=== PATIENT | male | born 1930 | race African-American/Black ===

== ENCOUNTER 2016-09-24 18:42 | Emergency (ER) | payer MEDICAID, MEDICARE ==
--- NOTE | 2016-09-24 18:49 | ER Document Report ---
ED Medical Screen (RME) - General Stated Complaint: EAR PAIN Notes: Left ear pain for 3 days. I greeted and performed a rapid initial assessment of this patient. Comprehensive ED assessment and evaluation of the patient, analysis of test results and completion of the medical decision making process will be conducted by additional ED providers. TRAVEL OUTSIDE OF THE [place] IN LAST 30 DAYS: No - Related Data Allergies/Adverse Reactions: lorazepam [From Ativan] Adverse Reaction (Severe, Verified 07/23/14 05:12) Abnormal behavior Past Medical History - Past Medical History Cardiac Medical History: Reports: Hx Hypercholesterolemia, Hx Hypertension, Hx Peripheral Vascular Disease Pulmonary Medical History: Reports: Hx Pneumonia Neurological Medical History: Reports: Hx Cerebrovascular Accident, Hx Seizures Malignancy Medical History: Reports Hx Prostate Cancer GI Medical History: Reports: Hx Gastroesophageal Reflux Disease Musculoskeltal Medical History: Reports Hx Arthritis Psychiatric Medical History: Denies: Hx Depression Past Surgical History: Reports: Hx Orthopedic Surgery - Right knee, Hx Vascular Surgery - Immunizations Immunizations up to date: No Hx Diphtheria, Pertussis, Tetanus Vaccination: Yes
[2016-09-24 18:50] VITALS: BP 142/61
[2016-09-24] MEDS ORDERED: ACETAMINOPHEN 325 MG TABLET PO ONE (19:11)
--- NOTE | 2016-09-24 19:11 | ER Document Report ---
[id number] Notes: The patient is an 86-year-old male, past medical history hypertension, presents with 3 days of left ear pain. He has not taken anything to help. Denies drainage, fevers, headache or increased difficulty hearing. TRAVEL OUTSIDE OF THE [place] IN LAST 30 DAYS: No - Related Data Allergies/Adverse Reactions: lorazepam [From Ativan] Adverse Reaction (Severe, Verified 09/24/16 18:50) Abnormal behavior Past Medical History - General Information source: Relative - Social History Smoking Status: Never Smoker Chew tobacco use (# tins/day): No Frequency of alcohol use: None Drug Abuse: None Family History: Reviewed & Not Pertinent Patient has suicidal ideation: No Patient has homicidal ideation: No - Past Medical History Cardiac Medical History: Reports: Hx Hypercholesterolemia, Hx Hypertension, Hx Peripheral Vascular Disease Pulmonary Medical History: Reports: Hx Pneumonia Neurological Medical History: Reports: Hx Cerebrovascular Accident, Hx Seizures Renal/ Medical History: Denies: Hx Peritoneal Dialysis Malignancy Medical History: Reports Hx Prostate Cancer GI Medical History: Reports: Hx Gastroesophageal Reflux Disease Musculoskeltal Medical History: Reports Hx Arthritis Psychiatric Medical History: Denies: Hx Depression Past Surgical History: Reports: Hx Orthopedic Surgery - Right knee, Hx Vascular Surgery - Immunizations Immunizations up to date: No Hx Diphtheria, Pertussis, Tetanus Vaccination: Yes Hx Pneumococcal Vaccination: 10/28/09 Review of Systems - Review of Systems Notes: REVIEW OF SYSTEMS: CONSTITUTIONAL: -fevers, -chills EENT: -eye pain, -difficulty swallowing, -nasal congestion, +left ear pain CARDIOVASCULAR:-chest pain, -syncope. RESPIRATORY: -cough, -SOB GASTROINTESTINAL: -abdominal pain, - nausea, -vomiting, -diarrhea GENITOURINARY: -dysuria, -hematuria MUSCULOSKELETAL: -back pain, -neck pain SKIN: -rash or skin lesions. HEMATOLOGIC: -easy bruising or bleeding. LYMPHATIC: -swollen, enlarged glands. NEUROLOGICAL: -altered mental status or loss of consciousness, -headache, - neurologic symptoms PSYCHIATRIC: -anxiety, -depression. ALL OTHER SYSTEMS REVIEWED AND NEGATIVE. Physical Exam - Vital signs Vitals: Temp Pulse BP Pulse Ox 97.9 F 56 L 142/61 H 98 09/24/16 18:49 09/24/16 18:49 09/24/16 18:49 09/24/16 18:49 - Notes Notes: PHYSICAL EXAMINATION: GENERAL: Well-appearing, well-nourished and in no acute distress. HEAD: Atraumatic, normocephalic. EYES: Pupils equal round and reactive to light, extraocular movements intact, sclera anicteric, conjunctiva are normal. ENT: Cerumen impaction in left ear. nares patent, oropharynx clear without exudates. Moist mucous membranes. NECK: Normal range of motion, supple without lymphadenopathy LUNGS: Breath sounds clear to auscultation bilaterally and equal. No wheezes rales or rhonchi. HEART: Regular rate and rhythm without murmurs ABDOMEN: Soft, nontender, normoactive bowel sounds. No guarding, no rebound. No masses appreciated. EXTREMITIES: Normal range of motion, no pitting or edema. No cyanosis. NEUROLOGICAL: Cranial nerves grossly intact. Normal speech, normal gait. Normal sensory, motor, and reflex exams. PSYCH: Normal mood, normal affect. SKIN: Warm, Dry, normal turgor, no rashes or lesions noted. Course - Re-evaluation Re-evalutation: Cerumen removed. TM appears clear. Will provide Debrox drops and follow-up with ENT. - Vital Signs Vital signs: Temp Pulse Resp BP Pulse Ox 97.9 F 56 L 16 142/61 H 98 09/24/16 18:49 09/24/16 18:49 09/24/16 18:50 09/24/16 18:49 09/24/16 18:49 Procedures - Additional Procedures Cerumen Removal Time performed: 19:23 Notes: Left ear cerumen removed with irrigation with saline. Patient tolerated procedure well. Discharge - Discharge Clinical Impression: Excessive cerumen in left ear canal Condition: Good Disposition: HOME, SELF-CARE Additional Instructions: Cerumen Impaction The physician found a severe buildup of earwax in your ear canal, called a cerumen impaction. A large plug of wax can cause earache, decreased hearing, or itching. It can even lead to infection of the outer ear. An impaction of earwax can be removed by the physician using special instruments, or can be irrigated out using a stream of water (often a little of both is required). Some less severe impactions are removed using ear drops that dissolve wax. In the future, don't get soap in your ear canal. Soap doesn't remove wax - - it simply hardens it in place. Don't use cotton swabs. These just push the wax into large clumps, where it doesn't flow out normally. Dust and smoke also contribute to wax buildup. Earwax softening drops are available without prescription, and can be used periodically. Contact the doctor if you develop decreased hearing, earache, drainage from the ear, or severe headache. Prescriptions: Carbamide Peroxide [Debrox 6.5 % Otic Drops 15 ml] 10 drop OT Q6H #1 bottle Referrals: ARYAN MONOTYA MD [[facility]] - Follow up as needed
== END 2016-09-24 19:20 | disposition home or self-care (01) ==
LOC: ER 18:42
DX: H61.22 Impacted cerumen, left ear (principal); H92.02 Otalgia, left ear; I10 Essential (primary) hypertension; E78.00 Pure hypercholesterolemia, unspecified; K21.9 Gastro-esophageal reflux disease without esophagitis; Z86.73 Personal history of transient ischemic attack (TIA), and cerebral infarction without residual deficits
CPT/HCPCS: 99282; A9270

== ENCOUNTER 2016-09-28 11:45 | Emergency (ER) | payer MEDICARE ==
[2016-09-28 11:57] VITALS: BP 123/56
--- NOTE | 2016-09-28 11:59 | ER Document Report ---
ED Medical Screen (RME) - General Stated Complaint: LEFT EAR PAIN Notes: 86 yo male c/o left ear pain x 3-4 days. pt was seen in ED Monday for same, Dx with cerumen impaction. Ear was irrigated, but says pain has continued. no bleeding or drainage. no fever. TRAVEL OUTSIDE OF THE [place] IN LAST 30 DAYS: No - Related Data Allergies/Adverse Reactions: lorazepam [From Ativan] Adverse Reaction (Severe, Verified 09/28/16 12:00) Abnormal behavior Past Medical History - Past Medical History Cardiac Medical History: Reports: Hx Hypercholesterolemia, Hx Hypertension, Hx Peripheral Vascular Disease Pulmonary Medical History: Reports: Hx Pneumonia Neurological Medical History: Reports: Hx Cerebrovascular Accident, Hx Seizures Renal/ Medical History: Denies: Hx Peritoneal Dialysis Malignancy Medical History: Reports Hx Prostate Cancer GI Medical History: Reports: Hx Gastroesophageal Reflux Disease Musculoskeltal Medical History: Reports Hx Arthritis Psychiatric Medical History: Denies: Hx Depression Past Surgical History: Reports: Hx Orthopedic Surgery - Right knee, Hx Vascular Surgery - Immunizations Immunizations up to date: No Hx Diphtheria, Pertussis, Tetanus Vaccination: Yes Physical Exam - Vital signs Vitals: Temp Pulse Resp BP Pulse Ox 97.9 F 52 L 20 123/56 L 100 09/28/16 11:56 09/28/16 11:56 09/28/16 11:56 09/28/16 11:56 09/28/16 11:56 Course - Vital Signs Vital signs: Temp Pulse Resp BP Pulse Ox 97.9 F 52 L 20 123/56 L 100 09/28/16 11:56 09/28/16 11:56 09/28/16 11:56 09/28/16 11:56 09/28/16 11:56
--- NOTE | 2016-09-28 13:24 | ER Document Report ---
ED ENT - General Chief Complaint: Ear Pain Stated Complaint: LEFT EAR PAIN Notes: Patient is complaining of persistent pain in his left ear which is been bothering him for about a week or so. He was seen here just 4 days ago and the chart reflects that he had cerumen impacted in the right canal and it was removed and they did not find anything else so put him on Debrox eardrops. Patient has been using them but with no relief. The pain is just in the left ear and it's painful to be touched or moved. It's "throbbing and beating". Has never had this in the past. Does not have headaches. Has not had any fever. No chest pain. No vomiting or diarrhea. No problems with vision. No rash present. TRAVEL OUTSIDE OF THE [place] IN LAST 30 DAYS: No - Related Data Allergies/Adverse Reactions: lorazepam [From Ativan] Adverse Reaction (Severe, Verified 09/28/16 12:00) Abnormal behavior Past Medical History - Social History Smoking Status: Never Smoker Cigarette use (# per day): No Chew tobacco use (# tins/day): No Frequency of alcohol use: None Drug Abuse: None Family History: Reviewed & Not Pertinent Patient has suicidal ideation: No Patient has homicidal ideation: No - Past Medical History Cardiac Medical History: Reports: Hx Hypercholesterolemia, Hx Hypertension, Hx Peripheral Vascular Disease Pulmonary Medical History: Reports: Hx Pneumonia Neurological Medical History: Reports: Hx Cerebrovascular Accident, Hx Seizures - No seizures for many years. Currently taking Keppra. Endocrine Medical History: Denies: Hx Diabetes Mellitus Type 1, Hx Diabetes Mellitus Type 2 Malignancy Medical History: Reports Hx Prostate Cancer GI Medical History: Reports: Hx Gastroesophageal Reflux Disease Musculoskeltal Medical History: Reports Hx Arthritis Past Surgical History: Reports: Hx Orthopedic Surgery - Right knee, Hx Vascular Surgery - Immunizations Immunizations up to date: No Hx Diphtheria, Pertussis, Tetanus Vaccination: Yes Hx Pneumococcal Vaccination: 10/28/09 Review of Systems - Review of Systems -: Yes ROS unobtainable due to patient's medical condition - Patient is very hard of hearing and doesn't answer questions put to him. Constitutional: denies: Fever Cardiovascular: denies: Chest pain Respiratory: denies: Cough, Short of breath, Wheezing Gastrointestinal: denies: Abdominal pain Neurological/Psychological: No symptoms reported - Hard of hearing Physical Exam - Vital signs Vitals: Temp Pulse Resp BP Pulse Ox 97.9 F 52 L 20 123/56 L 100 09/28/16 11:56 09/28/16 11:56 09/28/16 11:56 09/28/16 11:56 09/28/16 11:56 Interpretation: Normal - Notes Notes: PHYSICAL EXAMINATION: GENERAL: Well-appearing, in no acute distress. Neuro exam: Patient understands what's being said to him, but he is very hard of hearing and is difficult to get him to answer any questions. That makes a review of systems very limited. Patient uses a walker for routine ambulation. He does not have it with him. He can move all 4 extremities equally. HEAD: Atraumatic, normocephalic. ENT: oropharynx clear without exudates. Moist mucous membranes. Patient has tenderness to the touch around the left auditory meatus. The canal has apparent liquid drops in and making visualization of any the structures almost impossible. There is no significant soft tissue swelling visible nor palpable around the external ear. No erythema. Patient's very hard of hearing. NECK: Normal range of motion, supple. LUNGS: Breath sounds clear and equal bilaterally. HEART: Regular rate and rhythm without murmurs. ABDOMEN: Soft, nontender. No guarding or rebound. BACK: No tenderness throughout entire back. EXTREMITIES: Normal range of motion without pain. PSYCH: Normal mood, normal affect. SKIN: Warm, dry, no rashes. Course - Re-evaluation Re-evalutation: 09/28/16 14:24 I called the ENT office and found that this patient has an appointment on the of this month, a week from now. They were able to check their availability and move him forward and see him tomorrow at 1 PM area and I think that's a reasonable timeframe to have this rechecked given that the patient does not have a fever, does not have any swelling, erythema, rash, or any other findings that would indicate a more urgently needed appointment. Patient is being given a prescription for 6 Percocet 2.5 mg for pain. - Vital Signs Vital signs: Temp Pulse Resp BP Pulse Ox 97.9 F 52 L 20 123/56 L 100 09/28/16 11:56 09/28/16 11:56 09/28/16 11:56 09/28/16 11:56 09/28/16 11:56 Discharge - Discharge Clinical Impression: Left ear pain Condition: Stable Disposition: HOME, SELF-CARE Additional Instructions: OTITIS EXTERNA: You likely have otitis externa -- an infection of the outer ear canal. This can be very painful. It's sometimes called "swimmer's ear," because it often occurs after prolonged water exposure. Many things, such as earwax and dirt in the ear, can contribute to it. The usual treatment is antibiotic/antiinflammatory ear drops. Occasionally , a wick will be placed in the ear to draw in the medicine. If the infection is severe, an oral antibiotic may be prescribed. Pain medication is often needed. Avoid getting water in the ear. Outer ear infections often take longer to heal than you might expect. Some tenderness and ache in the ear may persist for about two weeks. See your physician if you fail to improve as expected. Call the doctor at once if you develop fever, increasing swelling (particularly if it makes your ear "poke out"), severe headache, stiff neck, or decreased hearing. Stop using the eardrops that you were previously prescribed. ORAL NARCOTIC MEDICATION: You have been given a prescription for pain control. This medication is a narcotic. It's best taken with food, as nausea can result if taken on an empty stomach. Don't operate machinery or drive within six hours of taking this medication. Do not combine this medicine with alcohol, or with any medication which can cause sedation (such as cold tablets or sleeping pills) unless you get permission from the physician. Narcotics tend to cause constipation. If possible, drink plenty of fluids and eat a diet high in fiber and fruits. FOLLOW-UP CARE: If you have been referred to a physician for follow-up care, call the physician s office for an appointment as you were instructed or within the next two days. If you experience worsening or a significant change in your symptoms, notify the physician immediately or return to the Emergency Department at any time for re-evaluation. It is essential that you make it to your rescheduled appointment to be seen by the ear nose and throat doctors at 1 PM tomorrow, , September 29. Prescriptions: Oxycodone HCl/Acetaminophen [Percocet 2.5-325 Mg Tablet] 1 each PO Q6HP PRN #6 tablet PRN Reason: Referrals: MEHDI LAWSON MD [Primary Care Provider] - Follow up as needed [facility] - 09/29/16 1:00 pm
== END 2016-09-28 13:30 | disposition home or self-care (01) ==
LOC: ER 11:45
DX: H92.02 Otalgia, left ear (principal); I10 Essential (primary) hypertension; H91.90 Unspecified hearing loss, unspecified ear; Z86.73 Personal history of transient ischemic attack (TIA), and cerebral infarction without residual deficits
CPT/HCPCS: 99282

== ENCOUNTER 2017-04-11 13:51 | Emergency (ER) | payer MEDICARE, MEDICAID ==
--- NOTE | 2017-04-11 14:51 | ER Document Report ---
ED Seizure - General Chief Complaint: Probable Seizure Stated Complaint: SEIZURE Time Seen by Provider: 04/11/17 14:48 Notes: Patient was brought by EMS for a seizure. Patient's son apparently called EMS to transport the patient. They were told that the patient has had a single seizure lasting several minutes, maybe 5 minutes. Patient has a history of seizure and is on Keppra. He did not appear to have any bowel or urinary incontinence. Does not have any evidence of any injuries or trauma. Patient has a history of dementia and is not a very helpful historian. No family members here with the patient and from what I am told, the patient's son is declining to come to the emergency department. Patient does not provide any other helpful information. - Related Data Allergies/Adverse Reactions: lorazepam [From Ativan] Adverse Reaction (Severe, Verified 09/28/16 12:00) Abnormal behavior Past Medical History - Social History Smoking Status: Unknown if Ever Smoked Family History: Reviewed & Not Pertinent - Past Medical History Cardiac Medical History: Reports: Hx Hypercholesterolemia, Hx Hypertension, Hx Peripheral Vascular Disease Pulmonary Medical History: Reports: Hx Pneumonia Neurological Medical History: Reports: Hx Cerebrovascular Accident, Hx Seizures - No seizures for many years. Currently taking Keppra. Endocrine Medical History: Denies: Hx Diabetes Mellitus Type 1, Hx Diabetes Mellitus Type 2 Renal/ Medical History: Denies: Hx Peritoneal Dialysis Malignancy Medical History: Reports Hx Prostate Cancer GI Medical History: Reports: Hx Gastroesophageal Reflux Disease Musculoskeltal Medical History: Reports Hx Arthritis Psychiatric Medical History: Denies: Hx Depression Past Surgical History: Reports: Hx Orthopedic Surgery - Right knee, Hx Vascular Surgery - Immunizations Immunizations up to date: No Hx Diphtheria, Pertussis, Tetanus Vaccination: Yes Hx Pneumococcal Vaccination: 10/28/09 Review of Systems - Review of Systems -: Yes ROS unobtainable due to patient's medical condition - Patient has dementia and does not answer questions appropriately. Physical Exam - Vital signs Vitals: Temp Pulse Resp BP Pulse Ox 98.4 F 54 L 18 150/60 H 97 04/11/17 14:05 04/11/17 14:05 04/11/17 14:05 04/11/17 14:05 04/11/17 14:05 Interpretation: Normal - Notes Notes: PHYSICAL EXAMINATION: GENERAL: Well-appearing, in no acute distress. Vital signs are all stable. HEAD: Atraumatic, normocephalic. NECK: Normal range of motion, supple. LUNGS: Breath sounds clear and equal bilaterally. HEART: Regular rate and rhythm without murmurs. ABDOMEN: Soft, nontender. No guarding or rebound. BACK: No tenderness throughout entire back. EXTREMITIES: Normal range of motion without pain. NEUROLOGICAL: Normal speech, but confused and does not answer questions or follow commands appropriately. Moves all 4 extremities equally. He is awake and alert, but not oriented. PSYCH: Normal mood, normal affect. SKIN: Warm, dry, no rashes. Course - Re-evaluation Re-evalutation: 04/11/17 17:46 All the patient's lab work has come back essentially normal. Nothing that suggest an infectious process or a new condition. Discussed the patient with Dr. Truong, patient's private doctor. And he feels patient can be discharged office. Says the patient is usually noncompliant on his antiseizure medicines. 04/11/17 20:41 Patient was evaluated with lab studies that were all essentially normal. He remained stable throughout his stay. His vital signs remained stable. He did not have any seizure activity. - Vital Signs Vital signs: Temp Pulse Resp BP Pulse Ox 98.2 F 58 L 16 142/65 H 98 04/11/17 18:28 04/11/17 18:28 04/11/17 18:28 04/11/17 18:28 04/11/17 18:28 - Laboratory Result Diagrams: 04/11/17 15:30 04/11/17 15:30 Laboratory results interpreted by me: 04/11/17 04/11/17 04/11/17 15:30 15:30 15:40 RBC 3.71 L Hgb 11.7 L Hct 34.7 L Plt Count 139 L Chloride 109 H BUN 21 H ALT 17 L Total Protein 8.5 H Urine Blood SMALL H Discharge - Discharge Clinical Impression: Seizure Condition: Stable Disposition: HOME, SELF-CARE Additional Instructions: Seizure, Known Epileptic You have had a seizure. Seizures may "break through" in an epileptic due to stress of infection or injury, a change in blood chemistry, or drug and alcohol use. Another common cause is failure to take medication as prescribed. Your doctor has evaluated your situation for the likely cause of this seizure. It is important that you follow his advice concerning any medication changes and follow-up care. Further testing of anti-seizure medication levels in your blood may be necessary. If you have a road oiling truck driver's license, it's important that you DO NOT DRIVE until given permission by your physician. This seizure must be reported to the road oiling truck driver 's license bureau. Call the doctor or return if seizures recur, or if new or unusual symptoms arise -- such as severe headache, confusion, excessive sleepiness, local weakness or numbness, neck stiffness, or fever. NORMAL EXAM AND WORKUP: At this time, your examination and workup show no significant abnormality. No significant abnormal physical findings were noted. All laboratory, EKG, and imaging (x-ray, CT scans, ultrasound) studies that were ordered show no significant abnormality. Although your examination and all studies that were ordered showed no significant abnormal finding, there are no examinations and no studies that are 100% accurate. There is always the possibility that some abnormality could exist and not be detected with physical examination or within the limits and capabilities of laboratory and other studies. You should return or follow up as you were instructed on your visit today for further evaluation if your symptoms do not resolve. FOLLOW-UP CARE: If you have been referred to a physician for follow-up care, call the physician s office for an appointment as you were instructed or within the next two days. If you experience worsening or a significant change in your symptoms, notify the physician immediately or return to the Emergency Department at any time for re-evaluation. Follow-up with Dr. Truong, as planned. Take your seizure medicines as prescribed. Return if you have new or worsening symptoms. Referrals: MEHDI LAWSON MD [Primary Care Provider] - Follow up as needed
[2017-04-11 15:46] LABS: ABSOLUTE BASOPHILS # (AUTO) 0.1 10^3/uL (0.0-0.2); ABSOLUTE EOSINOPHILS # (AUTO) 0.2 10^3/uL (0.0-0.6); ABSOLUTE LYMPHOCYTES (AUTO) 1.2 10^3/uL (0.5-4.7); ABSOLUTE MONOCYTES (AUTO) 0.6 10^3/uL (0.1-1.4); ABSOLUTE NEUT (AUTO) 2.6 10^3/uL (1.7-8.2); BASOPHILS % (AUTO) 1.5 % (0-2); EOSINOPHILS % (AUTO) 3.2 % (0-6); HEMATOCRIT 34.7 % (37.9-51.0); HEMOGLOBIN 11.7 g/dL (13.5-17.0); HGB HCT DIFFERENCE 0.4; LYMPHOCYTES % (AUTO) 26.1 % (13-45); MEAN CORPUSCULAR HEMOGLOBIN 31.5 pg (27.0-33.4); MEAN CORPUSCULAR HGB CONC 33.7 g/dL (32.0-36.0); MEAN CORPUSCULAR VOLUME 94 fl (80-97); RED BLOOD COUNT 3.71 10^6/uL (4.35-5.55); SEGMENTED NEUTROPHILS % (AUTO) 56.2 % (42-78); WHITE BLOOD COUNT 4.7 10^3/uL (4.0-10.5)
[2017-04-11 15:54] LABS: APPEARANCE,URINE CLEAR; BILIRUBIN,URINE NEGATIVE (NEGATIVE); GLUCOSE, URINE NEGATIVE (NEGATIVE); KETONES,URINE NEGATIVE (NEGATIVE); LEUKOCYTE ESTERASE,URINE NEGATIVE (NEGATIVE); NITRITE,URINE NEGATIVE (NEGATIVE); PROTEIN,URINE NEGATIVE (NEGATIVE); URINE SPECIFIC GRAVITY 1.009; UROBILINOGEN,URINE NEGATIVE mg/dL (<2.0)
[2017-04-11 15:57] LABS: ALANINE AMINOTRANSFERASE 17 U/L (21-72); ALBUMIN 4.3 g/dL (3.5-5.0); ALKALINE PHOSPHATASE 102 U/L (38-126); ANION GAP 12 (5-19); ASPARTATE AMINO TRANSFERASE 26 U/L (17-59); BILIRUBIN,DIRECT 0.4 mg/dL (0.0-0.4); BILIRUBIN,TOTAL 0.6 mg/dL (0.2-1.3); BLOOD UREA NITROGEN 21 mg/dL (7-20); CALCIUM 9.5 mg/dL (8.4-10.2); CARBON DIOXIDE 22 mmol/L (22-30); CHLORIDE 109 mmol/L (98-107); CREATININE RESULT 1.12 mg/dL (0.52-1.25); GLUCOSE 100 mg/dL (75-110); MAGNESIUM 1.7 mg/dL (1.6-2.3); POTASSIUM 3.9 mmol/L (3.6-5.0); TOTAL PROTEIN 8.5 g/dL (6.3-8.2)
[2017-04-11 15:59] LABS: ALCOHOL < 10 mg/dL (NONE DETECTED)
[2017-04-11 16:06] LABS: URINE BARBITURATES SCREEN NEGATIVE; URINE METHADONE SCREEN NEGATIVE; URINE OPIATES LOW NEGATIVE; URINE PHENCYCLIDINE SCREEN NEGATIVE
--- NOTE | 2017-04-11 16:45 | RADIOLOGY REPORT (SQ) ---
EXAM DESCRIPTION: CHEST PA/LAT COMPLETED DATE/TIME: 04/11/2017 4:38 pm REASON FOR STUDY: seizure COMPARISON: 11/08/2014. NUMBER OF VIEWS: Two view. TECHNIQUE: Frontal and lateral radiographic views of the chest acquired. LIMITATIONS: None. FINDINGS: LUNGS AND PLEURA: Chronic interstitial scarring. Calcified pleural plaques. No infiltrat es, masses or pneumothorax. No pleural effusion. Attenuated blood vessels and flattened rasheed-diaphrag ms. MEDIASTINUM AND HILAR STRUCTURES: No masses. No contour abnormalities. HEART AND VASCULAR STRUCTURES: Heart upper limits of normal in size. No evidence for failure. BONES: No acute findings. Degenerative changes in the spine. Old rib fractures. HARDWARE: None in the chest. OTHER: No other significant finding. IMPRESSION: COPD. STABLE CHRONIC CHANGES. NO ACUTE RADIOGRAPHIC FINDING IN THE CHEST. TECHNICAL DOCUMENTATION: JOB ID: [id number] [employer]- All Rights Reserved
[2017-04-11 18:29] VITALS: BP 142/65
== END 2017-04-11 18:29 | disposition home or self-care (01) ==
LOC: ER 13:51
DX: R56.9 Unspecified convulsions (principal); Z79.899 Other long term (current) drug therapy; F03.90 Unspecified dementia, unspecified severity, without behavioral disturbance, psychotic disturbance, mood disturbance, and anxiety; I10 Essential (primary) hypertension; Z86.73 Personal history of transient ischemic attack (TIA), and cerebral infarction without residual deficits; Z85.46 Personal history of malignant neoplasm of prostate
CPT/HCPCS: 36415; 71020; 80053; 80307; 81001; 83735; 85025; 99284

== ENCOUNTER 2017-09-08 16:28 | Emergency (ER) | payer MEDICARE, MEDICAID ==
[2017-09-08] MEDS ORDERED: NORMAL SALINE 1000 ML 1,000 ML IV PRN (16:38)
--- NOTE | 2017-09-08 16:41 | ER Document Report ---
ED General - General Stated Complaint: ALTERED MENTAL STATUS Time Seen by Provider: 09/08/17 16:37 Mode of Arrival: Stretcher Information source: Emergency Med Personnel Notes: 87 years old male was started on promethazine 100 mg by the primary care physician, he took the first dose this morning and since then being sleepy and difficult to arouse, therefore he was referred to the ED. No history could be obtained from him because he is very sleepy, respond to verbal stimuli by opening the eyes and looking at as but would not talk much. No further history is available TRAVEL OUTSIDE OF THE [place] IN LAST 30 DAYS: No - Related Data Allergies/Adverse Reactions: lorazepam [From Ativan] Adverse Reaction (Severe, Verified 09/28/16 12:00) Abnormal behavior Home Medications: Current Home Medications Chlorpromazine HCl [Chlorpromazine HCL 100 mg Tablet] 1 tab PO BID 09/08/17 [ History] Doxepin HCl [Silenor] 6 mg PO BID 09/08/17 [History] Valsartan/Hydrochlorothiazide [Valsartan-Hctz 160-25 mg Tab] 1 each PO DAILY [History] Past Medical History - General Cannot obtain history due to: Mentally challenged - Social History Smoking Status: Smoker,Current Status Unk Family History: Reviewed & Not Pertinent, CAD, Hyperlipidemia, Hypertension - Past Medical History Cardiac Medical History: Reports: Hx Hypercholesterolemia, Hx Hypertension, Hx Peripheral Vascular Disease Pulmonary Medical History: Reports: Hx Pneumonia Neurological Medical History: Reports: Hx Cerebrovascular Accident, Hx Seizures - No seizures for many years. Currently taking Keppra. Endocrine Medical History: Denies: Hx Diabetes Mellitus Type 1, Hx Diabetes Mellitus Type 2 Renal/ Medical History: Denies: Hx Peritoneal Dialysis Malignancy Medical History: Reports Hx Prostate Cancer GI Medical History: Reports: Hx Gastroesophageal Reflux Disease Musculoskeltal Medical History: Reports Hx Arthritis Psychiatric Medical History: Denies: Hx Depression Past Surgical History: Reports: Hx Orthopedic Surgery - Right knee, Hx Vascular Surgery - Immunizations Immunizations up to date: No Hx Diphtheria, Pertussis, Tetanus Vaccination: Yes Hx Pneumococcal Vaccination: 10/28/09 Review of Systems - Review of Systems -: Yes ROS unobtainable due to patient's medical condition Physical Exam - Vital signs Vitals: Resp 16 09/08/17 16:40 - Notes Notes: PHYSICAL EXAMINATION: GENERAL: Well-appearing, well-nourished and very sleepy HEAD: Atraumatic, normocephalic. EYES: Pupils equal round and reactive to light, extraocular movements intact, sclera anicteric, conjunctiva are normal. ENT: Nares patent, oropharynx clear without exudates. Moist mucous membranes. NECK: Normal range of motion, supple without lymphadenopathy LUNGS: Breath sounds clear to auscultation bilaterally and equal. No wheezes rales or rhonchi. HEART: Regular rate and rhythm without murmurs ABDOMEN: Soft, nontender, nondistended abdomen. No guarding, no rebound. No masses appreciated. Musculoskeletal: Normal range of motion, no pitting or edema. No cyanosis. NEUROLOGICAL: Cranial nerves grossly intact. Normal speech, normal gait. Normal sensory, motor exams PSYCH: Normal mood, normal affect. SKIN: Warm, Dry, normal turgor, no rashes or lesions noted. Course - Re-evaluation Re-evalutation: 09/08/17 20:22 After IV hydration he came around he was fully alert he did not realize that he was sleeping all this time. - Vital Signs Vital signs: Temp Pulse Resp BP Pulse Ox 15 126/75 H 100 09/08/17 18:07 09/08/17 18:40 09/08/17 18:07 - Laboratory Result Diagrams: 09/08/17 16:53 09/08/17 16:53 Laboratory results interpreted by me: 09/08/17 09/08/17 16:53 16:53 RBC 3.98 L Hgb 12.4 L Hct 37.3 L Chloride 108 H Carbon Dioxide 19 L BUN 23 H Est GFR (Non-Af Amer) 55 L Glucose 123 H ALT 19 L Discharge - Discharge Clinical Impression: Drowsiness Adverse effects of medication Qualifiers: Encounter type: initial encounter Qualified Code(s): T88.7XXA - Unspecified adverse effect of drug or medicament, initial encounter Condition: Fair Disposition: HOME, SELF-CARE Additional Instructions: Medication adverse effect-he has been asked to stop taking prochlorperazine
[2017-09-08 18:13] LABS: ABSOLUTE BASOPHILS # (AUTO) 0.1 10^3/uL (0.0-0.2); ABSOLUTE EOSINOPHILS # (AUTO) 0.1 10^3/uL (0.0-0.6); ABSOLUTE LYMPHOCYTES (AUTO) 0.9 10^3/uL (0.5-4.7); ABSOLUTE MONOCYTES (AUTO) 0.5 10^3/uL (0.1-1.4); ABSOLUTE NEUT (AUTO) 4.9 10^3/uL (1.7-8.2); EOSINOPHILS % (AUTO) 0.8 % (0-6); HEMATOCRIT 37.3 % (37.9-51.0); HEMOGLOBIN 12.4 g/dL (13.5-17.0); LYMPHOCYTES % (AUTO) 13.4 % (13-45); MEAN CORPUSCULAR HEMOGLOBIN 31.1 pg (27.0-33.4); MEAN CORPUSCULAR HGB CONC 33.2 g/dL (32.0-36.0); MEAN CORPUSCULAR VOLUME 94 fl (80-97); MONOCYTES % (AUTO) 8.3 % (3-13); PLATELET COUNT 165 10^3/uL (150-450); RED BLOOD COUNT 3.98 10^6/uL (4.35-5.55); RED CELL DISTRIBUTION WIDTH 13.5 % (11.5-14.0); SEGMENTED NEUTROPHILS % (AUTO) 76.5 % (42-78); TOTAL CELLS COUNTED % (AUTO) 100 %; WHITE BLOOD COUNT 6.4 10^3/uL (4.0-10.5)
[2017-09-08 18:27] LABS: ALANINE AMINOTRANSFERASE 19 U/L (21-72); ALBUMIN 4.3 g/dL (3.5-5.0); ALKALINE PHOSPHATASE 86 U/L (38-126); ANION GAP 16 (5-19); ASPARTATE AMINO TRANSFERASE 18 U/L (17-59); BILIRUBIN,DIRECT 0.2 mg/dL (0.0-0.4); BILIRUBIN,TOTAL 0.3 mg/dL (0.2-1.3); BLOOD UREA NITROGEN 23 mg/dL (7-20); CARBON DIOXIDE 19 mmol/L (22-30); CHLORIDE 108 mmol/L (98-107); GLUCOSE 123 mg/dL (75-110); POTASSIUM 4.5 mmol/L (3.6-5.0); SODIUM 142.6 mmol/L (137-145)
[2017-09-08 18:40] VITALS: BP 126/75
== END 2017-09-08 20:30 | disposition home or self-care (01) ==
LOC: ER 16:28
DX: R40.0 Somnolence (principal); T43.3X5A Adverse effect of phenothiazine antipsychotics and neuroleptics, initial encounter; I10 Essential (primary) hypertension; E11.9 Type 2 diabetes mellitus without complications; Z86.73 Personal history of transient ischemic attack (TIA), and cerebral infarction without residual deficits; Z85.46 Personal history of malignant neoplasm of prostate
CPT/HCPCS: 99285; 96360; 36415; 85025; 80053; J7030

== ENCOUNTER 2017-10-16 16:46 | Inpatient (IN) | payer MEDICARE, MEDICAID ==
[2017-10-16] MEDS ORDERED: INFLUENZA ADLT QUAD (36MOS+) 2017-18 VAC 0.5 ML SYR IM PRN (17:13)
[2017-10-16 19:41] LABS: HEMATOCRIT 38.3 % (37.9-51.0); HEMOGLOBIN 12.7 g/dL (13.5-17.0); MEAN CORPUSCULAR HEMOGLOBIN 30.7 pg (27.0-33.4); MEAN CORPUSCULAR HGB CONC 33.1 g/dL (32.0-36.0); MEAN CORPUSCULAR VOLUME 93 fl (80-97); PLATELET COUNT 186 10^3/uL (150-450); RED BLOOD COUNT 4.13 10^6/uL (4.35-5.55); RED CELL DISTRIBUTION WIDTH 13.5 % (11.5-14.0); WHITE BLOOD COUNT 5.8 10^3/uL (4.0-10.5)
[2017-10-16 20:01] LABS: ALANINE AMINOTRANSFERASE 10 U/L (21-72); ALBUMIN 4.6 g/dL (3.5-5.0); ALKALINE PHOSPHATASE 71 U/L (38-126); ANION GAP 18 (5-19); ASPARTATE AMINO TRANSFERASE 16 U/L (17-59); BILIRUBIN,DIRECT 0.1 mg/dL (0.0-0.4); BILIRUBIN,TOTAL 0.4 mg/dL (0.2-1.3); BLOOD UREA NITROGEN 28 mg/dL (7-20); CALCIUM 10.3 mg/dL (8.4-10.2); CARBON DIOXIDE 17 mmol/L (22-30); CHLORIDE 110 mmol/L (98-107); CREATINE KINASE 101 U/L (55-170); GLUCOSE 81 mg/dL (75-110); TOTAL PROTEIN 7.9 g/dL (6.3-8.2)
--- NOTE | 2017-10-16 20:02 | Operative Report ---
Operative Report DATE OF SURGERY: 10/16/17 PREOPERATIVE DIAGNOSIS: Acute neurologic deficit POSTOPERATIVE DIAGNOSIS: Same OPERATION: 1. Focused ultrasound right neck. 2. Ultrasound directed insertion of right internal jugular vein triple-lumen access catheter SURGEON: YOLI PAREDES ANESTHESIA: Local TISSUE REMOVED OR ALTERED: None COMPLICATIONS: None ESTIMATED BLOOD LOSS: None INTRAOPERATIVE FINDINGS: See below PROCEDURE: Informed consent was obtained. The patient was placed in Trendelenburg the right neck and chest wall were exposed, and prepped and draped in a sterile fashion. Surgical plan and surgical timeout discussed. The right neck was anesthetized with 1% lidocaine without epinephrine. Using the variable frequency linear transducer, real time, a 18-gauge needle and wire were threaded into the right internal jugular vein. The tract was dilated up, the dilator removed, and the triple-lumen central venous access catheter was threaded into the right internal jugular vein uneventfully to the hub. There was excellent aspiration and flush of saline through all 3 lumens. The catheter was affixed to the skin with a Biopatch and 2-0 silk suture; sterile dressing applied. The patient tolerated the procedure well. There were no complications. Portable upright chest x-ray pending at time of dictation.
[2017-10-16 20:12] LABS: CREATINE KINASE MB 1.16 ng/mL (<4.55)
[2017-10-16 20:13] LABS: TROPONIN I < 0.012 ng/mL
[2017-10-16] MEDS ORDERED: NORMAL SALINE 1000 ML 1,000 ML IV PRN (21:44)
--- NOTE | 2017-10-16 22:17 | RADIOLOGY REPORT (SQ) ---
EXAM DESCRIPTION: MRI HEAD WITHOUT COMPLETED DATE/TIME: 10/16/2017 9:54 pm REASON FOR STUDY: CVA COMPARISON: None. TECHNIQUE: Multiplanar imaging includes non-contrasted T1, T2, FLAIR, and diffusion with ADC map seq uences. Images stored on PACS. LIMITATIONS: None. FINDINGS: ANATOMY: No anomalies. Normal vascular flow voids. Pituitary fossa normal. CSF SPACES: Atrophy induced prominence of ventricles and CSF spaces. CEREBRUM: High signal intensity lesions scattered throughout the white matter on FLAIR imaging with d istribution suggesting micro-vascular ischemic changes. No evidence of hemorrhage, mass, or extraaxi al fluid collection. POSTERIOR FOSSA: No signal alteration. No hemorrhage. No edema, masses or mass effect. Internal shila tory canals, cerebello-pontine angles, mastoids normal. DIFFUSION IMAGING: Positive for acute or sub-acute infarction with a 1.6 cm ovoid area of restricted diffusion in the right cerebellar peduncle -pontine junction. ORBITS: No masses. Globes normal. PARANASAL SINUSES: No fluid levels. Mild mucosal thickening in the maxillary and ethmoid sinuses. OTHER: Small mastoid effusions. IMPRESSION: 1.6 cm ovoid acute -subacute infarct in the right cerebellar peduncle -pontine junction. No intracranial hemorrhage or mass effect. EVIDENCE OF ACUTE STROKE: Yes RIGHT VERTEBROBASILAR TECHNICAL DOCUMENTATION: JOB ID: [id number] [place]-72 2010 [employer]- All Rights Reserved
--- NOTE | 2017-10-16 22:28 | PDOC H&P ---
History of Present Illness Admission Date/PCP: 10/16/17 16:46 MEHDI LAWSON MD History of Present Illness: CAITLYN ROOT is a 87 year old male, He came to the office today for evaluation of ataxia, gait abnormality, loss of balance, his ambulation was supported with a wheelchair, cerebellar stroke was suspected, he was admitted directly into the hospital, MRI brain was done it confirm right cerebellar stroke Past Medical History Cardiac Medical History: Reports: Hyperlipidema, Hypertension, Peripheral Vascular Disease Pulmonary Medical History: Reports: Pneumonia Neurological Medical History: Reports: Seizures - No seizures for many years. Currently taking Keppra. GI Medical History: Reports: Gastroesophageal Reflux Disease Musculoskeltal Medical History: Reports: Arthritis Past Surgical History Past Surgical History: Reports: Orthopedic Surgery - Right knee, Vascular Surgery Social History Smoking Status: Former Smoker Last Time Smoked: 1959 Frequency of Alcohol Use: None Hx Recreational Drug Use: No Hx Prescription Drug Abuse: No Family History Family History: Reviewed & Not Pertinent, CAD, Hyperlipidemia, Hypertension Parental Family History Reviewed: Yes Children Family History Reviewed: Yes Sibling(s) Family History Reviewed.: Yes Medication/Allergy Home Medications: Acetaminophen [Tylenol Extra Strength] 500 mg PO TID 10/16/17 Atorvastatin Calcium [Lipitor 40 mg Tablet] 40 mg PO QHS 10/16/17 Chlorpheniramine Maleate [Chlor-Trimeton 4 Mg Tablet] 4 mg PO Q6HP PRN 10/16/17 Chlorpromazine HCl [Chlorpromazine HCL 100 mg Tablet] 100 mg PO BID 10/16/17 Clopidogrel Bisulfate [Plavix 75 mg Tablet] 75 mg PO DAILY 10/16/17 Diclofenac Sodium [Voltaren] 1 applic TP QID 10/16/17 Doxepin HCl [Silenor] 6 mg PO DAILY 10/16/17 Levetiracetam [Keppra 500 mg Tablet] 500 mg PO Q12 10/16/17 Meclizine HCl [Antivert 25 mg Tablet] 25 mg PO TID PRN 10/16/17 Meloxicam [Mobic] 15 mg PO DAILY 10/16/17 Montelukast Sodium [Singulair 10 mg Tablet] 10 mg PO QHS 10/16/17 Olopatadine HCl [Pataday] 2.5 ml OP ASDIR PRN 10/16/17 Olopatadine HCl [Patanol 0.1% Oph Soln 5 Ml Bottle] 1 drop OP BID 10/16/17 Omeprazole 40 mg PO DAILY 10/16/17 Tamsulosin HCl [Flomax 0.4 mg Cap.sr] 0.4 mg PO DAILY 10/16/17 Temazepam [Restoril] 30 mg PO HSP PRN 10/16/17 Valsartan/Hydrochlorothiazide [Diovan Hct 160-25 mg Tablet] 1 tab PO DAILY 10/16 Zolpidem Tartrate [Ambien] 10 mg PO QHS 10/16/17 Allergies/Adverse Reactions: lorazepam [From Ativan] Adverse Reaction (Severe, Verified 09/28/16 12:00) Abnormal behavior Review of Systems Constitutional: PRESENT: chills Cardiovascular: ABSENT: chest pain, dyspnea on exertion, edema, orthropnea, palpitations Respiratory: ABSENT: cough, hemoptysis Gastrointestinal: ABSENT: abdominal pain, constipation, diarrhea, hematemesis, hematochezia, nausea, vomiting Genitourinary: ABSENT: dysuria, hematuria Musculoskeletal: ABSENT: joint swelling Integumentary: ABSENT: rash, wounds Neurological: PRESENT: abnormal gait, paresthesias. ABSENT: abnormal speech, confusion, dizziness, focal weakness, syncope Psychiatric: ABSENT: anxiety, depression, homidical ideation, suicidal ideation Endocrine: ABSENT: cold intolerance, heat intolerance, menstrual abnormalities, polydipsia, polyuria Hematologic/Lymphatic: ABSENT: easy bleeding, easy bruising, lymphadenopathy Physical Exam Vital Signs: Temp Pulse Resp BP Pulse Ox 97.7 F 48 L 14 132/57 H 100 10/16/17 20:11 10/16/17 20:11 10/16/17 20:11 10/16/17 20:11 10/16/17 20:11 Intake & Output 10/15/17 10/16/17 10/17/17 06:59 06:59 06:59 Weight 67.8 kg General appearance: PRESENT: no acute distress, well-developed, well-nourished Head exam: PRESENT: atraumatic, normocephalic Eye exam: PRESENT: conjunctiva pink, EOMI, PERRLA Ear exam: PRESENT: normal external ear exam Mouth exam: PRESENT: moist, tongue midline Neck exam: PRESENT: full ROM Respiratory exam: PRESENT: clear to auscultation kane Cardiovascular exam: PRESENT: +S1, +S2 Vascular exam: PRESENT: normal capillary refill GI/Abdominal exam: PRESENT: normal bowel sounds, soft Rectal exam: PRESENT: deferred Neurological exam: PRESENT: alert, abnormal gait. ABSENT: motor sensory deficit Psychiatric exam: PRESENT: appropriate affect, normal mood Skin exam: PRESENT: dry, intact, warm Results Laboratory Results: 10/16/17 18:25 10/16/17 18:25 10/16/17 10/16/17 18:25 18:25 WBC 5.8 RBC 4.13 L Hgb 12.7 L Hct 38.3 MCV 93 MCH 30.7 MCHC 33.1 RDW 13.5 Plt Count 186 Sodium 145.0 Potassium 5.0 Chloride 110 H Carbon Dioxide 17 L Anion Gap 18 BUN 28 H Creatinine 1.53 H Est GFR ( Amer) 52 L Est GFR (Non-Af Amer) 43 L Glucose 81 Calcium 10.3 H Total Bilirubin 0.4 AST 16 L ALT 10 L Alkaline Phosphatase 71 Total Protein 7.9 Albumin 4.6 10/16/17 10/16/17 18:25 18:25 Creatine Kinase 101 CK-MB (CK-2) 1.16 Troponin I < 0.012 Impressions: Head MRI 10/16/17 00:00 IMPRESSION: 1.6 cm ovoid acute -subacute infarct in the right cerebellar peduncle -pontine junction. No intracranial hemorrhage or mass effect. EVIDENCE OF ACUTE STROKE: Yes RIGHT VERTEBROBASILAR Assessment & Plan - Diagnosis (1) Cerebellar stroke, acute Is this a current diagnosis for this admission?: Yes Plan: This is probably embolic stroke, patient is admitted for management per stroke protocol (2) Hypertension Qualifiers: Hypertension type: essential hypertension Qualified Code(s): I10 - Essential (primary) hypertension Is this a current diagnosis for this admission?: Yes (3) Peripheral vascular disease Is this a current diagnosis for this admission?: Yes (4) Epilepsy Qualifiers: Epilepsy type: unspecified Intractability: not intractable Status epilepticus: without status epilepticus Qualified Code(s): G40.909 - Epilepsy , unspecified, not intractable, without status epilepticus Is this a current diagnosis for this admission?: Yes
[2017-10-16] MEDS ORDERED: (PENDING PHARMACY ID) (Valsartan/Hydrochlorothiazide [Diovan Hct 160-25 Mg Tablet] 1 TAB) PO SCH (22:30)
[2017-10-16] MEDS: NORMAL SALINE INJ/PF 0.9% 10 ML SDV IV PRN (22:33)
[2017-10-16] MEDS ORDERED: ASPIRIN/DIPYRIDAMOLE 25-200 MG 1 CAP.SR CPMP.12HR PO ONE (22:45)
[2017-10-16] MEDS ORDERED: LEVETIRACETAM 500 MG TABLET PO ONE (22:45)
[2017-10-16] MEDS ORDERED: VALSARTAN 160 MG TABLET PO ONE (22:45)
[2017-10-16] MEDS ORDERED: HYDROCHLOROTHIAZIDE 25 MG TABLET PO ONE (22:45)
[2017-10-16] MEDS ORDERED: ATORVASTATIN CALCIUM 40 MG TABLET PO ONE (22:45)
[2017-10-16] MEDS ORDERED: TAMSULOSIN HCL 0.4 MG CAP.SR.24H PO ONE (23:00)
--- NOTE | 2017-10-16 23:20 | RADIOLOGY REPORT (SQ) ---
EXAM DESCRIPTION: HIP BILATERAL COMPLETED DATE/TIME: 10/16/2017 10:31 pm REASON FOR STUDY: GAIT ABNORMALITY COMPARISON: None. NUMBER OF VIEWS: Two views. TECHNIQUE: AP pelvis and additional frog-leg view of the right and left hip. LIMITATIONS: None. FINDINGS: MINERALIZATION: Osteopenia. PRIMARY HIP: No fracture or dislocation. No worrisome bone lesions. OPPOSITE HIP: No fracture or dislocation. No worrisome bone lesions. PUBIS AND ISCHIUM: No fracture. PELVIS: No fracture. SACRUM: No fracture or dislocation. No worrisome bone lesions. LOWER LUMBAR SPINE: No fracture or dislocation. No worrisome bone lesions. No significant disc disea se. SOFT TISSUES: No acute findings. Right iliac vascular stent. OTHER: No other significant finding. IMPRESSION: No fracture identified. TECHNICAL DOCUMENTATION: JOB ID: [id number] [place]-72 2010 [employer]- All Rights Reserved
--- NOTE | 2017-10-16 23:22 | RADIOLOGY REPORT (SQ) ---
EXAM DESCRIPTION: CHEST SINGLE VIEW COMPLETED DATE/TIME: 10/16/2017 10:31 pm REASON FOR STUDY: placed central line COMPARISON: 04/11/2017 NUMBER OF VIEWS: One view. TECHNIQUE: Single frontal radiographic view of the chest acquired. LIMITATIONS: None. FINDINGS: Central venous access catheter placed via right IJ approach. Catheter tip at right atriu m. No pneumothorax. Radiographic appearance of the chest otherwise stable. IMPRESSION: Central venous access catheter placed via right IJ approach. Catheter tip at right atr ium. No pneumothorax. TECHNICAL DOCUMENTATION: JOB ID: [id number] [place]-72 2010 [employer]- All Rights Reserved
[2017-10-17 00:30] LABS: ARTERIAL BLOOD BASE EXCESS -5.5 mmol/L; ARTERIAL BLOOD H2CO3 0.97 mmol/L (1.05-1.35); ARTERIAL BLOOD HCO3 18.6 mmol/L (20-26); ARTERIAL BLOOD O2 SATURATION 95.5 % (94-98); ARTERIAL BLOOD PCO2 32.1 mmHg (35-45); ARTERIAL BLOOD PH 7.38 (7.35-7.45); ARTERIAL BLOOD PO2 77.8 mmHg (80-100); ARTERIAL BLOOD TOTAL CO2 19.6 mmol/L (23-27)
[2017-10-17 00:31] LABS: ARTERIAL BLOOD FIO2 21%
[2017-10-17 00:40] LABS: CREATINE KINASE MB 1.67 ng/mL (<4.55)
[2017-10-17 00:45] LABS: TROPONIN I 0.21 ng/mL
[2017-10-17] MEDS: DEXTROSE 5%-WATER 1000 ML 1,000 ML IV PRN ×2 (04:46→21:18)
--- NOTE | 2017-10-17 08:33 | EKG REPORT ---
SEVERITY:- ABNORMAL ECG - SINUS RHYTHM FIRST DEGREE AV BLOCK : Confirmed by: Edgardo San 17-Oct-2017 08:32:27
[2017-10-17 09:25] LABS: APPEARANCE,URINE CLEAR; BILIRUBIN,URINE NEGATIVE (NEGATIVE); COLOR,URINE STRAW; GLUCOSE, URINE NEGATIVE (NEGATIVE); KETONES,URINE NEGATIVE (NEGATIVE); LEUKOCYTE ESTERASE,URINE TRACE (NEGATIVE); NITRITE,URINE NEGATIVE (NEGATIVE); PROTEIN,URINE NEGATIVE (NEGATIVE); URINE SPECIFIC GRAVITY 1.009; UROBILINOGEN,URINE NEGATIVE mg/dL (<2.0)
[2017-10-17] MEDS: ASPIRIN/DIPYRIDAMOLE 25-200 MG 1 CAP.SR CPMP.12HR PO SCH ×2 (10:22→21:19)
[2017-10-17] MEDS: LEVETIRACETAM 500 MG TABLET PO SCH ×2 (10:23→21:19)
[2017-10-17] MEDS: TAMSULOSIN HCL 0.4 MG CAP.SR.24H PO SCH (10:23)
[2017-10-17] MEDS: HYDROCHLOROTHIAZIDE 25 MG TABLET PO SCH (10:23)
[2017-10-17] MEDS: VALSARTAN 160 MG TABLET PO SCH (10:24)
[2017-10-17] MEDS: ENOXAPARIN SODIUM INJ 40 MG/0.4 ML DISP.SYRIN SUBCUT SCH (10:24)
[2017-10-17 11:15] LABS: CREATINE KINASE MB 1.59 ng/mL (<4.55); TROPONIN I 0.198 ng/mL
--- NOTE | 2017-10-17 15:59 | RADIOLOGY REPORT (SQ) ---
EXAM DESCRIPTION: CAROTID DOPPLER COMPLETED DATE/TIME: 10/17/2017 3:40 pm REASON FOR STUDY: cva COMPARISON: None. TECHNIQUE: Grayscale ultrasound, Doppler velocity and spectra, and color Doppler images acquired of the extra-cranial carotid and vertebral arteries. Images stored on PACS. LIMITATIONS: None. FINDINGS: RIGHT CAROTID Not visualized secondary to central line. LEFT CAROTID CCA Velocities: Within normal limits. ICA Velocities Peak systolic 0.66 m/s. End diastolic 0.22 m/s. Proximal ICA/CCA peak systolic ratio 0.5. Spectra normal. No significant plaque. VERTEBRAL ARTERIES: Left vertebral not visualized. SUBCLAVIAN ARTERIES: No finding. OTHER: No other significant finding. IMPRESSION: Degree of stenosis of the left internal carotid less than 50%. Right carotid suboptimal ly visualized because a central line. Left vertebral not visualized. CTA of the extracranial caroti ds may be a consideration if further evaluation indicated. COMMENT: Quality ID #[id number]: Velocity criteria are extrapolated from the diameter data as defined by t he Society of Radiologists in Ultrasound Consensus Conference. Radiology 2003: 229; 340-346. TECHNICAL DOCUMENTATION: JOB ID: [id number] [employer]- All Rights Reserved
[2017-10-17 19:21] LABS: CREATINE KINASE MB 1.43 ng/mL (<4.55)
--- NOTE | 2017-10-17 19:31 | XCELERA REPORT ---
[address] [address] Transthoracic Echocardiogram Report Name: CAITLYN ROOT Age: 87 yrs Gender: Male : 1930 Patient Status: Inpatient Patient Location: [address] [place] [address] Study Date: 10/17/2017 02:45 PM Height: 66 in Weight: 149 lb BSA: 1.8 m2 Procedure: A complete two-dimensional transthoracic echocardiogram was performed (2D, M-mode, spectral and color flow Doppler). The study was technically difficult with many images being suboptimal in quality. Reason For Study: cva Ordering Physician: MEHDI LAWSON Performed By: Nan Haywood Interpretation Summary The left ventricular ejection fraction is normal. There is mild to moderate concentric left ventricular hypertrophy. Doppler measurements suggest pseudonormalized left ventricular relaxation, which is associated with grade II/IV or mild to moderate diastolic dysfunction The left ventricle is grossly normal size. Wall motion cannot be accurately commented on, but no definite regional wall motion abnormalities noted. The right ventricular systolic function is normal. The right atrium is normal. The left atrial size is normal. There is a trace to mild amount of mitral regurgitation There is no mitral valve stenosis. There is no aortic valve stenosis No aortic regurgitation is present. There is no tricuspid stenosis. No tricuspid regurgitation. The aortic root is not well visualized but is probably normal size. The inferior vena cava appeared small and collapsed with respiration (RAP 0-5 mmHg) There is no pericardial effusion. MMode/2D Measurements & Calculations RVDd: 3.6 cm LVIDd: 3.0 cm FS: 44.1 % Ao root diam: 3.1 cm IVSd: 1.4 cm LVIDs: 1.7 cm EDV(Teich): 34.5 ml LVPWd: 1.4 cm ESV(Teich): 8.0 ml Ao root area: 7.4 cm2 EF(Teich): 76.8 % LA dimension: 2.3 cm LVOT diam: 2.0 cm LVOT area: 3.1 cm2 Doppler Measurements & Calculations MV E max cecelia: MV P1/2t max cecelia: Ao V2 max: LV V1 max P.7 cm/sec 61.7 cm/sec 138.1 cm/sec 4.6 mmHg MV A max cecelia: MV P1/2t: 38.2 msec Ao max PG: LV V1 max: 87.9 cm/sec MVA(P1/2t): 5.8 cm2 7.6 mmHg 107.6 cm/sec MV E/A: 0.70 MV dec slope: RIVERA(V,D): 2.4 cm2 473.6 cm/sec2 PA V2 max: 87.4 cm/sec PA max P.1 mmHg Left Ventricle The left ventricle is grossly normal size. There is mild to moderate concentric left ventricular hypertrophy. The left ventricular ejection fraction is normal. Doppler measurements suggest pseudonormalized left ventricular relaxation, which is associated with grade II/IV or mild to moderate diastolic dysfunction. Wall motion cannot be accurately commented on, but no definite regional wall motion abnormalities noted. Right Ventricle The right ventricle is grossly normal size. There is normal right ventricular wall thickness. The right ventricular systolic function is normal. Atria The right atrium is normal. The left atrial size is normal. Interarterial septum not well visualized and not well dopplered. Cannot comment on ASD/PFO presence. Mitral Valve There is mild mitral annular calcification. There is no mitral valve stenosis. There is a trace to mild amount of mitral regurgitation. Aortic Valve The aortic valve is moderately calcified. There is no aortic valve stenosis. No aortic regurgitation is present. Tricuspid Valve The tricuspid valve is not well visualized secondary to technical limitations. There is no tricuspid stenosis. No tricuspid regurgitation. Pulmonic Valve The pulmonic valve is not well visualized. Great Vessels The aortic root is not well visualized but is probably normal size. The inferior vena cava appeared small and collapsed with respiration (RAP 0-5 mmHg). Effusions There is no pericardial effusion. : MEHDI LAWSON > Edgardo San
[2017-10-17 19:42] LABS: TROPONIN I 0.161 ng/mL
--- NOTE | 2017-10-17 20:53 | PDOC PROGRESS REPORT ---
Subjective Progress Note for:: 10/17/17 Subjective:: Patient was seen by the bedside, He just sustained right cerebral stroke, discussed plan of care with family, he will need physical therapy and rehabilitation Reason For Visit: CVA, GAIT ANORMALITY Physical Exam Vital Signs: Temp Pulse Resp BP Pulse Ox 98.5 F 89 15 132/72 H 96 10/17/17 16:28 10/17/17 19:10 10/17/17 16:28 10/17/17 17:14 10/17/17 17:14 Intake & Output 10/16/17 10/17/17 10/18/17 06:59 06:59 06:59 Intake Total 371 1440 Output Total 0 Balance 371 1440 Weight 68.2 kg General appearance: PRESENT: no acute distress Eye exam: PRESENT: PERRLA Respiratory exam: PRESENT: clear to auscultation kane Cardiovascular exam: PRESENT: +S1, +S2 GI/Abdominal exam: PRESENT: soft Neurological exam: PRESENT: alert, abnormal gait Results Laboratory Results: 10/16/17 18:25 10/16/17 18:25 10/16/17 10/17/17 10/17/17 23:35 00:08 09:10 Carbonic Acid 0.97 L HCO3/H2CO3 Ratio 19:1 ABG pH 7.38 ABG pCO2 32.1 L ABG pO2 77.8 L ABG HCO3 18.6 L ABG O2 Saturation 95.5 ABG Base Excess -5.5 FiO2 21% PTH Intact 95.9 H Urine Color STRAW Urine Appearance CLEAR Urine pH 5.0 Ur Specific [place] 1.009 Urine Protein NEGATIVE Urine Glucose (UA) NEGATIVE Urine Ketones NEGATIVE Urine Blood SMALL H Urine Nitrite NEGATIVE Ur Leukocyte Esterase TRACE H Urine WBC (Auto) 1 Urine RBC (Auto) 1 10/16/17 10/16/17 10/16/17 18:25 18:25 23:35 Creatine Kinase 101 108 CK-MB (CK-2) 1.16 Troponin I < 0.012 10/16/17 10/17/17 10/17/17 23:35 10:10 10:10 Creatine Kinase 120 CK-MB (CK-2) 1.67 1.59 Troponin I 0.210 0.198 10/17/17 10/17/17 18:18 18:18 Creatine Kinase 120 CK-MB (CK-2) 1.43 Troponin I 0.161 Impressions: Chest X-Ray 10/16/17 00:00 IMPRESSION: Central venous access catheter placed via right IJ approach. Catheter tip at right atrium. No pneumothorax. Head MRI 10/16/17 00:00 IMPRESSION: 1.6 cm ovoid acute -subacute infarct in the right cerebellar peduncle -pontine junction. No intracranial hemorrhage or mass effect. EVIDENCE OF ACUTE STROKE: Yes RIGHT VERTEBROBASILAR Hip X-Ray 10/16/17 00:00 IMPRESSION: No fracture identified. Carotid Doppler Study 10/17/17 00:00 IMPRESSION: Degree of stenosis of the left internal carotid less than 50%. Right carotid suboptimally visualized because a central line. Left vertebral not visualized. CTA of the extracranial carotids may be a consideration if further evaluation indicated. Assessment & Plan - Diagnosis (1) Cerebellar stroke, acute Is this a current diagnosis for this admission?: Yes (2) Hypertension Qualifiers: Hypertension type: essential hypertension Qualified Code(s): I10 - Essential (primary) hypertension Is this a current diagnosis for this admission?: Yes (3) Peripheral vascular disease Is this a current diagnosis for this admission?: Yes (4) Epilepsy Qualifiers: Epilepsy type: unspecified Intractability: not intractable Status epilepticus: without status epilepticus Qualified Code(s): G40.909 - Epilepsy , unspecified, not intractable, without status epilepticus Is this a current diagnosis for this admission?: Yes
[2017-10-17] MEDS: ATORVASTATIN CALCIUM 40 MG TABLET PO SCH (21:19)
[2017-10-17] MEDS: NORMAL SALINE INJ/PF 0.9% 10 ML SDV IV PRN (21:21)
[2017-10-18] MEDS: ENOXAPARIN SODIUM INJ 40 MG/0.4 ML DISP.SYRIN SUBCUT SCH (11:25)
[2017-10-18] MEDS: TAMSULOSIN HCL 0.4 MG CAP.SR.24H PO SCH (11:26)
[2017-10-18] MEDS: ASPIRIN/DIPYRIDAMOLE 25-200 MG 1 CAP.SR CPMP.12HR PO SCH ×2 (11:26→21:19)
[2017-10-18] MEDS: LEVETIRACETAM 500 MG TABLET PO SCH ×2 (11:27→21:18)
[2017-10-18] MEDS: VALSARTAN 160 MG TABLET PO SCH (11:28)
[2017-10-18] MEDS: HYDROCHLOROTHIAZIDE 25 MG TABLET PO SCH (11:28)
[2017-10-18] MEDS: DEXTROSE 5%-WATER 1000 ML 1,000 ML IV PRN (11:31)
--- NOTE | 2017-10-18 21:04 | PDOC PROGRESS REPORT ---
Subjective Progress Note for:: 10/18/17 Subjective:: Patient was seen by the bedside he had physical therapy today with PT, discharge planning made referrals to residential home for short-term rehabilitation Reason For Visit: CVA, GAIT ANORMALITY Physical Exam Vital Signs: Temp Pulse Resp BP Pulse Ox 98.8 F 92 20 110/70 98 10/18/17 20:37 10/18/17 20:37 10/18/17 20:37 10/18/17 20:37 10/18/17 20:37 Intake & Output 10/17/17 10/18/17 10/19/17 06:59 06:59 06:59 Intake Total 371 2440 1423 Output Total 0 300 750 Balance 371 2140 673 Weight 68.2 kg 71.6 kg General appearance: PRESENT: no acute distress Eye exam: PRESENT: PERRLA Mouth exam: PRESENT: moist, tongue midline Neck exam: PRESENT: full ROM Respiratory exam: PRESENT: clear to auscultation kane Cardiovascular exam: PRESENT: RRR, +S1, +S2 Vascular exam: PRESENT: normal capillary refill GI/Abdominal exam: PRESENT: normal bowel sounds, soft Rectal exam: PRESENT: deferred Neurological exam: PRESENT: alert Skin exam: PRESENT: dry, intact, warm. ABSENT: cyanosis, rash Results Laboratory Results: 10/16/17 18:25 10/16/17 18:25 10/16/17 10/16/17 10/16/17 18:25 18:25 23:35 Creatine Kinase 101 108 CK-MB (CK-2) 1.16 Troponin I < 0.012 10/16/17 10/17/17 10/17/17 23:35 10:10 10:10 Creatine Kinase 120 CK-MB (CK-2) 1.67 1.59 Troponin I 0.210 0.198 10/17/17 10/17/17 18:18 18:18 Creatine Kinase 120 CK-MB (CK-2) 1.43 Troponin I 0.161 Impressions: Chest X-Ray 10/16/17 00:00 IMPRESSION: Central venous access catheter placed via right IJ approach. Catheter tip at right atrium. No pneumothorax. Head MRI 10/16/17 00:00 IMPRESSION: 1.6 cm ovoid acute -subacute infarct in the right cerebellar peduncle -pontine junction. No intracranial hemorrhage or mass effect. EVIDENCE OF ACUTE STROKE: Yes RIGHT VERTEBROBASILAR Hip X-Ray 10/16/17 00:00 IMPRESSION: No fracture identified. Carotid Doppler Study 10/17/17 00:00 IMPRESSION: Degree of stenosis of the left internal carotid less than 50%. Right carotid suboptimally visualized because a central line. Left vertebral not visualized. CTA of the extracranial carotids may be a consideration if further evaluation indicated. Assessment & Plan - Diagnosis (1) Cerebellar stroke, acute Is this a current diagnosis for this admission?: Yes (2) Hypertension Qualifiers: Hypertension type: essential hypertension Qualified Code(s): I10 - Essential (primary) hypertension Is this a current diagnosis for this admission?: Yes (3) Peripheral vascular disease Is this a current diagnosis for this admission?: Yes (4) Epilepsy Qualifiers: Epilepsy type: unspecified Intractability: not intractable Status epilepticus: without status epilepticus Qualified Code(s): G40.909 - Epilepsy , unspecified, not intractable, without status epilepticus Is this a current diagnosis for this admission?: Yes
[2017-10-18] MEDS: ATORVASTATIN CALCIUM 40 MG TABLET PO SCH (21:19)
[2017-10-19] MEDS: DEXTROSE 5%-WATER 1000 ML 1,000 ML IV PRN ×2 (06:42→18:00)
[2017-10-19] MEDS: LEVETIRACETAM 500 MG TABLET PO SCH ×2 (10:23→21:47)
[2017-10-19] MEDS: ASPIRIN/DIPYRIDAMOLE 25-200 MG 1 CAP.SR CPMP.12HR PO SCH ×2 (10:24→21:47)
[2017-10-19] MEDS: VALSARTAN 160 MG TABLET PO SCH (10:25)
[2017-10-19] MEDS: HYDROCHLOROTHIAZIDE 25 MG TABLET PO SCH (10:26)
[2017-10-19] MEDS: TAMSULOSIN HCL 0.4 MG CAP.SR.24H PO SCH (10:26)
[2017-10-19 14:13] LABS: ABSOLUTE BASOPHILS # (AUTO) 0.1 10^3/uL (0.0-0.2); ABSOLUTE EOSINOPHILS # (AUTO) 0.3 10^3/uL (0.0-0.6); ABSOLUTE LYMPHOCYTES (AUTO) 1.6 10^3/uL (0.5-4.7); ABSOLUTE MONOCYTES (AUTO) 0.9 10^3/uL (0.1-1.4); ABSOLUTE NEUT (AUTO) 4.8 10^3/uL (1.7-8.2); BASOPHILS % (AUTO) 0.8 % (0-2); EOSINOPHILS % (AUTO) 4.1 % (0-6); HEMATOCRIT 36.7 % (37.9-51.0); HEMOGLOBIN 12.6 g/dL (13.5-17.0); LYMPHOCYTES % (AUTO) 20.7 % (13-45); MEAN CORPUSCULAR HEMOGLOBIN 31.2 pg (27.0-33.4); MEAN CORPUSCULAR HGB CONC 34.2 g/dL (32.0-36.0); MEAN CORPUSCULAR VOLUME 91 fl (80-97); MONOCYTES % (AUTO) 12.1 % (3-13); PLATELET COUNT 133 10^3/uL (150-450); RED BLOOD COUNT 4.03 10^6/uL (4.35-5.55); RED CELL DISTRIBUTION WIDTH 13.3 % (11.5-14.0); SEGMENTED NEUTROPHILS % (AUTO) 62.3 % (42-78); TOTAL CELLS COUNTED % (AUTO) 100 %; WHITE BLOOD COUNT 7.8 10^3/uL (4.0-10.5)
[2017-10-19 14:39] LABS: ANION GAP 11 (5-19); BLOOD UREA NITROGEN 18 mg/dL (7-20); CALCIUM 9.6 mg/dL (8.4-10.2); CARBON DIOXIDE 22 mmol/L (22-30); CHLORIDE 98 mmol/L (98-107); GLUCOSE 127 mg/dL (75-110); POTASSIUM 4.2 mmol/L (3.6-5.0); SODIUM 131.1 mmol/L (137-145)
[2017-10-19] MEDS: ENOXAPARIN SODIUM INJ 40 MG/0.4 ML DISP.SYRIN SUBCUT SCH (17:59)
--- NOTE | 2017-10-19 21:39 | PDOC PROGRESS REPORT ---
Subjective Progress Note for:: 10/19/17 Subjective:: Patient was admitted for the management of stroke, he complained of dyspepsia, vomiting Reason For Visit: CVA, GAIT ANORMALITY Physical Exam Vital Signs: Temp Pulse Resp BP Pulse Ox 98.3 F 81 18 115/56 L 99 10/19/17 20:42 10/19/17 20:42 10/19/17 20:42 10/19/17 20:42 10/19/17 20:42 Intake & Output 10/18/17 10/19/17 10/20/17 06:59 06:59 06:59 Intake Total 2440 2223 1046 Output Total 300 950 Balance 2140 1273 1046 Weight 71.6 kg 72 kg General appearance: PRESENT: no acute distress, well-developed, well-nourished Head exam: PRESENT: atraumatic, normocephalic Eye exam: PRESENT: conjunctiva pink, EOMI, PERRLA Ear exam: PRESENT: normal external ear exam Mouth exam: PRESENT: moist, tongue midline Neck exam: PRESENT: full ROM Respiratory exam: PRESENT: clear to auscultation kane Cardiovascular exam: PRESENT: RRR, +S1, +S2 Pulses: PRESENT: normal dorsalis pedis pul, +2 pedal pulses bilateral Vascular exam: PRESENT: normal capillary refill GI/Abdominal exam: PRESENT: normal bowel sounds, soft Rectal exam: PRESENT: deferred Neurological exam: PRESENT: alert Psychiatric exam: PRESENT: appropriate affect, normal mood Skin exam: PRESENT: dry, intact, warm. ABSENT: cyanosis, rash Results Laboratory Results: 10/19/17 14:00 10/19/17 14:00 10/19/17 10/19/17 14:00 14:00 WBC 7.8 RBC 4.03 L Hgb 12.6 L Hct 36.7 L MCV 91 MCH 31.2 MCHC 34.2 RDW 13.3 Plt Count 133 L Seg Neutrophils % 62.3 Lymphocytes % 20.7 Monocytes % 12.1 Eosinophils % 4.1 Basophils % 0.8 Absolute Neutrophils 4.8 Absolute Lymphocytes 1.6 Absolute Monocytes 0.9 Absolute Eosinophils 0.3 Absolute Basophils 0.1 Sodium 131.1 L Potassium 4.2 Chloride 98 Carbon Dioxide 22 Anion Gap 11 BUN 18 Creatinine 1.07 Est GFR ( Amer) > 60 Est GFR (Non-Af Amer) > 60 Glucose 127 H Calcium 9.6 10/16/17 10/16/17 10/16/17 18:25 18:25 23:35 Creatine Kinase 101 108 CK-MB (CK-2) 1.16 Troponin I < 0.012 10/16/17 10/17/17 10/17/17 23:35 10:10 10:10 Creatine Kinase 120 CK-MB (CK-2) 1.67 1.59 Troponin I 0.210 0.198 10/17/17 10/17/17 18:18 18:18 Creatine Kinase 120 CK-MB (CK-2) 1.43 Troponin I 0.161 Impressions: Chest X-Ray 10/16/17 00:00 IMPRESSION: Central venous access catheter placed via right IJ approach. Catheter tip at right atrium. No pneumothorax. Head MRI 10/16/17 00:00 IMPRESSION: 1.6 cm ovoid acute -subacute infarct in the right cerebellar peduncle -pontine junction. No intracranial hemorrhage or mass effect. EVIDENCE OF ACUTE STROKE: Yes RIGHT VERTEBROBASILAR Hip X-Ray 10/16/17 00:00 IMPRESSION: No fracture identified. Carotid Doppler Study 10/17/17 00:00 IMPRESSION: Degree of stenosis of the left internal carotid less than 50%. Right carotid suboptimally visualized because a central line. Left vertebral not visualized. CTA of the extracranial carotids may be a consideration if further evaluation indicated. Assessment & Plan - Diagnosis (1) Cerebellar stroke, acute Is this a current diagnosis for this admission?: Yes (2) Hypertension Qualifiers: Hypertension type: essential hypertension Qualified Code(s): I10 - Essential (primary) hypertension Is this a current diagnosis for this admission?: Yes (3) Peripheral vascular disease Is this a current diagnosis for this admission?: Yes (4) Epilepsy Qualifiers: Epilepsy type: unspecified Intractability: not intractable Status epilepticus: without status epilepticus Qualified Code(s): G40.909 - Epilepsy , unspecified, not intractable, without status epilepticus Is this a current diagnosis for this admission?: Yes (5) Dyspepsia Is this a current diagnosis for this admission?: Yes Plan: Start Prevacid 30 mg p.o. twice daily
[2017-10-19] MEDS ORDERED: LANSOPRAZOLE 30 MG TAB.RAP.DR PO SCH (21:45)
[2017-10-19] MEDS: ATORVASTATIN CALCIUM 40 MG TABLET PO SCH (21:47)
[2017-10-19] MEDS: LANSOPRAZOLE 30 MG TAB.RAP.DR PO SCH (21:47)
[2017-10-20] MEDS: ONDANSETRON HCL INJ/PF 4 MG/2 ML SDV IV PRN ×2 (05:24→14:12)
[2017-10-20] MEDS: LEVETIRACETAM 500 MG TABLET PO SCH ×2 (11:03→23:22)
[2017-10-20] MEDS: LANSOPRAZOLE 30 MG TAB.RAP.DR PO SCH ×2 (11:03→23:23)
[2017-10-20] MEDS: VALSARTAN 160 MG TABLET PO SCH (11:03)
[2017-10-20] MEDS: HYDROCHLOROTHIAZIDE 25 MG TABLET PO SCH (11:04)
[2017-10-20] MEDS: ASPIRIN/DIPYRIDAMOLE 25-200 MG 1 CAP.SR CPMP.12HR PO SCH ×2 (11:04→23:22)
[2017-10-20] MEDS: ENOXAPARIN SODIUM INJ 40 MG/0.4 ML DISP.SYRIN SUBCUT SCH (11:04)
[2017-10-20] MEDS: TAMSULOSIN HCL 0.4 MG CAP.SR.24H PO SCH (11:04)
--- NOTE | 2017-10-20 18:07 | PDOC PROGRESS REPORT ---
Subjective Progress Note for:: 10/20/17 Subjective:: Patient was seen by the bedside, he continues to vomit for the last 2 days not able to keep any food down. He was admitted for the management of right cerebellar stroke, he was supposed to go to alf for rehabilitation, there is a delay because of technicalities in the process Reason For Visit: CVA, GAIT ANORMALITY Physical Exam Vital Signs: Temp Pulse Resp BP Pulse Ox 98.6 F 86 18 131/63 H 100 10/20/17 16:25 10/20/17 16:25 10/20/17 16:25 10/20/17 16:25 10/20/17 16:25 Intake & Output 10/19/17 10/20/17 10/21/17 06:59 06:59 06:59 Intake Total 2223 1106 300 Output Total 950 Balance 1273 1106 300 Weight 72 kg General appearance: PRESENT: no acute distress, well-developed, well-nourished Head exam: PRESENT: atraumatic, normocephalic Eye exam: PRESENT: conjunctiva pink, EOMI, PERRLA Ear exam: PRESENT: normal external ear exam Mouth exam: PRESENT: moist, tongue midline Neck exam: PRESENT: full ROM Respiratory exam: PRESENT: clear to auscultation kane Cardiovascular exam: PRESENT: RRR, +S1, +S2 Vascular exam: PRESENT: normal capillary refill GI/Abdominal exam: PRESENT: normal bowel sounds, soft Rectal exam: PRESENT: deferred Neurological exam: PRESENT: alert. ABSENT: motor sensory deficit Psychiatric exam: PRESENT: appropriate affect, normal mood Skin exam: PRESENT: dry, intact, warm Results Laboratory Results: 10/19/17 14:00 10/19/17 14:00 10/16/17 10/16/17 10/16/17 18:25 18:25 23:35 Creatine Kinase 101 108 CK-MB (CK-2) 1.16 Troponin I < 0.012 10/16/17 10/17/17 10/17/17 23:35 10:10 10:10 Creatine Kinase 120 CK-MB (CK-2) 1.67 1.59 Troponin I 0.210 0.198 10/17/17 10/17/17 18:18 18:18 Creatine Kinase 120 CK-MB (CK-2) 1.43 Troponin I 0.161 Impressions: Chest X-Ray 10/16/17 00:00 IMPRESSION: Central venous access catheter placed via right IJ approach. Catheter tip at right atrium. No pneumothorax. Head MRI 10/16/17 00:00 IMPRESSION: 1.6 cm ovoid acute -subacute infarct in the right cerebellar peduncle -pontine junction. No intracranial hemorrhage or mass effect. EVIDENCE OF ACUTE STROKE: Yes RIGHT VERTEBROBASILAR Hip X-Ray 10/16/17 00:00 IMPRESSION: No fracture identified. Carotid Doppler Study 10/17/17 00:00 IMPRESSION: Degree of stenosis of the left internal carotid less than 50%. Right carotid suboptimally visualized because a central line. Left vertebral not visualized. CTA of the extracranial carotids may be a consideration if further evaluation indicated. Assessment & Plan - Diagnosis (1) Cerebellar stroke, acute Is this a current diagnosis for this admission?: Yes (2) Hypertension Qualifiers: Hypertension type: essential hypertension Qualified Code(s): I10 - Essential (primary) hypertension Is this a current diagnosis for this admission?: Yes (3) Peripheral vascular disease Is this a current diagnosis for this admission?: Yes (4) Epilepsy Qualifiers: Epilepsy type: unspecified Intractability: not intractable Status epilepticus: without status epilepticus Qualified Code(s): G40.909 - Epilepsy , unspecified, not intractable, without status epilepticus Is this a current diagnosis for this admission?: Yes (5) Dyspepsia Is this a current diagnosis for this admission?: Yes (6) Vomiting Qualifiers: Vomiting type: unspecified Vomiting Intractability: unspecified Nausea presence: unspecified Qualified Code(s): R11.10 - Vomiting, unspecified Plan: He has persistent vomiting, the etiology is not clear, a CAT scan of the abdomen and pelvis with contrast is ordered
[2017-10-20 18:21] LABS: ABSOLUTE BASOPHILS # (AUTO) 0.1 10^3/uL (0.0-0.2); ABSOLUTE EOSINOPHILS # (AUTO) 0.2 10^3/uL (0.0-0.6); ABSOLUTE LYMPHOCYTES (AUTO) 1.6 10^3/uL (0.5-4.7); ABSOLUTE MONOCYTES (AUTO) 1.1 10^3/uL (0.1-1.4); ABSOLUTE NEUT (AUTO) 4.4 10^3/uL (1.7-8.2); BASOPHILS % (AUTO) 0.9 % (0-2); EOSINOPHILS % (AUTO) 3.3 % (0-6); HEMATOCRIT 34.4 % (37.9-51.0); HEMOGLOBIN 11.6 g/dL (13.5-17.0); LYMPHOCYTES % (AUTO) 20.9 % (13-45); MEAN CORPUSCULAR HEMOGLOBIN 30.7 pg (27.0-33.4); MEAN CORPUSCULAR HGB CONC 33.6 g/dL (32.0-36.0); MEAN CORPUSCULAR VOLUME 91 fl (80-97); MONOCYTES % (AUTO) 15.4 % (3-13); PLATELET COUNT 111 10^3/uL (150-450); RED BLOOD COUNT 3.77 10^6/uL (4.35-5.55); RED CELL DISTRIBUTION WIDTH 13.2 % (11.5-14.0); SEGMENTED NEUTROPHILS % (AUTO) 59.5 % (42-78); TOTAL CELLS COUNTED % (AUTO) 100 %; WHITE BLOOD COUNT 7.5 10^3/uL (4.0-10.5)
[2017-10-20 18:45] LABS: ALANINE AMINOTRANSFERASE 15 U/L (21-72); ALBUMIN 3.8 g/dL (3.5-5.0); ALKALINE PHOSPHATASE 56 U/L (38-126); ANION GAP 10 (5-19); ASPARTATE AMINO TRANSFERASE 22 U/L (17-59); BILIRUBIN,DIRECT 0.4 mg/dL (0.0-0.4); BILIRUBIN,TOTAL 0.5 mg/dL (0.2-1.3); BLOOD UREA NITROGEN 25 mg/dL (7-20); CALCIUM 8.9 mg/dL (8.4-10.2); CARBON DIOXIDE 21 mmol/L (22-30); CHLORIDE 93 mmol/L (98-107); GLUCOSE 124 mg/dL (75-110); POTASSIUM 4.2 mmol/L (3.6-5.0); SODIUM 124.1 mmol/L (137-145); TOTAL PROTEIN 7.6 g/dL (6.3-8.2)
--- NOTE | 2017-10-20 21:53 | RADIOLOGY REPORT (SQ) ---
EXAM DESCRIPTION: CT ABD/PELVIS WITH IV ONLY COMPLETED DATE/TIME: 10/20/2017 9:35 pm REASON FOR STUDY: vomiting/abdominal pain COMPARISON: None. TECHNIQUE: CT scan of the abdomen and pelvis performed using helical scanning technique with dynamic intravenous contrast injection. No oral contrast. Images reviewed with lung, soft tissue, and bone windows. Reconstructed coronal and sagittal MPR images reviewed. Delayed images for evaluation of the urinary system also acquired. All images stored on PACS. All CT scanners at this facility use dose modulation, iterative reconstruction, and/or weight based d osing when appropriate to reduce radiation dose to as low as reasonably achievable (ALARA). [facility]: Dose Right [facility]: CareDose [facility]: Dose Right [facility]: Teradose 4D [facility]: Checkmarx CONTRAST TYPE AND DOSE: contrast/concentration: Isovue 370.00 mg/ml; Total Contrast Delivered: 78.0 ml; Total Saline Delivered: 67.0 ml RENAL FUNCTION: BUN 18 creatinine 1.07. RADIATION DOSE: CT Rad equipment meets quality standard of care and radiation dose reduction techniq ues were employed. CTDIvol: 11.9 - 15.5 mGy. DLP: 1490 mGy-cm.. LIMITATIONS: None. FINDINGS: LOWER CHEST: Pleural thickening with calcified pleural plaques. Chronic parenchymal scarr ing. 2.5 cm round lesion in the left lung base. LIVER: Normal size. No masses. No dilated ducts. SPLEEN: Normal size. No focal lesions. PANCREAS: No masses. No significant calcifications. No adjacent inflammation or peripancreatic fluid collections. Pancreatic duct not dilated. GALLBLADDER: No identified stones by CT criteria. No inflammatory changes to suggest cholecystitis. ADRENAL GLANDS: No significant masses or asymmetry. RIGHT KIDNEY AND URETER: Cortical cysts. No solid masses. No significant calcifications. No hydr onephrosis or hydroureter. LEFT KIDNEY AND URETER: Cortical cysts. No solid masses. No significant calcifications. No hydro nephrosis or hydroureter. AORTA AND VESSELS: No aneurysm. No dissection. Renal arteries, SMA, celiac without stenosis. RETROPERITONEUM: No retroperitoneal adenopathy, hemorrhage or masses. BOWEL AND PERITONEAL CAVITY: Hiatal hernia. No masses or inflammatory changes. No free fluid or tyrone toneal masses. APPENDIX: Normal. PELVIS: No mass. No free fluid. Normal bladder. ABDOMINAL WALL: No masses. No hernias. BONES: No significant or acute findings. OTHER: No other significant finding. IMPRESSION: 1. HIATAL HERNIA. CORTICAL CYSTS IN THE KIDNEYS. NO OTHER SIGNIFICANT OR ACUTE FINDING IN THE ABDOM EN OR PELVIS ON CT SCAN WITH IV CONTRAST. 2. PLEURAL THICKENING IN THE LOWER CHEST WITH CALCIFIED PLEURAL PLAQUES. 2.5 CM ROUNDED LESION IN TH E LEFT LUNG BASE POSSIBLY DUE TO ROUNDED ATELECTASIS. TECHNICAL DOCUMENTATION: JOB ID: [id number] Quality ID # [id number]: Final reports with documentation of one or more dose reduction techniques (e.g., Au tomated exposure control, adjustment of the mA and/or kV according to patient size, use of iterative reconstruction technique) 2010 [employer]- All Rights Reserved
[2017-10-20] MEDS: ATORVASTATIN CALCIUM 40 MG TABLET PO SCH (23:23)
[2017-10-21 06:02] LABS: ABSOLUTE BASOPHILS # (AUTO) 0.1 10^3/uL (0.0-0.2); ABSOLUTE EOSINOPHILS # (AUTO) 0.2 10^3/uL (0.0-0.6); ABSOLUTE LYMPHOCYTES (AUTO) 1.3 10^3/uL (0.5-4.7); ABSOLUTE MONOCYTES (AUTO) 1.1 10^3/uL (0.1-1.4); ABSOLUTE NEUT (AUTO) 4.4 10^3/uL (1.7-8.2); BASOPHILS % (AUTO) 0.9 % (0-2); EOSINOPHILS % (AUTO) 3.2 % (0-6); HEMATOCRIT 33.4 % (37.9-51.0); HEMOGLOBIN 11.2 g/dL (13.5-17.0); LYMPHOCYTES % (AUTO) 18.3 % (13-45); MEAN CORPUSCULAR HEMOGLOBIN 30.7 pg (27.0-33.4); MEAN CORPUSCULAR HGB CONC 33.5 g/dL (32.0-36.0); MEAN CORPUSCULAR VOLUME 92 fl (80-97); MONOCYTES % (AUTO) 15.8 % (3-13); PLATELET COUNT 100 10^3/uL (150-450); RED BLOOD COUNT 3.65 10^6/uL (4.35-5.55); RED CELL DISTRIBUTION WIDTH 13.1 % (11.5-14.0); SEGMENTED NEUTROPHILS % (AUTO) 61.8 % (42-78); TOTAL CELLS COUNTED % (AUTO) 100 %; WHITE BLOOD COUNT 7.1 10^3/uL (4.0-10.5)
[2017-10-21 06:13] LABS: ALANINE AMINOTRANSFERASE 15 U/L (21-72); ALBUMIN 3.5 g/dL (3.5-5.0); ALKALINE PHOSPHATASE 60 U/L (38-126); ANION GAP 9 (5-19); ASPARTATE AMINO TRANSFERASE 25 U/L (17-59); BILIRUBIN,DIRECT 0.4 mg/dL (0.0-0.4); BILIRUBIN,TOTAL 0.4 mg/dL (0.2-1.3); BLOOD UREA NITROGEN 23 mg/dL (7-20); CALCIUM 9.1 mg/dL (8.4-10.2); CARBON DIOXIDE 23 mmol/L (22-30); CHLORIDE 93 mmol/L (98-107); GLUCOSE 119 mg/dL (75-110); POTASSIUM 3.9 mmol/L (3.6-5.0); SODIUM 124.6 mmol/L (137-145); TOTAL PROTEIN 6.7 g/dL (6.3-8.2)
[2017-10-21] MEDS: LANSOPRAZOLE 30 MG TAB.RAP.DR PO SCH ×2 (11:04→23:03)
[2017-10-21] MEDS: ASPIRIN/DIPYRIDAMOLE 25-200 MG 1 CAP.SR CPMP.12HR PO SCH ×2 (11:05→23:02)
[2017-10-21] MEDS: HYDROCHLOROTHIAZIDE 25 MG TABLET PO SCH (11:05)
[2017-10-21] MEDS: TAMSULOSIN HCL 0.4 MG CAP.SR.24H PO SCH (11:05)
[2017-10-21] MEDS: LEVETIRACETAM 500 MG TABLET PO SCH ×2 (11:05→23:02)
[2017-10-21] MEDS: ENOXAPARIN SODIUM INJ 40 MG/0.4 ML DISP.SYRIN SUBCUT SCH (11:06)
[2017-10-21] MEDS: VALSARTAN 160 MG TABLET PO SCH (11:06)
[2017-10-21] MEDS: ONDANSETRON HCL INJ/PF 4 MG/2 ML SDV IV PRN (11:26)
[2017-10-21] MEDS ORDERED: GUAIFENESIN SYRP 200 MG/10 ML UDC PO PRN (17:51)
[2017-10-21] MEDS ORDERED: ACETAMINOPHEN 325 MG TABLET ONE (18:13)
[2017-10-21] MEDS ORDERED: ACETAMINOPHEN 325 MG TABLET PO PRN (18:14)
--- NOTE | 2017-10-21 18:32 | PDOC PROGRESS REPORT ---
Subjective Progress Note for:: 10/21/17 Subjective:: Patient was seen by the bedside, yesterday he had CT scan of the abdomen and pelvis with IV contrast showed pleural thickening with calcified pleural plaques in the lower chest there is chronic parenchymal scarring. 2.5 cm round lesion in the left lung base, atrial hernia, cortical cyst in the kidneys. Reason For Visit: CVA, GAIT ANORMALITY Physical Exam Vital Signs: Temp Pulse Resp BP Pulse Ox 97.5 F 79 18 115/59 L 99 10/21/17 15:49 10/21/17 15:49 10/21/17 15:49 10/21/17 15:49 10/21/17 15:49 Intake & Output 10/20/17 10/21/17 10/22/17 06:59 06:59 06:59 Intake Total 1106 2537 759 Balance 1106 2537 759 Weight 72 kg 71.9 kg General appearance: PRESENT: no acute distress, well-developed, well-nourished Head exam: PRESENT: atraumatic, normocephalic Eye exam: PRESENT: conjunctiva pink, EOMI, PERRLA Ear exam: PRESENT: normal external ear exam Mouth exam: PRESENT: moist, tongue midline Neck exam: PRESENT: full ROM Respiratory exam: PRESENT: clear to auscultation kane Cardiovascular exam: PRESENT: RRR, +S1, +S2 Vascular exam: PRESENT: normal capillary refill GI/Abdominal exam: PRESENT: normal bowel sounds, soft Rectal exam: PRESENT: deferred Neurological exam: PRESENT: alert, awake, oriented to person, oriented to place , oriented to time, oriented to situation, CN II-XII grossly intact Psychiatric exam: PRESENT: appropriate affect, normal mood Skin exam: PRESENT: dry, intact, warm Results Laboratory Results: 10/21/17 05:40 10/21/17 05:40 10/20/17 10/21/17 10/21/17 18:15 05:40 05:40 WBC 7.1 RBC 3.65 L Hgb 11.2 L Hct 33.4 L MCV 92 MCH 30.7 MCHC 33.5 RDW 13.1 Plt Count 100 L Seg Neutrophils % 61.8 Lymphocytes % 18.3 Monocytes % 15.8 H Eosinophils % 3.2 Basophils % 0.9 Absolute Neutrophils 4.4 Absolute Lymphocytes 1.3 Absolute Monocytes 1.1 Absolute Eosinophils 0.2 Absolute Basophils 0.1 Sodium 124.1 L 124.6 L Potassium 4.2 3.9 Chloride 93 L 93 L Carbon Dioxide 21 L 23 Anion Gap 10 9 BUN 25 H 23 H Creatinine 1.35 H 1.43 H Est GFR ( Amer) > 60 56 L Est GFR (Non-Af Amer) 50 L 47 L Glucose 124 H 119 H Calcium 8.9 9.1 Total Bilirubin 0.5 0.4 AST 22 25 ALT 15 L 15 L Alkaline Phosphatase 56 60 Total Protein 7.6 6.7 Albumin 3.8 3.5 10/16/17 10/16/17 10/16/17 18:25 18:25 23:35 Creatine Kinase 101 108 CK-MB (CK-2) 1.16 Troponin I < 0.012 10/16/17 10/17/17 10/17/17 23:35 10:10 10:10 Creatine Kinase 120 CK-MB (CK-2) 1.67 1.59 Troponin I 0.210 0.198 10/17/17 10/17/17 18:18 18:18 Creatine Kinase 120 CK-MB (CK-2) 1.43 Troponin I 0.161 Impressions: Chest X-Ray 10/16/17 00:00 IMPRESSION: Central venous access catheter placed via right IJ approach. Catheter tip at right atrium. No pneumothorax. Head MRI 10/16/17 00:00 IMPRESSION: 1.6 cm ovoid acute -subacute infarct in the right cerebellar peduncle -pontine junction. No intracranial hemorrhage or mass effect. EVIDENCE OF ACUTE STROKE: Yes RIGHT VERTEBROBASILAR Hip X-Ray 10/16/17 00:00 IMPRESSION: No fracture identified. Carotid Doppler Study 10/17/17 00:00 IMPRESSION: Degree of stenosis of the left internal carotid less than 50%. Right carotid suboptimally visualized because a central line. Left vertebral not visualized. CTA of the extracranial carotids may be a consideration if further evaluation indicated. Abdomen/Pelvis CT 10/20/17 00:00 IMPRESSION: 1. HIATAL HERNIA. CORTICAL CYSTS IN THE KIDNEYS. NO OTHER SIGNIFICANT OR ACUTE FINDING IN THE ABDOMEN OR PELVIS ON CT SCAN WITH IV CONTRAST. 2. PLEURAL THICKENING IN THE LOWER CHEST WITH CALCIFIED PLEURAL PLAQUES. 2.5 CM ROUNDED LESION IN THE LEFT LUNG BASE POSSIBLY DUE TO ROUNDED ATELECTASIS. Assessment & Plan - Diagnosis (1) Cerebellar stroke, acute Is this a current diagnosis for this admission?: Yes (2) Hypertension Qualifiers: Hypertension type: essential hypertension Qualified Code(s): I10 - Essential (primary) hypertension Is this a current diagnosis for this admission?: Yes (3) Peripheral vascular disease Is this a current diagnosis for this admission?: Yes (4) Epilepsy Qualifiers: Epilepsy type: unspecified Intractability: not intractable Status epilepticus: without status epilepticus Qualified Code(s): G40.909 - Epilepsy , unspecified, not intractable, without status epilepticus Is this a current diagnosis for this admission?: Yes (5) Dyspepsia Is this a current diagnosis for this admission?: Yes (6) Vomiting Qualifiers: Vomiting type: unspecified Vomiting Intractability: unspecified Nausea presence: unspecified Qualified Code(s): R11.10 - Vomiting, unspecified Is this a current diagnosis for this admission?: Yes
[2017-10-21] MEDS: ATORVASTATIN CALCIUM 40 MG TABLET PO SCH (23:02)
[2017-10-21] MEDS: NORMAL SALINE 1000 ML 1,000 ML IV PRN (23:05)
[2017-10-22] MEDS: NORMAL SALINE 1000 ML 1,000 ML IV PRN (09:15)
[2017-10-22] MEDS: ASPIRIN/DIPYRIDAMOLE 25-200 MG 1 CAP.SR CPMP.12HR PO SCH ×2 (09:15→21:37)
[2017-10-22] MEDS: ENOXAPARIN SODIUM INJ 40 MG/0.4 ML DISP.SYRIN SUBCUT SCH (09:16)
[2017-10-22] MEDS: LANSOPRAZOLE 30 MG TAB.RAP.DR PO SCH ×2 (09:16→21:37)
[2017-10-22] MEDS: VALSARTAN 160 MG TABLET PO SCH (09:16)
[2017-10-22] MEDS: HYDROCHLOROTHIAZIDE 25 MG TABLET PO SCH (09:16)
[2017-10-22] MEDS: LEVETIRACETAM 500 MG TABLET PO SCH ×2 (09:16→21:36)
[2017-10-22] MEDS: TAMSULOSIN HCL 0.4 MG CAP.SR.24H PO SCH (09:16)
[2017-10-22] MEDS: ONDANSETRON HCL INJ/PF 4 MG/2 ML SDV IV PRN (09:53)
[2017-10-22 11:39] LABS: ABSOLUTE EOSINOPHILS # (AUTO) 0.2 10^3/uL (0.0-0.6); ABSOLUTE LYMPHOCYTES (AUTO) 0.6 10^3/uL (0.5-4.7); ABSOLUTE MONOCYTES (AUTO) 0.7 10^3/uL (0.1-1.4); ABSOLUTE NEUT (AUTO) 3.4 10^3/uL (1.7-8.2); EOSINOPHILS % (AUTO) 4.1 % (0-6); HEMATOCRIT 33.6 % (37.9-51.0); HEMOGLOBIN 11.4 g/dL (13.5-17.0); MEAN CORPUSCULAR HEMOGLOBIN 30.7 pg (27.0-33.4); MEAN CORPUSCULAR HGB CONC 33.9 g/dL (32.0-36.0); MEAN CORPUSCULAR VOLUME 90 fl (80-97); RED BLOOD COUNT 3.71 10^6/uL (4.35-5.55); RED CELL DISTRIBUTION WIDTH 13.2 % (11.5-14.0); SEGMENTED NEUTROPHILS % (AUTO) 67.9 % (42-78); TOTAL CELLS COUNTED % (AUTO) 100 %
[2017-10-22 11:53] LABS: ALANINE AMINOTRANSFERASE 11 U/L (21-72); ALBUMIN 3.8 g/dL (3.5-5.0); ALKALINE PHOSPHATASE 67 U/L (38-126); ANION GAP 10 (5-19); ASPARTATE AMINO TRANSFERASE 29 U/L (17-59); BILIRUBIN,DIRECT 0.2 mg/dL (0.0-0.4); BILIRUBIN,TOTAL 0.4 mg/dL (0.2-1.3); BLOOD UREA NITROGEN 18 mg/dL (7-20); CALCIUM 9.2 mg/dL (8.4-10.2); CARBON DIOXIDE 22 mmol/L (22-30); CHLORIDE 103 mmol/L (98-107); GLUCOSE 113 mg/dL (75-110); POTASSIUM 4.2 mmol/L (3.6-5.0); SODIUM 134.5 mmol/L (137-145); TOTAL PROTEIN 6.6 g/dL (6.3-8.2)
[2017-10-22 11:56] LABS: PLATELET COUNT 93 10^3/uL (150-450)
--- NOTE | 2017-10-22 17:05 | PDOC PROGRESS REPORT ---
Subjective Progress Note for:: 10/22/17 Subjective:: Patient with progressive thrombocytopenia, the platelet count is below 100,000 today for the first time, Lovenox discontinued. He had contrast induced nephropathy yesterday but the serum creatinine is normalized today Reason For Visit: CVA, GAIT ANORMALITY Physical Exam Vital Signs: Temp Pulse Resp BP Pulse Ox 97.6 F 102 H 18 125/64 99 10/22/17 11:51 10/22/17 14:00 10/22/17 11:51 10/22/17 11:51 10/22/17 11:51 Intake & Output 10/21/17 10/22/17 10/23/17 06:59 06:59 06:59 Intake Total 2537 3059 0 Balance 2537 3059 0 Weight 70.6 kg General appearance: PRESENT: no acute distress Eye exam: PRESENT: PERRLA Respiratory exam: PRESENT: chest wall tenderness Cardiovascular exam: PRESENT: +S1, +S2 GI/Abdominal exam: PRESENT: soft Neurological exam: PRESENT: alert Results Laboratory Results: 10/22/17 11:20 10/22/17 11:20 10/22/17 10/22/17 11:20 11:20 WBC 5.0 RBC 3.71 L Hgb 11.4 L Hct 33.6 L MCV 90 MCH 30.7 MCHC 33.9 RDW 13.2 Plt Count 93 L Seg Neutrophils % 67.9 Lymphocytes % 12.0 L Monocytes % 15.0 H Eosinophils % 4.1 Basophils % 1.0 Absolute Neutrophils 3.4 Absolute Lymphocytes 0.6 Absolute Monocytes 0.7 Absolute Eosinophils 0.2 Absolute Basophils 0.0 Sodium 134.5 L Potassium 4.2 Chloride 103 Carbon Dioxide 22 Anion Gap 10 BUN 18 Creatinine 1.02 Est GFR ( Amer) > 60 Est GFR (Non-Af Amer) > 60 Glucose 113 H Calcium 9.2 Total Bilirubin 0.4 AST 29 ALT 11 L Alkaline Phosphatase 67 Total Protein 6.6 Albumin 3.8 10/16/17 10/16/17 10/16/17 18:25 18:25 23:35 Creatine Kinase 101 108 CK-MB (CK-2) 1.16 Troponin I < 0.012 10/16/17 10/17/17 10/17/17 23:35 10:10 10:10 Creatine Kinase 120 CK-MB (CK-2) 1.67 1.59 Troponin I 0.210 0.198 10/17/17 10/17/17 18:18 18:18 Creatine Kinase 120 CK-MB (CK-2) 1.43 Troponin I 0.161 Impressions: Chest X-Ray 10/16/17 00:00 IMPRESSION: Central venous access catheter placed via right IJ approach. Catheter tip at right atrium. No pneumothorax. Head MRI 10/16/17 00:00 IMPRESSION: 1.6 cm ovoid acute -subacute infarct in the right cerebellar peduncle -pontine junction. No intracranial hemorrhage or mass effect. EVIDENCE OF ACUTE STROKE: Yes RIGHT VERTEBROBASILAR Hip X-Ray 10/16/17 00:00 IMPRESSION: No fracture identified. Carotid Doppler Study 10/17/17 00:00 IMPRESSION: Degree of stenosis of the left internal carotid less than 50%. Right carotid suboptimally visualized because a central line. Left vertebral not visualized. CTA of the extracranial carotids may be a consideration if further evaluation indicated. Abdomen/Pelvis CT 10/20/17 00:00 IMPRESSION: 1. HIATAL HERNIA. CORTICAL CYSTS IN THE KIDNEYS. NO OTHER SIGNIFICANT OR ACUTE FINDING IN THE ABDOMEN OR PELVIS ON CT SCAN WITH IV CONTRAST. 2. PLEURAL THICKENING IN THE LOWER CHEST WITH CALCIFIED PLEURAL PLAQUES. 2.5 CM ROUNDED LESION IN THE LEFT LUNG BASE POSSIBLY DUE TO ROUNDED ATELECTASIS. Assessment & Plan - Diagnosis (1) Cerebellar stroke, acute Is this a current diagnosis for this admission?: Yes (2) Hypertension Qualifiers: Hypertension type: essential hypertension Qualified Code(s): I10 - Essential (primary) hypertension Is this a current diagnosis for this admission?: Yes (3) Peripheral vascular disease Is this a current diagnosis for this admission?: Yes (4) Epilepsy Qualifiers: Epilepsy type: unspecified Intractability: not intractable Status epilepticus: without status epilepticus Qualified Code(s): G40.909 - Epilepsy , unspecified, not intractable, without status epilepticus Is this a current diagnosis for this admission?: Yes (5) Dyspepsia Is this a current diagnosis for this admission?: Yes (6) Vomiting Qualifiers: Vomiting type: unspecified Vomiting Intractability: unspecified Nausea presence: unspecified Qualified Code(s): R11.10 - Vomiting, unspecified Is this a current diagnosis for this admission?: Yes (7) Contrast dye induced nephropathy Is this a current diagnosis for this admission?: Yes (8) Acute kidney injury Is this a current diagnosis for this admission?: Yes (9) Thrombocytopenia Is this a current diagnosis for this admission?: Yes
[2017-10-22 20:10] LABS: ABSOLUTE BASOPHILS # (AUTO) 0.1 10^3/uL (0.0-0.2); ABSOLUTE EOSINOPHILS # (AUTO) 0.2 10^3/uL (0.0-0.6); ABSOLUTE LYMPHOCYTES (AUTO) 0.8 10^3/uL (0.5-4.7); ABSOLUTE NEUT (AUTO) 3.9 10^3/uL (1.7-8.2); BASOPHILS % (AUTO) 1.1 % (0-2); EOSINOPHILS % (AUTO) 3.5 % (0-6); HEMOGLOBIN 11.2 g/dL (13.5-17.0); LYMPHOCYTES % (AUTO) 12.7 % (13-45); MEAN CORPUSCULAR HEMOGLOBIN 30.6 pg (27.0-33.4); MEAN CORPUSCULAR HGB CONC 33.8 g/dL (32.0-36.0); MEAN CORPUSCULAR VOLUME 91 fl (80-97); MONOCYTES % (AUTO) 16.8 % (3-13); PLATELET COUNT 102 10^3/uL (150-450); RED BLOOD COUNT 3.64 10^6/uL (4.35-5.55); SEGMENTED NEUTROPHILS % (AUTO) 65.9 % (42-78); TOTAL CELLS COUNTED % (AUTO) 100 %
[2017-10-22] MEDS: ATORVASTATIN CALCIUM 40 MG TABLET PO SCH (21:36)
[2017-10-23 07:23] LABS: ABSOLUTE BASOPHILS # (AUTO) 0.1 10^3/uL (0.0-0.2); ABSOLUTE EOSINOPHILS # (AUTO) 0.3 10^3/uL (0.0-0.6); ABSOLUTE LYMPHOCYTES (AUTO) 1.2 10^3/uL (0.5-4.7); ABSOLUTE NEUT (AUTO) 4.4 10^3/uL (1.7-8.2); BASOPHILS % (AUTO) 1.2 % (0-2); EOSINOPHILS % (AUTO) 3.6 % (0-6); HEMATOCRIT 33.5 % (37.9-51.0); HEMOGLOBIN 11.4 g/dL (13.5-17.0); MEAN CORPUSCULAR VOLUME 91 fl (80-97); MONOCYTES % (AUTO) 13.9 % (3-13); PLATELET COUNT 107 10^3/uL (150-450); RED BLOOD COUNT 3.67 10^6/uL (4.35-5.55); RED CELL DISTRIBUTION WIDTH 13.3 % (11.5-14.0); SEGMENTED NEUTROPHILS % (AUTO) 64.3 % (42-78); TOTAL CELLS COUNTED % (AUTO) 100 %; WHITE BLOOD COUNT 6.9 10^3/uL (4.0-10.5)
[2017-10-23 07:43] LABS: ALANINE AMINOTRANSFERASE 22 U/L (21-72); ALBUMIN 3.8 g/dL (3.5-5.0); ALKALINE PHOSPHATASE 65 U/L (38-126); ANION GAP 10 (5-19); ASPARTATE AMINO TRANSFERASE 28 U/L (17-59); BILIRUBIN,DIRECT 0.3 mg/dL (0.0-0.4); BILIRUBIN,TOTAL 0.5 mg/dL (0.2-1.3); BLOOD UREA NITROGEN 17 mg/dL (7-20); CALCIUM 9.6 mg/dL (8.4-10.2); CARBON DIOXIDE 24 mmol/L (22-30); CHLORIDE 101 mmol/L (98-107); GLUCOSE 119 mg/dL (75-110); POTASSIUM 4.3 mmol/L (3.6-5.0); SODIUM 135.2 mmol/L (137-145); TOTAL PROTEIN 7.1 g/dL (6.3-8.2)
[2017-10-23] MEDS: LANSOPRAZOLE 30 MG TAB.RAP.DR PO SCH ×2 (10:26→21:57)
[2017-10-23] MEDS: HYDROCHLOROTHIAZIDE 25 MG TABLET PO SCH (10:26)
[2017-10-23] MEDS: TAMSULOSIN HCL 0.4 MG CAP.SR.24H PO SCH (10:27)
[2017-10-23] MEDS: VALSARTAN 160 MG TABLET PO SCH (10:27)
[2017-10-23] MEDS: LEVETIRACETAM 500 MG TABLET PO SCH ×2 (10:27→21:57)
[2017-10-23] MEDS: ASPIRIN/DIPYRIDAMOLE 25-200 MG 1 CAP.SR CPMP.12HR PO SCH ×2 (11:52→21:57)
--- NOTE | 2017-10-23 21:06 | PDOC PROGRESS REPORT ---
Subjective Progress Note for:: 10/23/17 Subjective:: Patient was seen by the bedside, discharge planning is trying to get shelter placement for rehabilitation Reason For Visit: CVA, GAIT ANORMALITY Physical Exam Vital Signs: Temp Pulse Resp BP Pulse Ox 98.2 F 99 20 105/58 L 99 10/23/17 19:40 10/23/17 19:40 10/23/17 19:40 10/23/17 19:40 10/23/17 19:40 Intake & Output 10/22/17 10/23/17 10/24/17 06:59 06:59 06:59 Intake Total 3059 1457 120 Balance 3059 1457 120 Weight 70.6 kg 69.9 kg Head exam: PRESENT: atraumatic, normocephalic Eye exam: PRESENT: conjunctiva pink, EOMI, PERRLA Ear exam: PRESENT: normal external ear exam Mouth exam: PRESENT: moist, tongue midline Neck exam: PRESENT: full ROM Respiratory exam: PRESENT: clear to auscultation kane Cardiovascular exam: PRESENT: RRR, +S1, +S2 Vascular exam: PRESENT: normal capillary refill GI/Abdominal exam: PRESENT: normal bowel sounds, soft Rectal exam: PRESENT: deferred Neurological exam: PRESENT: alert Skin exam: PRESENT: dry, intact, warm. ABSENT: cyanosis, rash Results Laboratory Results: 10/23/17 06:40 10/23/17 06:40 10/23/17 10/23/17 06:40 06:40 WBC 6.9 RBC 3.67 L Hgb 11.4 L Hct 33.5 L MCV 91 MCH 31.0 MCHC 34.0 RDW 13.3 Plt Count 107 L Seg Neutrophils % 64.3 Lymphocytes % 17.0 Monocytes % 13.9 H Eosinophils % 3.6 Basophils % 1.2 Absolute Neutrophils 4.4 Absolute Lymphocytes 1.2 Absolute Monocytes 1.0 Absolute Eosinophils 0.3 Absolute Basophils 0.1 Sodium 135.2 L Potassium 4.3 Chloride 101 Carbon Dioxide 24 Anion Gap 10 BUN 17 Creatinine 1.08 Est GFR ( Amer) > 60 Est GFR (Non-Af Amer) > 60 Glucose 119 H Calcium 9.6 Total Bilirubin 0.5 AST 28 ALT 22 Alkaline Phosphatase 65 Total Protein 7.1 Albumin 3.8 10/16/17 10/16/17 10/16/17 18:25 18:25 23:35 Creatine Kinase 101 108 CK-MB (CK-2) 1.16 Troponin I < 0.012 10/16/17 10/17/17 10/17/17 23:35 10:10 10:10 Creatine Kinase 120 CK-MB (CK-2) 1.67 1.59 Troponin I 0.210 0.198 10/17/17 10/17/17 18:18 18:18 Creatine Kinase 120 CK-MB (CK-2) 1.43 Troponin I 0.161 Impressions: Chest X-Ray 10/16/17 00:00 IMPRESSION: Central venous access catheter placed via right IJ approach. Catheter tip at right atrium. No pneumothorax. Head MRI 10/16/17 00:00 IMPRESSION: 1.6 cm ovoid acute -subacute infarct in the right cerebellar peduncle -pontine junction. No intracranial hemorrhage or mass effect. EVIDENCE OF ACUTE STROKE: Yes RIGHT VERTEBROBASILAR Hip X-Ray 10/16/17 00:00 IMPRESSION: No fracture identified. Carotid Doppler Study 10/17/17 00:00 IMPRESSION: Degree of stenosis of the left internal carotid less than 50%. Right carotid suboptimally visualized because a central line. Left vertebral not visualized. CTA of the extracranial carotids may be a consideration if further evaluation indicated. Abdomen/Pelvis CT 10/20/17 00:00 IMPRESSION: 1. HIATAL HERNIA. CORTICAL CYSTS IN THE KIDNEYS. NO OTHER SIGNIFICANT OR ACUTE FINDING IN THE ABDOMEN OR PELVIS ON CT SCAN WITH IV CONTRAST. 2. PLEURAL THICKENING IN THE LOWER CHEST WITH CALCIFIED PLEURAL PLAQUES. 2.5 CM ROUNDED LESION IN THE LEFT LUNG BASE POSSIBLY DUE TO ROUNDED ATELECTASIS. Assessment & Plan - Diagnosis (1) Cerebellar stroke, acute Is this a current diagnosis for this admission?: Yes (2) Hypertension Qualifiers: Hypertension type: essential hypertension Qualified Code(s): I10 - Essential (primary) hypertension Is this a current diagnosis for this admission?: Yes (3) Peripheral vascular disease Is this a current diagnosis for this admission?: Yes (4) Epilepsy Qualifiers: Epilepsy type: unspecified Intractability: not intractable Status epilepticus: without status epilepticus Qualified Code(s): G40.909 - Epilepsy , unspecified, not intractable, without status epilepticus Is this a current diagnosis for this admission?: Yes (5) Dyspepsia Is this a current diagnosis for this admission?: Yes (6) Vomiting Qualifiers: Vomiting type: unspecified Vomiting Intractability: unspecified Nausea presence: unspecified Qualified Code(s): R11.10 - Vomiting, unspecified Is this a current diagnosis for this admission?: Yes (7) Contrast dye induced nephropathy Is this a current diagnosis for this admission?: Yes (8) Acute kidney injury Is this a current diagnosis for this admission?: Yes (9) Thrombocytopenia Is this a current diagnosis for this admission?: Yes
[2017-10-23] MEDS: ATORVASTATIN CALCIUM 40 MG TABLET PO SCH (21:57)
[2017-10-24] MEDS: ASPIRIN/DIPYRIDAMOLE 25-200 MG 1 CAP.SR CPMP.12HR PO SCH ×2 (09:36→21:17)
[2017-10-24] MEDS: LEVETIRACETAM 500 MG TABLET PO SCH ×2 (09:36→21:17)
[2017-10-24] MEDS: VALSARTAN 160 MG TABLET PO SCH (09:37)
[2017-10-24] MEDS: TAMSULOSIN HCL 0.4 MG CAP.SR.24H PO SCH (09:38)
[2017-10-24] MEDS: HYDROCHLOROTHIAZIDE 25 MG TABLET PO SCH (09:38)
[2017-10-24] MEDS: LANSOPRAZOLE 30 MG TAB.RAP.DR PO SCH ×2 (09:39→21:17)
--- NOTE | 2017-10-24 21:13 | PDOC PROGRESS REPORT ---
Subjective Progress Note for:: 10/24/17 Subjective:: Patient was seen by the bedside, discharge planning is trying to get custodial placement for rehabilitation Reason For Visit: CVA, GAIT ANORMALITY Physical Exam Vital Signs: Temp Pulse Resp BP Pulse Ox 98.3 F 98 20 97/49 L 99 10/24/17 19:59 10/24/17 20:37 10/24/17 19:59 10/24/17 19:59 10/24/17 19:59 Intake & Output 10/23/17 10/24/17 10/25/17 06:59 06:59 06:59 Intake Total 1457 480 510 Balance 1457 480 510 Weight 69.9 kg 69.9 kg General appearance: PRESENT: no acute distress Eye exam: PRESENT: PERRLA Respiratory exam: PRESENT: clear to auscultation kaen Cardiovascular exam: PRESENT: +S1, +S2 GI/Abdominal exam: PRESENT: soft Neurological exam: PRESENT: alert Results Laboratory Results: 10/23/17 06:40 10/23/17 06:40 10/16/17 10/16/17 10/16/17 18:25 18:25 23:35 Creatine Kinase 101 108 CK-MB (CK-2) 1.16 Troponin I < 0.012 10/16/17 10/17/17 10/17/17 23:35 10:10 10:10 Creatine Kinase 120 CK-MB (CK-2) 1.67 1.59 Troponin I 0.210 0.198 10/17/17 10/17/17 18:18 18:18 Creatine Kinase 120 CK-MB (CK-2) 1.43 Troponin I 0.161 Impressions: Chest X-Ray 10/16/17 00:00 IMPRESSION: Central venous access catheter placed via right IJ approach. Catheter tip at right atrium. No pneumothorax. Head MRI 10/16/17 00:00 IMPRESSION: 1.6 cm ovoid acute -subacute infarct in the right cerebellar peduncle -pontine junction. No intracranial hemorrhage or mass effect. EVIDENCE OF ACUTE STROKE: Yes RIGHT VERTEBROBASILAR Hip X-Ray 10/16/17 00:00 IMPRESSION: No fracture identified. Carotid Doppler Study 10/17/17 00:00 IMPRESSION: Degree of stenosis of the left internal carotid less than 50%. Right carotid suboptimally visualized because a central line. Left vertebral not visualized. CTA of the extracranial carotids may be a consideration if further evaluation indicated. Abdomen/Pelvis CT 10/20/17 00:00 IMPRESSION: 1. HIATAL HERNIA. CORTICAL CYSTS IN THE KIDNEYS. NO OTHER SIGNIFICANT OR ACUTE FINDING IN THE ABDOMEN OR PELVIS ON CT SCAN WITH IV CONTRAST. 2. PLEURAL THICKENING IN THE LOWER CHEST WITH CALCIFIED PLEURAL PLAQUES. 2.5 CM ROUNDED LESION IN THE LEFT LUNG BASE POSSIBLY DUE TO ROUNDED ATELECTASIS. Assessment & Plan - Diagnosis (1) Cerebellar stroke, acute Is this a current diagnosis for this admission?: Yes (2) Hypertension Qualifiers: Hypertension type: essential hypertension Qualified Code(s): I10 - Essential (primary) hypertension Is this a current diagnosis for this admission?: Yes (3) Peripheral vascular disease Is this a current diagnosis for this admission?: Yes (4) Epilepsy Qualifiers: Epilepsy type: unspecified Intractability: not intractable Status epilepticus: without status epilepticus Qualified Code(s): G40.909 - Epilepsy , unspecified, not intractable, without status epilepticus Is this a current diagnosis for this admission?: Yes (5) Dyspepsia Is this a current diagnosis for this admission?: Yes (6) Vomiting Qualifiers: Vomiting type: unspecified Vomiting Intractability: unspecified Nausea presence: unspecified Qualified Code(s): R11.10 - Vomiting, unspecified Is this a current diagnosis for this admission?: Yes (7) Contrast dye induced nephropathy Is this a current diagnosis for this admission?: Yes (8) Acute kidney injury Is this a current diagnosis for this admission?: Yes (9) Thrombocytopenia Is this a current diagnosis for this admission?: Yes Plan: The heparin-induced thrombocytopenia antibody was negative
[2017-10-24] MEDS: ATORVASTATIN CALCIUM 40 MG TABLET PO SCH (21:17)
[2017-10-25] MEDS: ASPIRIN/DIPYRIDAMOLE 25-200 MG 1 CAP.SR CPMP.12HR PO SCH (09:34)
[2017-10-25] MEDS: LEVETIRACETAM 500 MG TABLET PO SCH (09:34)
[2017-10-25] MEDS: TAMSULOSIN HCL 0.4 MG CAP.SR.24H PO SCH (09:36)
[2017-10-25] MEDS: HYDROCHLOROTHIAZIDE 25 MG TABLET PO SCH (09:36)
[2017-10-25] MEDS: LANSOPRAZOLE 30 MG TAB.RAP.DR PO SCH (09:36)
[2017-10-25] MEDS: VALSARTAN 160 MG TABLET PO SCH (09:36)
--- NOTE | 2017-10-25 13:55 | PDOC TRANSFER SUMMARY ---
General - Admit/Disc Date/PCP Admission Date/Primary Care Provider: 10/16/17 16:46 MEHDI LAWSON MD Discharge Date: 10/25/17 - Discharge Diagnosis (1) Cerebellar stroke, acute Is this a current diagnosis for this admission?: Yes (2) Hypertension Is this a current diagnosis for this admission?: Yes (3) Peripheral vascular disease Is this a current diagnosis for this admission?: Yes (4) Epilepsy Is this a current diagnosis for this admission?: Yes (5) Dyspepsia Is this a current diagnosis for this admission?: Yes (6) Vomiting Is this a current diagnosis for this admission?: Yes (7) Contrast dye induced nephropathy Is this a current diagnosis for this admission?: Yes (8) Acute kidney injury Is this a current diagnosis for this admission?: Yes (9) Thrombocytopenia Is this a current diagnosis for this admission?: Yes - Additional Information Home Medications: Acetaminophen [Tylenol Extra Strength] 500 mg PO TID 10/16/17 Atorvastatin Calcium [Lipitor 40 mg Tablet] 40 mg PO QHS 10/16/17 Doxepin HCl [Silenor] 6 mg PO DAILY 10/16/17 Levetiracetam [Keppra 500 mg Tablet] 500 mg PO Q12 10/16/17 Meclizine HCl [Antivert 25 mg Tablet] 25 mg PO TID PRN 10/16/17 Montelukast Sodium [Singulair 10 mg Tablet] 10 mg PO QHS 10/16/17 Olopatadine HCl [Pataday] 2.5 ml OP ASDIR PRN 10/16/17 Olopatadine HCl [Patanol 0.1% Oph Soln 5 Ml Bottle] 1 drop OP BID 10/16/17 Omeprazole 40 mg PO DAILY 10/16/17 Tamsulosin HCl [Flomax 0.4 mg Cap.sr] 0.4 mg PO DAILY 10/16/17 Valsartan/Hydrochlorothiazide [Diovan Hct 160-25 mg Tablet] 1 tab PO DAILY 10/16 Acetaminophen [Tylenol 325 mg Tablet] 650 mg PO Q6HP PRN tablet 10/25/17 Aspirin/Dipyridamole [Aggrenox 25 mg/200 mg Capsule SA] 1 cap.sr PO Q12 cpmp.12hr 10/25/17 History of Present Illness Admission Date/PCP: 10/16/17 16:46 MEHDI LAWSON MD History of Present Illness: CAITLYN ROOT is a 87 year old male, He came to the office today for evaluation of ataxia, gait abnormality, loss of balance, his ambulation was supported with a wheelchair, cerebellar stroke was suspected, he was admitted directly into the hospital, MRI brain was done it confirm right cerebellar stroke Hospital Course Hospital Course: Patient was admitted for the management of cerebellar stroke. He was managed according to stroke protocol, 2D echo was done it showed normal ejection fraction of left ventricle, grade 2 diastolic dysfunction of the left ventricle. There is no mitral valve stenosis, mild mitral valve regurgitation, carotid Doppler was done as well there was <50% stenosis of the left internal carotid arter. Patient complains of abdominal pain associated with vomiting because of the symptom a CAT scan of the abdomen and pelvis with IV contrast was done in the hospital there was incidental finding of a 2.5 cm round lesion in the left lung base. There was pleural thickening with calcified pleural plaques with chronic parenchymal scarring. Patient was seen by physical therapy in the hospital rehabilitation was recommended, the plan is to get patient transfer to rehabilitation. He also had contrast induced nephropathy with acute kidney injury, this was treated with IV fluid with normalization of kidney function. Physical Exam Vital Signs: Temp Pulse Resp BP Pulse Ox 98.5 F 85 20 121/57 L 99 10/25/17 12:20 10/25/17 12:20 10/25/17 12:20 10/25/17 12:20 10/25/17 12:20 Intake & Output 10/24/17 10/25/17 10/26/17 06:59 06:59 06:59 Intake Total 480 762 421 Output Total 1 Balance 480 761 421 Weight 69.9 kg 70.1 kg General appearance: PRESENT: no acute distress, well-developed, well-nourished Head exam: PRESENT: atraumatic, normocephalic Ear exam: PRESENT: normal external ear exam Mouth exam: PRESENT: moist, tongue midline Respiratory exam: PRESENT: clear to auscultation kane Cardiovascular exam: PRESENT: RRR Pulses: PRESENT: normal dorsalis pedis pul Vascular exam: PRESENT: normal capillary refill GI/Abdominal exam: PRESENT: normal bowel sounds, soft Rectal exam: PRESENT: deferred Extremities exam: PRESENT: full ROM Neurological exam: PRESENT: alert Skin exam: PRESENT: dry, intact, warm Results Laboratory Results: 10/23/17 06:40 10/23/17 06:40 10/16/17 10/16/17 10/16/17 18:25 18:25 23:35 Creatine Kinase 101 108 CK-MB (CK-2) 1.16 Troponin I < 0.012 10/16/17 10/17/17 10/17/17 23:35 10:10 10:10 Creatine Kinase 120 CK-MB (CK-2) 1.67 1.59 Troponin I 0.210 0.198 10/17/17 10/17/17 18:18 18:18 Creatine Kinase 120 CK-MB (CK-2) 1.43 Troponin I 0.161 Impressions: Chest X-Ray 10/16/17 00:00 IMPRESSION: Central venous access catheter placed via right IJ approach. Catheter tip at right atrium. No pneumothorax. Head MRI 10/16/17 00:00 IMPRESSION: 1.6 cm ovoid acute -subacute infarct in the right cerebellar peduncle -pontine junction. No intracranial hemorrhage or mass effect. EVIDENCE OF ACUTE STROKE: Yes RIGHT VERTEBROBASILAR Hip X-Ray 10/16/17 00:00 IMPRESSION: No fracture identified. Carotid Doppler Study 10/17/17 00:00 IMPRESSION: Degree of stenosis of the left internal carotid less than 50%. Right carotid suboptimally visualized because a central line. Left vertebral not visualized. CTA of the extracranial carotids may be a consideration if further evaluation indicated. Abdomen/Pelvis CT 10/20/17 00:00 IMPRESSION: 1. HIATAL HERNIA. CORTICAL CYSTS IN THE KIDNEYS. NO OTHER SIGNIFICANT OR ACUTE FINDING IN THE ABDOMEN OR PELVIS ON CT SCAN WITH IV CONTRAST. 2. PLEURAL THICKENING IN THE LOWER CHEST WITH CALCIFIED PLEURAL PLAQUES. 2.5 CM ROUNDED LESION IN THE LEFT LUNG BASE POSSIBLY DUE TO ROUNDED ATELECTASIS.
[2017-10-25 16:42] VITALS: BP 133/67
== END 2017-10-25 18:05 | DRG 65 ==
LOC: 3W 16:46 → UNDOADMIN 16:46
PROVIDERS: ADMIT Internal Medicine; ATTEND Internal Medicine
PROC: 02HV33Z Insertion of Infusion Device into Superior Vena Cava, Percutaneous Approach (ICD-10-PCS; principal; 2017-10-16)
PROC: B548ZZA Ultrasonography of Superior Vena Cava, Guidance (ICD-10-PCS; 2017-10-16)
PROC: 3E0234Z Introduction of Serum, Toxoid and Vaccine into Muscle, Percutaneous Approach (ICD-10-PCS; 2017-10-25)
DX: I63.9 Cerebral infarction, unspecified (principal); N17.9 Acute kidney failure, unspecified; N14.1 Nephropathy induced by other drugs, medicaments and biological substances; T50.8X5A Adverse effect of diagnostic agents, initial encounter; I10 Essential (primary) hypertension; R27.0 Ataxia, unspecified; R26.9 Unspecified abnormalities of gait and mobility; G40.909 Epilepsy, unspecified, not intractable, without status epilepticus; I73.9 Peripheral vascular disease, unspecified; R91.8 Other nonspecific abnormal finding of lung field; N28.1 Cyst of kidney, acquired; D69.6 Thrombocytopenia, unspecified; Z23 Encounter for immunization
CPT/HCPCS: 36415; 36600; 70551; 71045; 73522; 74177; 80048; 80053; 80076; 81001; 82550; 82553; 82803; 83970; 84484; 85025; 85027; 86022; 87493; 90686; 93005; 93010; 93306; 93880; C1751; G8978-GP; G8979-GP; G8987-GO; G8988-GO; J1642; J1650; J2405; J3490; J7030; J7060

== ENCOUNTER 2018-01-28 08:57 | Inpatient (IN) | payer MEDICARE, MEDICAID ==
--- NOTE | 2018-01-28 10:11 | ER Document Report ---
ED General - General Chief Complaint: Other Stated Complaint: WELLCHECK/NO COMPLAINTS Time Seen by Provider: 01/28/18 09:49 Information source: Patient, Relative Notes: Spoke with patient's who states that patient woke up today reporting that he did not feel well and had a headache. Patient has had a decreased appetite and did not want to take his usual medications this morning. does state that patient's had some loose stools. Patient has otherwise been acting normally at home but that they wanted to get him evaluated. says that he was grunting and attributes this to his headache pain he was having this morning. TRAVEL OUTSIDE OF THE [place] IN LAST 30 DAYS: No - HPI Onset: This morning Onset/Duration: Gradual Quality of pain: Achy Pain Level: 1 Associated symptoms: Headache, Other - Decreased appetite. denies: Chest pain, Nonproductive cough, Productive cough, Fever, Nausea, Vomiting Exacerbated by: Denies Relieved by: Denies Similar symptoms previously: No - Related Data Allergies/Adverse Reactions: lorazepam [From Ativan] Adverse Reaction (Severe, Verified 09/28/16 12:00) Abnormal behavior Past Medical History - General Information source: Patient, Relative - Social History Smoking Status: Never Smoker Chew tobacco use (# tins/day): No Frequency of alcohol use: None Drug Abuse: None Lives with: Family Family History: Reviewed & Not Pertinent, CAD, Hyperlipidemia, Hypertension Patient has suicidal ideation: No Patient has homicidal ideation: No - Past Medical History Cardiac Medical History: Reports: Hx Hypercholesterolemia, Hx Hypertension, Hx Peripheral Vascular Disease Pulmonary Medical History: Reports: Hx Pneumonia Neurological Medical History: Reports: Hx Cerebrovascular Accident, Hx Seizures - No seizures for many years. Currently taking Keppra. Endocrine Medical History: Denies: Hx Diabetes Mellitus Type 1, Hx Diabetes Mellitus Type 2 Renal/ Medical History: Denies: Hx Peritoneal Dialysis Malignancy Medical History: Reports Hx Prostate Cancer GI Medical History: Reports: Hx Gastroesophageal Reflux Disease Musculoskeltal Medical History: Reports Hx Arthritis Psychiatric Medical History: Denies: Hx Depression Past Surgical History: Reports: Hx Orthopedic Surgery - Right knee, Hx Vascular Surgery - Immunizations Immunizations up to date: No Hx Diphtheria, Pertussis, Tetanus Vaccination: Yes Hx Pneumococcal Vaccination: 10/28/09 Review of Systems - Review of Systems Constitutional: Other - Decreased appetite. denies: Fever, Recent illness EENT: No symptoms reported Cardiovascular: No symptoms reported. denies: Chest pain Respiratory: No symptoms reported. denies: Cough Gastrointestinal: Poor appetite. denies: Nausea, Vomiting Genitourinary: No symptoms reported Male Genitourinary: No symptoms reported Musculoskeletal: No symptoms reported. denies: Back pain, Neck pain Skin: Other - Open wound to right second toe Hematologic/Lymphatic: No symptoms reported Neurological/Psychological: Headaches. denies: Weakness Physical Exam - Vital signs Vitals: Resp 14 01/28/18 09:03 - General General appearance: Appears well, Alert In distress: None Notes: pt ANIAK - HEENT Head: Normocephalic, Atraumatic. No: Abrasions, Carreon's sign, Ecchymosis, Racoon's eyes, Tenderness Eyes: Normal Nasal: Normal Mouth/Lips: Normal Neck: Normal, Supple. No: Lymphadenopathy - Respiratory Respiratory status: No respiratory distress Chest status: Nontender Breath sounds: Normal. No: Rales, Rhonchi, Stridor, Wheezing Chest palpation: Normal - Cardiovascular Rhythm: Irregularly irregular, Bradycardia Heart sounds: S1 appreciated, S2 appreciated - Abdominal Inspection: Normal Distension: No distension Bowel sounds: Normal Tenderness: Nontender Organomegaly: No organomegaly - Back Back: Normal, Nontender - Extremities General upper extremity: Normal inspection, Normal ROM General lower extremity: Normal inspection, Normal ROM Foot: Tender - Tender wound to medial aspect of right second toe - Neurological Neuro grossly intact: Yes Cognition: Normal [place] Coma Scale Eye Opening: Spontaneous Ion Coma Scale Verbal: Oriented [place] Coma Scale Motor: Obeys Commands Ion Coma Scale Total: 15 - Psychological Associated symptoms: Normal affect, Normal mood - Skin Skin Temperature: Warm Skin Moisture: Dry Skin Color: Normal Skin irregularity: other - Chronic wound to medial aspect of right second toe, no surrounding erythema, no purulent drainage, no edema Course - Re-evaluation Re-evalutation: 01/28/18 11:16 Patient denies any headache symptoms at this time. Patient continues in a sinus bradycardia rhythm at this time. EKG with a first-degree block. 01/28/18 14:45 PCT unsuccessful with straight cath specimen collection (despite using a Urojet) , PCT Clifford states he came against resistance and then noticed blood in the catheter and then withdrew the catheter. 01/28/18 15:08 Coude catheter inserted after Urojet was used for anesthesia. No resistance noted, small amount of blood noted to the urethral meatus. Patient with blood- tinged urine to Senior bag. 01/28/18 15:14 Heart rate dropped to upper 30s return to the 40s, RN encouraged to obtain a repeat EKG. EKG reviewed per Dr. Beltran, feels that patient presents in a second -degree type I heart block pattern on EKG. Patient's teletypesetter monitor since has returned to a sinus rhythm in the 70s. 01/28/18 16:[address] Tomlinson regarding patient's diagnostic evaluation. Recommends consulting with Dr. Palmer to review patient's EKG. Also advises placing patient on an antibiotic to cover for possible UTI. 01/28/18 16:[address] Palmer, awaiting return call. 01/28/18 16:41 is concerned that patient is restless at home and pulls blankets and keeps the family up and she feels as though she cannot adequately care for him and that she would like him to be admitted tonight. acknowledges increased stress with his care after he was brought home from the rehab facility after having a stroke recently. 01/28/18 17:[address] Tomlinson regarding family concerns, Dr. Tomlinson agrees to accept patient for admission to telemetry and advises giving patient dose of IV Rocephin. - Vital Signs Vital signs: Temp Pulse Resp BP Pulse Ox 97.6 F 64 14 105/63 100 01/28/18 09:08 01/28/18 09:08 01/28/18 13:01 01/28/18 13:01 01/28/18 11:01 - Laboratory Result Diagrams: 01/28/18 09:10 01/28/18 09:10 Laboratory results interpreted by me: 01/28/18 01/28/18 01/28/18 09:10 09:10 15:10 RBC 4.05 L Hgb 12.1 L Hct 36.8 L BUN 32 H Creatinine 1.60 H Est GFR ( Amer) 49 L Est GFR (Non-Af Amer) 41 L Glucose 116 H ALT 10 L Total Protein 8.7 H Urine Blood MODERATE H Labs- Entire Visit 01/28/18 01/28/18 01/28/18 09:10 09:10 09:10 WBC 5.7 RBC 4.05 L Hgb 12.1 L Hct 36.8 L MCV 91 MCH 29.8 MCHC 32.8 RDW 13.2 Plt Count 217 Seg Neutrophils % 53.4 Lymphocytes % 31.5 Monocytes % 11.8 Eosinophils % 2.0 Basophils % 1.3 Absolute Neutrophils 3.1 Absolute Lymphocytes 1.8 Absolute Monocytes 0.7 Absolute Eosinophils 0.1 Absolute Basophils 0.1 Sodium 142.0 Potassium 4.2 Chloride 103 Carbon Dioxide 25 Anion Gap 14 BUN 32 H Creatinine 1.60 H Est GFR ( Amer) 49 L Est GFR (Non-Af Amer) 41 L Glucose 116 H Calcium 10.1 Magnesium 2.1 Total Bilirubin 0.4 Direct Bilirubin 0.4 Neonat Total Bilirubin Not Reportable Neonat Direct Bilirubin Not Reportable Neonat Indirect Bili Not Reportable AST 45 ALT 10 L Alkaline Phosphatase 93 Creatine Kinase 84 CK-MB (CK-2) 0.81 Troponin I < 0.012 Total Protein 8.7 H Albumin 4.4 Urine Color Urine Appearance Urine pH Ur Specific [place] Urine Protein Urine Glucose (UA) Urine Ketones Urine Blood Urine Nitrite Urine Bilirubin Urine Urobilinogen Ur Leukocyte Esterase Urine WBC (Auto) Urine RBC (Auto) Urine Mucus (Auto) Urine Ascorbic Acid 01/28/18 15:10 WBC RBC Hgb Hct MCV MCH MCHC RDW Plt Count Seg Neutrophils % Lymphocytes % Monocytes % Eosinophils % Basophils % Absolute Neutrophils Absolute Lymphocytes Absolute Monocytes Absolute Eosinophils Absolute Basophils Sodium Potassium Chloride Carbon Dioxide Anion Gap BUN Creatinine Est GFR ( Amer) Est GFR (Non-Af Amer) Glucose Calcium Magnesium Total Bilirubin Direct Bilirubin Neonat Total Bilirubin Neonat Direct Bilirubin Neonat Indirect Bili AST ALT Alkaline Phosphatase Creatine Kinase CK-MB (CK-2) Troponin I Total Protein Albumin Urine Color YELLOW Urine Appearance CLEAR Urine pH 5.0 Ur Specific [place] 1.014 Urine Protein NEGATIVE Urine Glucose (UA) NEGATIVE Urine Ketones NEGATIVE Urine Blood MODERATE H Urine Nitrite NEGATIVE Urine Bilirubin NEGATIVE Urine Urobilinogen NEGATIVE Ur Leukocyte Esterase NEGATIVE Urine WBC (Auto) 2 Urine RBC (Auto) 20 Urine Mucus (Auto) RARE Urine Ascorbic Acid NEGATIVE - Diagnostic Test Radiology reviewed: Reports reviewed Discharge - Discharge Clinical Impression: Urinary retention, Decreased renal function Hematuria Qualifiers: Hematuria type: gross Qualified Code(s): R31.0 - Gross hematuria Condition: Stable Disposition: ADMITTED INPATIENT Admitting Provider: [facility] Admitted: Telemetry
--- NOTE | 2018-01-28 10:36 | RADIOLOGY REPORT (SQ) ---
EXAM DESCRIPTION: CT HEAD WITHOUT COMPLETED DATE/TIME: 01/28/2018 10:28 am REASON FOR STUDY: PRATHER COMPARISON: MRI dated 10/16/2017. TECHNIQUE: Axial images acquired through the brain without intravenous contrast. Images reviewed wi th bone, brain and subdural windows. Additional sagittal and coronal reconstructions were generated. Images stored on PACS. All CT scanners at this facility use dose modulation, iterative reconstruction, and/or weight based d osing when appropriate to reduce radiation dose to as low as reasonably achievable (ALARA). [facility]: Dose Right [facility]: CareDose [facility]: Dose Right [facility]: Teradose 4D [facility]: Smart WayConnected RADIATION DOSE: CT Rad equipment meets quality standard of care and radiation dose reduction techniq ues were employed. CTDIvol: 53.2 mGy. DLP: 1097 mGy-cm.mGy. LIMITATIONS: None. FINDINGS: VENTRICLES: Prominent. CEREBRUM: No masses. No hemorrhage. No midline shift. Areas of low density in the white matter mos t likely due to chronic micro-vascular ischemic change. No evidence for acute infarction. CEREBELLUM: No masses. No hemorrhage. No alteration of density. No evidence for acute infarction. EXTRAAXIAL SPACES: Age-related involutional change. No fluid collections. No masses. ORBITS AND GLOBE: No intra- or extraconal masses. Normal contour of globe without masses. CALVARIUM: No fracture. PARANASAL SINUSES: No fluid or mucosal thickening. SOFT TISSUES: No mass or hematoma. OTHER: No other significant finding. IMPRESSION: CHRONIC CHANGES OF ATROPHY AND MICROVASCULAR ISCHEMIA. NO ACUTE PROCESS. EVIDENCE OF ACUTE STROKE: NO. TECHNICAL DOCUMENTATION: JOB ID: [id number] Quality ID # [id number]: Final reports with documentation of one or more dose reduction techniques (e.g., Au tomated exposure control, adjustment of the mA and/or kV according to patient size, use of iterative reconstruction technique) 2010 [employer]- All Rights Reserved Reading location - IP/workstation name: [email or web address]
--- NOTE | 2018-01-28 10:54 | RADIOLOGY REPORT (SQ) ---
EXAM DESCRIPTION: CHEST 2 VIEWS COMPLETED DATE/TIME: 01/28/2018 10:35 am REASON FOR STUDY: PRATHER, bradycardia COMPARISON: 10/16/2017, 04/11/2017, 11/08/2014. EXAM PARAMETERS: NUMBER OF VIEWS: two views TECHNIQUE: Digital Frontal and Lateral radiographic views of the chest acquired. RADIATION DOSE: NA LIMITATIONS: none FINDINGS: LUNGS AND PLEURA: Stable chronic pleural and parenchymal scarring. No focal infiltrates, masses or pneumothorax. No pleural effusion. MEDIASTINUM AND HILAR STRUCTURES: No masses or contour abnormalities. HEART AND VASCULAR STRUCTURES: Heart normal size. No evidence for failure. BONES: No acute findings. Old rib fractures. HARDWARE: None in the chest. OTHER: No other significant finding. IMPRESSION: STABLE CHRONIC CHANGES. NO ACUTE RADIOGRAPHIC FINDING IN THE CHEST. TECHNICAL DOCUMENTATION: JOB ID: [id number] [employer]- All Rights Reserved Reading location - IP/workstation name: [email or web address]
[2018-01-28 11:17] LABS: ABSOLUTE BASOPHILS # (AUTO) 0.1 10^3/uL (0.0-0.2); ABSOLUTE EOSINOPHILS # (AUTO) 0.1 10^3/uL (0.0-0.6); ABSOLUTE LYMPHOCYTES (AUTO) 1.8 10^3/uL (0.5-4.7); ABSOLUTE MONOCYTES (AUTO) 0.7 10^3/uL (0.1-1.4); ABSOLUTE NEUT (AUTO) 3.1 10^3/uL (1.7-8.2); BASOPHILS % (AUTO) 1.3 % (0-2); HEMATOCRIT 36.8 % (37.9-51.0); HEMOGLOBIN 12.1 g/dL (13.5-17.0); LYMPHOCYTES % (AUTO) 31.5 % (13-45); MEAN CORPUSCULAR HEMOGLOBIN 29.8 pg (27.0-33.4); MEAN CORPUSCULAR HGB CONC 32.8 g/dL (32.0-36.0); MEAN CORPUSCULAR VOLUME 91 fl (80-97); MONOCYTES % (AUTO) 11.8 % (3-13); PLATELET COUNT 217 10^3/uL (150-450); RED BLOOD COUNT 4.05 10^6/uL (4.35-5.55); RED CELL DISTRIBUTION WIDTH 13.2 % (11.5-14.0); SEGMENTED NEUTROPHILS % (AUTO) 53.4 % (42-78); TOTAL CELLS COUNTED % (AUTO) 100 %; WHITE BLOOD COUNT 5.7 10^3/uL (4.0-10.5)
[2018-01-28 11:26] LABS: ALANINE AMINOTRANSFERASE 10 U/L (21-72); ALBUMIN 4.4 g/dL (3.5-5.0); ALKALINE PHOSPHATASE 93 U/L (38-126); ANION GAP 14 (5-19); ASPARTATE AMINO TRANSFERASE 45 U/L (17-59); BILIRUBIN,DIRECT 0.4 mg/dL (0.0-0.4); BILIRUBIN,TOTAL 0.4 mg/dL (0.2-1.3); BLOOD UREA NITROGEN 32 mg/dL (7-20); CALCIUM 10.1 mg/dL (8.4-10.2); CARBON DIOXIDE 25 mmol/L (22-30); CHLORIDE 103 mmol/L (98-107); CREATINE KINASE 84 U/L (55-170); GLUCOSE 116 mg/dL (75-110); POTASSIUM 4.2 mmol/L (3.6-5.0); TOTAL PROTEIN 8.7 g/dL (6.3-8.2)
[2018-01-28 11:38] LABS: CREATINE KINASE MB 0.81 ng/mL (<4.55)
[2018-01-28 11:39] LABS: TROPONIN I < 0.012 ng/mL
[2018-01-28] MEDS ORDERED: NORMAL SALINE 500 ML IV ONE (12:01)
[2018-01-28] MEDS ORDERED: LIDOCAINE 2% URO-JET 5 ML KIT MM ONE (14:50)
[2018-01-28 16:16] LABS: APPEARANCE,URINE CLEAR; BILIRUBIN,URINE NEGATIVE (NEGATIVE); COLOR,URINE YELLOW; GLUCOSE, URINE NEGATIVE (NEGATIVE); KETONES,URINE NEGATIVE (NEGATIVE); LEUKOCYTE ESTERASE,URINE NEGATIVE (NEGATIVE); NITRITE,URINE NEGATIVE (NEGATIVE); PROTEIN,URINE NEGATIVE (NEGATIVE); URINE SPECIFIC GRAVITY 1.014; UROBILINOGEN,URINE NEGATIVE mg/dL (<2.0)
--- NOTE | 2018-01-28 16:16 | EKG REPORT ---
SEVERITY:- ABNORMAL ECG - SINUS RHYTHM FIRST DEGREE AV BLOCK : Confirmed by: Edgardo San 28-Jan-2018 16:15:21
--- NOTE | 2018-01-28 16:16 | EKG REPORT ---
SEVERITY:- ABNORMAL ECG - SINUS RHYTHM FIRST DEGREE AV BLOCK : Confirmed by: Edgardo San 28-Jan-2018 16:14:54
[2018-01-28] MEDS ORDERED: CEPHALEXIN 250 MG CAPSULE PO ONE (16:31)
[2018-01-28] MEDS ORDERED: CEFTRIAXONE INJ 1000 MG VIAL IV ONE (17:21)
[2018-01-28 19:44] LABS: THYROID STIMULATING HORMONE 3.71 uIU/mL (0.47-4.68)
[2018-01-28] MEDS ORDERED: CEFTRIAXONE 1 GM/D5W RTU 1 GM/50 ML RTUPB IV ONE (21:07)
[2018-01-28] MEDS ORDERED: CEPHALEXIN 250 MG CAPSULE ONE (21:08)
[2018-01-28] MEDS: DOCUSATE SODIUM 100 MG CAPSULE PO SCH (21:45)
[2018-01-28] MEDS: NORMAL SALINE 1000 ML 1,000 ML IV PRN (21:50)
[2018-01-28] MEDS: ATORVASTATIN CALCIUM 40 MG TABLET PO SCH (22:00)
[2018-01-28] MEDS: LEVETIRACETAM 500 MG TABLET PO SCH (22:00)
[2018-01-28] MEDS: MONTELUKAST SODIUM 10 MG TABLET PO SCH (22:01)
[2018-01-28] MEDS: ASPIRIN/DIPYRIDAMOLE 25-200 MG 1 CAP.SR CPMP.12HR PO SCH (22:03)
[2018-01-29 05:16] LABS: ABSOLUTE BASOPHILS # (AUTO) 0.1 10^3/uL (0.0-0.2); ABSOLUTE EOSINOPHILS # (AUTO) 0.1 10^3/uL (0.0-0.6); ABSOLUTE LYMPHOCYTES (AUTO) 1.3 10^3/uL (0.5-4.7); ABSOLUTE MONOCYTES (AUTO) 0.8 10^3/uL (0.1-1.4); ABSOLUTE NEUT (AUTO) 4.3 10^3/uL (1.7-8.2); EOSINOPHILS % (AUTO) 1.7 % (0-6); HEMATOCRIT 39.7 % (37.9-51.0); HEMOGLOBIN 13.3 g/dL (13.5-17.0); LYMPHOCYTES % (AUTO) 19.9 % (13-45); MEAN CORPUSCULAR HEMOGLOBIN 30.2 pg (27.0-33.4); MEAN CORPUSCULAR HGB CONC 33.5 g/dL (32.0-36.0); MEAN CORPUSCULAR VOLUME 90 fl (80-97); MONOCYTES % (AUTO) 11.9 % (3-13); PLATELET COUNT 194 10^3/uL (150-450); RED BLOOD COUNT 4.42 10^6/uL (4.35-5.55); RED CELL DISTRIBUTION WIDTH 13.1 % (11.5-14.0); SEGMENTED NEUTROPHILS % (AUTO) 65.5 % (42-78); TOTAL CELLS COUNTED % (AUTO) 100 %; WHITE BLOOD COUNT 6.5 10^3/uL (4.0-10.5)
[2018-01-29 05:40] LABS: ALANINE AMINOTRANSFERASE 12 U/L (21-72); ALBUMIN 4.3 g/dL (3.5-5.0); ALKALINE PHOSPHATASE 90 U/L (38-126); ANION GAP 18 (5-19); ASPARTATE AMINO TRANSFERASE 24 U/L (17-59); BILIRUBIN,DIRECT 0.6 mg/dL (0.0-0.4); BILIRUBIN,TOTAL 0.7 mg/dL (0.2-1.3); BLOOD UREA NITROGEN 25 mg/dL (7-20); CALCIUM 10.2 mg/dL (8.4-10.2); CARBON DIOXIDE 21 mmol/L (22-30); CHLORIDE 106 mmol/L (98-107); GLUCOSE 104 mg/dL (75-110); POTASSIUM 4.9 mmol/L (3.6-5.0); TOTAL PROTEIN 8.5 g/dL (6.3-8.2)
--- NOTE | 2018-01-29 06:50 | EKG REPORT ---
SEVERITY:- ABNORMAL ECG - SINUS RHYTHM FIRST DEGREE AV BLOCK : Confirmed by: Viktor Bahena MD 29-Jan-2018 06:49:39
[2018-01-29] MEDS: ASPIRIN/DIPYRIDAMOLE 25-200 MG 1 CAP.SR CPMP.12HR PO SCH ×2 (09:58→21:14)
[2018-01-29] MEDS: LANSOPRAZOLE 30 MG TAB.RAP.DR PO SCH (09:58)
[2018-01-29] MEDS: OLOPATADINE HCL 0.1% OPH SOLN 5 ML OP SCH ×2 (09:59→18:40)
[2018-01-29] MEDS: LEVETIRACETAM 500 MG TABLET PO SCH ×2 (09:59→21:14)
[2018-01-29] MEDS ORDERED: (PENDING PHARMACY ID) (Doxepin Hcl [Silenor] 6 MG) PO SCH (10:00)
[2018-01-29] MEDS ORDERED: CEFTRIAXONE 1 GM/D5W RTU 1 GM/50 ML RTUPB IV SCH (10:00)
[2018-01-29] MEDS: DOCUSATE SODIUM 100 MG CAPSULE PO SCH ×2 (10:00→17:22)
[2018-01-29] MEDS: ENOXAPARIN SODIUM INJ 30 MG/0.3 ML DISP.SYRIN SUBCUT SCH (10:00)
--- NOTE | 2018-01-29 13:09 | HISTORY AND PHYSICAL E ---
History and Physical NAME: CAITLYN ROOT : 1930 AGE: 87Y ADMITTED: 01/28/2018 ROOM: 537 CHIEF COMPLAINT: Well checkup. Not feeling well. HISTORY OF PRESENT ILLNESS: This is an 87-year-old male with a significant history of a cerebrovascular accident, history of hyperlipidemia, hypertension, peripheral vascular disease, and a history of pneumonia, history of seizure disorder, and multiple other problems with pretty much debilitating conditions, brought to the Emergency Department by the family. They thought that the patient is not feeling well and needed a well checkup. In the Emergency Department, the ER physicians did a head CT. It was negative for any acute findings. The patient was alert, awake but otherwise denied any other complaints, basically. At this point, the ER physicians noticed that the patient was not able to urinate for almost 6 hours while sitting in the ER and they tried to put the catheter put the Coude catheter, there was small blood. Other than that, no other symptoms. Also noticed that patient's heart rate was dropping to 30-40 range. EKG looks pretty much stable with 70 with a questionable second degree AV block. At this point, ER physicians tried to page Dr. Forman and family at this point is not comfortable taking him back home. We decided to admit the patient on the hospital for tele monitoring and further evaluation for other chronic conditions. When I saw him in the ER, the patient is pretty much alert, awake but denied any other complaints. PAST MEDICAL HISTORY: 1. History of recent cerebrovascular accident in October 2017. 2. History of hypertension. 3. History of peripheral vascular disease. 4. History of epilepsy. 5. History of contrast-induced nephropathy. 6. History of thrombocytopenia. CURRENT MEDICATIONS: 1. Tylenol 500 mg p.r.n.. 2. Lipitor 40 mg p.o. daily. 3. Doxepin 6 mg p.o. daily. 4. Keppra 500 mg p.o. twice daily. 5. Meclizine p.r.n. 6. Singulair 10 mg daily. 7. daily. 8. Omeprazole 40 mg daily. 9. Flomax 0.4 mg daily. 10. Diovan/HCTZ 160/25 daily. 11. Aggrenox 25 mg capsule twice daily. REVIEW OF SYSTEMS: As above, all other pertinent systems negative. ALLERGIES: TO LORAZEPAM. PHYSICAL EXAMINATION: VITAL SIGNS: Blood pressure was 141/66, temperature is 98.1, respiration was 77, O2 sat is 97%, patient's heart rate is down 40. Otherwise, 70 to 80 range. GENERAL: The patient is alert, awake, no acute distress. HEAD AND NECK: Normocephalic, atraumatic. No abrasions. LUNGS: Clear to auscultation bilaterally. HEART: S1, S2 is bradycardic but normally looks regular. ABDOMEN: Soft. Bowel sounds present. No tenderness. BACK: Normal. EXTREMITIES: No edema. Patient has a tender wound to medial aspect of right second toe. NEUROLOGIC: The patient is alert, awake, and oriented x4. Obeyed all commands. Patient has a normal affect, normal mood. SKIN: Dry. Patient with chronic wound to the medial aspect of the right second toe but there is no erythema, no discharge. LABORATORIES: WBC is 5.7, hemoglobin is 12.1, platelets 270. Sodium is 142, potassium is 4.2, BUN is 32, creatinine is 1.60. Patient's sugar is 116. IMAGING STUDIES: Patient's head CT was done which shows the chronic change of the atrophic but no acute finding is noticed. Patient's chest x-ray: Stable chronic change. No acute radiographic finding is noticed. DIAGNOSTIC STUDIES: Patient's electrocardiogram: Patient is in sinus rhythm. 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 ASSESSMENT: 1. Acute renal failure. 2. Urinary tract infection. 3. Second degree AV block. 4. History of cerebrovascular accident. 5. Seizure disorder. 6. Hypertension. 7. Hyperlipidemia. 8. Osteoarthritis. PLAN: Admit the patient in a tele bed. Start the patient on IV fluids, IV antibiotic. Get the blood culture, urine culture. Check a TSH and free T4. Continuous tele monitoring. Consult cardiology. Cardiology already paged. I do not see any AV keyla block medication at this point. Patient had an echocardiogram done just recently, was all stable. We will continue to further evaluate the patient. The patient is otherwise hemodynamically stable. We will admit and probably consult the manager social for further evaluation and patient's while the family has already mentioned that they are unable to take care at home. We probably maybe need to send to the rehab facility. TIME SPENT: More than 30 minutes spent examining the patient without coordinated care with the ER physicians and other things. DICTATING PHYSICIAN: CORA DUFFY M.D. [id number] PHY#: [id number] ID: [id number] JOB#: [id number] ACCT: [id number] cc:MEHDI LAWSON M.D., SWETANG M.D. >
--- NOTE | 2018-01-29 13:21 | Physician Advisory Note ---
Physician Advisor ProgressNote .: Pursuant to the plan for Naila Ortiz, I have reviewed the medical record for this patient. Physician Advisor Statement: Please consider documenting, if you agree: 1. "Acute Kidney Injury, baseline Cr is ____" [1.08? 1.02?] 2. ?multi-infarct dementia? (CT = chronic microvascular ischemic changes) 3. Medical necessity: most pts with ur retention, "decreased renal fn" or MARICHUY , some gross hematuria would be appropriate for Obs status. - Need documentation of clinical reasons pt is felt to need at least 2 MNs of hospital level care & monitoring, what ongoing clinical issues are concerning to attending today. If he is only kept a 2nd MN because of social factors or for residential care, he should not be Inpatient status. See below. Potential reasons for possible attending concern from this review of chart: - bradycardia (asymp) in ED down to 40s & high 30s at times, along with suspected 2nd degree HB type 1, alternating with sinus rhythm - & this AM, up to the 120s - if possible, give possible dx causing this ... - ARF with urinary retention, improving with Coude catheter & IVF but pt mental status such that he is highly likely to cause himself trauma with pulling on catheter, which may be even more difficult to monitor at home if sent home with catheter. may not be able to manage this. - ARF not yet back to what appears to be baseline of BUN 17, Cr 1.0s, & bicarb has now dropped to 21. - O2 sat listed as 77% at 14:31 on 01/28 - or was that a typo? - ongoing urethral bleeding? (especially if causing anemia of acute blood loss....) STatus: 87yo Medicare pt with HTN, HLD, PVD, recent rehab stay post CVA, seizure d/o, prostate CA, brought to ED with vague c/o's: PRATHER, not feeling well, decreased appetite, loose stools, not wanting to take usual meds. Has open wound Rt 2nd toe. U/A with mod blood (after traumatic cath attempt). - Description in ED notes sounds most consistent with Obs status. H&P is not yet available in Diss[employer] system. Thanks! CK
[2018-01-29] MEDS ORDERED: LORAZEPAM 1 MG TABLET PO PRN (17:43)
[2018-01-29] MEDS ORDERED: CEFTRIAXONE SODIUM 1,000 MG in DEXTROSE 5%-WATER 50 ML IV SCH (18:00)
[2018-01-29] MEDS ORDERED: LORAZEPAM 1 MG TABLET PO ONE (18:30)
--- NOTE | 2018-01-29 19:39 | PDOC PROGRESS REPORT ---
Subjective Progress Note for:: 01/29/18 Subjective:: Patient was admitted over the weekend for the management of retention of urine, confusion, acute kidney injury, the kidney function is improved with hydration, patient is very confused pulling on IV lines presently restrained, MRI brain to be ordered, no history could be obtain from patient, MRI brain showed multifocal acute ischemia of the left mid to cerebral cerebellar peduncle and right cerebral peduncle Reason For Visit: BRADYCARDIA Physical Exam Vital Signs: Temp Pulse Resp BP Pulse Ox 97.3 F 78 16 135/81 H 90 L 01/29/18 16:00 01/29/18 16:00 01/29/18 16:00 01/29/18 16:00 01/29/18 16:00 Intake & Output 01/28/18 01/29/18 01/30/18 06:59 06:59 06:59 Intake Total 896 976 Output Total 1925 850 Balance -1029 126 Weight 64.8 kg General appearance: PRESENT: no acute distress Eye exam: PRESENT: PERRLA Respiratory exam: PRESENT: clear to auscultation kane Cardiovascular exam: PRESENT: +S1, +S2 GI/Abdominal exam: PRESENT: soft Neurological exam: PRESENT: alert Results Laboratory Results: 01/29/18 04:38 01/29/18 04:38 01/28/18 01/29/18 01/29/18 18:27 04:38 04:38 WBC 6.5 RBC 4.42 Hgb 13.3 L Hct 39.7 MCV 90 MCH 30.2 MCHC 33.5 RDW 13.1 Plt Count 194 Seg Neutrophils % 65.5 Lymphocytes % 19.9 Monocytes % 11.9 Eosinophils % 1.7 Basophils % 1.0 Absolute Neutrophils 4.3 Absolute Lymphocytes 1.3 Absolute Monocytes 0.8 Absolute Eosinophils 0.1 Absolute Basophils 0.1 Sodium 145.0 Potassium 4.9 Chloride 106 Carbon Dioxide 21 L Anion Gap 18 BUN 25 H Creatinine 1.21 Est GFR ( Amer) > 60 Est GFR (Non-Af Amer) 56 L Glucose 104 Calcium 10.2 Magnesium 1.9 Total Bilirubin 0.7 AST 24 ALT 12 L Alkaline Phosphatase 90 Total Protein 8.5 H Albumin 4.3 TSH 3.71 Free T4 1.00 Impressions: Chest X-Ray 01/28/18 10:04 IMPRESSION: STABLE CHRONIC CHANGES. NO ACUTE RADIOGRAPHIC FINDING IN THE CHEST. Head CT 01/28/18 10:04 IMPRESSION: CHRONIC CHANGES OF ATROPHY AND MICROVASCULAR ISCHEMIA. NO ACUTE PROCESS. EVIDENCE OF ACUTE STROKE: NO. Assessment & Plan - Diagnosis (1) Multi infarct state Is this a current diagnosis for this admission?: Yes Plan: Transfer to [facility]. For stroke management (2) Acute confusional state Is this a current diagnosis for this admission?: Yes (3) Urinary retention Is this a current diagnosis for this admission?: Yes (4) Acute kidney injury Is this a current diagnosis for this admission?: Yes (5) Peripheral vascular disease Is this a current diagnosis for this admission?: Yes
[2018-01-29] MEDS: ATORVASTATIN CALCIUM 40 MG TABLET PO SCH (21:14)
[2018-01-29] MEDS: MONTELUKAST SODIUM 10 MG TABLET PO SCH (21:14)
--- NOTE | 2018-01-30 00:16 | RADIOLOGY REPORT (SQ) ---
EXAM DESCRIPTION: CT HEAD WITHOUT IV CONTRAST CLINICAL HISTORY: 87 years Male, acute confusion Comparison: CT, 01/28/2018. Technique: Conventional noncontrast MRI of the brain. LIMITATIONS: Moderate motion artifact. Findings: Restricted diffusion defects measure 1.6 cm at the left middle cerebellar peduncle and 0.8 cm at the right cerebral peduncle consistent with acute/subacute ischemia. Advanced confluent white matter microangiopathy. Moderate cerebral volume loss. No evidence of hemorrhage. No mass, mass effect, or midline shift. Moderate C3-C4 disc bulge causes mild/moderate spinal canal stenosis. IMPRESSION: Multifocal acute/subacute ischemia of the left middle cerebral cerebellar peduncle and right cerebral peduncle.
[2018-01-30 01:22] LABS: ARTERIAL BLOOD BASE EXCESS -4.8 mmol/L; ARTERIAL BLOOD H2CO3 0.86 mmol/L (1.05-1.35); ARTERIAL BLOOD HCO3 18.4 mmol/L (20-26); ARTERIAL BLOOD O2 SATURATION 97.1 % (94-98); ARTERIAL BLOOD PCO2 28.7 mmHg (35-45); ARTERIAL BLOOD PH 7.42 (7.35-7.45); ARTERIAL BLOOD PO2 88.6 mmHg (80-100); ARTERIAL BLOOD TOTAL CO2 19.2 mmol/L (23-27)
[2018-01-30 01:23] LABS: ARTERIAL BLOOD FIO2 ROOM AIR
--- NOTE | 2018-01-30 02:25 | RADIOLOGY REPORT (SQ) ---
EXAM DESCRIPTION: XR CHEST 1 VIEW CLINICAL HISTORY: 87 years Male, cva COMPARISON: 5.20.18 NUMBER OF VIEWS/TECHNIQUE: 1/AP FINDINGS: Adequate lung volume, clear parenchyma, prominent interstitium, normal cardiac silhouette, atherosclerosis, and right sixth and seventh lateral rib deformities consistent with prior injury. IMPRESSION: No acute cardiopulmonary findings.
[2018-01-30 06:43] LABS: ABSOLUTE BASOPHILS # (AUTO) 0.1 10^3/uL (0.0-0.2); ABSOLUTE EOSINOPHILS # (AUTO) 0.1 10^3/uL (0.0-0.6); ABSOLUTE LYMPHOCYTES (AUTO) 1.8 10^3/uL (0.5-4.7); ABSOLUTE MONOCYTES (AUTO) 0.9 10^3/uL (0.1-1.4); ABSOLUTE NEUT (AUTO) 2.9 10^3/uL (1.7-8.2); BASOPHILS % (AUTO) 1.2 % (0-2); EOSINOPHILS % (AUTO) 2.3 % (0-6); HEMATOCRIT 38.3 % (37.9-51.0); HEMOGLOBIN 12.6 g/dL (13.5-17.0); LYMPHOCYTES % (AUTO) 30.3 % (13-45); MEAN CORPUSCULAR HEMOGLOBIN 29.6 pg (27.0-33.4); MEAN CORPUSCULAR HGB CONC 32.8 g/dL (32.0-36.0); MEAN CORPUSCULAR VOLUME 90 fl (80-97); MONOCYTES % (AUTO) 15.5 % (3-13); PLATELET COUNT 156 10^3/uL (150-450); RED BLOOD COUNT 4.25 10^6/uL (4.35-5.55); RED CELL DISTRIBUTION WIDTH 13.1 % (11.5-14.0); SEGMENTED NEUTROPHILS % (AUTO) 50.7 % (42-78); TOTAL CELLS COUNTED % (AUTO) 100 %; WHITE BLOOD COUNT 5.8 10^3/uL (4.0-10.5)
[2018-01-30 07:07] LABS: CREATINE KINASE MB 1.06 ng/mL (<4.55)
[2018-01-30 07:16] LABS: TROPONIN I < 0.012 ng/mL
--- NOTE | 2018-01-30 07:34 | EKG REPORT ---
SEVERITY:- ABNORMAL ECG - SINUS RHYTHM FIRST DEGREE AV BLOCK : Confirmed by: Viktor Bahena MD 30-Jan-2018 07:33:40
[2018-01-30] MEDS: LANSOPRAZOLE 30 MG TAB.RAP.DR PO SCH (10:59)
[2018-01-30] MEDS: ASPIRIN/DIPYRIDAMOLE 25-200 MG 1 CAP.SR CPMP.12HR PO SCH ×2 (10:59→22:34)
[2018-01-30] MEDS: ENOXAPARIN SODIUM INJ 30 MG/0.3 ML DISP.SYRIN SUBCUT SCH (10:59)
[2018-01-30] MEDS: LEVETIRACETAM 500 MG TABLET PO SCH ×2 (11:00→22:32)
[2018-01-30] MEDS: OLOPATADINE HCL 0.1% OPH SOLN 5 ML OP SCH ×2 (11:00→18:06)
[2018-01-30] MEDS: DOCUSATE SODIUM 100 MG CAPSULE PO SCH ×2 (11:00→18:06)
--- NOTE | 2018-01-30 11:15 | RADIOLOGY REPORT (SQ) ---
EXAM DESCRIPTION: CAROTID DOPPLER COMPLETED DATE/TIME: 01/30/2018 10:59 am REASON FOR STUDY: cva COMPARISON: MRI brain 01/29/2018, 10/16/2017 CT brain 01/28/2018 Carotid Doppler 10/17/2017 TECHNIQUE: Grayscale ultrasound, Doppler velocity and spectra, and color Doppler images acquired of the extra-cranial carotid and vertebral arteries. Images stored on PACS. LIMITATIONS: None. FINDINGS: RIGHT CAROTID CCA Velocities: Within normal limits. ICA Velocities Peak systolic 5.0 m/s. End diastolic 1.2 m/s. Proximal ICA/CCA peak systolic ratio 5.3. Calcific plaque is present at the right carotid bifurcation, shadowing the origins of the right ICA a nd ECA. Just distal to the shadowing plaque, right internal carotid artery velocities suggest 70 to 99% stenosis. Turbulent flow. LEFT CAROTID CCA Velocities: Within normal limits. ICA Velocities Peak systolic 0.43 m/s. End diastolic 0.15 m/s. Proximal ICA/CCA peak systolic ratio 0.8. Calcific plaque is present at the left carotid bifurcation. There is shadowing at the origins of the left internal carotid artery and left external carotid artery. However, velocities just distal to priscilla hyman shadowing plaque suggest against any flow significant stenosis. VERTEBRAL ARTERIES: Antegrade flow. Normal waveforms. SUBCLAVIAN ARTERIES: Not evaluated OTHER: Results communicated to Dr. 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 No flow significant stenosis at the left carotid bifurcation. COMMENT: Quality ID #[id number]: Velocity criteria are extrapolated from the diameter data as defined by priscilla hyman Society of Radiologists in Ultrasound Consensus Conference. Radiology 2003: 229; 340-346. TECHNICAL DOCUMENTATION: JOB ID: [id number] [employer]- All Rights Reserved Reading location - IP/workstation name: [email or web address]
--- NOTE | 2018-01-30 14:11 | CONSULTATION REPORT E ---
Consultation Report NAME: CAITLYN ROOT : 1930 AGE: 87Y DATE: 01/29/2018 330 A TO: WASHINGTON ADAM M.D. FROM: MEHDI LAWSON M.D. Requesting Physician REASON FOR CONSULTATION: Second-degree AV block. HISTORY: NOTE: It is very difficult to obtain a history and review of systems for the patient due to the patient being severely hard of hearing, but still was able to manage it. The patient is an 87-year-old -[place] male with a known history of prior CVA, hypertension, hyperlipidemia, peripheral vascular disease, and history of seizures, who was brought to the emergency room by his family since the patient complained of not feeling well. There were no particular complaints. In the emergency room, they tried to do a straight cath to obtain a urine sample and was unsuccessful, and hence, they placed a coude catheter. At that time, the patient was noted to become bradycardic with a heart rate in the 30s. An EKG done shows sinus rhythm with first-degree AV block and also second-degree AV block with Mobitz type I Wenckebach. This was transient and subsequently, the patient has early first-degree AV block, which is his baseline on his EKG without any symptoms. There is no recurrence of the second-degree AV block. NOTE: At the time of the second-degree AV block, which is transient, the patient had no chest pain or discomfort and there was no hypotension or any hemodynamic untoward event. The patient, at present, denies any chest pain or discomfort. There is no history of syncope or dizziness or near syncope. The patient denies palpitations, chest pain, discomfort. There is no PND, orthopnea. There is no leg edema. PAST MEDICAL HISTORY: Positive for history of hypertension. He also has a history of hyperlipidemia and peripheral vascular disease. He does not walk much. His gait is very unsteady since his CVA in October of 2017, which showed in October 2017, the patient was admitted with ataxia, gait abnormalities, , and his MRI of the brain showed right cerebellar stroke. His carotid Doppler showed less than 50% stenosis on the left internal carotid artery. His echocardiogram showed a normal ejection fraction of with grade 2 diastolic dysfunction of the left ventricle. There is no mitral valve stenosis. There is mild mitral regurgitation. There was no aortic stenosis. He also had contrast-induced nephropathy after radiological procedure, but has recovered from that. He also has a history of seizures, but no seizures for many years on Keppra. He has a history of hyperlipidemia. He has a history of arthritis. He has no history of diabetes mellitus or thyroid disease. There is no history of sleep apnea and no history of anxiety or depression. Note that the patient is severely hard of hearing. PAST SURGICAL HISTORY: Positive for past history of right knee orthopedic surgery and vascular surgery. FAMILY HISTORY: Positive for coronary artery disease, hyperlipidemia, and hypertension. ALLERGIES: The patient is allergic to LORAZEPAM. SOCIAL HISTORY: The patient is an ex-smoker. He stopped smoking a long time ago. DISPOSITION: The patient is a FULL CODE. His son is the surrogate healthcare decision maker as well as his spouse who was also a surrogate healthcare decision maker. MEDICATIONS: 1. Tylenol 650 mg p.o. q. 6 hours. 2. Aggrenox 1 capsule p.o. q. 12 hours. 3. Lipitor 40 mg p.o. daily at bedtime. 4. Ceftriaxone 1 g IV q. p.m. 5. Keflex 250 mg p.o. x1. 6. 100 mg p.o. b.i.d. 7. Atenolol 60 mg p.o. daily. 8. Lovenox 30 mg subcutaneously daily. 9. Lansoprazole 20 mg p.o. daily. 10. Keppra 500 mg p.o. q. 12 hours. 11. Patanol 0.1% ophthalmic solution 1 drop both eyes b.i.d. 12. Singulair 10 mg p.o. daily at bedtime. 13. At home, he used to be on Diovan and hydrochlorothiazide at 160/25 mg p.o. daily. 14. He is also on Plavix 75 mg p.o. daily. REVIEW OF SYSTEMS: CONSTITUTIONAL: Denies any fever, chills, or rigors. Complains of generalized not feeling well, but is not specific. HEAD: Denies any head injury or dizziness. EYES: No history of amblyopia or diplopia. No history of amaurosis fugax. EARS: Severely hard of hearing present. No recurrent ear infections. No tinnitus. NOSE: No history of nosebleed. No history of nasal polyps. MOUTH: No altered taste sensation. No ulcers in the mouth. THROAT: No odynophagia or dysphagia. No history of recurrent sore throats. SKIN: No pruritus. No yellowish discoloration of the skin. No history of skin cancer. No history of psoriasis. No history of eczema. LUNGS: No history of asthma or COPD. No history of wheezing, cough, or sputum production. No history of hemoptysis or pleuritic chest pain. No history of pulmonary embolism. No history of sleep apnea. HEART: History of hypertension present. No history of being on any AV keyla blocking agents. His EKG shows chronic first-degree block and sinus rhythm with no acute changes. He had transient second-degree AV block Mobitz type I Wenckebach secondary to vasovagal. No history of congestive heart failure. No history of PND, orthopnea, or leg edema. No history of rheumatic fever. No history of congenital heart disease. No history of syncope. No history of palpitations. No leg edema. History of peripheral vascular disease present, but the patient is asymptomatic since he does not walk much due to gait disturbance and ataxia. MUSCULOSKELETAL: History of osteoarthritis present. No history of collagen vascular disease. RENAL: No history of chronic kidney disease. In the past, he has had contrast nephropathy, which resolved. At present, renal function is normal. No symptoms of UTI. No history of hematuria, pyuria or dysuria. ENDOCRINE: No history of diabetes mellitus. No history of thyroid disease. No history of polydipsia or polyuria. No history of heat or cold intolerance. CENTRAL NERVOUS SYSTEM: History of CVA and cerebellar stroke with ataxia and gait imbalance. History of seizures, none in about a year. Patient stable on Keppra. No history of sleep apnea. No history of headaches or migraines. PSYCHIATRIC: No history of anxiety or depression. No suicidal ideation. VASCULAR: History of peripheral vascular disease, but no complaint of claudication, but the patient does not walk much. No history of DVT. HEMATOLOGICAL: No history of bleeding diathesis. No history of clotting disorders. PHYSICAL EXAMINATION: GENERAL: The patient appears older than her stated age and appears to be chronically ill and debilitated. VITAL SIGNS: He is afebrile with a temperature of 98.3 degrees Fahrenheit, pulse is 71 beats per minute, blood pressure is 151/74, respirations are 17 per minute, O2 saturations are 100% on room air. HEAD: Atraumatic, normocephalic. EYES: Pupils are equal, round, regular, reactive to light and accommodation. Extraocular movements are normal. There is no conjunctival pallor. There is no scleral icterus. EARS: Tympanic membranes are intact. External auditory canal is clear. NOSE: There is no deviated nasal septum. There is no inflammation of the nasal mucous membranes. MOUTH: Mucous membranes of the mouth are moist. Tongue is moist. There are no ulcers. There is no bleeding from gums. THROAT: There is no redness of the oropharynx. There are no exudates. NECK: Supple. There is no JVD. Carotids are equal. There is no bruit. There is no lymphadenopathy. There is no goiter. Trachea is central. LUNGS: Clear to auscultation and percussion. HEART: S1 and S2 are heard. There is no S3 gallop. There is no S4 gallop. There is a systolic murmur left sternal border of the apex. ABDOMEN: Soft, nontender. There is no hepatosplenomegaly. Bowel sounds are well heard. There are no tender areas or masses. EXTREMITIES: Femorals are very much diminished. There are no femoral bruits. Leg pulses are diminished. There is no pedal edema. There is no cyanosis or clubbing. There is no DVT or cellulitis. There is no calf tenderness. CENTRAL NERVOUS SYSTEM: The patient is conscious, awake, alert, oriented x3 with no focal deficit, but the patient's gait is very unsteady and the patient does have ataxia. PSYCHIATRIC: The patient's judgment and insight seem to be intact. The patient does not appear to be agitated. IMAGING: The patient's EKG done on admission shows sinus rhythm/sinus bradycardia with first-degree AV block, no acute changes. His subsequent EKG after the episode of bradycardia shows sinus rhythm, second-degree AV block type I Mobitz AV block (Wenckebach). This has been transient. The patient's subsequent EKG done today shows sinus rhythm with first-degree AV block and is stable without any ischemia or changes of myocardial infarction. The patient's chest x-ray showed stable chronic changes, chronic scarring. No focal infiltrates pneumothorax. No pleural effusion. LABORATORY: The patient's white count is 6500, hemoglobin 13.3, hematocrit is 39.7, and platelet count is 194,000. The patient's sodium is 145.0, potassium is 4.9, chloride is 103, CO2 is 21. The patient's BUN is 25, creatinine 1.21. GFR is greater than 60. Earlier on admission, the patient's BUN was 32, creatinine was 1.6, and GFR was reduced at 49 mL. This has normalized now. His glucose is 104, calcium is 10.2, magnesium is 1.9. Liver function tests are normal with an ALT of 12. His total protein is 8.5, albumin is 4.3. His TSH is 3.71, his free T4 is 1.00. IMPRESSION: 1. 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 This has been transient and is due to vasovagal secondary to the patient having Senior catheter placed. There is no recurrence. This does not require any treatment. 2. Chronic first-degree AV block in the patient on no AV keyla or ST keyla blocking agent. This may be age related. Does not require any treatment. 3. Dehydration with prerenal azotemia, which has resolved with the patient gaining fluids. 4. Hypertension. 5. History of cerebrovascular accident. 6. Peripheral vascular disease. 7. History of seizures. 8. Hyperlipidemia. 9. Severely hard of hearing. RECOMMENDATIONS: At present, the patient's transient second-degree AV block does not require any treatment. Would recommend restarting the patient's losartan for his blood pressure. There are no acute cardiac issues. His echocardiogram done and his neurological imaging done end of October 2017 have been reviewed. NOTE: I have looked at the EKG and interpreted the EKG and chest x-ray by myself. NOTE: The patient was seen at 11:30 a.m. today, 01/29/2018 and 60 minutes was spent on the patient with more than 50% of the time spent on direct patient care. I also discussed with the attending physician taking care of the patient. Medical decision making is of moderate complexity. Since cardiac status is stable, will sign off. Please call us if we need to be of any help cardiac eduardo. DICTATING PHYSICIAN: WASHINGTON ADAM M.D. [id number] PHY#: [id number] ID: [id number] JOB#: [id number] ACCT: [id number] cc:WASHINGTON ADAM M.D. >
[2018-01-30 16:01] LABS: CREATINE KINASE MB 0.98 ng/mL (<4.55)
[2018-01-30 16:05] LABS: TROPONIN I < 0.012 ng/mL
--- NOTE | 2018-01-30 17:53 | PDOC PROGRESS REPORT ---
Subjective Progress Note for:: 01/30/18 Subjective:: Patient was seen by the bedside, he has multifocal acute ischemia of the left cerebrum on the right cerebral ventricle, carotid Doppler showed stenoses of the right internal carotid artery., Most likely embolic stroke Reason For Visit: MULTIFOCAL CVA, BILATERAL Physical Exam Vital Signs: Temp Pulse Resp BP Pulse Ox 98.4 F 79 16 128/63 H 100 01/30/18 15:27 01/30/18 15:27 01/30/18 15:27 01/30/18 15:27 01/30/18 15:27 Intake & Output 01/29/18 01/30/18 01/31/18 06:59 06:59 06:59 Intake Total 896 986 474 Output Total 1925 1500 400 Balance -1029 -514 74 Weight 64.8 kg 63.9 kg General appearance: PRESENT: no acute distress Eye exam: PRESENT: PERRLA Respiratory exam: PRESENT: clear to auscultation kane Cardiovascular exam: PRESENT: +S1, +S2 GI/Abdominal exam: PRESENT: soft Neurological exam: PRESENT: alert Results Laboratory Results: 01/30/18 06:11 01/29/18 04:38 01/30/18 01/30/18 01/30/18 01:10 06:11 06:11 WBC 5.8 RBC 4.25 L Hgb 12.6 L Hct 38.3 MCV 90 MCH 29.6 MCHC 32.8 RDW 13.1 Plt Count 156 Seg Neutrophils % 50.7 Lymphocytes % 30.3 Monocytes % 15.5 H Eosinophils % 2.3 Basophils % 1.2 Absolute Neutrophils 2.9 Absolute Lymphocytes 1.8 Absolute Monocytes 0.9 Absolute Eosinophils 0.1 Absolute Basophils 0.1 Carbonic Acid 0.86 L HCO3/H2CO3 Ratio 21:1 ABG pH 7.42 ABG pCO2 28.7 L ABG pO2 88.6 ABG HCO3 18.4 L ABG O2 Saturation 97.1 ABG Base Excess -4.8 FiO2 ROOM AIR Magnesium 1.8 01/30/18 01/30/18 01/30/18 06:11 06:11 15:23 Creatine Kinase 79 82 CK-MB (CK-2) 1.06 Troponin I < 0.012 01/30/18 15:23 Creatine Kinase CK-MB (CK-2) 0.98 Troponin I < 0.012 Impressions: Head CT 05/20/18 10:04 IMPRESSION: CHRONIC CHANGES OF ATROPHY AND MICROVASCULAR ISCHEMIA. NO ACUTE PROCESS. EVIDENCE OF ACUTE STROKE: NO. Head MRI 01/29/18 00:00 IMPRESSION: Multifocal acute/subacute ischemia of the left middle cerebral cerebellar peduncle and right cerebral peduncle. Carotid Doppler Study 01/30/18 00:00 IMPRESSION: Critical stenosis right proximal internal carotid artery with 70 to 99% stenosis. No flow significant stenosis at the left carotid bifurcation. Chest X-Ray 01/30/18 00:00 IMPRESSION: No acute cardiopulmonary findings. 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 Is this a current diagnosis for this admission?: Yes (2) Cerebral infarction due to unspecified occlusion or stenosis of right carotid arteries Is this a current diagnosis for this admission?: Yes (3) Acute confusional state Is this a current diagnosis for this admission?: Yes (4) Urinary retention Is this a current diagnosis for this admission?: Yes (5) Acute kidney injury Is this a current diagnosis for this admission?: Yes (6) Peripheral vascular disease Is this a current diagnosis for this admission?: Yes (7) Occlusion and stenosis of right carotid artery Is this a current diagnosis for this admission?: Yes Plan: Patient may benefit from endarterectomy in 6 months (8) 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 Qualifiers: Laterality: right Qualified Code(s): I63.231 - Cerebral infarction due to unspecified occlusion or stenosis of right carotid arteries Is this a current diagnosis for this admission?: Yes (9) 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 Is this a current diagnosis for this admission?: Yes - Plan Summary Plan Summary: Patient presently on antiplatelet therapy with Aggrenox, continue other treatment the swallow mechanism still intact patient swallowing effectively no aspiration
--- NOTE | 2018-01-30 18:29 | PDOC PROGRESS REPORT ---
Subjective Progress Note for:: 01/30/18 Reason For Visit: MULTIFOCAL CVA, BILATERAL Physical Exam Vital Signs: Temp Pulse Resp BP Pulse Ox 98.4 F 79 16 128/63 H 100 01/30/18 15:27 01/30/18 15:27 01/30/18 15:27 01/30/18 15:27 01/30/18 15:27 Intake & Output 01/29/18 01/30/18 01/31/18 06:59 06:59 06:59 Intake Total 896 986 514 Output Total 1925 1500 400 Balance -1029 -514 114 Weight 64.8 kg 63.9 kg Results Laboratory Results: 01/30/18 06:11 01/29/18 04:38 01/30/18 01/30/18 01/30/18 01:10 06:11 06:11 WBC 5.8 RBC 4.25 L Hgb 12.6 L Hct 38.3 MCV 90 MCH 29.6 MCHC 32.8 RDW 13.1 Plt Count 156 Seg Neutrophils % 50.7 Lymphocytes % 30.3 Monocytes % 15.5 H Eosinophils % 2.3 Basophils % 1.2 Absolute Neutrophils 2.9 Absolute Lymphocytes 1.8 Absolute Monocytes 0.9 Absolute Eosinophils 0.1 Absolute Basophils 0.1 Carbonic Acid 0.86 L HCO3/H2CO3 Ratio 21:1 ABG pH 7.42 ABG pCO2 28.7 L ABG pO2 88.6 ABG HCO3 18.4 L ABG O2 Saturation 97.1 ABG Base Excess -4.8 FiO2 ROOM AIR Magnesium 1.8 01/30/18 01/30/18 01/30/18 06:11 06:11 15:23 Creatine Kinase 79 82 CK-MB (CK-2) 1.06 Troponin I < 0.012 01/30/18 15:23 Creatine Kinase CK-MB (CK-2) 0.98 Troponin I < 0.012 Impressions: Head CT 01/28/18 10:04 IMPRESSION: CHRONIC CHANGES OF ATROPHY AND MICROVASCULAR ISCHEMIA. NO ACUTE PROCESS. EVIDENCE OF ACUTE STROKE: NO. Head MRI 01/29/18 00:00 IMPRESSION: Multifocal acute/subacute ischemia of the left middle cerebral cerebellar peduncle and right cerebral peduncle. Carotid Doppler Study 01/30/18 00:00 IMPRESSION: Critical stenosis right proximal internal carotid artery with 70 to 99% stenosis. No flow significant stenosis at the left carotid bifurcation. Chest X-Ray 01/30/18 00:00 IMPRESSION: No acute cardiopulmonary findings. 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 Is this a current diagnosis for this admission?: Yes (2) Cerebral infarction due to unspecified occlusion or stenosis of right carotid arteries Is this a current diagnosis for this admission?: Yes (3) Acute confusional state Is this a current diagnosis for this admission?: Yes (4) Urinary retention Is this a current diagnosis for this admission?: Yes (5) Acute kidney injury Is this a current diagnosis for this admission?: Yes (6) Peripheral vascular disease Is this a current diagnosis for this admission?: Yes (7) Occlusion and stenosis of right carotid artery Is this a current diagnosis for this admission?: Yes (8) 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 Qualifiers: Laterality: right Qualified Code(s): I63.231 - Cerebral infarction due to unspecified occlusion or stenosis of right carotid arteries Is this a current diagnosis for this admission?: Yes (9) 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 Is this a current diagnosis for this admission?: Yes
[2018-01-30] MEDS: NORMAL SALINE 1000 ML 1,000 ML IV PRN (18:43)
--- NOTE | 2018-01-30 19:30 | XCELERA REPORT ---
[address] [address] Transthoracic Echocardiogram Report Name: CAITLYN ROOT Age: 87 yrs Gender: Male : 1930 Patient Status: Inpatient Patient Location: [address] [place] [address] Study Date: 01/30/2018 09:40 AM Height: 65 in Weight: 140 lb BSA: 1.7 m2 Procedure: A complete two-dimensional transthoracic echocardiogram was performed (2D, M-mode, spectral and color flow Doppler). The study was technically difficult with many images being suboptimal in quality. Reason For Study: cva Ordering Physician: MEHDI LAWSON Performed By: Sander Delcid Interpretation Summary The study was technically difficult with many images being suboptimal in quality. The left ventricular ejection fraction is normal. There is mild concentric left ventricular hypertrophy. The left ventricle is grossly normal size. Doppler measurements suggest pseudonormalized left ventricular relaxation, which is associated with grade II/IV or mild to moderate diastolic dysfunction Regional wall motion abnormalities cannot be excluded due to limited visualization. The right ventricular systolic function is normal. The left atrial size is normal. The right atrium is normal in size There is a mild amount of mitral regurgitation There is no mitral valve stenosis. There is a trace to mild amount of aortic regurgitation There is no aortic valve stenosis There is a trace amount of tricuspid regurgitation Tricuspid regurgitation jet envelope not well defined to measure RV systolic pressure accurately. The aortic root is not well visualized but is probably normal size. The inferior vena cava was not well visualized There is no pericardial effusion. Consider BITA if clinically indicated. May consider mobile cardiac telemetry monitoring (MCT) for ruling out transient AFIB. MMode/2D Measurements & Calculations RVDd: 4.1 cm LVIDd: 4.3 cm FS: 38.3 % Ao root diam: 3.0 cm IVSd: 0.82 cm LVIDs: 2.6 cm EDV(Teich): 81.1 ml LVPWd: 0.75 cm ESV(Teich): 25.2 ml Ao root area: 7.0 cm2 EF(Teich): 69.0 % LA dimension: 2.5 cm Doppler Measurements & Calculations MV E max cecelia: MV P1/2t max cecelia: Ao V2 max: LV V1 max P.6 cm/sec 98.0 cm/sec 121.9 cm/sec 2.8 mmHg MV A max cecelia: MV P1/2t: 52.9 msec Ao max PG: LV V1 max: 59.6 cm/sec 5.9 mmHg 83.6 cm/sec MV E/A: 1.4 MVA(P1/2t): 4.2 cm2 MV dec slope: 542.8 cm/sec2 MV dec time: 0.14 sec PA V2 max: 63.2 cm/sec PA max P.6 mmHg Left Ventricle The left ventricle is grossly normal size. There is mild concentric left ventricular hypertrophy. The left ventricular ejection fraction is normal. Doppler measurements suggest pseudonormalized left ventricular relaxation, which is associated with grade II/IV or mild to moderate diastolic dysfunction. Regional wall motion abnormalities cannot be excluded due to limited visualization. Right Ventricle The right ventricle is grossly normal size. There is normal right ventricular wall thickness. The right ventricular systolic function is normal. Atria The right atrium is normal in size. The left atrial size is normal. Interarterial septum not well visualized and not well dopplered. Cannot comment on ASD/PFO presence. Mitral Valve There is mild mitral leaflet calcification. There is mild mitral annular calcification. There is no mitral valve stenosis. There is a mild amount of mitral regurgitation. Aortic Valve The aortic valve is moderately calcified. There is no aortic valve stenosis. There is a trace to mild amount of aortic regurgitation. Tricuspid Valve The tricuspid valve is not well visualized, but is grossly normal. There is no tricuspid stenosis. There is a trace amount of tricuspid regurgitation. Tricuspid regurgitation jet envelope not well defined to measure RV systolic pressure accurately. Pulmonic Valve The pulmonic valve is not well visualized. Great Vessels The aortic root is not well visualized but is probably normal size. The inferior vena cava was not well visualized. Effusions There is no pericardial effusion. Incidental Findings Consider BITA if clinically indicated. May consider mobile cardiac telemetry monitoring (MCT) for ruling out transient AFIB. : MEHDI LAWSON > Edgardo San
[2018-01-30] MEDS ORDERED: LORAZEPAM INJ 2 MG/1 ML VIAL ONE (21:19)
[2018-01-30] MEDS: MONTELUKAST SODIUM 10 MG TABLET PO SCH (22:33)
[2018-01-30] MEDS: ATORVASTATIN CALCIUM 40 MG TABLET PO SCH (22:34)
[2018-01-30 22:36] LABS: CREATINE KINASE MB 0.92 ng/mL (<4.55)
[2018-01-30 22:40] LABS: TROPONIN I < 0.012 ng/mL
[2018-01-31 07:40] LABS: ABSOLUTE BASOPHILS # (AUTO) 0.1 10^3/uL (0.0-0.2); ABSOLUTE EOSINOPHILS # (AUTO) 0.1 10^3/uL (0.0-0.6); ABSOLUTE LYMPHOCYTES (AUTO) 1.5 10^3/uL (0.5-4.7); ABSOLUTE MONOCYTES (AUTO) 0.8 10^3/uL (0.1-1.4); ABSOLUTE NEUT (AUTO) 3.8 10^3/uL (1.7-8.2); EOSINOPHILS % (AUTO) 1.7 % (0-6); HEMATOCRIT 38.2 % (37.9-51.0); HEMOGLOBIN 12.5 g/dL (13.5-17.0); LYMPHOCYTES % (AUTO) 23.7 % (13-45); MEAN CORPUSCULAR HEMOGLOBIN 29.6 pg (27.0-33.4); MEAN CORPUSCULAR HGB CONC 32.8 g/dL (32.0-36.0); MEAN CORPUSCULAR VOLUME 90 fl (80-97); MONOCYTES % (AUTO) 13.3 % (3-13); PLATELET COUNT 188 10^3/uL (150-450); RED BLOOD COUNT 4.23 10^6/uL (4.35-5.55); SEGMENTED NEUTROPHILS % (AUTO) 60.3 % (42-78); TOTAL CELLS COUNTED % (AUTO) 100 %; WHITE BLOOD COUNT 6.3 10^3/uL (4.0-10.5)
[2018-01-31] MEDS: NORMAL SALINE 1000 ML 1,000 ML IV PRN (08:43)
[2018-01-31] MEDS: ENOXAPARIN SODIUM INJ 30 MG/0.3 ML DISP.SYRIN SUBCUT SCH (10:01)
[2018-01-31] MEDS: LANSOPRAZOLE 30 MG TAB.RAP.DR PO SCH (10:01)
[2018-01-31] MEDS: DOCUSATE SODIUM 100 MG CAPSULE PO SCH ×2 (10:01→17:38)
[2018-01-31] MEDS: ASPIRIN/DIPYRIDAMOLE 25-200 MG 1 CAP.SR CPMP.12HR PO SCH ×2 (10:01→21:57)
[2018-01-31] MEDS: LEVETIRACETAM 500 MG TABLET PO SCH ×2 (10:01→21:57)
[2018-01-31] MEDS: OLOPATADINE HCL 0.1% OPH SOLN 5 ML OP SCH ×2 (10:02→17:40)
--- NOTE | 2018-01-31 17:15 | PDOC PROGRESS REPORT ---
Subjective Progress Note for:: 01/31/18 Subjective:: patient is very confused, recent CVA, will need fpc placement for rehabilitation, recurrent CVA, he cannot go home, requiring restraints, will avoid benzodiazepines Reason For Visit: MULTIFOCAL CVA, BILATERAL Physical Exam Vital Signs: Temp Pulse Resp BP Pulse Ox 97.5 F 103 H 18 140/78 H 100 01/31/18 15:15 01/31/18 15:15 01/31/18 15:15 01/31/18 15:15 01/31/18 15:15 Intake & Output 01/30/18 01/31/18 02/01/18 06:59 06:59 06:59 Intake Total 986 1252 200 Output Total 1500 1125 275 Balance -514 127 -75 Weight 63.9 kg 68.5 kg General appearance: PRESENT: no acute distress Eye exam: PRESENT: PERRLA Respiratory exam: PRESENT: clear to auscultation kane Cardiovascular exam: PRESENT: +S1, +S2 GI/Abdominal exam: PRESENT: soft Neurological exam: PRESENT: alert Results Laboratory Results: 01/31/18 06:02 01/29/18 04:38 01/31/18 01/31/18 06:02 06:02 WBC 6.3 RBC 4.23 L Hgb 12.5 L Hct 38.2 MCV 90 MCH 29.6 MCHC 32.8 RDW 13.0 Plt Count 188 Seg Neutrophils % 60.3 Lymphocytes % 23.7 Monocytes % 13.3 H Eosinophils % 1.7 Basophils % 1.0 Absolute Neutrophils 3.8 Absolute Lymphocytes 1.5 Absolute Monocytes 0.8 Absolute Eosinophils 0.1 Absolute Basophils 0.1 Magnesium 1.8 01/30/18 01/30/18 01/30/18 06:11 06:11 15:23 Creatine Kinase 79 82 CK-MB (CK-2) 1.06 Troponin I < 0.012 01/30/18 01/30/18 01/30/18 15:23 21:45 21:45 Creatine Kinase 89 CK-MB (CK-2) 0.98 0.92 Troponin I < 0.012 < 0.012 Impressions: Head CT 01/28/18 10:04 IMPRESSION: CHRONIC CHANGES OF ATROPHY AND MICROVASCULAR ISCHEMIA. NO ACUTE PROCESS. EVIDENCE OF ACUTE STROKE: NO. Head MRI 01/29/18 00:00 IMPRESSION: Multifocal acute/subacute ischemia of the left middle cerebral cerebellar peduncle and right cerebral peduncle. Carotid Doppler Study 01/30/18 00:00 IMPRESSION: Critical stenosis right proximal internal carotid artery with 70 to 99% stenosis. No flow significant stenosis at the left carotid bifurcation. Chest X-Ray 01/30/18 00:00 IMPRESSION: No acute cardiopulmonary findings. 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 Is this a current diagnosis for this admission?: Yes (2) Cerebral infarction due to unspecified occlusion or stenosis of right carotid arteries Is this a current diagnosis for this admission?: Yes (3) Acute confusional state Is this a current diagnosis for this admission?: Yes (4) Urinary retention Is this a current diagnosis for this admission?: Yes (5) Acute kidney injury Is this a current diagnosis for this admission?: Yes (6) Peripheral vascular disease Is this a current diagnosis for this admission?: Yes (7) Occlusion and stenosis of right carotid artery Is this a current diagnosis for this admission?: Yes (8) 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 Qualifiers: Laterality: right Qualified Code(s): I63.231 - Cerebral infarction due to unspecified occlusion or stenosis of right carotid arteries Is this a current diagnosis for this admission?: Yes (9) 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 Is this a current diagnosis for this admission?: Yes (10) Delirium Is this a current diagnosis for this admission?: Yes
[2018-01-31 17:55] LABS: ALANINE AMINOTRANSFERASE 12 U/L (21-72); ALBUMIN 3.8 g/dL (3.5-5.0); ALKALINE PHOSPHATASE 74 U/L (38-126); ANION GAP 10 (5-19); ASPARTATE AMINO TRANSFERASE 13 U/L (17-59); BILIRUBIN,DIRECT 0.2 mg/dL (0.0-0.4); BILIRUBIN,TOTAL 0.4 mg/dL (0.2-1.3); BLOOD UREA NITROGEN 16 mg/dL (7-20); CALCIUM 9.9 mg/dL (8.4-10.2); CARBON DIOXIDE 25 mmol/L (22-30); CHLORIDE 108 mmol/L (98-107); GLUCOSE 121 mg/dL (75-110); POTASSIUM 4.1 mmol/L (3.6-5.0); SODIUM 142.9 mmol/L (137-145); TOTAL PROTEIN 7.4 g/dL (6.3-8.2)
[2018-01-31] MEDS: MONTELUKAST SODIUM 10 MG TABLET PO SCH (21:57)
[2018-01-31] MEDS: ATORVASTATIN CALCIUM 40 MG TABLET PO SCH (21:57)
[2018-02-01] MEDS: ASPIRIN/DIPYRIDAMOLE 25-200 MG 1 CAP.SR CPMP.12HR PO SCH ×2 (09:38→22:23)
[2018-02-01] MEDS: LANSOPRAZOLE 30 MG TAB.RAP.DR PO SCH (09:38)
[2018-02-01] MEDS: ENOXAPARIN SODIUM INJ 30 MG/0.3 ML DISP.SYRIN SUBCUT SCH (09:38)
[2018-02-01] MEDS: OLOPATADINE HCL 0.1% OPH SOLN 5 ML OP SCH ×2 (09:38→18:00)
[2018-02-01] MEDS: LEVETIRACETAM 500 MG TABLET PO SCH ×2 (09:38→22:23)
[2018-02-01] MEDS: DOCUSATE SODIUM 100 MG CAPSULE PO SCH ×2 (09:38→18:00)
[2018-02-01] MEDS: NORMAL SALINE 1000 ML 1,000 ML IV PRN (16:06)
--- NOTE | 2018-02-01 17:54 | PDOC PROGRESS REPORT ---
Subjective Progress Note for:: 02/01/18 Subjective:: Patient is more lucid today, awaiting placement in fpc for rehabilitation Reason For Visit: MULTIFOCAL CVA, BILATERAL Physical Exam Vital Signs: Temp Pulse Resp BP Pulse Ox 98.3 F 64 17 133/60 H 93 02/01/18 15:55 02/01/18 15:55 02/01/18 15:55 02/01/18 15:55 02/01/18 15:55 Intake & Output 01/31/18 02/01/18 02/02/18 06:59 06:59 06:59 Intake Total 1252 1834 505 Output Total 1125 1375 700 Balance 127 459 -195 Weight 68.5 kg 67.7 kg General appearance: PRESENT: no acute distress Head exam: PRESENT: atraumatic, normocephalic Eye exam: PRESENT: PERRLA Ear exam: PRESENT: normal external ear exam Mouth exam: PRESENT: moist, tongue midline Neck exam: PRESENT: full ROM Respiratory exam: PRESENT: clear to auscultation kane Cardiovascular exam: PRESENT: RRR, +S2 Vascular exam: PRESENT: normal capillary refill GI/Abdominal exam: PRESENT: normal bowel sounds, soft Rectal exam: PRESENT: deferred Neurological exam: PRESENT: alert Psychiatric exam: PRESENT: appropriate affect, normal mood Skin exam: PRESENT: dry, intact, warm. ABSENT: cyanosis, rash Results Laboratory Results: 01/31/18 06:02 01/31/18 17:31 01/31/18 17:31 Sodium 142.9 Potassium 4.1 Chloride 108 H Carbon Dioxide 25 Anion Gap 10 BUN 16 Creatinine 1.10 Est GFR ( Amer) > 60 Est GFR (Non-Af Amer) > 60 Glucose 121 H Calcium 9.9 Total Bilirubin 0.4 AST 13 L ALT 12 L Alkaline Phosphatase 74 Total Protein 7.4 Albumin 3.8 01/30/18 01/30/18 01/30/18 06:11 06:11 15:23 Creatine Kinase 79 82 CK-MB (CK-2) 1.06 Troponin I < 0.012 01/30/18 01/30/18 01/30/18 15:23 21:45 21:45 Creatine Kinase 89 CK-MB (CK-2) 0.98 0.92 Troponin I < 0.012 < 0.012 Impressions: Head CT 01/28/18 10:04 IMPRESSION: CHRONIC CHANGES OF ATROPHY AND MICROVASCULAR ISCHEMIA. NO ACUTE PROCESS. EVIDENCE OF ACUTE STROKE: NO. Head MRI 01/29/18 00:00 IMPRESSION: Multifocal acute/subacute ischemia of the left middle cerebral cerebellar peduncle and right cerebral peduncle. Carotid Doppler Study 01/30/18 00:00 IMPRESSION: Critical stenosis right proximal internal carotid artery with 70 to 99% stenosis. No flow significant stenosis at the left carotid bifurcation. Chest X-Ray 01/30/18 00:00 IMPRESSION: No acute cardiopulmonary findings. 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 Is this a current diagnosis for this admission?: Yes (2) Cerebral infarction due to unspecified occlusion or stenosis of right carotid arteries Is this a current diagnosis for this admission?: Yes (3) Acute confusional state Is this a current diagnosis for this admission?: Yes (4) Urinary retention Is this a current diagnosis for this admission?: Yes (5) Acute kidney injury Is this a current diagnosis for this admission?: Yes (6) Peripheral vascular disease Is this a current diagnosis for this admission?: Yes (7) Occlusion and stenosis of right carotid artery Is this a current diagnosis for this admission?: Yes (8) 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 Qualifiers: Laterality: right Qualified Code(s): I63.231 - Cerebral infarction due to unspecified occlusion or stenosis of right carotid arteries Is this a current diagnosis for this admission?: Yes (9) 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 Is this a current diagnosis for this admission?: Yes (10) Delirium Is this a current diagnosis for this admission?: Yes - Plan Summary Plan Summary: Continue treatment
[2018-02-01] MEDS: MONTELUKAST SODIUM 10 MG TABLET PO SCH (22:23)
[2018-02-01] MEDS: ATORVASTATIN CALCIUM 40 MG TABLET PO SCH (22:23)
[2018-02-02] MEDS: NORMAL SALINE 1000 ML 1,000 ML IV PRN (08:36)
[2018-02-02] MEDS: ASPIRIN/DIPYRIDAMOLE 25-200 MG 1 CAP.SR CPMP.12HR PO SCH ×2 (09:34→22:12)
[2018-02-02] MEDS: OLOPATADINE HCL 0.1% OPH SOLN 5 ML OP SCH ×2 (09:35→17:23)
[2018-02-02] MEDS: ENOXAPARIN SODIUM INJ 30 MG/0.3 ML DISP.SYRIN SUBCUT SCH (09:35)
[2018-02-02] MEDS: LANSOPRAZOLE 30 MG TAB.RAP.DR PO SCH (09:35)
[2018-02-02] MEDS: DOCUSATE SODIUM 100 MG CAPSULE PO SCH ×2 (09:35→17:22)
[2018-02-02] MEDS: LEVETIRACETAM 500 MG TABLET PO SCH ×2 (09:35→22:12)
[2018-02-02 09:43] LABS: ABSOLUTE BASOPHILS # (AUTO) 0.1 10^3/uL (0.0-0.2); ABSOLUTE EOSINOPHILS # (AUTO) 0.2 10^3/uL (0.0-0.6); ABSOLUTE LYMPHOCYTES (AUTO) 1.4 10^3/uL (0.5-4.7); ABSOLUTE MONOCYTES (AUTO) 0.6 10^3/uL (0.1-1.4); ABSOLUTE NEUT (AUTO) 3.3 10^3/uL (1.7-8.2); BASOPHILS % (AUTO) 1.6 % (0-2); EOSINOPHILS % (AUTO) 2.8 % (0-6); HEMATOCRIT 33.8 % (37.9-51.0); HEMOGLOBIN 11.2 g/dL (13.5-17.0); LYMPHOCYTES % (AUTO) 25.5 % (13-45); MEAN CORPUSCULAR HEMOGLOBIN 29.9 pg (27.0-33.4); MEAN CORPUSCULAR HGB CONC 33.1 g/dL (32.0-36.0); MEAN CORPUSCULAR VOLUME 90 fl (80-97); MONOCYTES % (AUTO) 11.4 % (3-13); PLATELET COUNT 197 10^3/uL (150-450); RED BLOOD COUNT 3.75 10^6/uL (4.35-5.55); RED CELL DISTRIBUTION WIDTH 13.6 % (11.5-14.0); SEGMENTED NEUTROPHILS % (AUTO) 58.7 % (42-78); TOTAL CELLS COUNTED % (AUTO) 100 %; WHITE BLOOD COUNT 5.6 10^3/uL (4.0-10.5)
[2018-02-02 10:02] LABS: ALANINE AMINOTRANSFERASE 15 U/L (21-72); ALBUMIN 3.5 g/dL (3.5-5.0); ALKALINE PHOSPHATASE 74 U/L (38-126); ANION GAP 13 (5-19); ASPARTATE AMINO TRANSFERASE 12 U/L (17-59); BILIRUBIN,DIRECT 0.2 mg/dL (0.0-0.4); BILIRUBIN,TOTAL 0.5 mg/dL (0.2-1.3); BLOOD UREA NITROGEN 13 mg/dL (7-20); CALCIUM 9.7 mg/dL (8.4-10.2); CARBON DIOXIDE 21 mmol/L (22-30); CHLORIDE 112 mmol/L (98-107); GLUCOSE 104 mg/dL (75-110); POTASSIUM 4.2 mmol/L (3.6-5.0); SODIUM 145.5 mmol/L (137-145)
--- NOTE | 2018-02-02 19:32 | PDOC PROGRESS REPORT ---
Subjective Progress Note for:: 02/02/18 Subjective:: Patient is seen by the bedside, awaiting placement for rehabilitation Reason For Visit: MULTIFOCAL CVA, BILATERAL Physical Exam Vital Signs: Temp Pulse Resp BP Pulse Ox 99.2 F 90 18 143/76 H 100 02/02/18 19:27 02/02/18 19:27 02/02/18 19:27 02/02/18 19:27 02/02/18 19:27 Intake & Output 02/01/18 02/02/18 02/03/18 06:59 06:59 06:59 Intake Total 1834 2482 982 Output Total 1375 1900 1325 Balance 459 582 -343 Weight 67.7 kg 68 kg General appearance: PRESENT: no acute distress Eye exam: PRESENT: PERRLA Respiratory exam: PRESENT: clear to auscultation kane Cardiovascular exam: PRESENT: +S1, +S2 GI/Abdominal exam: PRESENT: soft Results Laboratory Results: 02/02/18 09:32 02/02/18 09:32 02/02/18 02/02/18 09:32 09:32 WBC 5.6 RBC 3.75 L Hgb 11.2 L Hct 33.8 L MCV 90 MCH 29.9 MCHC 33.1 RDW 13.6 Plt Count 197 Seg Neutrophils % 58.7 Lymphocytes % 25.5 Monocytes % 11.4 Eosinophils % 2.8 Basophils % 1.6 Absolute Neutrophils 3.3 Absolute Lymphocytes 1.4 Absolute Monocytes 0.6 Absolute Eosinophils 0.2 Absolute Basophils 0.1 Sodium 145.5 H Potassium 4.2 Chloride 112 H Carbon Dioxide 21 L Anion Gap 13 BUN 13 Creatinine 0.92 Est GFR ( Amer) > 60 Est GFR (Non-Af Amer) > 60 Glucose 104 Calcium 9.7 Total Bilirubin 0.5 AST 12 L ALT 15 L Alkaline Phosphatase 74 Total Protein 7.0 Albumin 3.5 01/28/18 18:27 Blood Blood Culture - Final NO GROWTH IN 5 DAYS 01/30/18 01/30/18 01/30/18 06:11 06:11 15:23 Creatine Kinase 79 82 CK-MB (CK-2) 1.06 Troponin I < 0.012 01/30/18 01/30/18 01/30/18 15:23 21:45 21:45 Creatine Kinase 89 CK-MB (CK-2) 0.98 0.92 Troponin I < 0.012 < 0.012 Impressions: Head CT 01/28/18 10:04 IMPRESSION: CHRONIC CHANGES OF ATROPHY AND MICROVASCULAR ISCHEMIA. NO ACUTE PROCESS. EVIDENCE OF ACUTE STROKE: NO. Head MRI 01/29/18 00:00 IMPRESSION: Multifocal acute/subacute ischemia of the left middle cerebral cerebellar peduncle and right cerebral peduncle. Carotid Doppler Study 01/30/18 00:00 IMPRESSION: Critical stenosis right proximal internal carotid artery with 70 to 99% stenosis. No flow significant stenosis at the left carotid bifurcation. Chest X-Ray 01/30/18 00:00 IMPRESSION: No acute cardiopulmonary findings. 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 Is this a current diagnosis for this admission?: Yes (2) Cerebral infarction due to unspecified occlusion or stenosis of right carotid arteries Is this a current diagnosis for this admission?: Yes (3) Acute confusional state Is this a current diagnosis for this admission?: Yes (4) Urinary retention Is this a current diagnosis for this admission?: Yes (5) Acute kidney injury Is this a current diagnosis for this admission?: Yes (6) Peripheral vascular disease Is this a current diagnosis for this admission?: Yes (7) Occlusion and stenosis of right carotid artery Is this a current diagnosis for this admission?: Yes (8) 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 Qualifiers: Laterality: right Qualified Code(s): I63.231 - Cerebral infarction due to unspecified occlusion or stenosis of right carotid arteries Is this a current diagnosis for this admission?: Yes (9) 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 Is this a current diagnosis for this admission?: Yes (10) Delirium Is this a current diagnosis for this admission?: Yes
[2018-02-02] MEDS: MONTELUKAST SODIUM 10 MG TABLET PO SCH (22:13)
[2018-02-02] MEDS: ATORVASTATIN CALCIUM 40 MG TABLET PO SCH (22:13)
[2018-02-03] MEDS: ASPIRIN/DIPYRIDAMOLE 25-200 MG 1 CAP.SR CPMP.12HR PO SCH ×2 (09:12→21:31)
[2018-02-03] MEDS: LANSOPRAZOLE 30 MG TAB.RAP.DR PO SCH (09:22)
[2018-02-03] MEDS: DOCUSATE SODIUM 100 MG CAPSULE PO SCH ×2 (09:22→17:25)
[2018-02-03] MEDS: LEVETIRACETAM 500 MG TABLET PO SCH ×2 (09:22→21:31)
[2018-02-03] MEDS: ENOXAPARIN SODIUM INJ 30 MG/0.3 ML DISP.SYRIN SUBCUT SCH (09:22)
[2018-02-03] MEDS: OLOPATADINE HCL 0.1% OPH SOLN 5 ML OP SCH ×2 (09:25→17:21)
--- NOTE | 2018-02-03 16:30 | PDOC PROGRESS REPORT ---
Subjective Progress Note for:: 02/03/18 Subjective:: Severely hearing impaired. Patient had episode of bleeding from his penis although Sneior cath urine efflux was megan and clear of any blood component. No chest pain or difficulty with breathing. Reason For Visit: MULTIFOCAL CVA, BILATERAL Physical Exam Vital Signs: Temp Pulse Resp BP Pulse Ox 98.1 F 71 16 155/66 H 100 02/03/18 11:38 02/03/18 11:38 02/03/18 11:38 02/03/18 11:38 02/03/18 11:38 Intake & Output 02/02/18 02/03/18 02/04/18 06:59 06:59 06:59 Intake Total 2482 1219 355 Output Total 1900 8170 250 Balance 582 -966 105 Weight 68 kg 67 kg General appearance: PRESENT: no acute distress Head exam: PRESENT: atraumatic, normocephalic Eye exam: PRESENT: EOMI, PERRLA. ABSENT: conjunctiva pale Mouth exam: PRESENT: moist Teeth exam: PRESENT: poor dentation Respiratory exam: PRESENT: decreased breath sounds Cardiovascular exam: PRESENT: RRR, +S1, +S2. ABSENT: diastolic murmur, rubs, systolic murmur Vascular exam: ABSENT: pallor GI/Abdominal exam: PRESENT: normal bowel sounds, soft. ABSENT: organolmegaly Gentrourinary exam: PRESENT: urethral discharge - bleeding with clotted bloody material around Senior catheter, indwelling catheter Extremities exam: ABSENT: pedal edema Musculoskeletal exam: PRESENT: deformity - due to multiple joints involvement with arthritis Neurological exam: PRESENT: alert, awake, other - severe hearing impairment Psychiatric exam: PRESENT: appropriate affect, normal mood. ABSENT: homicidal ideation, suicidal ideation Skin exam: PRESENT: dry, warm Results Laboratory Results: 02/02/18 09:32 02/02/18 09:32 01/28/18 18:27 Blood Blood Culture - Final NO GROWTH IN 5 DAYS 01/30/18 01/30/18 01/30/18 06:11 06:11 15:23 Creatine Kinase 79 82 CK-MB (CK-2) 1.06 Troponin I < 0.012 01/30/18 01/30/18 01/30/18 15:23 21:45 21:45 Creatine Kinase 89 CK-MB (CK-2) 0.98 0.92 Troponin I < 0.012 < 0.012 Impressions: Head CT 01/28/18 10:04 IMPRESSION: CHRONIC CHANGES OF ATROPHY AND MICROVASCULAR ISCHEMIA. NO ACUTE PROCESS. EVIDENCE OF ACUTE STROKE: NO. Head MRI 01/29/18 00:00 IMPRESSION: Multifocal acute/subacute ischemia of the left middle cerebral cerebellar peduncle and right cerebral peduncle. Carotid Doppler Study 01/30/18 00:00 IMPRESSION: Critical stenosis right proximal internal carotid artery with 70 to 99% stenosis. No flow significant stenosis at the left carotid bifurcation. Chest X-Ray 01/30/18 00:00 IMPRESSION: No acute cardiopulmonary findings. Assessment & Plan - Diagnosis (1) Acute confusional state Is this a current diagnosis for this admission?: Yes Plan: See covering attending physician orders. 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 (3) 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 Qualifiers: Laterality: right Qualified Code(s): I63.231 - Cerebral infarction due to unspecified occlusion or stenosis of right carotid arteries Is this a current diagnosis for this admission?: Yes Plan: See covering attending physician orders. (4) Urinary retention Is this a current diagnosis for this admission?: Yes Plan: See covering attending physician orders. (5) Acute kidney injury Is this a current diagnosis for this admission?: Yes Plan: See covering attending physician orders. (6) Bleeding of penis Is this a current diagnosis for this admission?: Yes Plan: See covering attending physician orders. - Time Time Spent with patient: 25-34 minutes Medications reviewed and adjusted accordingly: Yes Anticipated discharge: Home with Homehealth Within: Other - Inpatient Certification Based on my medical assessment, after consideration of the patient's comorbidities, presenting symptoms, or acuity I expect that the services needed warrant INPATIENT care.: Yes I certify that my determination is in accordance with my understanding of Medicare's requirements for reasonable and necessary INPATIENT services [42 CFR 412.3e].: Yes Medical Necessity: Need Close Monitoring Due to Risk of Patient Decompensation, Need For IV Fluids, Need For Continuous Telemetry Monitoring, Risk of Complication if Not Cared For in Hospital Post Hospital Care: D/C Hop Worker Documentation - Plan Summary Plan Summary: See covering attending physician orders.
[2018-02-03] MEDS: ACETAMINOPHEN 325 MG TABLET PO PRN (16:32)
[2018-02-03 17:41] LABS: INTERNATIONAL RATION (INR) 1.02; PROTHROMBIN TIME 13.9 SEC (11.4-15.4)
[2018-02-03] MEDS: ATORVASTATIN CALCIUM 40 MG TABLET PO SCH (21:31)
[2018-02-03] MEDS: MONTELUKAST SODIUM 10 MG TABLET PO SCH (21:31)
[2018-02-04] MEDS: ACETAMINOPHEN 325 MG TABLET PO PRN (05:01)
[2018-02-04 06:26] LABS: ABSOLUTE BASOPHILS # (AUTO) 0.1 10^3/uL (0.0-0.2); ABSOLUTE EOSINOPHILS # (AUTO) 0.2 10^3/uL (0.0-0.6); ABSOLUTE LYMPHOCYTES (AUTO) 1.5 10^3/uL (0.5-4.7); ABSOLUTE MONOCYTES (AUTO) 0.8 10^3/uL (0.1-1.4); ABSOLUTE NEUT (AUTO) 4.6 10^3/uL (1.7-8.2); BASOPHILS % (AUTO) 1.1 % (0-2); EOSINOPHILS % (AUTO) 2.8 % (0-6); HEMATOCRIT 33.4 % (37.9-51.0); HEMOGLOBIN 11.2 g/dL (13.5-17.0); LYMPHOCYTES % (AUTO) 21.3 % (13-45); MEAN CORPUSCULAR HEMOGLOBIN 29.9 pg (27.0-33.4); MEAN CORPUSCULAR HGB CONC 33.3 g/dL (32.0-36.0); MEAN CORPUSCULAR VOLUME 90 fl (80-97); MONOCYTES % (AUTO) 10.9 % (3-13); PLATELET COUNT 186 10^3/uL (150-450); RED BLOOD COUNT 3.73 10^6/uL (4.35-5.55); RED CELL DISTRIBUTION WIDTH 13.5 % (11.5-14.0); SEGMENTED NEUTROPHILS % (AUTO) 63.9 % (42-78); TOTAL CELLS COUNTED % (AUTO) 100 %; WHITE BLOOD COUNT 7.2 10^3/uL (4.0-10.5)
[2018-02-04 07:15] LABS: ANION GAP 14 (5-19); BLOOD UREA NITROGEN 12 mg/dL (7-20); CALCIUM 9.5 mg/dL (8.4-10.2); CARBON DIOXIDE 21 mmol/L (22-30); CHLORIDE 110 mmol/L (98-107); GLUCOSE 102 mg/dL (75-110); POTASSIUM 3.9 mmol/L (3.6-5.0); SODIUM 145.2 mmol/L (137-145)
[2018-02-04] MEDS: DOCUSATE SODIUM 100 MG CAPSULE PO SCH ×2 (09:10→17:03)
[2018-02-04] MEDS: LANSOPRAZOLE 30 MG TAB.RAP.DR PO SCH (09:10)
[2018-02-04] MEDS: ASPIRIN/DIPYRIDAMOLE 25-200 MG 1 CAP.SR CPMP.12HR PO SCH ×2 (09:10→21:42)
[2018-02-04] MEDS: ENOXAPARIN SODIUM INJ 30 MG/0.3 ML DISP.SYRIN SUBCUT SCH (09:11)
[2018-02-04] MEDS: LEVETIRACETAM 500 MG TABLET PO SCH ×2 (09:11→21:41)
[2018-02-04] MEDS: OLOPATADINE HCL 0.1% OPH SOLN 5 ML OP SCH ×2 (09:18→17:07)
--- NOTE | 2018-02-04 19:42 | PDOC PROGRESS REPORT ---
Subjective Progress Note for:: 02/04/18 Subjective:: Severely hearing impaired. No significant bleeding from his penis so far today. No chest pain or difficulty with breathing. No fever or chills. Reason For Visit: MULTIFOCAL CVA, BILATERAL Physical Exam Vital Signs: Temp Pulse Resp BP Pulse Ox 97.8 F 92 20 136/68 H 99 02/04/18 15:31 02/04/18 15:31 02/04/18 15:31 02/04/18 15:31 02/04/18 15:31 Intake & Output 02/03/18 02/04/18 02/05/18 06:59 06:59 06:59 Intake Total 1219 592 784 Output Total 6491 4885 745 Balance -948 -2299 -16 Weight 67 kg 65.4 kg Physical Exam: General appearance: PRESENT: no acute distress Head exam: PRESENT: atraumatic, normocephalic Eye exam: PRESENT: EOMI, PERRLA. ABSENT: conjunctiva pale Mouth exam: PRESENT: moist Teeth exam: PRESENT: poor dentation Respiratory exam: PRESENT: decreased breath sounds Cardiovascular exam: PRESENT: RRR, +S1, +S2. ABSENT: diastolic murmur, rubs, systolic murmur Vascular exam: ABSENT: pallor GI/Abdominal exam: PRESENT: normal bowel sounds, soft. ABSENT: organomegaly Gentrourinary exam: PRESENT: urethral discharge - No bleeding, indwelling catheter Extremities exam: ABSENT: pedal edema Musculoskeletal exam: PRESENT: deformity - due to multiple joints involvement with arthritis Neurological exam: PRESENT: alert, awake, other - severe hearing impairment Psychiatric exam: PRESENT: appropriate affect, normal mood. ABSENT: homicidal ideation, suicidal ideation Skin exam: PRESENT: dry, warm Results Laboratory Results: 02/04/18 05:31 02/04/18 05:31 02/04/18 02/04/18 05:31 05:31 WBC 7.2 RBC 3.73 L Hgb 11.2 L Hct 33.4 L MCV 90 MCH 29.9 MCHC 33.3 RDW 13.5 Plt Count 186 Seg Neutrophils % 63.9 Lymphocytes % 21.3 Monocytes % 10.9 Eosinophils % 2.8 Basophils % 1.1 Absolute Neutrophils 4.6 Absolute Lymphocytes 1.5 Absolute Monocytes 0.8 Absolute Eosinophils 0.2 Absolute Basophils 0.1 Sodium 145.2 H Potassium 3.9 Chloride 110 H Carbon Dioxide 21 L Anion Gap 14 BUN 12 Creatinine 0.94 Est GFR ( Amer) > 60 Est GFR (Non-Af Amer) > 60 Glucose 102 Calcium 9.5 01/30/18 01/30/18 01/30/18 06:11 06:11 15:23 Creatine Kinase 79 82 CK-MB (CK-2) 1.06 Troponin I < 0.012 01/30/18 01/30/18 01/30/18 15:23 21:45 21:45 Creatine Kinase 89 CK-MB (CK-2) 0.98 0.92 Troponin I < 0.012 < 0.012 Impressions: Head CT 01/28/18 10:04 IMPRESSION: CHRONIC CHANGES OF ATROPHY AND MICROVASCULAR ISCHEMIA. NO ACUTE PROCESS. EVIDENCE OF ACUTE STROKE: NO. Head MRI 01/29/18 00:00 IMPRESSION: Multifocal acute/subacute ischemia of the left middle cerebral cerebellar peduncle and right cerebral peduncle. Carotid Doppler Study 01/30/18 00:00 IMPRESSION: Critical stenosis right proximal internal carotid artery with 70 to 99% stenosis. No flow significant stenosis at the left carotid bifurcation. Chest X-Ray 01/30/18 00:00 IMPRESSION: No acute cardiopulmonary findings. 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 Is this a current diagnosis for this admission?: Yes (3) 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 Qualifiers: Laterality: right Qualified Code(s): I63.231 - Cerebral infarction due to unspecified occlusion or stenosis of right carotid arteries Is this a current diagnosis for this admission?: Yes (4) Urinary retention Is this a current diagnosis for this admission?: Yes (5) Acute kidney injury Is this a current diagnosis for this admission?: Yes (6) Bleeding of penis Is this a current diagnosis for this admission?: Yes - Time Time Spent with patient: 25-34 minutes Medications reviewed and adjusted accordingly: Yes Anticipated discharge: Home with Homehealth Within: Other - Inpatient Certification Based on my medical assessment, after consideration of the patient's comorbidities, presenting symptoms, or acuity I expect that the services needed warrant INPATIENT care.: Yes I certify that my determination is in accordance with my understanding of Medicare's requirements for reasonable and necessary INPATIENT services [42 CFR 412.3e].: Yes Medical Necessity: Need Close Monitoring Due to Risk of Patient Decompensation, Need For IV Fluids, Need For Continuous Telemetry Monitoring, Risk of Complication if Not Cared For in Hospital Post Hospital Care: D/C Solutions Architect Consultant Documentation - Plan Summary Plan Summary: Continue all current medication management. Obtain BMP and CBC with diff in AM.
[2018-02-04] MEDS: ATORVASTATIN CALCIUM 40 MG TABLET PO SCH (21:42)
[2018-02-04] MEDS: MONTELUKAST SODIUM 10 MG TABLET PO SCH (21:42)
[2018-02-05 06:22] LABS: ABSOLUTE BASOPHILS # (AUTO) 0.1 10^3/uL (0.0-0.2); ABSOLUTE EOSINOPHILS # (AUTO) 0.1 10^3/uL (0.0-0.6); ABSOLUTE LYMPHOCYTES (AUTO) 1.5 10^3/uL (0.5-4.7); ABSOLUTE MONOCYTES (AUTO) 1.1 10^3/uL (0.1-1.4); ABSOLUTE NEUT (AUTO) 8.3 10^3/uL (1.7-8.2); BASOPHILS % (AUTO) 0.9 % (0-2); EOSINOPHILS % (AUTO) 0.7 % (0-6); HEMATOCRIT 31.7 % (37.9-51.0); HEMOGLOBIN 10.4 g/dL (13.5-17.0); LYMPHOCYTES % (AUTO) 13.4 % (13-45); MEAN CORPUSCULAR HEMOGLOBIN 29.7 pg (27.0-33.4); MEAN CORPUSCULAR HGB CONC 32.9 g/dL (32.0-36.0); MEAN CORPUSCULAR VOLUME 90 fl (80-97); MONOCYTES % (AUTO) 9.9 % (3-13); PLATELET COUNT 174 10^3/uL (150-450); RED BLOOD COUNT 3.52 10^6/uL (4.35-5.55); RED CELL DISTRIBUTION WIDTH 13.4 % (11.5-14.0); SEGMENTED NEUTROPHILS % (AUTO) 75.1 % (42-78); TOTAL CELLS COUNTED % (AUTO) 100 %
[2018-02-05 06:32] LABS: ANION GAP 13 (5-19); BLOOD UREA NITROGEN 13 mg/dL (7-20); CALCIUM 9.5 mg/dL (8.4-10.2); CARBON DIOXIDE 22 mmol/L (22-30); CHLORIDE 109 mmol/L (98-107); GLUCOSE 98 mg/dL (75-110); POTASSIUM 3.8 mmol/L (3.6-5.0); SODIUM 143.6 mmol/L (137-145)
[2018-02-05] MEDS: ENOXAPARIN SODIUM INJ 30 MG/0.3 ML DISP.SYRIN SUBCUT SCH (10:36)
[2018-02-05] MEDS: OLOPATADINE HCL 0.1% OPH SOLN 5 ML OP SCH ×2 (10:37→17:08)
[2018-02-05] MEDS: ASPIRIN/DIPYRIDAMOLE 25-200 MG 1 CAP.SR CPMP.12HR PO SCH ×2 (10:37→21:08)
[2018-02-05] MEDS: LANSOPRAZOLE 30 MG TAB.RAP.DR PO SCH (10:37)
[2018-02-05] MEDS: DOCUSATE SODIUM 100 MG CAPSULE PO SCH ×2 (10:37→17:08)
[2018-02-05] MEDS: LEVETIRACETAM 500 MG TABLET PO SCH ×2 (10:37→21:07)
[2018-02-05] MEDS: ACETAMINOPHEN 325 MG TABLET PO PRN ×2 (16:31→21:07)
--- NOTE | 2018-02-05 18:18 | PDOC PROGRESS REPORT ---
Subjective Progress Note for:: 02/05/18 Subjective:: Severely hearing impaired. No chest pain or difficulty with breathing. No fever or chills. Very minimal bleeding around his Senior catheter. Reason For Visit: MULTIFOCAL CVA, BILATERAL Physical Exam Vital Signs: Temp Pulse Resp BP Pulse Ox 97.7 F 67 20 148/59 H 100 02/05/18 15:18 02/05/18 15:18 02/05/18 15:18 02/05/18 15:18 02/05/18 15:18 Intake & Output 02/04/18 02/05/18 02/06/18 06:59 06:59 06:59 Intake Total 592 1239 237 Output Total 1939 0945 300 Balance -1345 -386 -63 Weight 65.4 kg 66.4 kg Physical Exam: General appearance: PRESENT: no acute distress Head exam: PRESENT: atraumatic, normocephalic Eye exam: PRESENT: EOMI, PERRLA. ABSENT: conjunctiva pale Mouth exam: PRESENT: moist Teeth exam: PRESENT: poor dentation Respiratory exam: PRESENT: decreased breath sounds Cardiovascular exam: PRESENT: RRR, +S1, +S2. ABSENT: diastolic murmur, rubs, systolic murmur Vascular exam: ABSENT: pallor GI/Abdominal exam: PRESENT: normal bowel sounds, soft. ABSENT: organomegaly Gentrourinary exam: PRESENT: urethral discharge - No bleeding, indwelling catheter Extremities exam: ABSENT: pedal edema Musculoskeletal exam: PRESENT: deformity - due to multiple joints involvement with arthritis Neurological exam: PRESENT: alert, awake, other - severe hearing impairment Psychiatric exam: PRESENT: appropriate affect, normal mood. ABSENT: homicidal ideation, suicidal ideation Skin exam: PRESENT: dry, warm Results Laboratory Results: 02/05/18 05:33 02/05/18 05:33 02/05/18 02/05/18 05:33 05:33 WBC 11.0 H RBC 3.52 L Hgb 10.4 L Hct 31.7 L MCV 90 MCH 29.7 MCHC 32.9 RDW 13.4 Plt Count 174 Seg Neutrophils % 75.1 Lymphocytes % 13.4 Monocytes % 9.9 Eosinophils % 0.7 Basophils % 0.9 Absolute Neutrophils 8.3 H Absolute Lymphocytes 1.5 Absolute Monocytes 1.1 Absolute Eosinophils 0.1 Absolute Basophils 0.1 Sodium 143.6 Potassium 3.8 Chloride 109 H Carbon Dioxide 22 Anion Gap 13 BUN 13 Creatinine 1.00 Est GFR ( Amer) > 60 Est GFR (Non-Af Amer) > 60 Glucose 98 Calcium 9.5 01/30/18 01/30/18 01/30/18 06:11 06:11 15:23 Creatine Kinase 79 82 CK-MB (CK-2) 1.06 Troponin I < 0.012 01/30/18 01/30/18 01/30/18 15:23 21:45 21:45 Creatine Kinase 89 CK-MB (CK-2) 0.98 0.92 Troponin I < 0.012 < 0.012 Impressions: Head CT 01/28/18 10:04 IMPRESSION: CHRONIC CHANGES OF ATROPHY AND MICROVASCULAR ISCHEMIA. NO ACUTE PROCESS. EVIDENCE OF ACUTE STROKE: NO. Head MRI 01/29/18 00:00 IMPRESSION: Multifocal acute/subacute ischemia of the left middle cerebral cerebellar peduncle and right cerebral peduncle. Carotid Doppler Study 01/30/18 00:00 IMPRESSION: Critical stenosis right proximal internal carotid artery with 70 to 99% stenosis. No flow significant stenosis at the left carotid bifurcation. Chest X-Ray 01/30/18 00:00 IMPRESSION: No acute cardiopulmonary findings. 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 Is this a current diagnosis for this admission?: Yes (3) 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 Qualifiers: Laterality: right Qualified Code(s): I63.231 - Cerebral infarction due to unspecified occlusion or stenosis of right carotid arteries Is this a current diagnosis for this admission?: Yes (4) Urinary retention Is this a current diagnosis for this admission?: Yes (5) Acute kidney injury Is this a current diagnosis for this admission?: Yes (6) Bleeding of penis Is this a current diagnosis for this admission?: Yes - Time Time Spent with patient: 25-34 minutes Medications reviewed and adjusted accordingly: Yes Anticipated discharge: SNF Within: Other - Inpatient Certification Based on my medical assessment, after consideration of the patient's comorbidities, presenting symptoms, or acuity I expect that the services needed warrant INPATIENT care.: Yes I certify that my determination is in accordance with my understanding of Medicare's requirements for reasonable and necessary INPATIENT services [42 CFR 412.3e].: Yes Medical Necessity: Need Close Monitoring Due to Risk of Patient Decompensation, Need For Continuous Telemetry Monitoring, Risk of Complication if Not Cared For in Hospital Post Hospital Care: D/C or Transfer Summary - Plan Summary Plan Summary: See covering attending physician orders.
[2018-02-05] MEDS: MONTELUKAST SODIUM 10 MG TABLET PO SCH (21:07)
[2018-02-05] MEDS: ATORVASTATIN CALCIUM 40 MG TABLET PO SCH (21:07)
[2018-02-06] MEDS: ASPIRIN/DIPYRIDAMOLE 25-200 MG 1 CAP.SR CPMP.12HR PO SCH ×2 (09:00→21:40)
[2018-02-06] MEDS: LEVETIRACETAM 500 MG TABLET PO SCH ×2 (09:00→21:40)
[2018-02-06] MEDS: DOCUSATE SODIUM 100 MG CAPSULE PO SCH ×2 (09:01→17:22)
[2018-02-06] MEDS: ENOXAPARIN SODIUM INJ 30 MG/0.3 ML DISP.SYRIN SUBCUT SCH (09:01)
[2018-02-06] MEDS: OLOPATADINE HCL 0.1% OPH SOLN 5 ML OP SCH ×2 (09:01→17:22)
[2018-02-06] MEDS: LANSOPRAZOLE 30 MG TAB.RAP.DR PO SCH (09:01)
[2018-02-06] MEDS: ACETAMINOPHEN 325 MG TABLET PO PRN ×2 (11:52→19:58)
[2018-02-06 13:07] LABS: APPEARANCE,URINE CLOUDY; BILIRUBIN,URINE NEGATIVE (NEGATIVE); COLOR,URINE DARK YELLOW; GLUCOSE, URINE NEGATIVE (NEGATIVE); KETONES,URINE NEGATIVE (NEGATIVE); LEUKOCYTE ESTERASE,URINE LARGE (NEGATIVE); NITRITE,URINE NEGATIVE (NEGATIVE); PROTEIN,URINE 100 mg/dL (NEGATIVE); URINE SPECIFIC GRAVITY 1.018
[2018-02-06] MEDS: TAMSULOSIN HCL 0.4 MG CAP.SR.24H PO SCH (17:45)
[2018-02-06] MEDS: FINASTERIDE 5 MG TABLET PO SCH (17:45)
[2018-02-06] MEDS ORDERED: LEVOFLOXACIN 500 MG TABLET PO SCH (18:00)
--- NOTE | 2018-02-06 19:26 | PDOC PROGRESS REPORT ---
Subjective Progress Note for:: 02/06/18 Subjective:: He was supposed to be discharged to half-way for rehabilitation today he developed fever with 102 temperature, the source of the fever is the urine he has a Senior catheter Reason For Visit: MULTIFOCAL CVA, BILATERAL Physical Exam Vital Signs: Temp Pulse Resp BP Pulse Ox 100.2 F 99 18 116/50 L 97 02/06/18 15:05 02/06/18 15:05 02/06/18 15:05 02/06/18 15:05 02/06/18 15:05 Intake & Output 02/05/18 02/06/18 02/07/18 06:59 06:59 06:59 Intake Total 1239 2321 367 Output Total 1625 1475 200 Balance -386 846 167 Weight 66.4 kg 64.6 kg General appearance: PRESENT: no acute distress Eye exam: PRESENT: PERRLA Respiratory exam: PRESENT: clear to auscultation kane Cardiovascular exam: PRESENT: +S1, +S2 GI/Abdominal exam: PRESENT: soft Results Laboratory Results: 02/05/18 05:33 02/05/18 05:33 02/06/18 12:15 Urine Color DARK YELLOW Urine Appearance CLOUDY Urine pH 5.0 Ur Specific [place] 1.018 Urine Protein 100 H Urine Glucose (UA) NEGATIVE Urine Ketones NEGATIVE Urine Blood MODERATE H Urine Nitrite NEGATIVE Ur Leukocyte Esterase LARGE H Urine WBC (Auto) >182 Urine RBC (Auto) 66 01/30/18 01/30/18 01/30/18 06:11 06:11 15:23 Creatine Kinase 79 82 CK-MB (CK-2) 1.06 Troponin I < 0.012 01/30/18 01/30/18 01/30/18 15:23 21:45 21:45 Creatine Kinase 89 CK-MB (CK-2) 0.98 0.92 Troponin I < 0.012 < 0.012 Impressions: Head CT 01/28/18 10:04 IMPRESSION: CHRONIC CHANGES OF ATROPHY AND MICROVASCULAR ISCHEMIA. NO ACUTE PROCESS. EVIDENCE OF ACUTE STROKE: NO. Head MRI 01/29/18 00:00 IMPRESSION: Multifocal acute/subacute ischemia of the left middle cerebral cerebellar peduncle and right cerebral peduncle. Carotid Doppler Study 01/30/18 00:00 IMPRESSION: Critical stenosis right proximal internal carotid artery with 70 to 99% stenosis. No flow significant stenosis at the left carotid bifurcation. Chest X-Ray 01/30/18 00:00 IMPRESSION: No acute cardiopulmonary findings. 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 Is this a current diagnosis for this admission?: Yes (2) Cerebral infarction due to unspecified occlusion or stenosis of right carotid arteries Is this a current diagnosis for this admission?: Yes (3) Acute confusional state Is this a current diagnosis for this admission?: Yes (4) Urinary retention Is this a current diagnosis for this admission?: Yes (5) Acute kidney injury Is this a current diagnosis for this admission?: Yes (6) Peripheral vascular disease Is this a current diagnosis for this admission?: Yes (7) Occlusion and stenosis of right carotid artery Is this a current diagnosis for this admission?: Yes (8) 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 Qualifiers: Laterality: right Qualified Code(s): I63.231 - Cerebral infarction due to unspecified occlusion or stenosis of right carotid arteries Is this a current diagnosis for this admission?: Yes (9) 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 Is this a current diagnosis for this admission?: Yes (10) Delirium Is this a current diagnosis for this admission?: Yes (11) Urinary tract infection associated with catheterization of urinary tract Qualifiers: Indwelling urinary catheter type: indwelling urethral catheter Encounter type: initial encounter Qualified Code(s): T83.511A - Infection and inflammatory reaction due to indwelling urethral catheter, initial encounter; N39.0 - Urinary tract infection, site not specified; N39.0 - Urinary tract infection, site not specified Is this a current diagnosis for this admission?: Yes Plan: Start Levaquin (12) BPH (benign prostatic hyperplasia) Qualifiers: Lower urinary tract symptom presence: unspecified whether lower urinary tract symptoms present Qualified Code(s): N40.0 - Benign prostatic hyperplasia without lower urinary tract symptoms Is this a current diagnosis for this admission?: Yes Plan: Start Flomax and finasteride
[2018-02-06] MEDS: ATORVASTATIN CALCIUM 40 MG TABLET PO SCH (21:40)
[2018-02-06] MEDS: MONTELUKAST SODIUM 10 MG TABLET PO SCH (21:40)
[2018-02-07] MEDS ORDERED: NORMAL SALINE 500 ML IV ONE ×2 (00:15→01:45)
[2018-02-07] MEDS: LANSOPRAZOLE 30 MG TAB.RAP.DR PO SCH (10:08)
[2018-02-07] MEDS: ASPIRIN/DIPYRIDAMOLE 25-200 MG 1 CAP.SR CPMP.12HR PO SCH ×2 (10:08→21:27)
[2018-02-07] MEDS: OLOPATADINE HCL 0.1% OPH SOLN 5 ML OP SCH ×2 (10:08→17:15)
[2018-02-07] MEDS: ENOXAPARIN SODIUM INJ 30 MG/0.3 ML DISP.SYRIN SUBCUT SCH (10:08)
[2018-02-07] MEDS: LEVETIRACETAM 500 MG TABLET PO SCH ×2 (10:08→21:27)
[2018-02-07] MEDS: DOCUSATE SODIUM 100 MG CAPSULE PO SCH ×2 (10:08→17:15)
[2018-02-07] MEDS: ACETAMINOPHEN 325 MG TABLET PO PRN (15:11)
--- NOTE | 2018-02-07 16:41 | PDOC PROGRESS REPORT ---
Subjective Progress Note for:: 02/07/18 Subjective:: He has gram-negative septicemia, presently on p.o. Levaquin, had episode of low blood pressure last night that was responsive to bolus of IV fluids Reason For Visit: MULTIFOCAL CVA, BILATERAL Physical Exam Vital Signs: Temp Pulse Resp BP Pulse Ox 99.5 F 96 16 107/51 L 99 02/07/18 11:58 02/07/18 11:58 02/07/18 11:58 02/07/18 11:58 02/07/18 11:58 Intake & Output 02/06/18 02/07/18 02/08/18 06:59 06:59 06:59 Intake Total 2321 703 Output Total 1475 200 Balance 846 503 Weight 64.6 kg 65.9 kg General appearance: PRESENT: no acute distress Eye exam: PRESENT: PERRLA Respiratory exam: PRESENT: clear to auscultation kane Cardiovascular exam: PRESENT: +S1, +S2 Neurological exam: PRESENT: alert Results Laboratory Results: 02/05/18 05:33 02/05/18 05:33 01/30/18 01/30/18 01/30/18 06:11 06:11 15:23 Creatine Kinase 79 82 CK-MB (CK-2) 1.06 Troponin I < 0.012 01/30/18 01/30/18 01/30/18 15:23 21:45 21:45 Creatine Kinase 89 CK-MB (CK-2) 0.98 0.92 Troponin I < 0.012 < 0.012 Impressions: Head CT 01/28/18 10:04 IMPRESSION: CHRONIC CHANGES OF ATROPHY AND MICROVASCULAR ISCHEMIA. NO ACUTE PROCESS. EVIDENCE OF ACUTE STROKE: NO. Head MRI 01/29/18 00:00 IMPRESSION: Multifocal acute/subacute ischemia of the left middle cerebral cerebellar peduncle and right cerebral peduncle. Carotid Doppler Study 01/30/18 00:00 IMPRESSION: Critical stenosis right proximal internal carotid artery with 70 to 99% stenosis. No flow significant stenosis at the left carotid bifurcation. Chest X-Ray 01/30/18 00:00 IMPRESSION: No acute cardiopulmonary findings. 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 Is this a current diagnosis for this admission?: Yes (2) Cerebral infarction due to unspecified occlusion or stenosis of right carotid arteries Is this a current diagnosis for this admission?: Yes (3) Acute confusional state Is this a current diagnosis for this admission?: Yes (4) Urinary retention Is this a current diagnosis for this admission?: Yes (5) Acute kidney injury Is this a current diagnosis for this admission?: Yes (6) Peripheral vascular disease Is this a current diagnosis for this admission?: Yes (7) Occlusion and stenosis of right carotid artery Is this a current diagnosis for this admission?: Yes (8) 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 Qualifiers: Laterality: right Qualified Code(s): I63.231 - Cerebral infarction due to unspecified occlusion or stenosis of right carotid arteries Is this a current diagnosis for this admission?: Yes (9) 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 Is this a current diagnosis for this admission?: Yes (10) Delirium Is this a current diagnosis for this admission?: Yes (11) Urinary tract infection associated with catheterization of urinary tract Qualifiers: Indwelling urinary catheter type: indwelling urethral catheter Encounter type: initial encounter Qualified Code(s): T83.511A - Infection and inflammatory reaction due to indwelling urethral catheter, initial encounter; N39.0 - Urinary tract infection, site not specified; N39.0 - Urinary tract infection, site not specified Is this a current diagnosis for this admission?: Yes (12) BPH (benign prostatic hyperplasia) Qualifiers: Lower urinary tract symptom presence: unspecified whether lower urinary tract symptoms present Qualified Code(s): N40.0 - Benign prostatic hyperplasia without lower urinary tract symptoms Is this a current diagnosis for this admission?: Yes (13) Gram negative septicemia Is this a current diagnosis for this admission?: Yes
[2018-02-07] MEDS: TAMSULOSIN HCL 0.4 MG CAP.SR.24H PO SCH (17:15)
[2018-02-07] MEDS: FINASTERIDE 5 MG TABLET PO SCH (17:15)
[2018-02-07] MEDS: LEVOFLOXACIN 250 MG TABLET PO SCH (17:16)
[2018-02-07] MEDS: ATORVASTATIN CALCIUM 40 MG TABLET PO SCH (21:27)
[2018-02-07] MEDS: MONTELUKAST SODIUM 10 MG TABLET PO SCH (21:27)
[2018-02-08] MEDS: LANSOPRAZOLE 30 MG TAB.RAP.DR PO SCH (09:10)
[2018-02-08] MEDS: ENOXAPARIN SODIUM INJ 30 MG/0.3 ML DISP.SYRIN SUBCUT SCH (09:10)
[2018-02-08] MEDS: DOCUSATE SODIUM 100 MG CAPSULE PO SCH ×2 (09:10→17:33)
[2018-02-08] MEDS: LEVETIRACETAM 500 MG TABLET PO SCH ×2 (09:10→21:18)
[2018-02-08] MEDS: OLOPATADINE HCL 0.1% OPH SOLN 5 ML OP SCH ×2 (09:11→17:32)
[2018-02-08] MEDS: ASPIRIN/DIPYRIDAMOLE 25-200 MG 1 CAP.SR CPMP.12HR PO SCH ×2 (09:11→21:18)
[2018-02-08] MEDS: TAMSULOSIN HCL 0.4 MG CAP.SR.24H PO SCH (17:32)
[2018-02-08] MEDS: FINASTERIDE 5 MG TABLET PO SCH (17:32)
[2018-02-08] MEDS: LEVOFLOXACIN 250 MG TABLET PO SCH (17:32)
--- NOTE | 2018-02-08 17:51 | PDOC PROGRESS REPORT ---
Subjective Progress Note for:: 02/08/18 Subjective:: Urine culture grew Pseudomonas, sensitive to Levaquin,Continue treatment Reason For Visit: MULTIFOCAL CVA, BILATERAL Physical Exam Vital Signs: Temp Pulse Resp BP Pulse Ox 98.5 F 111 H 16 134/57 H 100 02/08/18 11:06 02/08/18 14:00 02/08/18 11:06 02/08/18 11:06 02/08/18 11:06 Intake & Output 02/07/18 02/08/18 02/09/18 06:59 06:59 06:59 Intake Total 703 561 Output Total 200 Balance 503 561 Weight 65.9 kg 65.6 kg General appearance: PRESENT: no acute distress Eye exam: PRESENT: PERRLA Respiratory exam: PRESENT: clear to auscultation kane Cardiovascular exam: PRESENT: +S1, +S2 GI/Abdominal exam: PRESENT: soft Neurological exam: PRESENT: alert Results Laboratory Results: 02/05/18 05:33 02/05/18 05:33 02/06/18 12:15 Senior Catheter Urine Culture - Final Pseudomonas Aeruginosa 01/30/18 01/30/18 01/30/18 06:11 06:11 15:23 Creatine Kinase 79 82 CK-MB (CK-2) 1.06 Troponin I < 0.012 01/30/18 01/30/18 01/30/18 15:23 21:45 21:45 Creatine Kinase 89 CK-MB (CK-2) 0.98 0.92 Troponin I < 0.012 < 0.012 Impressions: Head CT 01/28/18 10:04 IMPRESSION: CHRONIC CHANGES OF ATROPHY AND MICROVASCULAR ISCHEMIA. NO ACUTE PROCESS. EVIDENCE OF ACUTE STROKE: NO. Head MRI 01/29/18 00:00 IMPRESSION: Multifocal acute/subacute ischemia of the left middle cerebral cerebellar peduncle and right cerebral peduncle. Carotid Doppler Study 01/30/18 00:00 IMPRESSION: Critical stenosis right proximal internal carotid artery with 70 to 99% stenosis. No flow significant stenosis at the left carotid bifurcation. Chest X-Ray 01/30/18 00:00 IMPRESSION: No acute cardiopulmonary findings. 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 Is this a current diagnosis for this admission?: Yes (2) Cerebral infarction due to unspecified occlusion or stenosis of right carotid arteries Is this a current diagnosis for this admission?: Yes (3) Acute confusional state Is this a current diagnosis for this admission?: Yes (4) Urinary retention Is this a current diagnosis for this admission?: Yes (5) Acute kidney injury Is this a current diagnosis for this admission?: Yes (6) Peripheral vascular disease Is this a current diagnosis for this admission?: Yes (7) Occlusion and stenosis of right carotid artery Is this a current diagnosis for this admission?: Yes (8) 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 Qualifiers: Laterality: right Qualified Code(s): I63.231 - Cerebral infarction due to unspecified occlusion or stenosis of right carotid arteries Is this a current diagnosis for this admission?: Yes (9) 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 Is this a current diagnosis for this admission?: Yes (10) Delirium Is this a current diagnosis for this admission?: Yes (11) Urinary tract infection associated with catheterization of urinary tract Qualifiers: Indwelling urinary catheter type: indwelling urethral catheter Encounter type: initial encounter Qualified Code(s): T83.511A - Infection and inflammatory reaction due to indwelling urethral catheter, initial encounter; N39.0 - Urinary tract infection, site not specified; N39.0 - Urinary tract infection, site not specified Is this a current diagnosis for this admission?: Yes (12) BPH (benign prostatic hyperplasia) Qualifiers: Lower urinary tract symptom presence: unspecified whether lower urinary tract symptoms present Qualified Code(s): N40.0 - Benign prostatic hyperplasia without lower urinary tract symptoms Is this a current diagnosis for this admission?: Yes (13) Gram negative septicemia Is this a current diagnosis for this admission?: Yes (14) Pseudomonas urinary tract infection Is this a current diagnosis for this admission?: Yes (15) Pseudomonas septicemia Is this a current diagnosis for this admission?: Yes
[2018-02-08 18:36] LABS: ABSOLUTE EOSINOPHILS # (AUTO) 0.1 10^3/uL (0.0-0.6); ABSOLUTE LYMPHOCYTES (AUTO) 0.9 10^3/uL (0.5-4.7); ABSOLUTE MONOCYTES (AUTO) 0.9 10^3/uL (0.1-1.4); ABSOLUTE NEUT (AUTO) 15.7 10^3/uL (1.7-8.2); BASOPHILS % (AUTO) 0.2 % (0-2); EOSINOPHILS % (AUTO) 0.4 % (0-6); HEMATOCRIT 30.4 % (37.9-51.0); LYMPHOCYTES % (AUTO) 5.1 % (13-45); MEAN CORPUSCULAR HEMOGLOBIN 29.6 pg (27.0-33.4); MEAN CORPUSCULAR VOLUME 90 fl (80-97); MONOCYTES % (AUTO) 5.1 % (3-13); PLATELET COUNT 225 10^3/uL (150-450); RED BLOOD COUNT 3.39 10^6/uL (4.35-5.55); SEGMENTED NEUTROPHILS % (AUTO) 89.2 % (42-78); TOTAL CELLS COUNTED % (AUTO) 100 %; WHITE BLOOD COUNT 17.6 10^3/uL (4.0-10.5)
[2018-02-08 18:58] LABS: ALANINE AMINOTRANSFERASE 15 U/L (21-72); ALBUMIN 3.3 g/dL (3.5-5.0); ALKALINE PHOSPHATASE 68 U/L (38-126); ANION GAP 17 (5-19); ASPARTATE AMINO TRANSFERASE 12 U/L (17-59); BILIRUBIN,DIRECT 0.4 mg/dL (0.0-0.4); BILIRUBIN,TOTAL 0.7 mg/dL (0.2-1.3); BLOOD UREA NITROGEN 27 mg/dL (7-20); CALCIUM 8.9 mg/dL (8.4-10.2); CARBON DIOXIDE 20 mmol/L (22-30); CHLORIDE 108 mmol/L (98-107); GLUCOSE 125 mg/dL (75-110); POTASSIUM 3.5 mmol/L (3.6-5.0); SODIUM 144.6 mmol/L (137-145); TOTAL PROTEIN 6.5 g/dL (6.3-8.2)
[2018-02-08] MEDS: MONTELUKAST SODIUM 10 MG TABLET PO SCH (21:18)
[2018-02-08] MEDS: ATORVASTATIN CALCIUM 40 MG TABLET PO SCH (21:18)
[2018-02-09 06:24] LABS: ABSOLUTE BASOPHILS # (AUTO) 0.1 10^3/uL (0.0-0.2); ABSOLUTE EOSINOPHILS # (AUTO) 0.1 10^3/uL (0.0-0.6); ABSOLUTE LYMPHOCYTES (AUTO) 1.3 10^3/uL (0.5-4.7); ABSOLUTE MONOCYTES (AUTO) 0.9 10^3/uL (0.1-1.4); ABSOLUTE NEUT (AUTO) 11.6 10^3/uL (1.7-8.2); BASOPHILS % (AUTO) 0.6 % (0-2); EOSINOPHILS % (AUTO) 0.7 % (0-6); HEMATOCRIT 31.3 % (37.9-51.0); HEMOGLOBIN 10.4 g/dL (13.5-17.0); LYMPHOCYTES % (AUTO) 9.2 % (13-45); MEAN CORPUSCULAR HEMOGLOBIN 29.6 pg (27.0-33.4); MEAN CORPUSCULAR HGB CONC 33.1 g/dL (32.0-36.0); MEAN CORPUSCULAR VOLUME 89 fl (80-97); MONOCYTES % (AUTO) 6.7 % (3-13); PLATELET COUNT 220 10^3/uL (150-450); RED CELL DISTRIBUTION WIDTH 14.3 % (11.5-14.0); SEGMENTED NEUTROPHILS % (AUTO) 82.8 % (42-78); TOTAL CELLS COUNTED % (AUTO) 100 %; WHITE BLOOD COUNT 13.9 10^3/uL (4.0-10.5)
[2018-02-09 06:43] LABS: ALANINE AMINOTRANSFERASE 14 U/L (21-72); ALBUMIN 3.7 g/dL (3.5-5.0); ALKALINE PHOSPHATASE 75 U/L (38-126); ANION GAP 13 (5-19); ASPARTATE AMINO TRANSFERASE 17 U/L (17-59); BILIRUBIN,DIRECT 0.5 mg/dL (0.0-0.4); BILIRUBIN,TOTAL 0.8 mg/dL (0.2-1.3); BLOOD UREA NITROGEN 24 mg/dL (7-20); CALCIUM 9.3 mg/dL (8.4-10.2); CARBON DIOXIDE 24 mmol/L (22-30); CHLORIDE 109 mmol/L (98-107); GLUCOSE 112 mg/dL (75-110); POTASSIUM 3.7 mmol/L (3.6-5.0); SODIUM 146.4 mmol/L (137-145); TOTAL PROTEIN 7.7 g/dL (6.3-8.2)
[2018-02-09] MEDS: ASPIRIN/DIPYRIDAMOLE 25-200 MG 1 CAP.SR CPMP.12HR PO SCH ×2 (08:23→20:58)
[2018-02-09] MEDS: LANSOPRAZOLE 30 MG TAB.RAP.DR PO SCH (08:24)
[2018-02-09] MEDS: LEVETIRACETAM 500 MG TABLET PO SCH ×2 (08:24→20:58)
[2018-02-09] MEDS: ENOXAPARIN SODIUM INJ 30 MG/0.3 ML DISP.SYRIN SUBCUT SCH (08:25)
[2018-02-09] MEDS: DOCUSATE SODIUM 100 MG CAPSULE PO SCH ×2 (08:25→17:08)
[2018-02-09] MEDS: OLOPATADINE HCL 0.1% OPH SOLN 5 ML OP SCH ×2 (08:25→17:08)
[2018-02-09] MEDS: TAMSULOSIN HCL 0.4 MG CAP.SR.24H PO SCH (17:08)
[2018-02-09] MEDS: FINASTERIDE 5 MG TABLET PO SCH (17:08)
[2018-02-09] MEDS: LEVOFLOXACIN 250 MG TABLET PO SCH (17:08)
--- NOTE | 2018-02-09 20:18 | PDOC PROGRESS REPORT ---
Subjective Progress Note for:: 02/09/18 Subjective:: The blood culture grew Pseudomonas, Urine culture grew same bacteria patient presently on p.o. antibiotic seems to be responding to treatment Reason For Visit: MULTIFOCAL CVA, BILATERAL Physical Exam Vital Signs: Temp Pulse Resp BP Pulse Ox 99.4 F 74 19 129/55 H 98 02/09/18 19:35 02/09/18 19:35 02/09/18 19:35 02/09/18 19:35 02/09/18 19:35 Intake & Output 02/08/18 02/09/18 02/10/18 06:59 06:59 06:59 Intake Total 561 842 312 Balance 561 842 312 Weight 65.6 kg 66 kg General appearance: PRESENT: no acute distress Eye exam: PRESENT: PERRLA Cardiovascular exam: PRESENT: +S1, +S2 GI/Abdominal exam: PRESENT: soft Neurological exam: PRESENT: alert Results Laboratory Results: 02/09/18 05:41 02/09/18 05:41 02/09/18 02/09/18 05:41 05:41 WBC 13.9 H RBC 3.50 L Hgb 10.4 L Hct 31.3 L MCV 89 MCH 29.6 MCHC 33.1 RDW 14.3 H Plt Count 220 Seg Neutrophils % 82.8 H Lymphocytes % 9.2 L Monocytes % 6.7 Eosinophils % 0.7 Basophils % 0.6 Absolute Neutrophils 11.6 H Absolute Lymphocytes 1.3 Absolute Monocytes 0.9 Absolute Eosinophils 0.1 Absolute Basophils 0.1 Sodium 146.4 H Potassium 3.7 Chloride 109 H Carbon Dioxide 24 Anion Gap 13 BUN 24 H Creatinine 0.96 Est GFR ( Amer) > 60 Est GFR (Non-Af Amer) > 60 Glucose 112 H Calcium 9.3 Total Bilirubin 0.8 AST 17 ALT 14 L Alkaline Phosphatase 75 Total Protein 7.7 Albumin 3.7 02/06/18 13:30 Blood Blood Culture - Final Pseudomonas Aeruginosa 02/06/18 13:10 Blood Blood Culture - Final Pseudomonas Aeruginosa 01/30/18 01/30/18 01/30/18 06:11 06:11 15:23 Creatine Kinase 79 82 CK-MB (CK-2) 1.06 Troponin I < 0.012 01/30/18 01/30/18 01/30/18 15:23 21:45 21:45 Creatine Kinase 89 CK-MB (CK-2) 0.98 0.92 Troponin I < 0.012 < 0.012 Impressions: Head CT 01/28/18 10:04 IMPRESSION: CHRONIC CHANGES OF ATROPHY AND MICROVASCULAR ISCHEMIA. NO ACUTE PROCESS. EVIDENCE OF ACUTE STROKE: NO. Head MRI 01/29/18 00:00 IMPRESSION: Multifocal acute/subacute ischemia of the left middle cerebral cerebellar peduncle and right cerebral peduncle. Carotid Doppler Study 01/30/18 00:00 IMPRESSION: Critical stenosis right proximal internal carotid artery with 70 to 99% stenosis. No flow significant stenosis at the left carotid bifurcation. Chest X-Ray 01/30/18 00:00 IMPRESSION: No acute cardiopulmonary findings. 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 Is this a current diagnosis for this admission?: Yes (2) Cerebral infarction due to unspecified occlusion or stenosis of right carotid arteries Is this a current diagnosis for this admission?: Yes (3) Acute confusional state Is this a current diagnosis for this admission?: Yes (4) Urinary retention Is this a current diagnosis for this admission?: Yes (5) Acute kidney injury Is this a current diagnosis for this admission?: Yes (6) Peripheral vascular disease Is this a current diagnosis for this admission?: Yes (7) Occlusion and stenosis of right carotid artery Is this a current diagnosis for this admission?: Yes (8) 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 Qualifiers: Laterality: right Qualified Code(s): I63.231 - Cerebral infarction due to unspecified occlusion or stenosis of right carotid arteries Is this a current diagnosis for this admission?: Yes (9) 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 Is this a current diagnosis for this admission?: Yes (10) Delirium Is this a current diagnosis for this admission?: Yes (11) Urinary tract infection associated with catheterization of urinary tract Qualifiers: Indwelling urinary catheter type: indwelling urethral catheter Encounter type: initial encounter Qualified Code(s): T83.511A - Infection and inflammatory reaction due to indwelling urethral catheter, initial encounter; N39.0 - Urinary tract infection, site not specified; N39.0 - Urinary tract infection, site not specified Is this a current diagnosis for this admission?: Yes (12) BPH (benign prostatic hyperplasia) Qualifiers: Lower urinary tract symptom presence: unspecified whether lower urinary tract symptoms present Qualified Code(s): N40.0 - Benign prostatic hyperplasia without lower urinary tract symptoms Is this a current diagnosis for this admission?: Yes (13) Gram negative septicemia Is this a current diagnosis for this admission?: Yes (14) Pseudomonas urinary tract infection Is this a current diagnosis for this admission?: Yes (15) Pseudomonas septicemia Is this a current diagnosis for this admission?: Yes
[2018-02-09] MEDS: MONTELUKAST SODIUM 10 MG TABLET PO SCH (20:58)
[2018-02-09] MEDS: ATORVASTATIN CALCIUM 40 MG TABLET PO SCH (20:58)
--- NOTE | 2018-02-10 10:47 | PDOC PROGRESS REPORT ---
Subjective Progress Note for:: 02/10/18 Subjective:: Patient is currently doing fair Difficult underlying dementia Patient have a CVA Currently doing fair need the transfer to the [facility] Reason For Visit: MULTIFOCAL CVA, BILATERAL Physical Exam Vital Signs: Temp Pulse Resp BP Pulse Ox 97.8 F 73 16 158/66 H 100 02/10/18 07:56 02/10/18 07:56 02/10/18 07:56 02/10/18 07:56 02/10/18 07:56 Intake & Output 02/09/18 02/10/18 02/11/18 06:59 06:59 06:59 Intake Total 842 579 Balance 842 579 Weight 66 kg 65.2 kg General appearance: PRESENT: no acute distress, well-developed, well-nourished Head exam: PRESENT: atraumatic, normocephalic Eye exam: PRESENT: conjunctiva pink, EOMI, PERRLA. ABSENT: scleral icterus Ear exam: PRESENT: normal external ear exam Mouth exam: PRESENT: moist, tongue midline Neck exam: PRESENT: full ROM. ABSENT: carotid bruit, JVD, lymphadenopathy, thyromegaly Respiratory exam: PRESENT: clear to auscultation kane Cardiovascular exam: PRESENT: RRR. ABSENT: diastolic murmur, rubs, systolic murmur Pulses: PRESENT: normal dorsalis pedis pul, +2 pedal pulses bilateral Vascular exam: PRESENT: normal capillary refill GI/Abdominal exam: PRESENT: normal bowel sounds, soft. ABSENT: distended, guarding, mass, organolmegaly, rebound, tenderness Rectal exam: PRESENT: deferred Neurological exam: PRESENT: alert, altered, awake, motor sensory deficit Psychiatric exam: PRESENT: appropriate affect, normal mood. ABSENT: homicidal ideation, suicidal ideation Skin exam: PRESENT: dry, intact, warm. ABSENT: cyanosis, rash Results Laboratory Results: 02/09/18 05:41 02/09/18 05:41 02/06/18 13:30 Blood Blood Culture - Final Pseudomonas Aeruginosa 02/06/18 13:10 Blood Blood Culture - Final Pseudomonas Aeruginosa 01/30/18 01/30/18 01/30/18 06:11 06:11 15:23 Creatine Kinase 79 82 CK-MB (CK-2) 1.06 Troponin I < 0.012 01/30/18 01/30/18 01/30/18 15:23 21:45 21:45 Creatine Kinase 89 CK-MB (CK-2) 0.98 0.92 Troponin I < 0.012 < 0.012 Impressions: Head CT 01/28/18 10:04 IMPRESSION: CHRONIC CHANGES OF ATROPHY AND MICROVASCULAR ISCHEMIA. NO ACUTE PROCESS. EVIDENCE OF ACUTE STROKE: NO. Head MRI 01/29/18 00:00 IMPRESSION: Multifocal acute/subacute ischemia of the left middle cerebral cerebellar peduncle and right cerebral peduncle. Carotid Doppler Study 01/30/18 00:00 IMPRESSION: Critical stenosis right proximal internal carotid artery with 70 to 99% stenosis. No flow significant stenosis at the left carotid bifurcation. Chest X-Ray 01/30/18 00:00 IMPRESSION: No acute cardiopulmonary findings. Assessment & Plan - Diagnosis (1) Acute confusional state Is this a current diagnosis for this admission?: Yes (2) Cerebral infarction due to unspecified occlusion or stenosis of right carotid arteries Is this a current diagnosis for this admission?: Yes (3) Gram negative septicemia Is this a current diagnosis for this admission?: Yes (4) Pseudomonas urinary tract infection Is this a current diagnosis for this admission?: Yes (5) Hypertension Qualifiers: Hypertension type: essential hypertension Qualified Code(s): I10 - Essential (primary) hypertension Is this a current diagnosis for this admission?: Yes (6) Peripheral vascular disease Is this a current diagnosis for this admission?: Yes - Time Time Spent with patient: 15-24 minutes Medications reviewed and adjusted accordingly: Yes Anticipated discharge: SNF Within: Other - Inpatient Certification Medical Necessity: Need Close Monitoring Due to Risk of Patient Decompensation, Need for IV Antibiotics 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
[2018-02-10] MEDS: LEVETIRACETAM 500 MG TABLET PO SCH ×2 (14:09→21:38)
[2018-02-10] MEDS: DOCUSATE SODIUM 100 MG CAPSULE PO SCH ×2 (14:09→18:11)
[2018-02-10] MEDS: ASPIRIN/DIPYRIDAMOLE 25-200 MG 1 CAP.SR CPMP.12HR PO SCH ×2 (14:09→21:38)
[2018-02-10] MEDS: OLOPATADINE HCL 0.1% OPH SOLN 5 ML OP SCH ×2 (14:09→18:11)
[2018-02-10] MEDS: ENOXAPARIN SODIUM INJ 30 MG/0.3 ML DISP.SYRIN SUBCUT SCH (14:09)
[2018-02-10] MEDS: LANSOPRAZOLE 30 MG TAB.RAP.DR PO SCH (14:09)
[2018-02-10] MEDS: LEVOFLOXACIN 250 MG TABLET PO SCH (18:10)
[2018-02-10] MEDS: FINASTERIDE 5 MG TABLET PO SCH (18:11)
[2018-02-10] MEDS: TAMSULOSIN HCL 0.4 MG CAP.SR.24H PO SCH (18:11)
[2018-02-10] MEDS: ATORVASTATIN CALCIUM 40 MG TABLET PO SCH (21:38)
[2018-02-10] MEDS: MONTELUKAST SODIUM 10 MG TABLET PO SCH (21:38)
[2018-02-11 07:11] LABS: ABSOLUTE BASOPHILS # (AUTO) 0.1 10^3/uL (0.0-0.2); ABSOLUTE EOSINOPHILS # (AUTO) 0.1 10^3/uL (0.0-0.6); ABSOLUTE LYMPHOCYTES (AUTO) 1.4 10^3/uL (0.5-4.7); ABSOLUTE MONOCYTES (AUTO) 0.9 10^3/uL (0.1-1.4); ABSOLUTE NEUT (AUTO) 6.3 10^3/uL (1.7-8.2); BASOPHILS % (AUTO) 0.9 % (0-2); EOSINOPHILS % (AUTO) 1.4 % (0-6); HEMATOCRIT 30.4 % (37.9-51.0); HEMOGLOBIN 10.1 g/dL (13.5-17.0); LYMPHOCYTES % (AUTO) 16.2 % (13-45); MEAN CORPUSCULAR HEMOGLOBIN 29.8 pg (27.0-33.4); MEAN CORPUSCULAR HGB CONC 33.2 g/dL (32.0-36.0); MEAN CORPUSCULAR VOLUME 90 fl (80-97); MONOCYTES % (AUTO) 10.4 % (3-13); PLATELET COUNT 241 10^3/uL (150-450); RED BLOOD COUNT 3.38 10^6/uL (4.35-5.55); RED CELL DISTRIBUTION WIDTH 13.9 % (11.5-14.0); SEGMENTED NEUTROPHILS % (AUTO) 71.1 % (42-78); TOTAL CELLS COUNTED % (AUTO) 100 %; WHITE BLOOD COUNT 8.9 10^3/uL (4.0-10.5)
[2018-02-11 07:32] LABS: ANION GAP 13 (5-19); BLOOD UREA NITROGEN 17 mg/dL (7-20); CALCIUM 9.4 mg/dL (8.4-10.2); CARBON DIOXIDE 23 mmol/L (22-30); CHLORIDE 106 mmol/L (98-107); GLUCOSE 109 mg/dL (75-110); POTASSIUM 3.9 mmol/L (3.6-5.0); SODIUM 141.8 mmol/L (137-145)
--- NOTE | 2018-02-11 11:01 | PDOC PROGRESS REPORT ---
Subjective Progress Note for:: 02/11/18 Subjective:: Patient is currently doing fair Difficult underlying dementia Patient have a CVA Currently doing fair need the transfer to the snf Reason For Visit: MULTIFOCAL CVA, BILATERAL Physical Exam Vital Signs: Temp Pulse Resp BP Pulse Ox 97.7 F 76 16 152/61 H 99 02/11/18 08:22 02/11/18 08:22 02/11/18 08:22 02/11/18 08:22 02/11/18 08:22 Intake & Output 02/10/18 02/11/18 02/12/18 06:59 06:59 06:59 Intake Total 579 791 Output Total 1 Balance 579 790 Weight 65.2 kg 63.4 kg General appearance: PRESENT: no acute distress, well-developed, well-nourished Head exam: PRESENT: atraumatic, normocephalic Eye exam: PRESENT: conjunctiva pink, EOMI, PERRLA. ABSENT: scleral icterus Ear exam: PRESENT: normal external ear exam Mouth exam: PRESENT: moist, tongue midline Neck exam: PRESENT: full ROM. ABSENT: carotid bruit, JVD, lymphadenopathy, thyromegaly Respiratory exam: PRESENT: clear to auscultation kane Cardiovascular exam: PRESENT: RRR. ABSENT: diastolic murmur, rubs, systolic murmur Pulses: PRESENT: normal dorsalis pedis pul, +2 pedal pulses bilateral Vascular exam: PRESENT: normal capillary refill GI/Abdominal exam: PRESENT: normal bowel sounds, soft. ABSENT: distended, guarding, mass, organolmegaly, rebound, tenderness Rectal exam: PRESENT: deferred Extremities exam: ABSENT: pedal edema Neurological exam: PRESENT: alert, awake. ABSENT: motor sensory deficit Psychiatric exam: PRESENT: appropriate affect, normal mood. ABSENT: homicidal ideation, suicidal ideation Skin exam: PRESENT: dry, intact, warm. ABSENT: cyanosis, rash Results Laboratory Results: 02/11/18 06:29 02/11/18 06:29 02/11/18 02/11/18 06:29 06:29 WBC 8.9 RBC 3.38 L Hgb 10.1 L Hct 30.4 L MCV 90 MCH 29.8 MCHC 33.2 RDW 13.9 Plt Count 241 Seg Neutrophils % 71.1 Lymphocytes % 16.2 Monocytes % 10.4 Eosinophils % 1.4 Basophils % 0.9 Absolute Neutrophils 6.3 Absolute Lymphocytes 1.4 Absolute Monocytes 0.9 Absolute Eosinophils 0.1 Absolute Basophils 0.1 Sodium 141.8 Potassium 3.9 Chloride 106 Carbon Dioxide 23 Anion Gap 13 BUN 17 Creatinine 0.84 Est GFR ( Amer) > 60 Est GFR (Non-Af Amer) > 60 Glucose 109 Calcium 9.4 01/30/18 01/30/18 01/30/18 06:11 06:11 15:23 Creatine Kinase 79 82 CK-MB (CK-2) 1.06 Troponin I < 0.012 01/30/18 01/30/18 01/30/18 15:23 21:45 21:45 Creatine Kinase 89 CK-MB (CK-2) 0.98 0.92 Troponin I < 0.012 < 0.012 Impressions: Head CT 01/28/18 10:04 IMPRESSION: CHRONIC CHANGES OF ATROPHY AND MICROVASCULAR ISCHEMIA. NO ACUTE PROCESS. EVIDENCE OF ACUTE STROKE: NO. Head MRI 01/29/18 00:00 IMPRESSION: Multifocal acute/subacute ischemia of the left middle cerebral cerebellar peduncle and right cerebral peduncle. Carotid Doppler Study 01/30/18 00:00 IMPRESSION: Critical stenosis right proximal internal carotid artery with 70 to 99% stenosis. No flow significant stenosis at the left carotid bifurcation. Chest X-Ray 01/30/18 00:00 IMPRESSION: No acute cardiopulmonary findings. Assessment & Plan - Diagnosis (1) Acute confusional state Is this a current diagnosis for this admission?: Yes (2) Cerebral infarction due to unspecified occlusion or stenosis of right carotid arteries Is this a current diagnosis for this admission?: Yes (3) Gram negative septicemia Is this a current diagnosis for this admission?: Yes (4) Pseudomonas urinary tract infection Is this a current diagnosis for this admission?: Yes (5) Hypertension Qualifiers: Hypertension type: essential hypertension Qualified Code(s): I10 - Essential (primary) hypertension Is this a current diagnosis for this admission?: Yes (6) Peripheral vascular disease Is this a current diagnosis for this admission?: Yes - Time Time Spent with patient: 15-24 minutes Medications reviewed and adjusted accordingly: Yes Anticipated discharge: SNF Within: Other - Inpatient Certification Medical Necessity: Need Close Monitoring Due to Risk of Patient Decompensation Post Hospital Care: D/C Fiscal Technician Documentation - Plan Summary Plan Summary: The other MD orders
[2018-02-11] MEDS: LEVETIRACETAM 500 MG TABLET PO SCH ×2 (11:06→21:34)
[2018-02-11] MEDS: DOCUSATE SODIUM 100 MG CAPSULE PO SCH ×2 (11:25→18:50)
[2018-02-11] MEDS: OLOPATADINE HCL 0.1% OPH SOLN 5 ML OP SCH ×2 (11:25→18:50)
[2018-02-11] MEDS: ASPIRIN/DIPYRIDAMOLE 25-200 MG 1 CAP.SR CPMP.12HR PO SCH ×2 (11:25→21:34)
[2018-02-11] MEDS: LANSOPRAZOLE 30 MG TAB.RAP.DR PO SCH (11:25)
[2018-02-11] MEDS: ENOXAPARIN SODIUM INJ 30 MG/0.3 ML DISP.SYRIN SUBCUT SCH (11:25)
[2018-02-11] MEDS: LEVOFLOXACIN 250 MG TABLET PO SCH (18:36)
[2018-02-11] MEDS: TAMSULOSIN HCL 0.4 MG CAP.SR.24H PO SCH (18:36)
[2018-02-11] MEDS: FINASTERIDE 5 MG TABLET PO SCH (18:36)
[2018-02-11] MEDS: MONTELUKAST SODIUM 10 MG TABLET PO SCH (21:34)
[2018-02-11] MEDS: ATORVASTATIN CALCIUM 40 MG TABLET PO SCH (21:34)
[2018-02-12] MEDS: ENOXAPARIN SODIUM INJ 30 MG/0.3 ML DISP.SYRIN SUBCUT SCH (11:48)
[2018-02-12] MEDS: LANSOPRAZOLE 30 MG TAB.RAP.DR PO SCH (11:48)
[2018-02-12] MEDS: DOCUSATE SODIUM 100 MG CAPSULE PO SCH ×2 (11:48→18:38)
[2018-02-12] MEDS: ASPIRIN/DIPYRIDAMOLE 25-200 MG 1 CAP.SR CPMP.12HR PO SCH ×2 (11:48→22:23)
[2018-02-12] MEDS: OLOPATADINE HCL 0.1% OPH SOLN 5 ML OP SCH ×2 (11:48→18:38)
[2018-02-12] MEDS: LEVETIRACETAM 500 MG TABLET PO SCH ×2 (12:33→22:23)
[2018-02-12] MEDS: LEVOFLOXACIN 250 MG TABLET PO SCH (18:35)
[2018-02-12] MEDS: FINASTERIDE 5 MG TABLET PO SCH (18:38)
[2018-02-12] MEDS: TAMSULOSIN HCL 0.4 MG CAP.SR.24H PO SCH (18:38)
--- NOTE | 2018-02-12 21:20 | PDOC TRANSFER SUMMARY ---
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 Is this a current diagnosis for this admission?: Yes (2) Cerebral infarction due to unspecified occlusion or stenosis of right carotid arteries Is this a current diagnosis for this admission?: Yes (3) Acute confusional state Is this a current diagnosis for this admission?: Yes (4) Urinary retention Is this a current diagnosis for this admission?: Yes (5) Acute kidney injury Is this a current diagnosis for this admission?: Yes (6) Peripheral vascular disease Is this a current diagnosis for this admission?: Yes (7) Occlusion and stenosis of right carotid artery Is this a current diagnosis for this admission?: Yes (8) 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 Is this a current diagnosis for this admission?: Yes (9) 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 Is this a current diagnosis for this admission?: Yes (10) Delirium Is this a current diagnosis for this admission?: Yes (11) Urinary tract infection associated with catheterization of urinary tract Is this a current diagnosis for this admission?: Yes (12) BPH (benign prostatic hyperplasia) Is this a current diagnosis for this admission?: Yes (13) Gram negative septicemia Is this a current diagnosis for this admission?: Yes (14) Pseudomonas urinary tract infection Is this a current diagnosis for this admission?: Yes (15) Pseudomonas septicemia Is this a current diagnosis for this admission?: Yes - Additional Information Prescriptions: Levofloxacin [Levaquin 250 mg Tablet] 250 mg PO QPM #5 tablet Home Medications: Levetiracetam [Keppra 500 mg Tablet] 500 mg PO Q12 01/29/18 Valsartan/Hydrochlorothiazide [Diovan Hct 160-25 mg Tablet] 1 tab PO DAILY 01/29 Acetaminophen [Tylenol 325 mg Tablet] 650 mg PO Q4HP PRN tablet 02/12/18 Aspirin/Dipyridamole [Aggrenox 25 mg/200 mg Capsule SA] 1 cap.sr PO Q12 cpmp.12hr 02/12/18 Atorvastatin Calcium [Lipitor 40 mg Tablet] 40 mg PO QHS tablet 02/12/18 Doxepin HCl [Silenor] 6 mg PO .DAILY 02/12/18 Finasteride [Proscar 5 mg Tablet] 5 mg PO QPM tablet 02/12/18 Levetiracetam [Keppra 500 mg Tablet] 500 mg PO Q12 tablet 02/12/18 Levofloxacin [Levaquin 250 mg Tablet] 250 mg PO QPM #5 tablet 02/12/18 Olopatadine HCl [Patanol 0.1% Oph Soln 5 ml] 1 drop OP BID bottle 02/12/18 Tamsulosin HCl [Flomax 0.4 mg Cap.sr] 0.4 mg PO QPM cap.sr.24h 02/12/18 History of Present Illness Admission Date/PCP: 01/28/18 17:56 MEHDI LAWSON MD History of Present Illness: CAITLYN ROOT is a 87 year old male.Patient was brought to the emergency room by family members for evaluation of a change in mental status, patient not acting himself ,in the emergency room there was a suggestion that patient may have had retention of urine associated with acute kidney injury a Senior catheter was inserted, admission was advised.When he presented to the emergency room a CAT scan of the head was done, this was negative for any acute pathology , the CAT scan showed chronic changes. He has a history of CVA, cerebellar type , recently was in rehabilitation, just got discharged from facility rehabilitation, subsequent MRI of the brain was done after 24 hours of hospital admission. MRI showed multifocal right and left cerebral infarction. Patient was managed according to stroke protocol. Carotid Doppler was done, It showed critical stenosis of the proximal right carotid artery. Patient may need endarterectomy after 3-6 months of stroke. Hospital course was complicated with Pseudomonas UTI associated with urinary catheter that was also associated Pseudomonas septicemia with leukocytosis and fever he was treated with Levaquin with good result Hospital Course Hospital Course: See the history of presenting complaint for detailed hospital course. Patient also had episode of confusion in the hospital requiring restraint in the last few days he has been refusing medication. He has not been cooperating very well with physical therapy. He will need intensive PT [facility] the [facility] before discharge home Physical Exam Vital Signs: Temp Pulse Resp BP Pulse Ox 98.5 F 74 16 122/51 L 100 02/12/18 15:59 02/12/18 15:59 02/12/18 15:59 02/12/18 15:59 02/12/18 15:59 Intake & Output 02/11/18 02/12/18 02/13/18 06:59 06:59 06:59 Intake Total 791 734 958 Output Total 1 400 Balance 790 334 958 Weight 63.4 kg 62.8 kg General appearance: PRESENT: no acute distress Head exam: PRESENT: atraumatic, normocephalic Eye exam: PRESENT: conjunctiva pink, EOMI, PERRLA Ear exam: PRESENT: normal external ear exam Respiratory exam: PRESENT: clear to auscultation kane Cardiovascular exam: PRESENT: RRR, +S1, +S2 Pulses: PRESENT: normal dorsalis pedis pul Vascular exam: PRESENT: normal capillary refill GI/Abdominal exam: PRESENT: normal bowel sounds, soft Rectal exam: PRESENT: deferred Extremities exam: PRESENT: full ROM. ABSENT: calf tenderness, clubbing, pedal edema Neurological exam: PRESENT: alert Psychiatric exam: PRESENT: appropriate affect, normal mood Skin exam: PRESENT: dry, intact, warm Results Laboratory Results: 02/11/18 06:29 02/11/18 06:29 01/30/18 01/30/18 01/30/18 06:11 06:11 15:23 Creatine Kinase 79 82 CK-MB (CK-2) 1.06 Troponin I < 0.012 01/30/18 01/30/18 01/30/18 15:23 21:45 21:45 Creatine Kinase 89 CK-MB (CK-2) 0.98 0.92 Troponin I < 0.012 < 0.012 Impressions: Head CT 01/28/18 10:04 IMPRESSION: CHRONIC CHANGES OF ATROPHY AND MICROVASCULAR ISCHEMIA. NO ACUTE PROCESS. EVIDENCE OF ACUTE STROKE: NO. Head MRI 01/29/18 00:00 IMPRESSION: Multifocal acute/subacute ischemia of the left middle cerebral cerebellar peduncle and right cerebral peduncle. Carotid Doppler Study 01/30/18 00:00 IMPRESSION: Critical stenosis right proximal internal carotid artery with 70 to 99% stenosis. No flow significant stenosis at the left carotid bifurcation. Chest X-Ray 01/30/18 00:00 IMPRESSION: No acute cardiopulmonary findings. Qualifiers - * PATIENT BEING DISCHARGED WITH ANY OF THE FOLLOWING DIAGNOSIS: Stroke VTE patient discharged on overlapping Therapy?: Yes Stroke Pt being discharged on Anti-thrombolytic therapy?: Yes Stroke Pt being discharged on Anti-coagulation therapy?: Yes Stroke Pt being discharged on Statins?: Yes
[2018-02-12] MEDS: ATORVASTATIN CALCIUM 40 MG TABLET PO SCH (22:21)
[2018-02-12] MEDS: MONTELUKAST SODIUM 10 MG TABLET PO SCH (22:21)
[2018-02-13 07:30] LABS: ANION GAP 13 (5-19); BLOOD UREA NITROGEN 15 mg/dL (7-20); CALCIUM 9.8 mg/dL (8.4-10.2); CARBON DIOXIDE 23 mmol/L (22-30); CHLORIDE 106 mmol/L (98-107); GLUCOSE 104 mg/dL (75-110); POTASSIUM 4.2 mmol/L (3.6-5.0); SODIUM 142.1 mmol/L (137-145)
[2018-02-13] MEDS: ASPIRIN/DIPYRIDAMOLE 25-200 MG 1 CAP.SR CPMP.12HR PO SCH (10:34)
[2018-02-13] MEDS: LANSOPRAZOLE 30 MG TAB.RAP.DR PO SCH (10:34)
[2018-02-13] MEDS: ENOXAPARIN SODIUM INJ 30 MG/0.3 ML DISP.SYRIN SUBCUT SCH (10:34)
[2018-02-13] MEDS: LEVETIRACETAM 500 MG TABLET PO SCH (10:35)
[2018-02-13] MEDS: OLOPATADINE HCL 0.1% OPH SOLN 5 ML OP SCH (10:35)
[2018-02-13] MEDS: DOCUSATE SODIUM 100 MG CAPSULE PO SCH (10:35)
[2018-02-13 17:04] VITALS: BP 132/55
== END 2018-02-13 17:45 | DRG 64 ==
LOC: EDBD → ER 08:57 → EH 17:56 → 5 18:55 → 3S 01-30 01:53
PROVIDERS: ADMIT Internal Medicine; ATTEND Internal Medicine
DX: I63.131 Cerebral infarction due to embolism of right carotid artery (principal); A41.9 Sepsis, unspecified organism; T83.511A Infection and inflammatory reaction due to indwelling urethral catheter, initial encounter; A41.52 Sepsis due to Pseudomonas; N17.9 Acute kidney failure, unspecified; N39.0 Urinary tract infection, site not specified; E78.5 Hyperlipidemia, unspecified; I10 Essential (primary) hypertension; K21.9 Gastro-esophageal reflux disease without esophagitis; R33.9 Retention of urine, unspecified; G40.909 Epilepsy, unspecified, not intractable, without status epilepticus; I44.1 Atrioventricular block, second degree; N48.89 Other specified disorders of penis; N40.0 Benign prostatic hyperplasia without lower urinary tract symptoms; M19.90 Unspecified osteoarthritis, unspecified site; R41.0 Disorientation, unspecified; R51 Headache; Z86.73 Personal history of transient ischemic attack (TIA), and cerebral infarction without residual deficits
CPT/HCPCS: 36415; 51701; 51702; 70450; 70551; 71045; 71046; 80048; 80053; 81001; 82550; 82553; 82803; 83735; 84439; 84443; 84484; 85025; 85610; 85730; 87040; 87077; 87086; 87088; 87186; 93005; 93010; 93306; 93880; 96360; 99285; G8978-GP; G8979-GP; G8987-GO; G8988-GO; G8989-GO; J0696; J1650; J3490; J7030; J7040

== ENCOUNTER 2018-02-21 15:24 | Emergency (ER) | payer MEDICARE, MEDICAID ==
--- NOTE | 2018-02-21 15:46 | ER Document Report ---
ED General - General Chief Complaint: S/S of Possible Stroke Stated Complaint: POSSIBLE STROKE Time Seen by Provider: 02/21/18 15:42 Notes: The patient is an 87-year-old male, past medical history prior CVA, presents from [facility] after he was not talking like he normally does. According to EMS and [facility] records, he walks and talks normally without any assistance. On arrival to the ER, patient is moving all his extremities, but will not even try answering questions. He is angry that we are asking him questions. TRAVEL OUTSIDE OF THE [place] IN LAST 30 DAYS: No - Related Data Allergies/Adverse Reactions: No Known Allergies Allergy (Unverified 01/29/18 18:07) Past Medical History - General Information source: Emergency Med Personnel, Outside Facility Records Cannot obtain history due to: Altered mental status - Social History Smoking Status: Unknown if Ever Smoked Family History: Reviewed & Not Pertinent, CAD, Hyperlipidemia, Hypertension Patient has suicidal ideation: No Patient has homicidal ideation: No - Past Medical History Cardiac Medical History: Reports: Hx Hypercholesterolemia, Hx Hypertension, Hx Peripheral Vascular Disease Pulmonary Medical History: Reports: Hx Pneumonia Neurological Medical History: Reports: Hx Cerebrovascular Accident, Hx Seizures - No seizures for many years. Currently taking Keppra. Endocrine Medical History: Denies: Hx Diabetes Mellitus Type 1, Hx Diabetes Mellitus Type 2 Renal/ Medical History: Denies: Hx Peritoneal Dialysis Malignancy Medical History: Reports Hx Prostate Cancer GI Medical History: Reports: Hx Gastroesophageal Reflux Disease Musculoskeltal Medical History: Reports Hx Arthritis Psychiatric Medical History: Denies: Hx Depression Past Surgical History: Reports: Hx Orthopedic Surgery - Right knee, Hx Vascular Surgery - Immunizations Immunizations up to date: No Hx Diphtheria, Pertussis, Tetanus Vaccination: Yes Hx Pneumococcal Vaccination: 10/28/09 Review of Systems - Review of Systems Notes: REVIEW OF SYSTEMS: CONSTITUTIONAL: -fevers, -chills EENT: -eye pain, -difficulty swallowing, -nasal congestion CARDIOVASCULAR: -chest pain, -syncope. RESPIRATORY: -cough, -SOB GASTROINTESTINAL: -abdominal pain, -nausea, -vomiting, -diarrhea GENITOURINARY: -dysuria, -hematuria MUSCULOSKELETAL: -back pain, -neck pain SKIN: -rash or skin lesions. HEMATOLOGIC: -easy bruising or bleeding. LYMPHATIC: -swollen, enlarged glands. NEUROLOGICAL: -altered mental status or loss of consciousness, -headache, +not speaking PSYCHIATRIC: -anxiety, -depression. ALL OTHER SYSTEMS REVIEWED AND NEGATIVE. Physical Exam - Vital signs Vitals: Pulse Resp BP Pulse Ox 94 24 H 126/66 H 95 02/21/18 15:42 02/21/18 15:42 02/21/18 15:42 02/21/18 15:42 - Notes Notes: PHYSICAL EXAMINATION: GENERAL: Well-appearing, well-nourished and in no acute distress. HEAD: Atraumatic, normocephalic. EYES: Pupils equal round and reactive to light, extraocular movements intact, sclera anicteric, conjunctiva are normal. ENT: nares patent, oropharynx clear without exudates. Moist mucous membranes. NECK: Normal range of motion, supple without lymphadenopathy LUNGS: Breath sounds clear to auscultation bilaterally and equal. No wheezes rales or rhonchi. HEART: Regular rate and rhythm without murmurs ABDOMEN: Soft, nontender, normoactive bowel sounds. No guarding, no rebound. No masses appreciated. EXTREMITIES: Normal range of motion, no pitting or edema. No cyanosis. NEUROLOGICAL: 5 out of 5 strength in all 4 extremities, sensation intact. Cranial nerves intact. Patient not speaking on initial exam, but then has a normal voice after returning from CAT scan. PSYCH: Normal mood, normal affect. SKIN: Warm, Dry, normal turgor, no rashes or lesions noted. Course - Re-evaluation Re-evalutation: Patient seen immediately on arrival. No focal neurologic signs, other than patient refusing to speak. Full strength and no sensory changes. When patient returned back from CAT scan, he said he just did not feel like talking earlier today. He said that he could talk, but he chose not to talk. Head CT and CXR did not show any acute findings. Blood work is remarkable for slight MARICHUY and a potassium 5.4. No hyperkalemic changes on EKG and patient provided with 1 L of normal saline to help with his MARICHUY. Patient is not a TPA candidate due to lack of stroke symptoms and his age. Offered patient admission for further evaluation treatment, but he would like to go back to [facility] tonight. He is able to speak normally and ambulate normally. Told to stay hydrated and follow with his primary care physician. - Vital Signs Vital signs: Temp Pulse Resp BP Pulse Ox 98.6 F 94 24 H 126/66 H 94 02/21/18 15:48 02/21/18 15:42 02/21/18 15:42 02/21/18 15:42 02/21/18 15:44 - Laboratory Result Diagrams: 02/21/18 15:59 02/21/18 15:59 Laboratory results interpreted by me: 02/21/18 02/21/18 02/21/18 15:59 15:59 15:59 RBC 3.53 L Hgb 10.5 L Hct 32.2 L RDW 14.5 H Plt Count 594 H APTT 38.9 H Potassium 5.4 H Creatinine 1.41 H Est GFR ( Amer) 57 L Est GFR (Non-Af Amer) 47 L Glucose 116 H AST 15 L ALT 9 L - Diagnostic Test Radiology reviewed: Image reviewed, Reports reviewed Radiology results interpreted by me: Head CT: NAD CXR: NAD - EKG Interpretation by Me EKG shows normal: Sinus rhythm, [place], Intervals, QRS Complexes, ST-T Waves Discharge - Discharge Clinical Impression: MARICHUY (acute kidney injury), Voluntary mutism Condition: Stable Disposition: HOME, SELF-CARE Additional Instructions: There is no evidence of a stroke today. Drink plenty of water as you are slightly dehydrated on labs and follow-up with your primary care physician. Forms: Elevated Blood Pressure Referrals: MEHDI LAWSON MD [Primary Care Provider] - Follow up as needed
--- NOTE | 2018-02-21 15:48 | RADIOLOGY REPORT (SQ) ---
EXAM DESCRIPTION: CT HEAD WITHOUT COMPLETED DATE/TIME: 02/21/2018 3:34 pm REASON FOR STUDY: STROKE ALERT COMPARISON: CT brain 01/28/2018, 11/13/2009 TECHNIQUE: Axial images acquired through the brain without intravenous contrast. Images reviewed wi th bone, brain and subdural windows. Additional sagittal and coronal reconstructions were generated. Images stored on PACS. All CT scanners at this facility use dose modulation, iterative reconstruction, and/or weight based d osing when appropriate to reduce radiation dose to as low as reasonably achievable (ALARA). [facility]: Dose Right [facility]: CareDose [facility]: Dose Right [facility]: Teradose 4D [facility]: DealDash RADIATION DOSE: mGy. LIMITATIONS: None. FINDINGS: VENTRICLES: Normal size and contour. CEREBRUM: No masses. No hemorrhage. No midline shift. No evidence for acute infarction. Extensive areas of low density in the white matter most likely chronic small vessel ischemic changes. Benign b ilateral basal ganglia calcifications. CEREBELLUM: No masses. No hemorrhage. No alteration of density. No evidence for acute infarction. EXTRAAXIAL SPACES: No fluid collections. No masses. ORBITS AND GLOBE: No intra- or extraconal masses. Normal contour of globe without masses. CALVARIUM: No fracture. PARANASAL SINUSES: No fluid or mucosal thickening. SOFT TISSUES: No mass or hematoma. OTHER: No other significant finding. IMPRESSION: No acute findings. EVIDENCE OF ACUTE STROKE: NO. COMMENT: Pertinent findings on the imaging study reported as a CRITICAL RESULT to LISA BELL MD at15:31 on 02/21/2018. Category of Critical Result: CT code stroke Quality ID # [id number]: Final reports with documentation of one or more dose reduction techniques (e.g., Au tomated exposure control, adjustment of the mA and/or kV according to patient size, use of iterative reconstruction technique) TECHNICAL DOCUMENTATION: JOB ID: [id number] [employer]- All Rights Reserved Reading location - IP/workstation name: [email or web address]
--- NOTE | 2018-02-21 15:50 | RADIOLOGY REPORT (SQ) ---
EXAM DESCRIPTION: CHEST SINGLE VIEW COMPLETED DATE/TIME: 02/21/2018 3:36 pm REASON FOR STUDY: STROKE ALERT COMPARISON: Chest films 01/30/2018, 01/28/2018, 10/16/2017, 04/11/2017, 11/10/2010 EXAM PARAMETERS: NUMBER OF VIEWS: One view. TECHNIQUE: Single frontal radiographic view of the chest acquired. RADIATION DOSE: NA LIMITATIONS: None. FINDINGS: LUNGS AND PLEURA: Stable calcific pleural plaques bilaterally. No acute infiltrates. No pleural effusion. No pneumothorax. MEDIASTINUM AND HILAR STRUCTURES: No masses. Contour normal. HEART AND VASCULAR STRUCTURES: Stable mild cardiomegaly BONES: Multiple old healed right rib fractures HARDWARE: None in the chest. OTHER: No other significant finding. IMPRESSION: No acute findings TECHNICAL DOCUMENTATION: JOB ID: [id number] [employer]- All Rights Reserved Reading location - IP/workstation name: [email or web address]
[2018-02-21 16:17] LABS: PROTHROMBIN TIME 14.8 SEC (11.4-15.4)
[2018-02-21 16:18] LABS: PARTIAL THROMBOPLASTIN TIME 38.9 SEC (23.5-35.8)
[2018-02-21 16:22] LABS: ABSOLUTE BASOPHILS # (AUTO) 0.1 10^3/uL (0.0-0.2); ABSOLUTE EOSINOPHILS # (AUTO) 0.1 10^3/uL (0.0-0.6); ABSOLUTE LYMPHOCYTES (AUTO) 2.2 10^3/uL (0.5-4.7); ABSOLUTE MONOCYTES (AUTO) 0.7 10^3/uL (0.1-1.4); EOSINOPHILS % (AUTO) 1.3 % (0-6); HEMATOCRIT 32.2 % (37.9-51.0); HEMOGLOBIN 10.5 g/dL (13.5-17.0); LYMPHOCYTES % (AUTO) 30.7 % (13-45); MEAN CORPUSCULAR HEMOGLOBIN 29.6 pg (27.0-33.4); MEAN CORPUSCULAR HGB CONC 32.5 g/dL (32.0-36.0); MEAN CORPUSCULAR VOLUME 91 fl (80-97); MONOCYTES % (AUTO) 10.4 % (3-13); PLATELET COUNT 594 10^3/uL (150-450); RED BLOOD COUNT 3.53 10^6/uL (4.35-5.55); RED CELL DISTRIBUTION WIDTH 14.5 % (11.5-14.0); SEGMENTED NEUTROPHILS % (AUTO) 56.6 % (42-78); TOTAL CELLS COUNTED % (AUTO) 100 %; WHITE BLOOD COUNT 7.1 10^3/uL (4.0-10.5)
[2018-02-21 16:46] LABS: ALANINE AMINOTRANSFERASE 9 U/L (21-72); ALBUMIN 4.1 g/dL (3.5-5.0); ALKALINE PHOSPHATASE 96 U/L (38-126); ANION GAP 14 (5-19); ASPARTATE AMINO TRANSFERASE 15 U/L (17-59); BILIRUBIN,DIRECT 0.2 mg/dL (0.0-0.4); BILIRUBIN,TOTAL 0.2 mg/dL (0.2-1.3); BLOOD UREA NITROGEN 19 mg/dL (7-20); CALCIUM 10.1 mg/dL (8.4-10.2); CARBON DIOXIDE 28 mmol/L (22-30); CHLORIDE 101 mmol/L (98-107); CREATINE KINASE 72 U/L (55-170); GLUCOSE 116 mg/dL (75-110); POTASSIUM 5.4 mmol/L (3.6-5.0); SODIUM 142.9 mmol/L (137-145); TOTAL PROTEIN 7.9 g/dL (6.3-8.2)
[2018-02-21] MEDS ORDERED: ACETAMINOPHEN 325 MG TABLET PO ONE (16:50)
[2018-02-21 16:59] LABS: CREATINE KINASE MB 0.83 ng/mL (<4.55)
[2018-02-21 17:00] LABS: TROPONIN I < 0.012 ng/mL
[2018-02-21] MEDS ORDERED: NORMAL SALINE 1000 ML 1,000 ML IV ONE (17:00)
[2018-02-21 19:21] VITALS: BP 122/69
--- NOTE | 2018-02-21 19:38 | EKG REPORT ---
SEVERITY:- ABNORMAL ECG - SINUS RHYTHM FIRST DEGREE AV BLOCK : Confirmed by: Viktor Bahena MD 21-Feb-2018 19:37:39
== END 2018-02-21 19:21 | disposition home or self-care (01) ==
LOC: EDBD → ER 15:24
DX: N17.9 Acute kidney failure, unspecified (principal); R47.01 Aphasia; Z86.73 Personal history of transient ischemic attack (TIA), and cerebral infarction without residual deficits; Z85.46 Personal history of malignant neoplasm of prostate
CPT/HCPCS: 93005; 99285; 96360; 36415; 82553; 82550; 85025; 85610; 85730; 80053; 84484; 71045; 70450; 93010; A9270; J7030

== ENCOUNTER 2018-02-26 20:57 | Emergency (ER) | payer MEDICARE, MEDICAID ==
--- NOTE | 2018-02-26 22:29 | ER Document Report ---
ED General - General Chief Complaint: Fall Stated Complaint: FALL/TOE PAIN Time Seen by Provider: 02/26/18 22:13 Mode of Arrival: Medic Information source: Patient, Emergency Med Personnel, Outside Facility Records Cannot obtain history due to: Dementia Notes: 87-year-old male history of dementia who per care facility is at his baseline resents after a unwitnessed fall. Patient denies striking his head has no pain of his head neck back hands but does admit to right foot pain of the first second third digits TRAVEL OUTSIDE OF THE [place] IN LAST 30 DAYS: No - HPI Onset: Just prior to arrival Onset/Duration: Sudden Quality of pain: Achy Severity: Mild Pain Level: 1 Associated symptoms: Body/muscle aches Exacerbated by: Movement Relieved by: Denies Similar symptoms previously: No Recently seen / treated by doctor: No - Related Data Allergies/Adverse Reactions: No Known Allergies Allergy (Unverified 01/29/18 18:07) Past Medical History - Social History Smoking Status: Never Smoker Cigarette use (# per day): No Chew tobacco use (# tins/day): No Smoking Education Provided: No Family History: Reviewed & Not Pertinent, CAD, Hyperlipidemia, Hypertension Patient has suicidal ideation: No Patient has homicidal ideation: No - Past Medical History Cardiac Medical History: Reports: Hx Hypercholesterolemia, Hx Hypertension, Hx Peripheral Vascular Disease Pulmonary Medical History: Reports: Hx Pneumonia Neurological Medical History: Reports: Hx Cerebrovascular Accident, Hx Seizures - No seizures for many years. Currently taking Keppra. Endocrine Medical History: Denies: Hx Diabetes Mellitus Type 1, Hx Diabetes Mellitus Type 2 Renal/ Medical History: Denies: Hx Peritoneal Dialysis Malignancy Medical History: Reports Hx Prostate Cancer GI Medical History: Reports: Hx Gastroesophageal Reflux Disease Musculoskeltal Medical History: Reports Hx Arthritis Psychiatric Medical History: Denies: Hx Depression Past Surgical History: Reports: Hx Orthopedic Surgery - Right knee, Hx Vascular Surgery - Immunizations Immunizations up to date: No Hx Diphtheria, Pertussis, Tetanus Vaccination: Yes Hx Pneumococcal Vaccination: 10/28/09 Review of Systems - Review of Systems Notes: REVIEW OF SYSTEMS: CONSTITUTIONAL : Denies fever, chills, or sweats. Denies recent illness. EENT: Denies eye, ear, throat, or mouth pain or symptoms. Denies nasal or sinus congestion or discharge. Denies throat, tongue, or mouth swelling or difficulty swallowing. CARDIOVASCULAR: Denies chest pain. Denies palpitations or racing or irregular heart beat. Denies ankle edema. RESPIRATORY: Denies cough, cold, or chest congestion. Denies shortness of breath, difficulty breathing, or wheezing. GASTROINTESTINAL: Denies abdominal pain or distention. Denies nausea, vomiting , or diarrhea. Denies blood in vomitus, stools, or per rectum. Denies black, tarry stools. Denies constipation. GENITOURINARY: Denies difficulty urinating, painful urination, burning, frequency, blood in urine, or discharge. MUSCULOSKELETAL: Admits to right foot pain SKIN: Denies rash, lesions or sores. HEMATOLOGIC : Denies easy bruising or bleeding. LYMPHATIC: Denies swollen, enlarged glands. NEUROLOGICAL: Denies confusion or altered mental status. Denies passing out or loss of consciousness. Denies dizziness or lightheadedness. Denies headache. Denies weakness or paralysis or loss of use of either side. Denies problems with gait or speech. Denies sensory loss, numbness, or tingling. Denies seizures. PSYCHIATRIC: Denies anxiety or stress. Denies depression, suicidal ideation, or homicidal ideation. ALL OTHER SYSTEMS REVIEWED AND NEGATIVE. Dictation was performed using [employer] voice recognition software PHYSICAL EXAMINATION: GENERAL: Well-appearing, well-nourished and in no acute distress. HEAD: Atraumatic, normocephalic. EYES: Pupils equal round and reactive to light, extraocular movements intact, sclera anicteric, conjunctiva are normal. ENT: Nares patent, oropharynx clear without exudates. Moist mucous membranes. NECK: Normal range of motion, supple without lymphadenopathy LUNGS: Breath sounds clear to auscultation bilaterally and equal. No wheezes rales or rhonchi. HEART: Regular rate and rhythm without murmurs ABDOMEN: Soft, nontender, nondistended abdomen. No guarding, no rebound. No masses appreciated. Musculoskeletal: Normal range of motion, no pitting or edema. No cyanosis. Patient does have tenderness upon palpation of the right foot for second third digits is no deformity there is no ulcerations noted NEUROLOGICAL: Baseline mentation PSYCH: Normal mood, normal affect. SKIN: Warm, Dry, normal turgor, no rashes or lesions noted. Physical Exam - Vital signs Vitals: Temp Pulse Resp BP Pulse Ox 98.5 F 104 H 16 104/47 L 98 02/26/18 21:07 02/26/18 21:07 02/26/18 21:07 02/26/18 21:07 02/26/18 21:07 Course - Re-evaluation Re-evalutation: 02/26/18 22:29 X-ray pending but otherwise the patient overall looks quite well 02/26/18 23:07 X-ray imaging notes no significant abnormality patient overall looks well is in no distress has no other injuries and is stable for discharge After performing a Medical Screening Examination, I estimate there is LOW risk for INTRACRANIAL HEMORRHAGE, UNSTABLE SPINE FRACTURE, CENTRAL CORD SYNDROME, CAUDA EQUINA, THORACIC AORTIC DISSECTION, PNEUMOTHORAX, PERFORATED BOWEL, RUPTURED ABDOMINAL AORTIC ANEURYSM, ACUTE TENDON RUPTURE, COMPARTMENT SYNDROME, or OPEN FRACTURE, thus I consider the discharge disposition reasonable. Also, there is no evidence or peritonitis, sepsis, or toxicity. I have reevaluated this patient multiple times and no significant life threatening changes are noted. The patient and I have discussed the diagnosis and risks, and we agree with discharging home to follow-up with their primary doctor with the understanding that symptoms and presentations can change. We also discussed returning to the Emergency Department immediately if new or worsening symptoms occur. We have discussed the symptoms which are most concerning (e.g., bloody stool, fever, changing or worsening pain, vomiting) that necessitate immediate return. - Vital Signs Vital signs: Temp Pulse Resp BP Pulse Ox 98.5 F 104 H 16 104/47 L 98 02/26/18 21:07 02/26/18 21:07 02/26/18 21:07 02/26/18 21:07 02/26/18 21:07 - Diagnostic Test Radiology reviewed: Image reviewed - xray 3 view foot notes no acute abnormality , Reports reviewed Discharge - Discharge Clinical Impression: Fall Qualifiers: Encounter type: initial encounter Qualified Code(s): W19.XXXA - Unspecified fall, initial encounter Toe pain Qualifiers: Laterality: right Qualified Code(s): M79.674 - Pain in right toe(s) Dementia Qualifiers: Dementia type: unspecified type Dementia behavioral disturbance: without behavioral disturbance Qualified Code(s): F03.90 - Unspecified dementia without behavioral disturbance Condition: Stable Disposition: HOME, SELF-CARE Instructions: Contusion ([facility]) Referrals: MEHDI LAWSON MD [Primary Care Provider] - Follow up as needed
--- NOTE | 2018-02-26 22:52 | RADIOLOGY REPORT (SQ) ---
EXAM DESCRIPTION: CLINICAL HISTORY: fall COMPARISON: None FINDINGS: 3 view(s) submitted. Osteopenia limits sensitivity. No fracture or dislocation is identified. IMPRESSION: No acute fracture or dislocation.
[2018-02-27 02:38] VITALS: BP 126/59
== END 2018-02-27 02:45 | disposition home or self-care (01) ==
LOC: ER 20:57 → EDBD 20:57 → ER 02-27 02:45
DX: M79.674 Pain in right toe(s) (principal); W17.89XA Other fall from one level to another, initial encounter; Y92.199 Unspecified place in other specified residential institution as the place of occurrence of the external cause; I10 Essential (primary) hypertension
CPT/HCPCS: 99284

== ENCOUNTER 2018-03-07 16:27 | Emergency (ER) | payer MEDICARE, MEDICAID ==
[2018-03-07 16:40] VITALS: BP 104/63
--- NOTE | 2018-03-07 17:24 | ER Document Report ---
ED Medical Screen (RME) - General Chief Complaint: Altered Mental Status Stated Complaint: ALTERED MENTAL STATUS Time Seen by Provider: 03/07/18 17:19 Notes: RAPID MEDICAL EVALUATION DISCLOSURE I have seen this patient as part of a Rapid Medical Evaluation and, if applicable, placed any initially appropriate orders. The patient will be seen and fully evaluated, including a full history and physical exam, by a provider ( in Main ED or Fast Track) when a room becomes available. 87-year-old male brought here from [facility] by EMS for altered mental status. The patient has been combative over the past 1 day and he is not normally combative per the [facility] staff. states that he is normally conversational and is currently not acting his usual self. He has not complained to her of anything in particular. He does have a history of UTI. The patient is altered therefore I am unable to obtain an accurate history or review of systems for him. Exam CTAB RRR Alert Oriented Only to Self TRAVEL OUTSIDE OF THE [place] IN LAST 30 DAYS: No - Related Data Allergies/Adverse Reactions: No Known Allergies Allergy (Unverified 01/29/18 18:07) Past Medical History - Past Medical History Cardiac Medical History: Reports: Hx Hypercholesterolemia, Hx Hypertension, Hx Peripheral Vascular Disease Pulmonary Medical History: Reports: Hx Pneumonia Neurological Medical History: Reports: Hx Cerebrovascular Accident, Hx Seizures - No seizures for many years. Currently taking Keppra. Endocrine Medical History: Denies: Hx Diabetes Mellitus Type 1, Hx Diabetes Mellitus Type 2 Renal/ Medical History: Denies: Hx Peritoneal Dialysis Malignancy Medical History: Reports Hx Prostate Cancer GI Medical History: Reports: Hx Gastroesophageal Reflux Disease Musculoskeltal Medical History: Reports Hx Arthritis Psychiatric Medical History: Denies: Hx Depression Past Surgical History: Reports: Hx Orthopedic Surgery - Right knee, Hx Vascular Surgery - Immunizations Immunizations up to date: No Hx Diphtheria, Pertussis, Tetanus Vaccination: Yes History of Influenza Vaccine for 06/2017 - 11/2017 Season: No Physical Exam - Vital signs Vitals: Temp Pulse Resp BP Pulse Ox 99.6 F 88 20 104/63 98 03/07/18 16:39 03/07/18 16:39 03/07/18 16:39 03/07/18 16:39 03/07/18 16:39 Course - Vital Signs Vital signs: Temp Pulse Resp BP Pulse Ox 99.6 F 88 20 104/63 98 03/07/18 16:39 03/07/18 16:39 03/07/18 16:39 03/07/18 16:39 03/07/18 16:39 Doctor's Discharge - Discharge Referrals: MEHDI LAWSON MD [Primary Care Provider] - Follow up as needed
--- NOTE | 2018-03-07 18:23 | ER Document Report ---
ED General - General Chief Complaint: Altered Mental Status Stated Complaint: ALTERED MENTAL STATUS Time Seen by Provider: 03/07/18 17:19 Mode of Arrival: Ambulatory Notes: Chief complaint: Angry History of complain:( obtained from----patient) 87 years old male from [facility] move from one place to another, during this time he got angry. The reason being is he usually goes out in the evenings to wash this on an outside but he was taken to a different place so he got angry and upset and became calm combative. Therefore he was referred to ED. On route he was given Versed. Currently is very calm. No other symptoms. Onset: Just prior to arrival Duration: Brief Severity: Mild to moderate Quality: Not applicable Context: As above Exacerbating factor and relieving factors: Doing things against his will REVIEW OF SYSTEMS: CONSTITUTIONAL : Denies fever, chills, or sweats. Denies recent illness. EENT: Denies eye, ear, throat, or mouth pain or symptoms. Denies nasal or sinus congestion or discharge. Denies throat, tongue, or mouth swelling or difficulty swallowing. CARDIOVASCULAR: Denies chest pain. Denies palpitations or racing or irregular heart beat. Denies ankle edema. RESPIRATORY: Denies cough, cold, or chest congestion. Denies shortness of breath, difficulty breathing, or wheezing. GASTROINTESTINAL: Denies distention. Denies nausea, vomiting, or diarrhea. Denies blood in vomitus, stools, or per rectum. Denies black, tarry stools. Denies constipation. GENITOURINARY: Denies difficulty urinating, painful urination, burning, frequency, blood in urine, or discharge. FEMALE GENITOURINARY: Denies vaginal bleeding, heavy or abnormal periods, irregular periods. Denies vaginal discharge or odor. MUSCULOSKELETAL: Denies back or neck pain or stiffness. Denies joint pain or swelling. SKIN: Denies rash, lesions or sores. HEMATOLOGIC : Denies easy bruising or bleeding. LYMPHATIC: Denies swollen, enlarged glands. NEUROLOGICAL: Denies confusion or altered mental status. Denies passing out or loss of consciousness. Denies dizziness or lightheadedness. Denies headache. Denies weakness or paralysis or loss of use of either side. Denies problems with gait or speech. Denies sensory loss, numbness, or tingling. Denies seizures. PSYCHIATRIC: Denies anxiety or stress. Denies depression, suicidal ideation, or homicidal ideation. ALL OTHER SYSTEMS REVIEWED AND NEGATIVE. PHYSICAL EXAMINATION: GENERAL: Well-appearing, well-nourished and in no acute distress. HEAD: Atraumatic, normocephalic. EYES: Pupils equal round and reactive to light, extraocular movements intact, conjunctiva are normal. ENT: Nares patent, oropharynx clear without exudates. Moist mucous membranes. NECK: Normal range of motion, supple without lymphadenopathy LUNGS: Breath sounds clear to auscultation bilaterally and equal. No wheezes rales or rhonchi. HEART: Regular rate and rhythm without murmurs ABDOMEN: Soft, nontender, nondistended abdomen. No guarding, no rebound. No masses appreciated. Examination of genitals-deferred Musculoskeletal: Normal range of motion, no pitting or edema. No cyanosis. NEUROLOGICAL: Cranial nerves grossly intact. Normal speech, normal gait. Normal sensory, motor exams PSYCH: Normal mood, normal affect. SKIN: Warm, Dry, normal turgor, no rashes or lesions noted. Dictation was performed using nPicker recognition software TRAVEL OUTSIDE OF THE [place] IN LAST 30 DAYS: No - Related Data Allergies/Adverse Reactions: lorazepam Adverse Reaction (Verified 03/07/18 17:22) Past Medical History - General Information source: Patient Cannot obtain history due to: Dementia - Social History Smoking Status: Unknown if Ever Smoked Chew tobacco use (# tins/day): No Frequency of alcohol use: None Drug Abuse: None Family History: Reviewed & Not Pertinent, CAD, Hyperlipidemia, Hypertension Patient has suicidal ideation: No Patient has homicidal ideation: No - Past Medical History Cardiac Medical History: Reports: Hx Hypercholesterolemia, Hx Hypertension, Hx Peripheral Vascular Disease Pulmonary Medical History: Reports: Hx Pneumonia Neurological Medical History: Reports: Hx Cerebrovascular Accident, Hx Seizures - No seizures for many years. Currently taking Keppra. Endocrine Medical History: Denies: Hx Diabetes Mellitus Type 1, Hx Diabetes Mellitus Type 2 Renal/ Medical History: Denies: Hx Peritoneal Dialysis Malignancy Medical History: Reports Hx Prostate Cancer GI Medical History: Reports: Hx Gastroesophageal Reflux Disease Musculoskeltal Medical History: Reports Hx Arthritis Psychiatric Medical History: Denies: Hx Depression Past Surgical History: Reports: Hx Orthopedic Surgery - Right knee, Hx Vascular Surgery - Immunizations Immunizations up to date: No Hx Diphtheria, Pertussis, Tetanus Vaccination: Yes Hx Pneumococcal Vaccination: 10/28/09 Review of Systems - Review of Systems Notes: As per history Physical Exam - Vital signs Vitals: Temp Pulse Resp BP Pulse Ox 99.6 F 88 20 104/63 98 03/07/18 16:39 03/07/18 16:39 03/07/18 16:39 03/07/18 16:39 03/07/18 16:39 - Notes Notes: Dictated Course - Re-evaluation Re-evalutation: 03/07/18 18:21 He was calm down the ER. Subsequently discharged home. - Vital Signs Vital signs: Temp Pulse Resp BP Pulse Ox 99.6 F 88 20 104/63 98 03/07/18 16:39 03/07/18 16:39 03/07/18 16:39 03/07/18 16:39 03/07/18 16:39 Discharge - Discharge Clinical Impression: Multi infarct state Dementia Qualifiers: Dementia type: Alzheimer's disease Alzheimer's disease onset: late-onset Dementia behavioral disturbance: without behavioral disturbance Qualified Code(s ): G30.1 - Alzheimer's disease with late onset Condition: Fair Disposition: HOME, SELF-CARE Instructions: Dementia ([facility]) Referrals: MEHDI LAWSON MD [Primary Care Provider] - Follow up as needed
== END 2018-03-07 18:50 | disposition home or self-care (01) ==
LOC: ER 16:27
DX: G30.1 Alzheimer's disease with late onset (principal); F02.80 Dementia in other diseases classified elsewhere, unspecified severity, without behavioral disturbance, psychotic disturbance, mood disturbance, and anxiety; I10 Essential (primary) hypertension
CPT/HCPCS: 81001; 87086; 87088; 87186; 99285

== ENCOUNTER 2018-03-09 18:58 | Emergency (ER) | payer MEDICARE, MEDICAID ==
[2018-03-09 20:08] VITALS: BP 146/80
--- NOTE | 2018-03-09 20:51 | ER Document Report ---
ED General - General Chief Complaint: Probable Seizure Stated Complaint: POSSIBLE SEIZURE Time Seen by Provider: 03/09/18 20:48 Cannot obtain history due to: Dementia Notes: Patient is an 87-year-old male who presents from the nursing facility with concerns of a seizure. The patient has a known history of epilepsy, staff at the patient's nursing facility reports that he is noncompliant with his medication regimen. The patient is profoundly demented, unable to provide any meaningful history. TRAVEL OUTSIDE OF THE [place] IN LAST 30 DAYS: No - Related Data Allergies/Adverse Reactions: lorazepam Adverse Reaction (Verified 03/07/18 17:22) Past Medical History - General Information source: Transfer Record, Emergency [facility] Personnel, [facility] Records Cannot obtain history due to: Dementia - Social History Smoking Status: Never Smoker Chew tobacco use (# tins/day): No Frequency of alcohol use: None Drug Abuse: None Lives with: [facility] Family History: Reviewed & Not Pertinent, CAD, Hyperlipidemia, Hypertension Patient has suicidal ideation: No Patient has homicidal ideation: No - Past Medical History Cardiac Medical History: Reports: Hx Hypercholesterolemia, Hx Hypertension, Hx Peripheral Vascular Disease Pulmonary Medical History: Reports: Hx Pneumonia Neurological Medical History: Reports: Hx Cerebrovascular Accident, Hx Seizures - No seizures for many years. Currently taking Keppra. Endocrine Medical History: Denies: Hx Diabetes Mellitus Type 1, Hx Diabetes Mellitus Type 2 Renal/ Medical History: Denies: Hx Peritoneal Dialysis Malignancy Medical History: Reports Hx Prostate Cancer GI Medical History: Reports: Hx Gastroesophageal Reflux Disease Musculoskeltal Medical History: Reports Hx Arthritis Psychiatric Medical History: Denies: Hx Depression Past Surgical History: Reports: Hx Orthopedic Surgery - Right knee, Hx Vascular Surgery - Immunizations Immunizations up to date: No Hx Diphtheria, Pertussis, Tetanus Vaccination: Yes Hx Pneumococcal Vaccination: 10/28/09 Review of Systems - Review of Systems Notes: Constitutional: Negative for fever. HENT: Negative for sore throat. Eyes: Negative for visual changes. Cardiovascular: Negative for chest pain. Respiratory: Negative for shortness of breath. Gastrointestinal: Negative for abdominal pain, vomiting or diarrhea. Genitourinary: Negative for dysuria. Musculoskeletal: Negative for back pain. Skin: Negative for rash. Neurological: Positive for seizure 10 point ROS negative except as marked above and in HPI. Physical Exam - Vital signs Vitals: Temp 99.0 F 03/09/18 19:25 Interpretation: Normal Notes: PHYSICAL EXAMINATION: GENERAL: Frail, elderly man in no acute distress HEAD: Atraumatic, normocephalic. EYES: Pupils equal round and reactive to light, extraocular movements intact, sclera anicteric, conjunctiva are normal. ENT: nares patent, oropharynx clear without exudates. Mildly dry mucous membranes. NECK: Normal range of motion, supple without lymphadenopathy LUNGS: Breath sounds clear to auscultation bilaterally and equal. No wheezes rales or rhonchi. HEART: Regular rate and rhythm without murmurs ABDOMEN: Soft, nontender, normoactive bowel sounds. No guarding, no rebound. No masses appreciated. EXTREMITIES: Normal range of motion, no pitting or edema. No cyanosis. NEUROLOGICAL: Face symmetric. Tongue protrudes midline. Extraocular motions intact. Pupils are 2 mm and equally reactive. 5 out of 5 strength in both the distal and proximal upper and lower extremities bilaterally. Sensation is grossly intact throughout. PSYCH: Alert, oriented only to person SKIN: Warm, Dry, normal turgor, no rashes or lesions noted. Course - Re-evaluation Re-evalutation: 03/09/18 20:49 Presentation of well-appearing patient after having a seizure. Patient has a known history of seizures. Patient is apparently not regularly compliant with his Keppra. The patient has returned to baseline without intervention which is demented, oriented only to person. No focal neurologic deficits. No infectious symptoms, vital sign abnormalities, or evidence of trauma. No indication for laboratories or imaging based on reassuring evaluation and known history of seizures. The patient will be discharged home with recommendations for close follow-up with primary care as well as their neurologist. Discharge paperwork will list return precautions for the facility. - Vital Signs Vital signs: Temp Pulse Resp BP Pulse Ox 99.0 F 32 H 146/80 H 100 03/09/18 19:25 03/09/18 21:06 03/09/18 21:06 03/09/18 21:06 Discharge - Discharge Clinical Impression: Seizure Epilepsy Qualifiers: Epilepsy type: unspecified Intractability: not intractable Status epilepticus: without status epilepticus Qualified Code(s): G40.909 - Epilepsy, unspecified, not intractable, without status epilepticus Condition: Stable Disposition: HOME-SNF (ED ONLY) Additional Instructions: Today you had a seizure. It is very important that you do not engage in any activities that could result in severe injury should you have a seizure. Specifically, do not drive a vehicle, go into a body of water, take a bath, climb ladders, or operate any heavy machinery until you have been cleared by your neurologist. Please return to the ED immediately if you have multiple seizures close together, develop a severe headache, weakness, numbness, difficulty speaking, have a seizure in which you do not return to normal within 1 hour of the seizure, or have any other symptoms that are concerning to you. Referrals: MEHDI LAWSON MD [Primary Care Provider] - Follow up as needed
== END 2018-03-09 21:42 ==
LOC: ER 18:58
DX: G40.909 Epilepsy, unspecified, not intractable, without status epilepticus (principal); E78.00 Pure hypercholesterolemia, unspecified; I10 Essential (primary) hypertension
CPT/HCPCS: 99285

== ENCOUNTER 2018-03-10 19:38 | Emergency (ER) | payer MEDICARE, MEDICAID ==
--- NOTE | 2018-03-10 20:52 | RADIOLOGY REPORT (SQ) ---
EXAM DESCRIPTION: FEMUR RIGHT COMPLETED DATE/TIME: 03/10/2018 8:40 pm REASON FOR STUDY: fall COMPARISON: None. NUMBER OF VIEWS: Four views. TECHNIQUE: Two radiographic images acquired of the right femur to include hip and knee in at least o ne projection. LIMITATIONS: None. FINDINGS: MINERALIZATION: Normal. BONES: No acute fracture. No worrisome bone lesions. SOFT TISSUES: Right iliac vascular stent. Atherosclerotic vascular calcifications. OTHER: No other significant finding. IMPRESSION: NEGATIVE STUDY OF THE RIGHT FEMUR. NO RADIOGRAPHIC EVIDENCE OF ACUTE INJURY. TECHNICAL DOCUMENTATION: JOB ID: [id number] [employer]- All Rights Reserved Reading location - IP/workstation name: [email or web address]
--- NOTE | 2018-03-10 20:54 | RADIOLOGY REPORT (SQ) ---
EXAM DESCRIPTION: KNEE RIGHT 2 VIEWS COMPLETED DATE/TIME: 03/10/2018 8:40 pm REASON FOR STUDY: fall COMPARISON: None. NUMBER OF VIEWS: Two views. TECHNIQUE: AP and lateral radiographic images acquired of the right knee. LIMITATIONS: None. FINDINGS: MINERALIZATION: Osteopenia. BONES: Healing fractures of the proximal tibia and fibula are present demonstrating bridging cortical bone. Tricompartmental degenerative changes. No evidence of acute fracture. JOINT: No effusion. SOFT TISSUES: Atherosclerotic vascular calcifications. OTHER: No other significant finding. IMPRESSION: Healing fractures of the proximal tibia and fibula demonstrating bridging cortex. No ev idence of acute osseous injury. TECHNICAL DOCUMENTATION: JOB ID: [id number] [employer]- All Rights Reserved Reading location - IP/workstation name: [email or web address]
--- NOTE | 2018-03-10 20:55 | RADIOLOGY REPORT (SQ) ---
EXAM DESCRIPTION: TIBIA FIBULA RIGHT COMPLETED DATE/TIME: 03/10/2018 8:40 pm REASON FOR STUDY: fall COMPARISON: None. NUMBER OF VIEWS: Two views. TECHNIQUE: Two radiographic images acquired of the right tibia and fibula to include the knee and an kle in at least one projection. LIMITATIONS: None. FINDINGS: MINERALIZATION: Osteopenia. BONES: No acute fracture or dislocation. No worrisome bone lesions. Healing fractures of the proxim al tibia and fibula, noting bridging cortical bone. SOFT TISSUES: Atherosclerotic vascular calcifications. OTHER: No other significant finding. IMPRESSION: Healing fractures of the proximal tibia and fibula demonstrating bridging cortical bone. No evidence of acute fracture. TECHNICAL DOCUMENTATION: JOB ID: [id number] [employer]- All Rights Reserved Reading location - IP/workstation name: [email or web address]
--- NOTE | 2018-03-10 21:15 | ER Document Report ---
ED General - General Stated Complaint: FALL Time Seen by Provider: 03/10/18 20:06 Mode of Arrival: Medic Information source: Patient Notes: 87 year old M with a history of dementia presents to the ED s/p fall on to R knee at nursing facility. No reported head injury or LOC. TRAVEL OUTSIDE OF THE [place] IN LAST 30 DAYS: No - HPI Onset: Just prior to arrival Onset/Duration: Sudden Quality of pain: Achy Severity: Mild Associated symptoms: None Exacerbated by: Denies Relieved by: Denies Similar symptoms previously: No Recently seen / treated by doctor: No - Related Data Allergies/Adverse Reactions: lorazepam Adverse Reaction (Verified 03/07/18 17:22) Past Medical History - Social History Smoking Status: Unknown if Ever Smoked Family History: Reviewed & Not Pertinent, CAD, Hyperlipidemia, Hypertension - Past Medical History Cardiac Medical History: Reports: Hx Hypercholesterolemia, Hx Hypertension, Hx Peripheral Vascular Disease Pulmonary Medical History: Reports: Hx Pneumonia Neurological Medical History: Reports: Hx Cerebrovascular Accident, Hx Seizures - No seizures for many years. Currently taking Keppra. Endocrine Medical History: Denies: Hx Diabetes Mellitus Type 1, Hx Diabetes Mellitus Type 2 Renal/ Medical History: Denies: Hx Peritoneal Dialysis Malignancy Medical History: Reports Hx Prostate Cancer GI Medical History: Reports: Hx Gastroesophageal Reflux Disease Musculoskeltal Medical History: Reports Hx Arthritis Psychiatric Medical History: Denies: Hx Depression Past Surgical History: Reports: Hx Orthopedic Surgery - Right knee, Hx Vascular Surgery - Immunizations Immunizations up to date: No Hx Diphtheria, Pertussis, Tetanus Vaccination: Yes Hx Pneumococcal Vaccination: 10/28/09 Review of Systems - Review of Systems -: Yes ROS unobtainable due to patient's medical condition Physical Exam - Notes Notes: PHYSICAL EXAMINATION: GENERAL: Well-appearing, well-nourished and in no acute distress. HEAD: Atraumatic, pleasantly demented. EYES: Pupils equal round and reactive to light, extraocular movements intact, sclera anicteric, conjunctiva are normal. ENT: Nares patent, oropharynx clear without exudates. Moist mucous membranes. NECK: Normal range of motion, supple without lymphadenopathy LUNGS: Breath sounds clear to auscultation bilaterally and equal. No wheezes rales or rhonchi. HEART: Regular rate and rhythm without murmurs ABDOMEN: Soft, nontender, nondistended abdomen. No guarding, no rebound. No masses appreciated. Musculoskeletal: Normal range of motion, no pitting or edema. No cyanosis. R knee tenderness to palpation. 2+ DP/PT pulses. NEUROLOGICAL: Cranial nerves grossly intact. Normal speech, normal gait. Normal sensory, motor exams PSYCH: Normal mood, normal affect. SKIN: Warm, Dry, normal turgor, no rashes or lesions noted. Course - Re-evaluation Re-evalutation: 03/10/18 21:11 X-rays obtained. Healing fracture of the proximal tibia/tibia is appreciated. No acute fracture seen. Patient is neurovascularly intact. We will place the patient in a splint and discharged him back to the nursing facility. Discharge - Discharge Clinical Impression: Knee pain Qualifiers: Chronicity: chronic Laterality: right Qualified Code(s): M25.561 - Pain in right knee; G89.29 - Other chronic pain; G89.29 - Other chronic pain Condition: Good Disposition: HOME, SELF-CARE Instructions: Knee Immobilizing Splint ([facility]) Additional Instructions: Old healing fracture appreciated of the proximal tibia-fibula. No acute fracture seen. Referrals: MEHDI LAWSON MD [Primary Care Provider] - Follow up as needed
== END 2018-03-10 22:00 | disposition home or self-care (01) ==
LOC: ER 19:38
DX: S82.101D Unspecified fracture of upper end of right tibia, subsequent encounter for closed fracture with routine healing (principal); M97.11XA Periprosthetic fracture around internal prosthetic right knee joint, initial encounter; S82.831D Other fracture of upper and lower end of right fibula, subsequent encounter for closed fracture with routine healing; W19.XXXD Unspecified fall, subsequent encounter; M25.561 Pain in right knee; G89.29 Other chronic pain; I10 Essential (primary) hypertension
CPT/HCPCS: 99284; 73552; 73560; 73590; L1830

== ENCOUNTER 2018-03-13 01:32 | Inpatient (IN) | payer MEDICARE, MEDICAID ==
[2018-03-13] MEDS ORDERED: NORMAL SALINE 1000 ML 1,000 ML IV ONE (01:51)
--- NOTE | 2018-03-13 02:12 | ER Document Report ---
ED General - General Chief Complaint: Seizure Stated Complaint: POSSIBLE SEIZURE Time Seen by Provider: 03/13/18 01:50 Notes: The patient is an 87-year-old male, past medical history seizure disorder (on home Keppra), presents from home by EMS after he possibly had a seizure. He was also found to have a temperature of 103.2 and given 975 mg MN Tylenol prior to arrival. He was discharged from [facility] after a rehab stay earlier in the day. Patient is wide awake and has no symptoms at this time. Denies headache, neck stiffness, chest pain, shortness of breath, nausea, vomiting, abdominal pain, cough, urinary symptoms or rash. TRAVEL OUTSIDE OF THE [place] IN LAST 30 DAYS: No - Related Data Allergies/Adverse Reactions: lorazepam Adverse Reaction (Verified 03/07/18 17:22) Past Medical History - General Information source: Patient, Emergency Med Personnel - Social History Smoking Status: Unknown if Ever Smoked Family History: Reviewed & Not Pertinent, CAD, Hyperlipidemia, Hypertension - Past Medical History Cardiac Medical History: Reports: Hx Hypercholesterolemia, Hx Hypertension, Hx Peripheral Vascular Disease Pulmonary Medical History: Reports: Hx Pneumonia Neurological Medical History: Reports: Hx Cerebrovascular Accident, Hx Seizures - No seizures for many years. Currently taking Keppra. Endocrine Medical History: Denies: Hx Diabetes Mellitus Type 1, Hx Diabetes Mellitus Type 2 Renal/ Medical History: Denies: Hx Peritoneal Dialysis Malignancy Medical History: Reports Hx Prostate Cancer GI Medical History: Reports: Hx Gastroesophageal Reflux Disease Musculoskeltal Medical History: Reports Hx Arthritis Psychiatric Medical History: Denies: Hx Depression Past Surgical History: Reports: Hx Orthopedic Surgery - Right knee, Hx Vascular Surgery - Immunizations Immunizations up to date: No Hx Diphtheria, Pertussis, Tetanus Vaccination: Yes Hx Pneumococcal Vaccination: 10/28/09 Review of Systems - Review of Systems Notes: REVIEW OF SYSTEMS: CONSTITUTIONAL: +fevers, -chills EENT: -eye pain, -difficulty swallowing, -nasal congestion CARDIOVASCULAR: -chest pain, -syncope. RESPIRATORY: -cough, -SOB GASTROINTESTINAL: -abdominal pain, -nausea, -vomiting, -diarrhea GENITOURINARY: -dysuria, -hematuria MUSCULOSKELETAL: -back pain, -neck pain SKIN: -rash or skin lesions. HEMATOLOGIC: -easy bruising or bleeding. LYMPHATIC: -swollen, enlarged glands. NEUROLOGICAL: +seizure, -altered mental status or loss of consciousness, - headache, -neurologic symptoms PSYCHIATRIC: -anxiety, -depression. ALL OTHER SYSTEMS REVIEWED AND NEGATIVE. Physical Exam - Vital signs Vitals: Resp Pulse Ox 21 H 97 03/13/18 02:07 03/13/18 02:07 - Notes Notes: PHYSICAL EXAMINATION: GENERAL: Well-appearing, well-nourished and in no acute distress. HEAD: Atraumatic, normocephalic. EYES: Pupils equal round and reactive to light, extraocular movements intact, sclera anicteric, conjunctiva are normal. ENT: nares patent, oropharynx clear without exudates. Moist mucous membranes. NECK: Normal range of motion, supple without lymphadenopathy LUNGS: Breath sounds clear to auscultation bilaterally and equal. No wheezes rales or rhonchi. HEART: Tachycardia, regular rhythm. ABDOMEN: Soft, nontender, normoactive bowel sounds. No guarding, no rebound. No masses appreciated. EXTREMITIES: Normal range of motion, no pitting or edema. No cyanosis. NEUROLOGICAL: Cranial nerves grossly intact. Normal speech. Normal sensory and motor exams. PSYCH: Normal mood, normal affect. SKIN: Warm, Dry, normal turgor, no rashes or lesions noted. Course - Re-evaluation Re-evalutation: Patient is back to baseline upon arrival to the ER. No seizure activity while in the ER. He was provided his morning dose of Keppra. He is in no acute distress. He does have a fever and is tachycardic with a leukocytosis. Chest x -ray does not reveal any focal infiltrates. Straight cath was attempted to obtain urine, but this was unsuccessful due to prostate problems. Condom catheter placed and IVF provided to the patient. He has no signs of meningitis at this time and his abdomen is completely soft and non-tender. Broad-spectrum antibiotics started due to his recent stay at [facility]. He requires admission for further evaluation and treatment of his unclear fever and sepsis. His PMD is Dr. Stapleton. 03/13/18 05:[address] Stapleton and will admit patient as inpatient to telemetry. - Vital Signs Vital signs: Temp Pulse Resp BP Pulse Ox 23 H 100/71 97 03/13/18 05:01 03/13/18 05:01 03/13/18 05:01 - Laboratory Result Diagrams: 03/13/18 03:15 03/13/18 03:15 Laboratory results interpreted by me: 03/13/18 03/13/18 03/13/18 03:15 03:15 03:15 WBC 15.6 H RBC 3.12 L Hgb 9.4 L Hct 28.5 L RDW 15.3 H Lymphocytes % 7.9 L Monocytes % 13.9 H Absolute Neutrophils 12.1 H Absolute Monocytes 2.2 H PT 16.1 H VBG pH VBG pCO2 Carbon Dioxide 19 L BUN 36 H Creatinine 1.92 H Est GFR ( Amer) 40 L Est GFR (Non-Af Amer) 33 L Glucose 138 H Direct Bilirubin 0.5 H ALT 13 L 03/13/18 03:15 WBC RBC Hgb Hct RDW Lymphocytes % Monocytes % Absolute Neutrophils Absolute Monocytes PT VBG pH 7.44 H VBG pCO2 31.9 L Carbon Dioxide BUN Creatinine Est GFR ( Amer) Est GFR (Non-Af Amer) Glucose Direct Bilirubin ALT - Diagnostic Test Radiology reviewed: Image reviewed, Reports reviewed Radiology results interpreted by me: CXR: NAD - EKG Interpretation by Ar EKG shows normal: Sinus rhythm, Hewitt, Intervals, QRS Complexes, ST-T Waves Rate: Tachycardia When compared to previous EKG there are: No significant change Discharge - Discharge Clinical Impression: MARICHUY (acute kidney injury) Sepsis Qualifiers: Sepsis type: sepsis due to unspecified organism Qualified Code(s): A41.9 - Sepsis, unspecified organism Fever Qualifiers: Fever type: unspecified Qualified Code(s): R50.9 - Fever, unspecified Condition: Stable Disposition: ADMITTED INPATIENT Admitting Provider: [facility] Admitted: Telemetry
[2018-03-13] MEDS ORDERED: VANCOMYCIN HCL INJ 1000 MG VIAL IV ONE (02:22)
[2018-03-13] MEDS ORDERED: PIPERACILLIN/TAZOBACTAM 3.375 GM VIAL IV ONE (02:22)
[2018-03-13 03:37] LABS: VENOUS BLOOD BASE EXCESS -1.7 mmol/L; VENOUS BLOOD HCO3 21.4 mmol/L (20-32); VENOUS BLOOD PCO2 31.9 mmHg (35-63); VENOUS BLOOD PH 7.44 (7.30-7.42)
[2018-03-13 03:38] LABS: ABSOLUTE BASOPHILS # (AUTO) 0.1 10^3/uL (0.0-0.2); ABSOLUTE LYMPHOCYTES (AUTO) 1.2 10^3/uL (0.5-4.7); ABSOLUTE MONOCYTES (AUTO) 2.2 10^3/uL (0.1-1.4); ABSOLUTE NEUT (AUTO) 12.1 10^3/uL (1.7-8.2); BASOPHILS % (AUTO) 0.5 % (0-2); HEMATOCRIT 28.5 % (37.9-51.0); HEMOGLOBIN 9.4 g/dL (13.5-17.0); LYMPHOCYTES % (AUTO) 7.9 % (13-45); MEAN CORPUSCULAR HGB CONC 32.9 g/dL (32.0-36.0); MEAN CORPUSCULAR VOLUME 91 fl (80-97); MONOCYTES % (AUTO) 13.9 % (3-13); PLATELET COUNT 170 10^3/uL (150-450); RED BLOOD COUNT 3.12 10^6/uL (4.35-5.55); RED CELL DISTRIBUTION WIDTH 15.3 % (11.5-14.0); SEGMENTED NEUTROPHILS % (AUTO) 77.7 % (42-78); TOTAL CELLS COUNTED % (AUTO) 100 %; WHITE BLOOD COUNT 15.6 10^3/uL (4.0-10.5)
[2018-03-13 03:45] LABS: INTERNATIONAL RATION (INR) 1.23; PROTHROMBIN TIME 16.1 SEC (11.4-15.4)
[2018-03-13 03:50] LABS: ALANINE AMINOTRANSFERASE 13 U/L (21-72); ALBUMIN 3.8 g/dL (3.5-5.0); ALKALINE PHOSPHATASE 62 U/L (38-126); ANION GAP 18 (5-19); ASPARTATE AMINO TRANSFERASE 53 U/L (17-59); BILIRUBIN,DIRECT 0.5 mg/dL (0.0-0.4); BILIRUBIN,TOTAL 1.2 mg/dL (0.2-1.3); BLOOD UREA NITROGEN 36 mg/dL (7-20); CALCIUM 9.2 mg/dL (8.4-10.2); CARBON DIOXIDE 19 mmol/L (22-30); CHLORIDE 105 mmol/L (98-107); GLUCOSE 138 mg/dL (75-110); POTASSIUM 4.6 mmol/L (3.6-5.0); TOTAL PROTEIN 7.4 g/dL (6.3-8.2)
[2018-03-13] MEDS ORDERED: VANCOMYCIN HCL INJ 1000 MG VIAL ONE (05:37)
--- NOTE | 2018-03-13 06:10 | EKG REPORT ---
SEVERITY:- OTHERWISE NORMAL ECG - SINUS TACHYCARDIA : Confirmed by: Viktor Bahena MD 13-Mar-2018 06:09:46
[2018-03-13] MEDS ORDERED: NORMAL SALINE 1000 ML 1,000 ML IV PRN (08:26)
[2018-03-13 09:04] LABS: APPEARANCE,URINE SLIGHTLY-CLOUDY; BILIRUBIN,URINE NEGATIVE (NEGATIVE); COLOR,URINE YELLOW; GLUCOSE, URINE NEGATIVE (NEGATIVE); KETONES,URINE NEGATIVE (NEGATIVE); LEUKOCYTE ESTERASE,URINE LARGE (NEGATIVE); NITRITE,URINE NEGATIVE (NEGATIVE); PROTEIN,URINE 30 mg/dL (NEGATIVE); URINE SPECIFIC GRAVITY 1.016; UROBILINOGEN,URINE NEGATIVE mg/dL (<2.0)
--- NOTE | 2018-03-13 09:06 | RADIOLOGY REPORT (SQ) ---
EXAM DESCRIPTION: XR CHEST 1 VIEW COMPLETED DATE/TME: 03/13/2018 01:51 CLINICAL HISTORY: 87 years Male, fever COMPARISON: 6.13.18 NUMBER OF VIEWS/TECHNIQUE: 1/AP limitation: Chin position obscures the right lung apex FINDINGS: Small patchy opacity of the right mid lung field, small pleural-based opacity of the left mid hemithorax, normal cardiac silhouette, atherosclerosis. Mild deformity of the posterior right mid hemithorax. IMPRESSION: No significant change. Limitation.
[2018-03-13 09:09] LABS: LIPASE 43.2 U/L (23-300); PHOSPHORUS 4.4 mg/dL (2.5-4.5)
[2018-03-13 09:22] LABS: CREATINE KINASE MB 2.23 ng/mL (<4.55)
[2018-03-13 09:29] LABS: FREE T4 (FREE THYROXINE) 1.32 ng/dL (0.78-2.19)
[2018-03-13 09:35] LABS: TROPONIN I 0.051 ng/mL
[2018-03-13 09:43] LABS: THYROID STIMULATING HORMONE 6.16 uIU/mL (0.47-4.68)
[2018-03-13] MEDS ORDERED: ERTAPENEM SODIUM 1 GM in NORMAL SALINE 50 ML IV SCH (10:00)
[2018-03-13 10:47] LABS: INTERNATIONAL RATION (INR) 1.22
[2018-03-13 10:49] LABS: PARTIAL THROMBOPLASTIN TIME 42.2 SEC (23.5-35.8)
[2018-03-13] MEDS: ERTAPENEM SODIUM 0.5 GM in NORMAL SALINE 50 ML IV SCH (10:50)
[2018-03-13 16:15] LABS: CREATINE KINASE MB 2.57 ng/mL (<4.55)
[2018-03-13 16:23] LABS: TROPONIN I 0.032 ng/mL
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
[2018-03-13] MEDS ORDERED: CLOPIDOGREL BISULFATE 75 MG TABLET PO ONE (20:00)
[2018-03-13] MEDS ORDERED: TRAMADOL HCL 50 MG TABLET PO ONE (20:00)
[2018-03-13] MEDS: HEPARIN SOD (PORCINE) 5,000 UNIT/ML 1 ML SYRINGE SUBCUT SCH ×2 (21:03→22:48)
[2018-03-13] MEDS: LEVETIRACETAM 500 MG TABLET PO SCH (21:24)
[2018-03-13 21:40] LABS: CREATINE KINASE MB 2.5 ng/mL (<4.55); TROPONIN I 0.043 ng/mL
[2018-03-13] MEDS ORDERED: LIDOCAINE 0.5% INJ-PF (5 MG/ML) 50 ML SDV ONE (23:58)
--- NOTE | 2018-03-14 00:40 | Operative Report ---
Nonrecallable Operative Report DATE OF SURGERY: 03/14/18 PREOPERATIVE DIAGNOSIS: need IV access POSTOPERATIVE DIAGNOSIS: same OPERATION: attempted Left SCV and L IJ. Placement of left SCV CVL SURGEON: YOLANDA PINEDO ANESTHESIA: Local TISSUE REMOVED OR ALTERED: none COMPLICATIONS: none ESTIMATED BLOOD LOSS: 10 mL INTRAOPERATIVE FINDINGS: as above PROCEDURE: see dictation
--- NOTE | 2018-03-14 00:43 | PDOC CONSULTATION ---
Consultation Consult Date: 03/14/18 Consult reason:: need IV access History of Present Illness Admission Date/PCP: 03/13/18 05:52 MEHDI LAWSON MD History of Present Illness: CAITLYN ROOT is a 87 year old male with sepsis in need to IV access for meds/ fluids Past Medical History Cardiac Medical History: Reports: Hyperlipidema, Hypertension, Peripheral Vascular Disease Pulmonary Medical History: Reports: Pneumonia Neurological Medical History: Reports: Ischemic CVA, Seizures - No seizures for many years. Currently taking Keppra. Endocrine Medical History: Denies: Diabetes Mellitus Type 1, Diabetes Mellitus Type 2 GI Medical History: Reports: Gastroesophageal Reflux Disease Musculoskeltal Medical History: Reports: Arthritis Psychiatric Medical History: Reports: Dementia Denies: Depression Past Surgical History Past Surgical History: Reports: Orthopedic Surgery - Right knee, Vascular Surgery Social History Smoking Status: Former Smoker Frequency of Alcohol Use: None Hx Recreational Drug Use: No Drugs: None Hx Prescription Drug Abuse: No - Advance Directive Resuscitation Status: Full Code Family History Family History: Reviewed & Not Pertinent, CAD, Hyperlipidemia, Hypertension Parental Family History Reviewed: No Children Family History Reviewed: No Sibling(s) Family History Reviewed.: No Medication/Allergy Home Medications: Clopidogrel Bisulfate [Plavix 75 mg Tablet] 75 mg PO DAILY 03/13/18 Levetiracetam [Keppra 500 mg Tablet] 500 mg PO Q12 03/13/18 Tramadol HCl [Ultram 50 mg Tablet] 50 mg PO Q6 03/13/18 Valsartan/Hydrochlorothiazide [Valsartan-Hctz 160-25 mg Tab] 1 tab PO DAILY 11/26 Allergies/Adverse Reactions: lorazepam Adverse Reaction (Verified 03/13/18 10:36) Physical Exam Vital Signs: Temp Pulse Resp BP Pulse Ox 98.7 F 118 H 16 127/57 H 96 03/13/18 19:36 03/13/18 19:36 03/13/18 19:36 03/13/18 19:36 03/13/18 19:36 Intake & Output 03/12/18 03/13/18 03/14/18 06:59 06:59 06:59 Intake Total 1000 Output Total 200 Balance 800 Weight 64.6 kg General appearance: PRESENT: no acute distress Head exam: PRESENT: atraumatic Eye exam: PRESENT: EOMI Mouth exam: PRESENT: neck supple Teeth exam: PRESENT: edentulous Neck exam: PRESENT: other - rigid Respiratory exam: PRESENT: clear to auscultation kane Cardiovascular exam: PRESENT: RRR Results Laboratory Results: 03/13/18 03/13/18 08:36 10:22 Ammonia < 8.7 L Urine Color YELLOW Urine Appearance SLIGHTLY-CLOUDY Urine pH 5.0 Ur Specific [place] 1.016 Urine Protein 30 H Urine Glucose (UA) NEGATIVE Urine Ketones NEGATIVE Urine Blood LARGE H Urine Nitrite NEGATIVE Ur Leukocyte Esterase LARGE H Urine WBC (Auto) >182 Urine RBC (Auto) >182 03/13/18 03/13/18 03/13/18 15:00 15:00 20:39 Creatine Kinase 1112 H 866 H CK-MB (CK-2) 2.57 Troponin I 0.032 03/13/18 20:39 Creatine Kinase CK-MB (CK-2) 2.50 Troponin I 0.043 Impressions: Chest X-Ray 03/13/18 01:51 IMPRESSION: No significant change. Limitation. Assessment & Plan - Diagnosis (1) Need for intravenous access Is this a current diagnosis for this admission?: Yes - Plan Summary Plan Summary: A/ Need IV access P/ Plan CVL placement under local check Chest Xray
[2018-03-14] MEDS: TRAMADOL HCL 50 MG TABLET PO SCH ×4 (02:33→21:29)
[2018-03-14 04:32] LABS: ABSOLUTE BASOPHILS # (AUTO) 0.1 10^3/uL (0.0-0.2); ABSOLUTE EOSINOPHILS # (AUTO) 0.2 10^3/uL (0.0-0.6); ABSOLUTE LYMPHOCYTES (AUTO) 1.2 10^3/uL (0.5-4.7); ABSOLUTE MONOCYTES (AUTO) 1.8 10^3/uL (0.1-1.4); ABSOLUTE NEUT (AUTO) 10.9 10^3/uL (1.7-8.2); BASOPHILS % (AUTO) 0.9 % (0-2); EOSINOPHILS % (AUTO) 1.2 % (0-6); HEMATOCRIT 24.2 % (37.9-51.0); HEMOGLOBIN 8.1 g/dL (13.5-17.0); LYMPHOCYTES % (AUTO) 8.5 % (13-45); MEAN CORPUSCULAR HEMOGLOBIN 30.7 pg (27.0-33.4); MEAN CORPUSCULAR HGB CONC 33.5 g/dL (32.0-36.0); MEAN CORPUSCULAR VOLUME 91 fl (80-97); MONOCYTES % (AUTO) 12.4 % (3-13); PLATELET COUNT 145 10^3/uL (150-450); RED BLOOD COUNT 2.65 10^6/uL (4.35-5.55); RED CELL DISTRIBUTION WIDTH 14.9 % (11.5-14.0); TOTAL CELLS COUNTED % (AUTO) 100 %; WHITE BLOOD COUNT 14.1 10^3/uL (4.0-10.5)
[2018-03-14 04:45] LABS: ALANINE AMINOTRANSFERASE 21 U/L (21-72); ALBUMIN 3.1 g/dL (3.5-5.0); ALKALINE PHOSPHATASE 54 U/L (38-126); ANION GAP 12 (5-19); ASPARTATE AMINO TRANSFERASE 44 U/L (17-59); BILIRUBIN,DIRECT 0.4 mg/dL (0.0-0.4); BILIRUBIN,TOTAL 1.2 mg/dL (0.2-1.3); BLOOD UREA NITROGEN 22 mg/dL (7-20); CALCIUM 8.3 mg/dL (8.4-10.2); CARBON DIOXIDE 21 mmol/L (22-30); CHLORIDE 109 mmol/L (98-107); CHOLESTEROL 105.03 mg/dL (0-200); GLUCOSE 100 mg/dL (75-110); SODIUM 141.6 mmol/L (137-145); TOTAL PROTEIN 6.4 g/dL (6.3-8.2); TRIGLYCERIDES 62 mg/dL (<150)
[2018-03-14 04:56] LABS: DIRECT LDL 41 mg/dL (<100)
[2018-03-14] MEDS: HEPARIN SOD (PORCINE) 5,000 UNIT/ML 1 ML SYRINGE SUBCUT SCH ×3 (05:44→22:05)
--- NOTE | 2018-03-14 07:43 | RADIOLOGY REPORT (SQ) ---
EXAM DESCRIPTION: CHEST SINGLE VIEW COMPLETED DATE/TIME: 03/14/2018 1:17 am REASON FOR STUDY: line placement check COMPARISON: 03/13/2018 0220 hours, 02/21/2018, 01/30/2018, 10/16/2017 EXAM PARAMETERS: NUMBER OF VIEWS: One view. TECHNIQUE: Single frontal radiographic view of the chest acquired. RADIATION DOSE: NA LIMITATIONS: None. FINDINGS: A right sided triple-lumen catheter is present with the tip coursing up the right jugular vein. No pneumothorax. This report was called to . LUNGS AND PLEURA: Calcific pleural plaques. No acute infiltrates. No pleural effusion. No pneumoth orax. MEDIASTINUM AND HILAR STRUCTURES: Calcified right paratracheal and bilateral hilar lymph nodes, benig n HEART AND VASCULAR STRUCTURES: Heart normal in size. Normal vasculature. BONES: No acute findings. HARDWARE: Right subclavian central line tip coursing up the jugular vein. OTHER: No other significant finding. IMPRESSION: No acute infiltrates Right triple-lumen catheter tip in the right jugular vein. No pneumothorax. TECHNICAL DOCUMENTATION: JOB ID: [id number] [employer]- All Rights Reserved Reading location - IP/workstation name: [email or web address]
[2018-03-14] MEDS: LEVETIRACETAM 500 MG TABLET PO SCH ×2 (08:20→21:28)
--- NOTE | 2018-03-14 08:25 | PDOC PROGRESS REPORT ---
Subjective Progress Note for:: 03/14/18 Reason For Visit: SEPSIS DUE TO PSEUDOMONAS, HYPOTENSION, MARICHUY; fiollow up CVL placement Physical Exam Vital Signs: Temp Pulse Resp BP Pulse Ox 100.0 F 118 H 16 135/57 H 97 03/14/18 03:40 03/14/18 07:00 03/14/18 03:40 03/14/18 03:40 03/14/18 03:40 Intake & Output 03/13/18 03/14/18 03/15/18 06:59 06:59 06:59 Intake Total 3000 Output Total 200 Balance 2800 Weight 64.3 kg General appearance: PRESENT: no acute distress Respiratory exam: PRESENT: clear to auscultation kane Cardiovascular exam: PRESENT: RRR Results Laboratory Results: 03/14/18 04:13 03/14/18 04:13 03/13/18 03/13/18 03/14/18 08:36 10:22 04:13 WBC 14.1 H RBC 2.65 L Hgb 8.1 L Hct 24.2 L MCV 91 MCH 30.7 MCHC 33.5 RDW 14.9 H Plt Count 145 L Seg Neutrophils % 77.0 Lymphocytes % 8.5 L Monocytes % 12.4 Eosinophils % 1.2 Basophils % 0.9 Absolute Neutrophils 10.9 H Absolute Lymphocytes 1.2 Absolute Monocytes 1.8 H Absolute Eosinophils 0.2 Absolute Basophils 0.1 Sodium Potassium Chloride Carbon Dioxide Anion Gap BUN Creatinine Est GFR ( Amer) Est GFR (Non-Af Amer) Glucose Calcium Total Bilirubin AST ALT Alkaline Phosphatase Ammonia < 8.7 L Total Protein Albumin Triglycerides Cholesterol LDL Cholesterol Direct VLDL Cholesterol HDL Cholesterol Urine Color YELLOW Urine Appearance SLIGHTLY-CLOUDY Urine pH 5.0 Ur Specific [place] 1.016 Urine Protein 30 H Urine Glucose (UA) NEGATIVE Urine Ketones NEGATIVE Urine Blood LARGE H Urine Nitrite NEGATIVE Ur Leukocyte Esterase LARGE H Urine WBC (Auto) >182 Urine RBC (Auto) >182 03/14/18 04:13 WBC RBC Hgb Hct MCV MCH MCHC RDW Plt Count Seg Neutrophils % Lymphocytes % Monocytes % Eosinophils % Basophils % Absolute Neutrophils Absolute Lymphocytes Absolute Monocytes Absolute Eosinophils Absolute Basophils Sodium 141.6 Potassium 4.0 Chloride 109 H Carbon Dioxide 21 L Anion Gap 12 BUN 22 H Creatinine 1.01 Est GFR ( Amer) > 60 Est GFR (Non-Af Amer) > 60 Glucose 100 Calcium 8.3 L Total Bilirubin 1.2 AST 44 ALT 21 Alkaline Phosphatase 54 Ammonia Total Protein 6.4 Albumin 3.1 L Triglycerides 62 Cholesterol 105.03 LDL Cholesterol Direct 41 VLDL Cholesterol 12.0 HDL Cholesterol 41 Urine Color Urine Appearance Urine pH Ur Specific [place] Urine Protein Urine Glucose (UA) Urine Ketones Urine Blood Urine Nitrite Ur Leukocyte Esterase Urine WBC (Auto) Urine RBC (Auto) 03/13/18 03/13/18 03/13/18 15:00 15:00 20:39 Creatine Kinase 1112 H 866 H CK-MB (CK-2) 2.57 Troponin I 0.032 03/13/18 20:39 Creatine Kinase CK-MB (CK-2) 2.50 Troponin I 0.043 Impressions: Chest X-Ray 03/14/18 00:00 IMPRESSION: No acute infiltrates Right triple-lumen catheter tip in the right jugular vein. No pneumothorax. Assessment & Plan - Diagnosis (1) Need for intravenous access Is this a current diagnosis for this admission?: Yes - Plan Summary Plan Summary: A/ S/p attempted CVL placement Left SCV and Left IJ with blockage identified at IJ/ SCV S/P insertion of R SCV central venous catheter with line going toward IJ as per Chest Xray Most likely, the patient has some a venous thrombus preventing any upper body central venous line from advancing into the SCV P/ Can use cautiously the right SCV CVL No pewer injections, or TPN infusion via right SCV central venous line I will sign off, call me with questions.
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
[2018-03-14] MEDS: CLOPIDOGREL BISULFATE 75 MG TABLET PO SCH (09:49)
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
[2018-03-14] MEDS: ERTAPENEM SODIUM 0.5 GM in NORMAL SALINE 50 ML IV SCH (14:50)
[2018-03-14] MEDS: HALOPERIDOL LACTATE INJ 5 MG/1 ML VIAL IV PRN (14:50)
[2018-03-14] MEDS ORDERED: LIDOCAINE 0.5% INJ-PF (5 MG/ML) 50 ML SDV ONE (22:57)
--- NOTE | 2018-03-14 23:26 | Operative Report ---
Nonrecallable Operative Report DATE OF SURGERY: 03/14/18 PREOPERATIVE DIAGNOSIS: need IV access POSTOPERATIVE DIAGNOSIS: same OPERATION: right common femoral vein CVL placement SURGEON: YOLANDA PINEDO ANESTHESIA: Local TISSUE REMOVED OR ALTERED: n/a COMPLICATIONS: n/a ESTIMATED BLOOD LOSS: < 5 mL INTRAOPERATIVE FINDINGS: As above PROCEDURE: see dictation
[2018-03-14 23:59] LABS: ARTERIAL BLOOD BASE EXCESS -5.9 mmol/L; ARTERIAL BLOOD H2CO3 0.92 mmol/L (1.05-1.35); ARTERIAL BLOOD HCO3 18.3 mmol/L (20-26); ARTERIAL BLOOD O2 SATURATION 99.6 % (94-98); ARTERIAL BLOOD PCO2 30.7 mmHg (35-45); ARTERIAL BLOOD PH 7.39 (7.35-7.45); ARTERIAL BLOOD PO2 265.2 mmHg (80-100); ARTERIAL BLOOD TOTAL CO2 19.2 mmol/L (23-27)
[2018-03-15 00:02] LABS: ARTERIAL BLOOD FIO2 100%
[2018-03-15] MEDS: TRAMADOL HCL 50 MG TABLET PO SCH ×4 (02:22→21:17)
[2018-03-15] MEDS: HEPARIN SOD (PORCINE) 5,000 UNIT/ML 1 ML SYRINGE SUBCUT SCH ×3 (05:17→21:17)
[2018-03-15 05:57] LABS: ABSOLUTE BASOPHILS # (AUTO) 0.1 10^3/uL (0.0-0.2); ABSOLUTE EOSINOPHILS # (AUTO) 0.3 10^3/uL (0.0-0.6); ABSOLUTE LYMPHOCYTES (AUTO) 1.2 10^3/uL (0.5-4.7); ABSOLUTE MONOCYTES (AUTO) 1.6 10^3/uL (0.1-1.4); ABSOLUTE NEUT (AUTO) 9.3 10^3/uL (1.7-8.2); BASOPHILS % (AUTO) 0.7 % (0-2); EOSINOPHILS % (AUTO) 2.5 % (0-6); HEMATOCRIT 21.8 % (37.9-51.0); LYMPHOCYTES % (AUTO) 9.7 % (13-45); MEAN CORPUSCULAR HEMOGLOBIN 29.8 pg (27.0-33.4); MEAN CORPUSCULAR HGB CONC 32.6 g/dL (32.0-36.0); MEAN CORPUSCULAR VOLUME 91 fl (80-97); MONOCYTES % (AUTO) 12.5 % (3-13); PLATELET COUNT 160 10^3/uL (150-450); RED BLOOD COUNT 2.39 10^6/uL (4.35-5.55); RED CELL DISTRIBUTION WIDTH 15.2 % (11.5-14.0); SEGMENTED NEUTROPHILS % (AUTO) 74.6 % (42-78); TOTAL CELLS COUNTED % (AUTO) 100 %; WHITE BLOOD COUNT 12.5 10^3/uL (4.0-10.5)
[2018-03-15 06:12] LABS: HEMOGLOBIN 7.1 g/dL (13.5-17.0)
[2018-03-15 06:13] LABS: ALANINE AMINOTRANSFERASE 17 U/L (21-72); ALBUMIN 2.9 g/dL (3.5-5.0); ALKALINE PHOSPHATASE 43 U/L (38-126); ANION GAP 10 (5-19); ASPARTATE AMINO TRANSFERASE 46 U/L (17-59); BILIRUBIN,DIRECT 0.5 mg/dL (0.0-0.4); BILIRUBIN,TOTAL 1.4 mg/dL (0.2-1.3); BLOOD UREA NITROGEN 22 mg/dL (7-20); CALCIUM 8.3 mg/dL (8.4-10.2); CARBON DIOXIDE 22 mmol/L (22-30); CHLORIDE 109 mmol/L (98-107); GLUCOSE 92 mg/dL (75-110); POTASSIUM 4.1 mmol/L (3.6-5.0); SODIUM 141.4 mmol/L (137-145)
[2018-03-15] MEDS: LEVETIRACETAM 500 MG TABLET PO SCH (08:00)
--- NOTE | 2018-03-15 09:12 | OPERATIVE REPORT E ---
Operative Report NAME: CAITLYN ROOT : 1930 AGE: 87Y DATE OF SURGERY: 03/14/2018 ROOM: 401 PREOPERATIVE DIAGNOSIS: NEED OF IV ACCESS FOR MEDICATION AND FLUID. POSTOPERATIVE DIAGNOSIS: NEED OF IV ACCESS FOR MEDICATION AND FLUID. OPERATION: 1. Attempted placement of left subclavian and left IJ triple-lumen catheter. 2. Placement of right subclavian triple-lumen catheter SURGEON: YOLANDA PINEDO M.D. PARCEL CARRIER: None. ANESTHESIA: Local, 15 mL of 1% lidocaine without epinephrine. INDICATION AND FINDINGS: An 87-year-old male admitted for sepsis and need of IV access for administration of medication and fluids. DESCRIPTION OF PROCEDURE: The procedure was done at bedside. The patient was placed in supine and Trendelenburg position. The left side of the chest and neck prepped and draped in usual fashion. Multiple attempts were made to cannulate the left subclavian vein. This was unsuccessful as the wire could not be advanced fully past the 20 cm bryson. At this point, the left internal jugular vein was cannulated with a needle with success. The wire was then advanced no more than 15 cm. It could not be advanced further. At this point, the procedure was aborted and a right subclavian vein approach was performed by prepping the right side of the chest and neck in the usual fashion. The area below the midportion of the right clavicle was infiltrated with lidocaine. A 16-gauge needle was used to easily cannulate the right subclavian vein. The guidewire was inserted with a needle into the superior vena cava. The guidewire could not be advanced more than 30 cm. The needle was removed. The insertion point of the guidewire was enlarged with a #11 blade and with a tissue dilator, which was then removed. The triple-lumen catheter was then advanced up to 16 cm without difficulty over the guidewire, which was then removed. Each port was aspirated. The distal port was aspirated first, but no blood could be drawn. However, it could be injected easily. The medial and the posterior ports were aspirated easily and flushed these as well. The catheter was then secured to the skin with sterile dressings and sutures. The patient tolerated the procedure well. A chest x-ray was obtained to confirm position of the line. DICTATING PHYSICIAN: YOLANDA PINEDO M.D. [id number] PHY#: [id number] ID: [id number] JOB#: [id number] ACCT: [id number] cc:YOLANDA PINEDO M.D. > [facility]
--- NOTE | 2018-03-15 09:32 | OPERATIVE REPORT E ---
Operative Report NAME: CAITLYN ROOT : 1930 AGE: 87Y DATE OF SURGERY: 03/14/2018 ROOM: 401 PREOPERATIVE DIAGNOSIS: In need of IV access. POSTOPERATIVE DIAGNOSIS: In need of IV access. OPERATION: Right femoral vein central venous line placement. SURGEON: YOLANDA PINEDO M.D. PROGRAM COORDINATOR EXECUTIVE EDUCATION: None. ESTIMATED BLOOD LOSS: None. COMPLICATIONS: None. ANESTHESIA: Local. 1% lidocaine without epinephrine. INDICATION/FINDINGS: This is an 87-year-old male with sepsis, dementia, bedridden, in need of IV access for administration of fluids and medications. The patient had placement of a right subclavian vein central venous line yesterday, but the patient pulled the line out and I have been requested to insert a new line at this time. A femoral vein approach would be considered due to the difficult placement of the previous lines yesterday. PROCEDURE: The procedure was done at bedside. The patient was placed in a supine position. The right groin was prepped and draped in usual fashion. The groin was then infiltrate with 5 mL of 1% lidocaine. A 16-gauge needle was used to easily cannulate the femoral vein. The syringe was disconnected from the needle. A guidewire was inserted through the needle into the femoral vein and external iliac vein. The needle was removed and the tract was enlarged with a #11 blade and a tissue dilator was used. The catheter was then inserted over the guidewire into the femoral vein and external iliac vein. The guidewire was removed. The port was then aspirated and flushed without difficulty with normal saline. The catheter was secured to the skin with silk sutures. Sterile dressings were applied. The patient tolerated the procedure well. DICTATING PHYSICIAN: YOLANDA PINEDO M.D. [id number] PHY#: [id number] ID: [id number] JOB#: [id number] ACCT: [id number] cc:YOLANDA PINEDO M.D. > [facility]
[2018-03-15] MEDS: ERTAPENEM SODIUM 0.5 GM in NORMAL SALINE 50 ML IV SCH (10:40)
[2018-03-15] MEDS: CLOPIDOGREL BISULFATE 75 MG TABLET PO SCH (11:28)
[2018-03-15] MEDS ORDERED: ACETAMINOPHEN 325 MG TABLET ONE (17:23)
[2018-03-15] MEDS ORDERED: DIPHENHYDRAMINE HCL 25 MG CAPSULE ONE (17:24)
[2018-03-15] MEDS ORDERED: DIPHENHYDRAMINE HCL 50 MG/ML VIAL ONE (17:26)
[2018-03-15] MEDS: HALOPERIDOL LACTATE INJ 5 MG/1 ML VIAL IV PRN (17:40)
[2018-03-15] MEDS ORDERED: DIPHENHYDRAMINE HCL 25 MG CAPSULE PO PRN (17:52)
[2018-03-15] MEDS: AMPICILLIN SODIUM 1 GM in NORMAL SALINE 50 ML IV SCH ×2 (18:51→23:21)
--- NOTE | 2018-03-15 19:53 | PDOC PROGRESS REPORT ---
Subjective Progress Note for:: 03/15/18 Subjective:: Patient seen by the bedside, still very agitated, pulled the central IV access from his neck, the surgeon just placed a femoral line in the groin to the. Found to be anemic the blood culture came back positive for Enterococcus faecalis sensitive to ampicillin Reason For Visit: SEPSIS DUE TO PSEUDOMONAS, HYPOTENSION, MARICHUY Physical Exam Vital Signs: Temp Pulse Resp BP Pulse Ox 99.2 F 113 H 16 141/75 H 100 03/15/18 19:02 03/15/18 19:02 03/15/18 19:02 03/15/18 19:02 03/15/18 19:02 Intake & Output 03/14/18 03/15/18 03/16/18 06:59 06:59 06:59 Intake Total 3000 700 410 Output Total 200 Balance 2800 700 410 Weight 64.3 kg 64 kg General appearance: PRESENT: mild distress Eye exam: PRESENT: PERRLA Respiratory exam: PRESENT: decreased breath sounds Cardiovascular exam: PRESENT: +S1, +S2 GI/Abdominal exam: PRESENT: soft Results Laboratory Results: 03/15/18 05:28 03/15/18 05:28 03/14/18 03/15/18 03/15/18 23:45 05:28 05:28 WBC 12.5 H RBC 2.39 L Hgb 7.1 L Hct 21.8 L MCV 91 MCH 29.8 MCHC 32.6 RDW 15.2 H Plt Count 160 Seg Neutrophils % 74.6 Lymphocytes % 9.7 L Monocytes % 12.5 Eosinophils % 2.5 Basophils % 0.7 Absolute Neutrophils 9.3 H Absolute Lymphocytes 1.2 Absolute Monocytes 1.6 H Absolute Eosinophils 0.3 Absolute Basophils 0.1 Carbonic Acid 0.92 L HCO3/H2CO3 Ratio 19:1 ABG pH 7.39 ABG pCO2 30.7 L ABG pO2 265.2 H ABG HCO3 18.3 L ABG O2 Saturation 99.6 H ABG Base Excess -5.9 FiO2 100% Sodium 141.4 Potassium 4.1 Chloride 109 H Carbon Dioxide 22 Anion Gap 10 BUN 22 H Creatinine 0.87 Est GFR ( Amer) > 60 Est GFR (Non-Af Amer) > 60 Glucose 92 Calcium 8.3 L Total Bilirubin 1.4 H AST 46 ALT 17 L Alkaline Phosphatase 43 Total Protein 6.0 L Albumin 2.9 L Blood Type Antibody Screen 03/15/18 13:24 WBC RBC Hgb Hct MCV MCH MCHC RDW Plt Count Seg Neutrophils % Lymphocytes % Monocytes % Eosinophils % Basophils % Absolute Neutrophils Absolute Lymphocytes Absolute Monocytes Absolute Eosinophils Absolute Basophils Carbonic Acid HCO3/H2CO3 Ratio ABG pH ABG pCO2 ABG pO2 ABG HCO3 ABG O2 Saturation ABG Base Excess FiO2 Sodium Potassium Chloride Carbon Dioxide Anion Gap BUN Creatinine Est GFR ( Amer) Est GFR (Non-Af Amer) Glucose Calcium Total Bilirubin AST ALT Alkaline Phosphatase Total Protein Albumin Blood Type O POSITIVE Antibody Screen NEGATIVE 03/13/18 08:36 Clean Catch Midstream Urine Culture - Final Pseudomonas Aeruginosa 03/13/18 03/13/18 03/13/18 15:00 15:00 20:39 Creatine Kinase 1112 H 866 H CK-MB (CK-2) 2.57 Troponin I 0.032 03/13/18 20:39 Creatine Kinase CK-MB (CK-2) 2.50 Troponin I 0.043 Impressions: Chest X-Ray 03/14/18 00:00 IMPRESSION: No acute infiltrates Right triple-lumen catheter tip in the right jugular vein. No pneumothorax. Assessment & Plan - Diagnosis (1) Sepsis Qualifiers: Sepsis type: Pseudomonas Qualified Code(s): A41.52 - Sepsis due to Pseudomonas Is this a current diagnosis for this admission?: Yes (2) Sepsis due to gram-negative UTI Is this a current diagnosis for this admission?: Yes (3) Urinary tract infection Is this a current diagnosis for this admission?: Yes (4) Hypotension Is this a current diagnosis for this admission?: Yes (5) Acute kidney injury Is this a current diagnosis for this admission?: Yes (6) Metabolic encephalopathy Is this a current diagnosis for this admission?: Yes (7) Pseudomonas urinary tract infection Is this a current diagnosis for this admission?: Yes (8) Delirium Is this a current diagnosis for this admission?: Yes (9) Sepsis due to Enterococcus Is this a current diagnosis for this admission?: Yes Plan: He has septicemia due to E faecalis sensitive to ampicillin, start ampicillin 1 g IV every 6 (10) Anemia Qualifiers: Anemia type: unspecified type Qualified Code(s): D64.9 - Anemia, unspecified Is this a current diagnosis for this admission?: Yes Plan: Transfuse 2 units of packed red blood cells
[2018-03-15] MEDS: LEVETIRACETAM 500 MG/NACL-ISO 500 MG/100 ML RTUPB IV SCH (21:45)
[2018-03-16 00:29] LABS: ABSOLUTE BASOPHILS # (AUTO) 0.1 10^3/uL (0.0-0.2); ABSOLUTE EOSINOPHILS # (AUTO) 0.6 10^3/uL (0.0-0.6); ABSOLUTE LYMPHOCYTES (AUTO) 1.1 10^3/uL (0.5-4.7); ABSOLUTE MONOCYTES (AUTO) 1.7 10^3/uL (0.1-1.4); ABSOLUTE NEUT (AUTO) 11.2 10^3/uL (1.7-8.2); BASOPHILS % (AUTO) 0.9 % (0-2); EOSINOPHILS % (AUTO) 3.8 % (0-6); HEMATOCRIT 29.4 % (37.9-51.0); LYMPHOCYTES % (AUTO) 7.4 % (13-45); MEAN CORPUSCULAR HEMOGLOBIN 29.9 pg (27.0-33.4); MEAN CORPUSCULAR HGB CONC 33.4 g/dL (32.0-36.0); MEAN CORPUSCULAR VOLUME 90 fl (80-97); MONOCYTES % (AUTO) 11.3 % (3-13); PLATELET COUNT 185 10^3/uL (150-450); RED BLOOD COUNT 3.29 10^6/uL (4.35-5.55); RED CELL DISTRIBUTION WIDTH 15.5 % (11.5-14.0); SEGMENTED NEUTROPHILS % (AUTO) 76.6 % (42-78); TOTAL CELLS COUNTED % (AUTO) 100 %; WHITE BLOOD COUNT 14.7 10^3/uL (4.0-10.5)
[2018-03-16 00:44] LABS: HEMOGLOBIN 9.8 g/dL (13.5-17.0)
[2018-03-16] MEDS: TRAMADOL HCL 50 MG TABLET PO SCH ×4 (02:58→22:02)
[2018-03-16 04:33] LABS: ABSOLUTE BASOPHILS # (AUTO) 0.1 10^3/uL (0.0-0.2); ABSOLUTE EOSINOPHILS # (AUTO) 0.6 10^3/uL (0.0-0.6); ABSOLUTE LYMPHOCYTES (AUTO) 1.2 10^3/uL (0.5-4.7); ABSOLUTE MONOCYTES (AUTO) 1.9 10^3/uL (0.1-1.4); ABSOLUTE NEUT (AUTO) 12.1 10^3/uL (1.7-8.2); BASOPHILS % (AUTO) 0.8 % (0-2); EOSINOPHILS % (AUTO) 3.9 % (0-6); HEMATOCRIT 29.8 % (37.9-51.0); HEMOGLOBIN 9.9 g/dL (13.5-17.0); LYMPHOCYTES % (AUTO) 7.5 % (13-45); MEAN CORPUSCULAR HEMOGLOBIN 29.8 pg (27.0-33.4); MEAN CORPUSCULAR HGB CONC 33.3 g/dL (32.0-36.0); MEAN CORPUSCULAR VOLUME 89 fl (80-97); PLATELET COUNT 184 10^3/uL (150-450); RED BLOOD COUNT 3.33 10^6/uL (4.35-5.55); RED CELL DISTRIBUTION WIDTH 16.2 % (11.5-14.0); SEGMENTED NEUTROPHILS % (AUTO) 75.8 % (42-78); TOTAL CELLS COUNTED % (AUTO) 100 %; WHITE BLOOD COUNT 15.9 10^3/uL (4.0-10.5)
[2018-03-16] MEDS: AMPICILLIN SODIUM 1 GM in NORMAL SALINE 50 ML IV SCH ×3 (05:07→20:11)
[2018-03-16] MEDS: HEPARIN SOD (PORCINE) 5,000 UNIT/ML 1 ML SYRINGE SUBCUT SCH ×3 (05:08→22:03)
[2018-03-16 07:22] LABS: ALANINE AMINOTRANSFERASE 20 U/L (21-72); ALBUMIN 3.1 g/dL (3.5-5.0); ALKALINE PHOSPHATASE 53 U/L (38-126); ANION GAP 16 (5-19); ASPARTATE AMINO TRANSFERASE 37 U/L (17-59); BILIRUBIN,DIRECT 0.5 mg/dL (0.0-0.4); BILIRUBIN,TOTAL 2.1 mg/dL (0.2-1.3); BLOOD UREA NITROGEN 20 mg/dL (7-20); CALCIUM 8.7 mg/dL (8.4-10.2); CARBON DIOXIDE 19 mmol/L (22-30); CHLORIDE 110 mmol/L (98-107); GLUCOSE 87 mg/dL (75-110); POTASSIUM 4.1 mmol/L (3.6-5.0); SODIUM 144.7 mmol/L (137-145); TOTAL PROTEIN 6.3 g/dL (6.3-8.2)
[2018-03-16] MEDS: LEVETIRACETAM 500 MG/NACL-ISO 500 MG/100 ML RTUPB IV SCH ×2 (10:24→22:02)
[2018-03-16] MEDS: CLOPIDOGREL BISULFATE 75 MG TABLET PO SCH (10:32)
[2018-03-16] MEDS: ERTAPENEM SODIUM 0.5 GM in NORMAL SALINE 50 ML IV SCH (11:00)
[2018-03-16] MEDS: DEXTROSE 5%-1/2 NORMAL SALINE 1,000 ML IV PRN (19:47)
--- NOTE | 2018-03-16 20:24 | PDOC PROGRESS REPORT ---
Subjective Progress Note for:: 03/16/18 Subjective:: Patient's condition is still very poor, he has poor intake he has enterococcus faecalis septicemia, Pseudomonas UTI, presently on intravenous ampicillin every 6 hours for the E faecalis and ertapenem for the Pseudomonas, I had a long discussion with family about his condition Reason For Visit: SEPSIS DUE TO PSEUDOMONAS, HYPOTENSION, MARICHUY Physical Exam Vital Signs: Temp Pulse Resp BP Pulse Ox 98.2 F 143 H 16 82/46 L 94 03/16/18 15:12 03/16/18 15:12 03/16/18 15:12 03/16/18 15:12 03/16/18 11:19 Intake & Output 03/15/18 03/16/18 03/17/18 06:59 06:59 06:59 Intake Total 700 1942 400 Balance 700 1942 400 Weight 64 kg 65.5 kg General appearance: PRESENT: no acute distress Eye exam: PRESENT: PERRLA Respiratory exam: PRESENT: clear to auscultation kane Cardiovascular exam: PRESENT: +S1, +S2 GI/Abdominal exam: PRESENT: soft Neurological exam: PRESENT: alert Results Laboratory Results: 03/16/18 04:24 03/16/18 06:51 03/16/18 03/16/18 03/16/18 00:19 04:24 04:24 WBC 14.7 H 15.9 H RBC 3.29 L 3.33 L Hgb 9.8 L D 9.9 L Hct 29.4 L 29.8 L MCV 90 89 MCH 29.9 29.8 MCHC 33.4 33.3 RDW 15.5 H 16.2 H Plt Count 185 184 Seg Neutrophils % 76.6 75.8 Lymphocytes % 7.4 L 7.5 L Monocytes % 11.3 12.0 Eosinophils % 3.8 3.9 Basophils % 0.9 0.8 Absolute Neutrophils 11.2 H 12.1 H Absolute Lymphocytes 1.1 1.2 Absolute Monocytes 1.7 H 1.9 H Absolute Eosinophils 0.6 0.6 Absolute Basophils 0.1 0.1 Sodium Cancelled Potassium Cancelled Chloride Cancelled Carbon Dioxide Cancelled Anion Gap Cancelled BUN Cancelled Creatinine Cancelled Est GFR ( Amer) Cancelled Est GFR (Non-Af Amer) Cancelled Glucose Cancelled Calcium Cancelled Total Bilirubin Cancelled AST Cancelled ALT Cancelled Alkaline Phosphatase Cancelled Total Protein Cancelled Albumin Cancelled 03/16/18 06:51 WBC RBC Hgb Hct MCV MCH MCHC RDW Plt Count Seg Neutrophils % Lymphocytes % Monocytes % Eosinophils % Basophils % Absolute Neutrophils Absolute Lymphocytes Absolute Monocytes Absolute Eosinophils Absolute Basophils Sodium 144.7 Potassium 4.1 Chloride 110 H Carbon Dioxide 19 L Anion Gap 16 BUN 20 Creatinine 0.77 Est GFR ( Amer) > 60 Est GFR (Non-Af Amer) > 60 Glucose 87 Calcium 8.7 Total Bilirubin 2.1 H AST 37 ALT 20 L Alkaline Phosphatase 53 Total Protein 6.3 Albumin 3.1 L 03/13/18 03/13/18 03/13/18 15:00 15:00 20:39 Creatine Kinase 1112 H 866 H CK-MB (CK-2) 2.57 Troponin I 0.032 03/13/18 20:39 Creatine Kinase CK-MB (CK-2) 2.50 Troponin I 0.043 Impressions: Chest X-Ray 03/14/18 00:00 IMPRESSION: No acute infiltrates Right triple-lumen catheter tip in the right jugular vein. No pneumothorax. Assessment & Plan - Diagnosis (1) Sepsis Qualifiers: Sepsis type: Pseudomonas Qualified Code(s): A41.52 - Sepsis due to Pseudomonas Is this a current diagnosis for this admission?: Yes (2) Sepsis due to gram-negative UTI Is this a current diagnosis for this admission?: Yes (3) Urinary tract infection Is this a current diagnosis for this admission?: Yes (4) Hypotension Is this a current diagnosis for this admission?: Yes (5) Acute kidney injury Is this a current diagnosis for this admission?: Yes (6) Metabolic encephalopathy Is this a current diagnosis for this admission?: Yes (7) Pseudomonas urinary tract infection Is this a current diagnosis for this admission?: Yes - Plan Summary Plan Summary: Continue IV antibiotic
[2018-03-17] MEDS: AMPICILLIN SODIUM 1 GM in NORMAL SALINE 50 ML IV SCH ×4 (01:40→17:11)
[2018-03-17] MEDS: TRAMADOL HCL 50 MG TABLET PO SCH ×4 (02:24→21:04)
[2018-03-17] MEDS: HEPARIN SOD (PORCINE) 5,000 UNIT/ML 1 ML SYRINGE SUBCUT SCH ×3 (05:32→21:13)
[2018-03-17] MEDS: LEVETIRACETAM 500 MG/NACL-ISO 500 MG/100 ML RTUPB IV SCH ×2 (08:34→21:13)
[2018-03-17] MEDS: CLOPIDOGREL BISULFATE 75 MG TABLET PO SCH (08:34)
[2018-03-17] MEDS: ERTAPENEM SODIUM 1 GM in NORMAL SALINE 50 ML IV SCH (09:20)
--- NOTE | 2018-03-17 11:46 | PDOC PROGRESS REPORT ---
Subjective Progress Note for:: 03/17/18 Subjective:: Patient is admitted because of the sepsis and UTI currently on IV antibiotic Patient is alert awake but other than that underlying dementia No acute distress No nursing concern Reason For Visit: SEPSIS DUE TO PSEUDOMONAS, HYPOTENSION, MARICHUY Physical Exam Vital Signs: Temp Pulse Resp BP Pulse Ox 97.9 F 104 H 15 122/81 98 03/17/18 11:05 03/17/18 11:05 03/17/18 11:05 03/17/18 11:05 03/17/18 11:05 Intake & Output 03/16/18 03/17/18 03/18/18 06:59 06:59 06:59 Intake Total 1941 1350 Balance 1941 1350 Weight 65.5 kg 65.8 kg General appearance: PRESENT: no acute distress Eye exam: PRESENT: PERRLA Respiratory exam: PRESENT: clear to auscultation kane Cardiovascular exam: PRESENT: +S1, +S2 GI/Abdominal exam: PRESENT: normal bowel sounds, soft Extremities exam: ABSENT: pedal edema Neurological exam: PRESENT: alert, awake Skin exam: PRESENT: dry Results Laboratory Results: 03/16/18 04:24 03/16/18 06:51 03/13/18 03/13/18 03/13/18 15:00 15:00 20:39 Creatine Kinase 1112 H 866 H CK-MB (CK-2) 2.57 Troponin I 0.032 03/13/18 20:39 Creatine Kinase CK-MB (CK-2) 2.50 Troponin I 0.043 Impressions: Chest X-Ray 03/14/18 00:00 IMPRESSION: No acute infiltrates Right triple-lumen catheter tip in the right jugular vein. No pneumothorax. Assessment & Plan - Diagnosis (1) Sepsis due to gram-negative UTI Is this a current diagnosis for this admission?: Yes (2) Acute kidney injury Is this a current diagnosis for this admission?: Yes (3) Anemia Qualifiers: Anemia type: unspecified type Qualified Code(s): D64.9 - Anemia, unspecified Is this a current diagnosis for this admission?: Yes (4) Metabolic encephalopathy Is this a current diagnosis for this admission?: Yes (5) Sepsis Qualifiers: Sepsis type: Pseudomonas Qualified Code(s): A41.52 - Sepsis due to Pseudomonas Is this a current diagnosis for this admission?: Yes - Time Time Spent with patient: 15-24 minutes Medications reviewed and adjusted accordingly: Yes Anticipated discharge: Other Within: Other - Inpatient Certification Medical Necessity: Need for IV Antibiotics Post Hospital Care: D/C Test Lead Documentation - Plan Summary Plan Summary: Continues IV antibiotic
[2018-03-17] MEDS: DEXTROSE 5%-1/2 NORMAL SALINE 1,000 ML IV PRN (12:28)
[2018-03-18] MEDS: AMPICILLIN SODIUM 1 GM in NORMAL SALINE 50 ML IV SCH ×4 (00:27→17:23)
[2018-03-18] MEDS: TRAMADOL HCL 50 MG TABLET PO SCH ×4 (03:42→20:02)
[2018-03-18] MEDS: HEPARIN SOD (PORCINE) 5,000 UNIT/ML 1 ML SYRINGE SUBCUT SCH ×3 (06:07→21:39)
[2018-03-18 06:52] LABS: ABSOLUTE BASOPHILS # (AUTO) 0.1 10^3/uL (0.0-0.2); ABSOLUTE EOSINOPHILS # (AUTO) 0.5 10^3/uL (0.0-0.6); ABSOLUTE LYMPHOCYTES (AUTO) 1.3 10^3/uL (0.5-4.7); ABSOLUTE MONOCYTES (AUTO) 1.2 10^3/uL (0.1-1.4); ABSOLUTE NEUT (AUTO) 6.3 10^3/uL (1.7-8.2); BASOPHILS % (AUTO) 0.9 % (0-2); EOSINOPHILS % (AUTO) 5.3 % (0-6); HEMATOCRIT 25.8 % (37.9-51.0); HEMOGLOBIN 8.7 g/dL (13.5-17.0); LYMPHOCYTES % (AUTO) 13.6 % (13-45); MEAN CORPUSCULAR HEMOGLOBIN 30.3 pg (27.0-33.4); MEAN CORPUSCULAR HGB CONC 33.6 g/dL (32.0-36.0); MEAN CORPUSCULAR VOLUME 90 fl (80-97); MONOCYTES % (AUTO) 12.7 % (3-13); PLATELET COUNT 239 10^3/uL (150-450); RED BLOOD COUNT 2.86 10^6/uL (4.35-5.55); RED CELL DISTRIBUTION WIDTH 15.4 % (11.5-14.0); SEGMENTED NEUTROPHILS % (AUTO) 67.5 % (42-78); TOTAL CELLS COUNTED % (AUTO) 100 %; WHITE BLOOD COUNT 9.4 10^3/uL (4.0-10.5)
[2018-03-18 07:12] LABS: ANION GAP 9 (5-19); BLOOD UREA NITROGEN 13 mg/dL (7-20); CALCIUM 8.1 mg/dL (8.4-10.2); CARBON DIOXIDE 24 mmol/L (22-30); CHLORIDE 106 mmol/L (98-107); GLUCOSE 220 mg/dL (75-110); POTASSIUM 3.5 mmol/L (3.6-5.0); SODIUM 138.7 mmol/L (137-145)
[2018-03-18] MEDS: LEVETIRACETAM 500 MG/NACL-ISO 500 MG/100 ML RTUPB IV SCH ×2 (09:40→21:39)
[2018-03-18] MEDS: CLOPIDOGREL BISULFATE 75 MG TABLET PO SCH (09:41)
--- NOTE | 2018-03-18 10:29 | PDOC PROGRESS REPORT ---
Subjective Progress Note for:: 03/18/18 Subjective:: Patient is admitted because of the sepsis and UTI currently on IV antibiotic Patient is alert awake but other than that underlying dementia No acute distress No nursing concern Reason For Visit: SEPSIS DUE TO PSEUDOMONAS, HYPOTENSION, MARICHUY Physical Exam Vital Signs: Temp Pulse Resp BP Pulse Ox 98.2 F 88 18 155/75 H 99 03/18/18 08:00 03/18/18 08:00 03/18/18 08:00 03/18/18 08:00 03/18/18 10:21 Intake & Output 03/17/18 03/18/18 03/19/18 06:59 06:59 06:59 Intake Total 1350 1881 Balance 1350 1881 Weight 65.8 kg 66.5 kg General appearance: PRESENT: no acute distress, well-developed Head exam: PRESENT: atraumatic, normocephalic Eye exam: PRESENT: conjunctiva pink, EOMI, PERRLA. ABSENT: scleral icterus Ear exam: PRESENT: normal external ear exam Mouth exam: PRESENT: moist, tongue midline Neck exam: PRESENT: full ROM. ABSENT: carotid bruit, JVD, lymphadenopathy, thyromegaly Respiratory exam: PRESENT: clear to auscultation kane Cardiovascular exam: PRESENT: RRR. ABSENT: diastolic murmur, rubs, systolic murmur Pulses: PRESENT: normal dorsalis pedis pul, +2 pedal pulses bilateral Vascular exam: PRESENT: normal capillary refill GI/Abdominal exam: PRESENT: normal bowel sounds, soft. ABSENT: distended, guarding, mass, organolmegaly, rebound, tenderness Rectal exam: PRESENT: deferred Extremities exam: ABSENT: pedal edema Neurological exam: PRESENT: alert, awake. ABSENT: motor sensory deficit Psychiatric exam: PRESENT: appropriate affect, normal mood. ABSENT: homicidal ideation, suicidal ideation Skin exam: PRESENT: dry, intact, warm. ABSENT: cyanosis, rash Results Laboratory Results: 03/18/18 06:00 03/18/18 06:00 03/18/18 03/18/18 06:00 06:00 WBC 9.4 RBC 2.86 L Hgb 8.7 L Hct 25.8 L MCV 90 MCH 30.3 MCHC 33.6 RDW 15.4 H Plt Count 239 Seg Neutrophils % 67.5 Lymphocytes % 13.6 Monocytes % 12.7 Eosinophils % 5.3 Basophils % 0.9 Absolute Neutrophils 6.3 Absolute Lymphocytes 1.3 Absolute Monocytes 1.2 Absolute Eosinophils 0.5 Absolute Basophils 0.1 Sodium 138.7 Potassium 3.5 L Chloride 106 Carbon Dioxide 24 Anion Gap 9 BUN 13 Creatinine 0.71 Est GFR ( Amer) > 60 Est GFR (Non-Af Amer) > 60 Glucose 220 H Calcium 8.1 L 03/13/18 06:06 Blood Blood Culture - Final NO GROWTH IN 5 DAYS 03/13/18 03/13/18 03/13/18 15:00 15:00 20:39 Creatine Kinase 1112 H 866 H CK-MB (CK-2) 2.57 Troponin I 0.032 03/13/18 20:39 Creatine Kinase CK-MB (CK-2) 2.50 Troponin I 0.043 Impressions: Chest X-Ray 03/14/18 00:00 IMPRESSION: No acute infiltrates Right triple-lumen catheter tip in the right jugular vein. No pneumothorax. Assessment & Plan - Diagnosis (1) Sepsis due to gram-negative UTI Is this a current diagnosis for this admission?: Yes (2) Acute kidney injury Is this a current diagnosis for this admission?: Yes (3) Anemia Qualifiers: Anemia type: unspecified type Qualified Code(s): D64.9 - Anemia, unspecified Is this a current diagnosis for this admission?: Yes (4) Metabolic encephalopathy Is this a current diagnosis for this admission?: Yes (5) Sepsis Qualifiers: Sepsis type: Pseudomonas Qualified Code(s): A41.52 - Sepsis due to Pseudomonas Is this a current diagnosis for this admission?: Yes - Time Time Spent with patient: 15-24 minutes Medications reviewed and adjusted accordingly: Yes Anticipated discharge: Other Within: Other - Inpatient Certification Medical Necessity: Need Close Monitoring Due to Risk of Patient Decompensation Post Hospital Care: D/C Supervisor Extrusion Documentation - Plan Summary Plan Summary: Continues to current medication
[2018-03-18] MEDS: ERTAPENEM SODIUM 1 GM in NORMAL SALINE 50 ML IV SCH (10:39)
[2018-03-18] MEDS: DEXTROSE 5%-1/2 NORMAL SALINE 1,000 ML IV PRN (21:39)
[2018-03-19] MEDS: AMPICILLIN SODIUM 1 GM in NORMAL SALINE 50 ML IV SCH ×4 (00:22→18:03)
[2018-03-19] MEDS: TRAMADOL HCL 50 MG TABLET PO SCH ×4 (04:31→21:40)
[2018-03-19] MEDS: HEPARIN SOD (PORCINE) 5,000 UNIT/ML 1 ML SYRINGE SUBCUT SCH ×3 (05:38→21:40)
[2018-03-19 06:29] LABS: ANION GAP 12 (5-19); BLOOD UREA NITROGEN 11 mg/dL (7-20); CARBON DIOXIDE 21 mmol/L (22-30); CHLORIDE 104 mmol/L (98-107); POTASSIUM 3.6 mmol/L (3.6-5.0); SODIUM 136.6 mmol/L (137-145)
[2018-03-19 06:35] LABS: GLUCOSE 381 mg/dL (75-110)
[2018-03-19] MEDS: LEVETIRACETAM 500 MG/NACL-ISO 500 MG/100 ML RTUPB IV SCH ×2 (09:52→21:40)
[2018-03-19] MEDS: CLOPIDOGREL BISULFATE 75 MG TABLET PO SCH (09:52)
[2018-03-19] MEDS: ERTAPENEM SODIUM 1 GM in NORMAL SALINE 50 ML IV SCH (12:32)
[2018-03-19] MEDS: DEXTROSE 5%-1/2 NORMAL SALINE 1,000 ML IV PRN (12:39)
--- NOTE | 2018-03-19 20:41 | PDOC PROGRESS REPORT ---
Subjective Progress Note for:: 03/19/18 Subjective:: Patient seen by the bedside he is alert and oriented not confuse as he was last week ,he has septicemia, UTI on dual antibiotic, IV amoxicillin for the E faecalis septicemia, ertapenem for the Proteus UTI, he has constipation since admitted, will give fleets enema Reason For Visit: SEPSIS DUE TO PSEUDOMONAS, HYPOTENSION, MARICHUY Physical Exam Vital Signs: Temp Pulse Resp BP Pulse Ox 98.3 F 89 16 153/66 H 95 03/19/18 19:37 03/19/18 19:37 03/19/18 19:37 03/19/18 19:37 03/19/18 19:37 Intake & Output 03/18/18 03/19/18 03/20/18 06:59 06:59 06:59 Intake Total 1881 2533 1500 Balance 1881 2533 1500 Weight 66.5 kg 65 kg General appearance: PRESENT: no acute distress Eye exam: PRESENT: PERRLA Respiratory exam: PRESENT: clear to auscultation kane Cardiovascular exam: PRESENT: +S1, +S2 GI/Abdominal exam: PRESENT: soft Neurological exam: PRESENT: alert Results Laboratory Results: 03/18/18 06:00 03/19/18 05:15 03/19/18 05:15 Sodium 136.6 L Potassium 3.6 Chloride 104 Carbon Dioxide 21 L Anion Gap 12 BUN 11 Creatinine 0.62 Est GFR ( Amer) > 60 Est GFR (Non-Af Amer) > 60 Glucose 381 H Calcium 8.0 L 03/13/18 03/13/18 03/13/18 15:00 15:00 20:39 Creatine Kinase 1112 H 866 H CK-MB (CK-2) 2.57 Troponin I 0.032 03/13/18 20:39 Creatine Kinase CK-MB (CK-2) 2.50 Troponin I 0.043 Impressions: Chest X-Ray 03/14/18 00:00 IMPRESSION: No acute infiltrates Right triple-lumen catheter tip in the right jugular vein. No pneumothorax. Assessment & Plan - Diagnosis (1) Sepsis Qualifiers: Sepsis type: Pseudomonas Qualified Code(s): A41.52 - Sepsis due to Pseudomonas Is this a current diagnosis for this admission?: Yes (2) Sepsis due to gram-negative UTI Is this a current diagnosis for this admission?: Yes (3) Urinary tract infection Is this a current diagnosis for this admission?: Yes (4) Hypotension Is this a current diagnosis for this admission?: Yes (5) Acute kidney injury Is this a current diagnosis for this admission?: Yes (6) Metabolic encephalopathy Is this a current diagnosis for this admission?: Yes (7) Pseudomonas urinary tract infection Is this a current diagnosis for this admission?: Yes
[2018-03-19] MEDS ORDERED: BISACODYL 5 MG TABEC PO ONE (21:15)
[2018-03-19] MEDS ORDERED: NA PHOS,M-B/NA PHOS,DI-BA (ADULT) 133 ML ENEMA PR ONE (21:15)
[2018-03-20] MEDS: AMPICILLIN SODIUM 1 GM in NORMAL SALINE 50 ML IV SCH ×4 (00:04→17:44)
[2018-03-20] MEDS: TRAMADOL HCL 50 MG TABLET PO SCH ×4 (02:09→21:13)
[2018-03-20] MEDS: HEPARIN SOD (PORCINE) 5,000 UNIT/ML 1 ML SYRINGE SUBCUT SCH ×3 (05:01→20:27)
[2018-03-20 05:55] LABS: ANION GAP 13 (5-19); BLOOD UREA NITROGEN 10 mg/dL (7-20); CALCIUM 8.9 mg/dL (8.4-10.2); CARBON DIOXIDE 24 mmol/L (22-30); CHLORIDE 103 mmol/L (98-107); GLUCOSE 122 mg/dL (75-110); POTASSIUM 3.7 mmol/L (3.6-5.0)
[2018-03-20] MEDS: LEVETIRACETAM 500 MG/NACL-ISO 500 MG/100 ML RTUPB IV SCH ×2 (08:53→21:13)
[2018-03-20] MEDS: CLOPIDOGREL BISULFATE 75 MG TABLET PO SCH (09:04)
[2018-03-20] MEDS: HALOPERIDOL LACTATE INJ 5 MG/1 ML VIAL IV PRN (09:04)
--- NOTE | 2018-03-20 21:46 | PDOC PROGRESS REPORT ---
Subjective Progress Note for:: 03/20/18 Subjective:: Patient was seen by the bedside, He continues to require restraint, still agitated somewhat Reason For Visit: SEPSIS DUE TO PSEUDOMONAS, HYPOTENSION, MARICHUY Physical Exam Vital Signs: Temp Pulse Resp BP Pulse Ox 97.5 F 96 18 137/62 H 100 03/20/18 19:36 03/20/18 19:36 03/20/18 19:36 03/20/18 19:36 03/20/18 16:01 Intake & Output 03/19/18 03/20/18 03/21/18 06:59 06:59 06:59 Intake Total 2533 3060 1163 Balance 2533 3060 1163 Weight 65 kg 63.5 kg General appearance: PRESENT: no acute distress Eye exam: PRESENT: PERRLA Respiratory exam: PRESENT: clear to auscultation kane Cardiovascular exam: PRESENT: +S2 GI/Abdominal exam: PRESENT: soft Neurological exam: PRESENT: alert Results Laboratory Results: 03/18/18 06:00 03/20/18 05:00 03/20/18 05:00 Sodium 140.0 Potassium 3.7 Chloride 103 Carbon Dioxide 24 Anion Gap 13 BUN 10 Creatinine 0.63 Est GFR ( Amer) > 60 Est GFR (Non-Af Amer) > 60 Glucose 122 H Calcium 8.9 03/13/18 03/13/18 03/13/18 15:00 15:00 20:39 Creatine Kinase 1112 H 866 H CK-MB (CK-2) 2.57 Troponin I 0.032 03/13/18 20:39 Creatine Kinase CK-MB (CK-2) 2.50 Troponin I 0.043 Impressions: Chest X-Ray 03/14/18 00:00 IMPRESSION: No acute infiltrates Right triple-lumen catheter tip in the right jugular vein. No pneumothorax. Assessment & Plan - Diagnosis (1) Sepsis Qualifiers: Sepsis type: Pseudomonas Qualified Code(s): A41.52 - Sepsis due to Pseudomonas Is this a current diagnosis for this admission?: Yes (2) Sepsis due to gram-negative UTI Is this a current diagnosis for this admission?: Yes (3) Urinary tract infection Is this a current diagnosis for this admission?: Yes (4) Hypotension Is this a current diagnosis for this admission?: Yes (5) Acute kidney injury Is this a current diagnosis for this admission?: Yes (6) Metabolic encephalopathy Is this a current diagnosis for this admission?: Yes (7) Pseudomonas urinary tract infection Is this a current diagnosis for this admission?: Yes - Plan Summary Plan Summary: Continue present treatment
[2018-03-21] MEDS: DEXTROSE 5%-1/2 NORMAL SALINE 1,000 ML IV PRN (01:40)
[2018-03-21] MEDS: AMPICILLIN SODIUM 1 GM in NORMAL SALINE 50 ML IV SCH ×5 (01:40→20:37)
[2018-03-21] MEDS: HEPARIN SOD (PORCINE) 5,000 UNIT/ML 1 ML SYRINGE SUBCUT SCH ×3 (05:16→19:22)
[2018-03-21] MEDS: CLOPIDOGREL BISULFATE 75 MG TABLET PO SCH (10:24)
[2018-03-21] MEDS: LEVETIRACETAM 500 MG/NACL-ISO 500 MG/100 ML RTUPB IV SCH ×2 (10:24→21:54)
--- NOTE | 2018-03-21 20:44 | PDOC PROGRESS REPORT ---
Subjective Progress Note for:: 03/21/18 Subjective:: Patient seen by the bedside, he has no new complaints Reason For Visit: SEPSIS DUE TO PSEUDOMONAS, HYPOTENSION, MARICHUY Physical Exam Vital Signs: Temp Pulse Resp BP Pulse Ox 97.6 F 90 18 140/65 H 100 03/21/18 19:11 03/21/18 19:11 03/21/18 19:11 03/21/18 19:11 03/21/18 19:11 Intake & Output 03/20/18 03/21/18 03/22/18 06:59 06:59 06:59 Intake Total 3060 2153 1528 Balance 3060 2153 1528 Weight 63.5 kg 63.5 kg General appearance: PRESENT: no acute distress Eye exam: PRESENT: PERRLA Respiratory exam: PRESENT: clear to auscultation kane Cardiovascular exam: PRESENT: +S1, +S2 GI/Abdominal exam: PRESENT: soft Neurological exam: PRESENT: alert Results Laboratory Results: 03/18/18 06:00 03/20/18 05:00 03/13/18 03/13/18 03/13/18 15:00 15:00 20:39 Creatine Kinase 1112 H 866 H CK-MB (CK-2) 2.57 Troponin I 0.032 03/13/18 20:39 Creatine Kinase CK-MB (CK-2) 2.50 Troponin I 0.043 Impressions: Chest X-Ray 03/14/18 00:00 IMPRESSION: No acute infiltrates Right triple-lumen catheter tip in the right jugular vein. No pneumothorax. Assessment & Plan - Diagnosis (1) Sepsis Qualifiers: Sepsis type: Pseudomonas Qualified Code(s): A41.52 - Sepsis due to Pseudomonas Is this a current diagnosis for this admission?: Yes (2) Sepsis due to gram-negative UTI Is this a current diagnosis for this admission?: Yes (3) Urinary tract infection Is this a current diagnosis for this admission?: Yes (4) Hypotension Is this a current diagnosis for this admission?: Yes (5) Acute kidney injury Is this a current diagnosis for this admission?: Yes (6) Metabolic encephalopathy Is this a current diagnosis for this admission?: Yes (7) Pseudomonas urinary tract infection Is this a current diagnosis for this admission?: Yes - Plan Summary Plan Summary: Continue IV antibiotic treatment
[2018-03-22] MEDS: HEPARIN SOD (PORCINE) 5,000 UNIT/ML 1 ML SYRINGE SUBCUT SCH ×3 (05:59→22:52)
[2018-03-22] MEDS: AMPICILLIN SODIUM 1 GM in NORMAL SALINE 50 ML IV SCH ×2 (06:01→12:46)
[2018-03-22] MEDS: CLOPIDOGREL BISULFATE 75 MG TABLET PO SCH (10:11)
[2018-03-22] MEDS: LEVETIRACETAM 500 MG/NACL-ISO 500 MG/100 ML RTUPB IV SCH (10:17)
[2018-03-22] MEDS: DEXTROSE 5%-1/2 NORMAL SALINE 1,000 ML IV PRN (10:17)
[2018-03-22] MEDS: ACETAMINOPHEN 325 MG TABLET PO PRN (17:14)
--- NOTE | 2018-03-22 21:12 | PDOC PROGRESS REPORT ---
Subjective Progress Note for:: 03/22/18 Subjective:: Patient was admitted for the management of the enterococcus faecalis septicemia , Proteus UTI presently on IV antibiotic with ampicillin and ertapenem patient is restrained because of confusion Reason For Visit: SEPSIS DUE TO PSEUDOMONAS, HYPOTENSION, MARICHUY Physical Exam Vital Signs: Temp Pulse Resp BP Pulse Ox 98.7 F 81 15 141/65 H 93 03/22/18 19:11 03/22/18 19:11 03/22/18 19:11 03/22/18 19:11 03/22/18 19:11 Intake & Output 03/21/18 03/22/18 03/23/18 06:59 06:59 06:59 Intake Total 2153 2636 574 Balance 2153 2636 574 Weight 63.5 kg 63.1 kg General appearance: PRESENT: no acute distress Eye exam: PRESENT: PERRLA Respiratory exam: PRESENT: clear to auscultation kane Cardiovascular exam: PRESENT: +S1, +S2 GI/Abdominal exam: PRESENT: soft Neurological exam: PRESENT: alert Results Laboratory Results: 03/18/18 06:00 03/20/18 05:00 03/13/18 03/13/18 03/13/18 15:00 15:00 20:39 Creatine Kinase 1112 H 866 H CK-MB (CK-2) 2.57 Troponin I 0.032 03/13/18 20:39 Creatine Kinase CK-MB (CK-2) 2.50 Troponin I 0.043 Impressions: Chest X-Ray 03/14/18 00:00 IMPRESSION: No acute infiltrates Right triple-lumen catheter tip in the right jugular vein. No pneumothorax. Assessment & Plan - Diagnosis (1) Sepsis Qualifiers: Sepsis type: Pseudomonas Qualified Code(s): A41.52 - Sepsis due to Pseudomonas Is this a current diagnosis for this admission?: Yes (2) Sepsis due to gram-negative UTI Is this a current diagnosis for this admission?: Yes (3) Urinary tract infection Is this a current diagnosis for this admission?: Yes (4) Hypotension Is this a current diagnosis for this admission?: Yes (5) Acute kidney injury Is this a current diagnosis for this admission?: Yes (6) Metabolic encephalopathy Is this a current diagnosis for this admission?: Yes (7) Pseudomonas urinary tract infection Is this a current diagnosis for this admission?: Yes
[2018-03-22] MEDS: LEVETIRACETAM 500 MG TABLET PO SCH (22:52)
[2018-03-23] MEDS: DEXTROSE 5%-1/2 NORMAL SALINE 1,000 ML IV PRN ×2 (02:57→16:28)
[2018-03-23] MEDS: HEPARIN SOD (PORCINE) 5,000 UNIT/ML 1 ML SYRINGE SUBCUT SCH ×3 (06:45→22:17)
[2018-03-23] MEDS: CLOPIDOGREL BISULFATE 75 MG TABLET PO SCH (11:14)
[2018-03-23] MEDS: LEVETIRACETAM 500 MG TABLET PO SCH (11:14)
[2018-03-23] MEDS ORDERED: LEVETIRACETAM 500 MG/NACL-ISO 500 MG/100 ML RTUPB IV ONE (16:30)
[2018-03-23 20:39] LABS: ABSOLUTE BASOPHILS # (AUTO) 0.1 10^3/uL (0.0-0.2); ABSOLUTE EOSINOPHILS # (AUTO) 0.3 10^3/uL (0.0-0.6); ABSOLUTE LYMPHOCYTES (AUTO) 1.3 10^3/uL (0.5-4.7); ABSOLUTE MONOCYTES (AUTO) 1.1 10^3/uL (0.1-1.4); BASOPHILS % (AUTO) 0.9 % (0-2); EOSINOPHILS % (AUTO) 2.7 % (0-6); HEMATOCRIT 25.3 % (37.9-51.0); HEMOGLOBIN 8.4 g/dL (13.5-17.0); LYMPHOCYTES % (AUTO) 11.9 % (13-45); MEAN CORPUSCULAR HGB CONC 33.3 g/dL (32.0-36.0); MEAN CORPUSCULAR VOLUME 90 fl (80-97); MONOCYTES % (AUTO) 9.9 % (3-13); PLATELET COUNT 547 10^3/uL (150-450); RED BLOOD COUNT 2.82 10^6/uL (4.35-5.55); RED CELL DISTRIBUTION WIDTH 15.7 % (11.5-14.0); SEGMENTED NEUTROPHILS % (AUTO) 74.6 % (42-78); TOTAL CELLS COUNTED % (AUTO) 100 %; WHITE BLOOD COUNT 10.7 10^3/uL (4.0-10.5)
[2018-03-23 20:53] LABS: ALANINE AMINOTRANSFERASE 26 U/L (21-72); ALBUMIN 2.8 g/dL (3.5-5.0); ALKALINE PHOSPHATASE 117 U/L (38-126); ANION GAP 9 (5-19); ASPARTATE AMINO TRANSFERASE 44 U/L (17-59); BILIRUBIN,DIRECT 0.5 mg/dL (0.0-0.4); BILIRUBIN,TOTAL 0.9 mg/dL (0.2-1.3); BLOOD UREA NITROGEN 12 mg/dL (7-20); CALCIUM 8.6 mg/dL (8.4-10.2); CARBON DIOXIDE 25 mmol/L (22-30); CHLORIDE 105 mmol/L (98-107); GLUCOSE 108 mg/dL (75-110); POTASSIUM 3.6 mmol/L (3.6-5.0); SODIUM 138.6 mmol/L (137-145); TOTAL PROTEIN 6.3 g/dL (6.3-8.2)
--- NOTE | 2018-03-23 20:58 | PDOC PROGRESS REPORT ---
Subjective Progress Note for:: 03/23/18 Subjective:: She has right knee arthropathy Reason For Visit: SEPSIS DUE TO PSEUDOMONAS, HYPOTENSION, MARICHUY Physical Exam Vital Signs: Temp Pulse Resp BP Pulse Ox 98.2 F 78 15 140/54 H 100 03/23/18 20:00 03/23/18 20:00 03/23/18 20:00 03/23/18 20:00 03/23/18 20:00 Intake & Output 03/22/18 03/23/18 03/24/18 06:59 06:59 06:59 Intake Total 2636 1414 237 Balance 2636 1414 237 Weight 63.1 kg 64.5 kg General appearance: PRESENT: no acute distress Eye exam: PRESENT: PERRLA Respiratory exam: PRESENT: clear to auscultation kane Cardiovascular exam: PRESENT: +S1, +S2 GI/Abdominal exam: PRESENT: soft Extremities exam: PRESENT: other - Right knee arthropathy Neurological exam: PRESENT: alert Results Laboratory Results: 03/23/18 20:15 03/23/18 20:15 WBC 10.7 H RBC 2.82 L Hgb 8.4 L Hct 25.3 L MCV 90 MCH 30.0 MCHC 33.3 RDW 15.7 H Plt Count 547 H Seg Neutrophils % 74.6 Lymphocytes % 11.9 L Monocytes % 9.9 Eosinophils % 2.7 Basophils % 0.9 Absolute Neutrophils 8.0 Absolute Lymphocytes 1.3 Absolute Monocytes 1.1 Absolute Eosinophils 0.3 Absolute Basophils 0.1 03/13/18 03/13/18 03/13/18 15:00 15:00 20:39 Creatine Kinase 1112 H 866 H CK-MB (CK-2) 2.57 Troponin I 0.032 03/13/18 20:39 Creatine Kinase CK-MB (CK-2) 2.50 Troponin I 0.043 Impressions: Chest X-Ray 03/14/18 00:00 IMPRESSION: No acute infiltrates Right triple-lumen catheter tip in the right jugular vein. No pneumothorax. Assessment & Plan - Diagnosis (1) Sepsis Qualifiers: Sepsis type: Pseudomonas Qualified Code(s): A41.52 - Sepsis due to Pseudomonas Is this a current diagnosis for this admission?: Yes (2) Sepsis due to gram-negative UTI Is this a current diagnosis for this admission?: Yes (3) Urinary tract infection Is this a current diagnosis for this admission?: Yes (4) Hypotension Is this a current diagnosis for this admission?: Yes (5) Acute kidney injury Is this a current diagnosis for this admission?: Yes (6) Metabolic encephalopathy Is this a current diagnosis for this admission?: Yes (7) Pseudomonas urinary tract infection Is this a current diagnosis for this admission?: Yes (8) Arthropathy of right knee Is this a current diagnosis for this admission?: Yes Plan: MRI of the knee ordered
[2018-03-23] MEDS: AMPICILLIN SODIUM 1 GM in NORMAL SALINE 50 ML IV SCH (22:17)
[2018-03-24] MEDS: AMPICILLIN SODIUM 1 GM in NORMAL SALINE 50 ML IV SCH ×4 (03:50→23:56)
[2018-03-24] MEDS: LEVETIRACETAM 500 MG/NACL-ISO 500 MG/100 ML RTUPB IV SCH ×2 (06:20→19:03)
[2018-03-24] MEDS: DEXTROSE 5%-1/2 NORMAL SALINE 1,000 ML IV PRN (06:20)
[2018-03-24] MEDS: HEPARIN SOD (PORCINE) 5,000 UNIT/ML 1 ML SYRINGE SUBCUT SCH ×3 (06:21→23:53)
[2018-03-24 07:14] LABS: ABSOLUTE BASOPHILS # (AUTO) 0.1 10^3/uL (0.0-0.2); ABSOLUTE EOSINOPHILS # (AUTO) 0.3 10^3/uL (0.0-0.6); ABSOLUTE LYMPHOCYTES (AUTO) 1.3 10^3/uL (0.5-4.7); ABSOLUTE MONOCYTES (AUTO) 1.1 10^3/uL (0.1-1.4); ABSOLUTE NEUT (AUTO) 6.5 10^3/uL (1.7-8.2); BASOPHILS % (AUTO) 0.8 % (0-2); EOSINOPHILS % (AUTO) 3.1 % (0-6); HEMATOCRIT 26.2 % (37.9-51.0); HEMOGLOBIN 8.9 g/dL (13.5-17.0); LYMPHOCYTES % (AUTO) 13.6 % (13-45); MEAN CORPUSCULAR HEMOGLOBIN 30.6 pg (27.0-33.4); MEAN CORPUSCULAR HGB CONC 33.9 g/dL (32.0-36.0); MEAN CORPUSCULAR VOLUME 90 fl (80-97); MONOCYTES % (AUTO) 12.1 % (3-13); PLATELET COUNT 575 10^3/uL (150-450); RED BLOOD COUNT 2.91 10^6/uL (4.35-5.55); RED CELL DISTRIBUTION WIDTH 15.8 % (11.5-14.0); SEGMENTED NEUTROPHILS % (AUTO) 70.4 % (42-78); TOTAL CELLS COUNTED % (AUTO) 100 %; WHITE BLOOD COUNT 9.2 10^3/uL (4.0-10.5)
[2018-03-24 07:30] LABS: ALANINE AMINOTRANSFERASE 21 U/L (21-72); ALBUMIN 2.8 g/dL (3.5-5.0); ALKALINE PHOSPHATASE 117 U/L (38-126); ANION GAP 12 (5-19); ASPARTATE AMINO TRANSFERASE 40 U/L (17-59); BILIRUBIN,DIRECT 0.5 mg/dL (0.0-0.4); BILIRUBIN,TOTAL 0.9 mg/dL (0.2-1.3); BLOOD UREA NITROGEN 9 mg/dL (7-20); CALCIUM 8.9 mg/dL (8.4-10.2); CARBON DIOXIDE 25 mmol/L (22-30); CHLORIDE 106 mmol/L (98-107); GLUCOSE 108 mg/dL (75-110); POTASSIUM 3.9 mmol/L (3.6-5.0); SODIUM 143.1 mmol/L (137-145); TOTAL PROTEIN 6.4 g/dL (6.3-8.2)
[2018-03-24] MEDS: CLOPIDOGREL BISULFATE 75 MG TABLET PO SCH (12:16)
--- NOTE | 2018-03-24 15:10 | PDOC PROGRESS REPORT ---
Subjective Progress Note for:: 03/24/18 Subjective:: Patient was seen by the bedside, he continues to require IV antibiotic Reason For Visit: SEPSIS DUE TO PSEUDOMONAS, HYPOTENSION, MARICHUY Physical Exam Vital Signs: Temp Pulse Resp BP Pulse Ox 98.2 F 58 L 17 149/77 H 95 03/24/18 03:22 03/24/18 07:00 03/24/18 03:22 03/24/18 03:22 03/24/18 03:22 Intake & Output 03/23/18 03/24/18 03/25/18 06:59 06:59 06:59 Intake Total 1414 1517 Balance 1414 1517 Weight 64.5 kg 65.1 kg General appearance: PRESENT: no acute distress Eye exam: PRESENT: PERRLA Respiratory exam: PRESENT: clear to auscultation kane Cardiovascular exam: PRESENT: +S1, +S2 GI/Abdominal exam: PRESENT: soft Results Laboratory Results: 03/24/18 06:20 03/24/18 06:20 03/23/18 03/23/18 03/24/18 20:15 20:15 06:20 WBC 10.7 H 9.2 RBC 2.82 L 2.91 L Hgb 8.4 L 8.9 L Hct 25.3 L 26.2 L MCV 90 90 MCH 30.0 30.6 MCHC 33.3 33.9 RDW 15.7 H 15.8 H Plt Count 547 H 575 H Seg Neutrophils % 74.6 70.4 Lymphocytes % 11.9 L 13.6 Monocytes % 9.9 12.1 Eosinophils % 2.7 3.1 Basophils % 0.9 0.8 Absolute Neutrophils 8.0 6.5 Absolute Lymphocytes 1.3 1.3 Absolute Monocytes 1.1 1.1 Absolute Eosinophils 0.3 0.3 Absolute Basophils 0.1 0.1 Sodium 138.6 Potassium 3.6 Chloride 105 Carbon Dioxide 25 Anion Gap 9 BUN 12 Creatinine 0.68 Est GFR ( Amer) > 60 Est GFR (Non-Af Amer) > 60 Glucose 108 Calcium 8.6 Total Bilirubin 0.9 AST 44 ALT 26 Alkaline Phosphatase 117 Total Protein 6.3 Albumin 2.8 L 03/24/18 06:20 WBC RBC Hgb Hct MCV MCH MCHC RDW Plt Count Seg Neutrophils % Lymphocytes % Monocytes % Eosinophils % Basophils % Absolute Neutrophils Absolute Lymphocytes Absolute Monocytes Absolute Eosinophils Absolute Basophils Sodium 143.1 Potassium 3.9 Chloride 106 Carbon Dioxide 25 Anion Gap 12 BUN 9 Creatinine 0.67 Est GFR ( Amer) > 60 Est GFR (Non-Af Amer) > 60 Glucose 108 Calcium 8.9 Total Bilirubin 0.9 AST 40 ALT 21 Alkaline Phosphatase 117 Total Protein 6.4 Albumin 2.8 L 03/13/18 03/13/18 03/13/18 15:00 15:00 20:39 Creatine Kinase 1112 H 866 H CK-MB (CK-2) 2.57 Troponin I 0.032 03/13/18 20:39 Creatine Kinase CK-MB (CK-2) 2.50 Troponin I 0.043 Impressions: Chest X-Ray 03/14/18 00:00 IMPRESSION: No acute infiltrates Right triple-lumen catheter tip in the right jugular vein. No pneumothorax. Assessment & Plan - Diagnosis (1) Sepsis Qualifiers: Sepsis type: Pseudomonas Qualified Code(s): A41.52 - Sepsis due to Pseudomonas Is this a current diagnosis for this admission?: Yes (2) Sepsis due to gram-negative UTI Is this a current diagnosis for this admission?: Yes (3) Urinary tract infection Is this a current diagnosis for this admission?: Yes (4) Hypotension Is this a current diagnosis for this admission?: Yes (5) Acute kidney injury Is this a current diagnosis for this admission?: Yes (6) Metabolic encephalopathy Is this a current diagnosis for this admission?: Yes (7) Pseudomonas urinary tract infection Is this a current diagnosis for this admission?: Yes (8) Arthropathy of right knee Is this a current diagnosis for this admission?: Yes
[2018-03-24] MEDS ORDERED: BISACODYL 10 MG SUPP.RECT PR ONE (17:00)
--- NOTE | 2018-03-24 21:16 | RADIOLOGY REPORT (SQ) ---
EXAM DESCRIPTION: MRI RT LOWER JOINT WITHOUT COMPLETED DATE/TIME: 03/24/2018 6:28 pm REASON FOR STUDY: right knee pain COMPARISON: Right knee radiographs 03/10/2018 TECHNIQUE: Rightknee images acquired and stored on PACS. Multiplanar images include fat sensitive s equences as T1, water sensitive sequences as FST2 or STIR, cartilage sensitive sequences as FSPD, and gradient echo sequences. LIMITATIONS: Patient motion limits the examination. FINDINGS: JOINT AND BURSAE: No effusion. BONE CORTEX AND MARROW: Heterogeneous marrow signal seen within the proximal tibia noting centrally T 1 hypo/ T2 hyperintense signal with sclerotic margins correlates to focal sclerosis seen on compariso n radiographs. Additional T2 hyperintense signal tracks laterally. ACL: Appears thickened and indistinct, likely on the basis of full-thickness disruption. PCL: Intact. MCL: Intact. No periligamentous edema or fluid. LCL: Intact. No periligamentous edema or fluid. MEDIAL MENISCUS: Largely intact with free edge fraying. No focal tear. LATERAL MENISCUS: No normal lateral meniscus is visualized. MEDIAL COMPARTMENT: Poorly characterized on the acquisitions provided. Likely full and partial thick ness cartilage thinning. No underlying marrow edema. LATERAL COMPARTMENT: Poorly characterized on the acquisitions provided. Likely full and partial thic kness cartilage thinning. No underlying marrow edema. PATELLA: Full-thickness fissuring of the lateral patellar facet with underlying marrow edema. EXTENSOR MECHANISM: The quadriceps and patellar tendons remain intact. SOFT TISSUES: Diffuse muscle atrophy. No popliteal cyst is demonstrated. OTHER: No other significant finding. IMPRESSION: Examination limited by significant patient motion artifact. Abnormal marrow signal seen within the proximal tibia correlates to posttraumatic changes demonstrated on comparison radiographs . Background of tricompartmental degenerative changes. TECHNICAL DOCUMENTATION: JOB ID: [id number]- All Rights Reserved Reading location - IP/workstation name: [facility]
[2018-03-25] MEDS: LEVETIRACETAM 500 MG/NACL-ISO 500 MG/100 ML RTUPB IV SCH ×2 (06:09→19:03)
[2018-03-25] MEDS: AMPICILLIN SODIUM 1 GM in NORMAL SALINE 50 ML IV SCH ×4 (06:17→23:19)
[2018-03-25] MEDS: HEPARIN SOD (PORCINE) 5,000 UNIT/ML 1 ML SYRINGE SUBCUT SCH ×3 (06:19→21:07)
[2018-03-25] MEDS: CLOPIDOGREL BISULFATE 75 MG TABLET PO SCH (11:28)
--- NOTE | 2018-03-25 15:31 | PDOC PROGRESS REPORT ---
Subjective Progress Note for:: 03/25/18 Subjective:: Patient is seen by the bedside, it seems that this patient is improving, is more engaging, alert but confused as he has been before. Last night he pulled his central line from the femoral vein, the nurse was able to restart another peripheral line, MRI of the right knee was reviewed this was done yesterday, it demonstrated no effusion, the anterior cruciate ligament appears thickened and indistinct likely on the basis of full-thickness disruption. Disposition is going to be challenging for this patient, discharge planning is making efforts to get authorization from the insurance company for patient to go to rehab in a long term home. He has E faecalis septicemia and Proteus UTI presently on dual antibiotic, IV ampicillin and IV ertapenem Reason For Visit: SEPSIS DUE TO PSEUDOMONAS, HYPOTENSION, MARICHUY Physical Exam Vital Signs: Temp Pulse Resp BP Pulse Ox 98.1 F 63 16 117/50 L 100 03/25/18 11:37 03/25/18 11:37 03/25/18 11:37 03/25/18 11:37 03/25/18 11:37 Intake & Output 03/24/18 03/25/18 03/26/18 06:59 06:59 06:59 Intake Total 1517 1326 Balance 1517 1326 Weight 65.1 kg 64.2 kg General appearance: PRESENT: no acute distress Eye exam: PRESENT: PERRLA Respiratory exam: PRESENT: clear to auscultation kane Cardiovascular exam: PRESENT: +S1, +S2 GI/Abdominal exam: PRESENT: soft Neurological exam: PRESENT: alert Results Laboratory Results: 03/24/18 06:20 03/24/18 06:20 03/13/18 03/13/18 03/13/18 15:00 15:00 20:39 Creatine Kinase 1112 H 866 H CK-MB (CK-2) 2.57 Troponin I 0.032 03/13/18 20:39 Creatine Kinase CK-MB (CK-2) 2.50 Troponin I 0.043 Impressions: Chest X-Ray 03/14/18 00:00 IMPRESSION: No acute infiltrates Right triple-lumen catheter tip in the right jugular vein. No pneumothorax. Lower Extremity MRI 03/24/18 00:00 IMPRESSION: Examination limited by significant patient motion artifact. Abnormal marrow signal seen within the proximal tibia correlates to posttraumatic changes demonstrated on comparison radiographs. Background of tricompartmental degenerative changes. Assessment & Plan - Diagnosis (1) Sepsis Qualifiers: Sepsis type: Pseudomonas Qualified Code(s): A41.52 - Sepsis due to Pseudomonas Is this a current diagnosis for this admission?: Yes (2) Sepsis due to gram-negative UTI Is this a current diagnosis for this admission?: Yes (3) Urinary tract infection Is this a current diagnosis for this admission?: Yes (4) Hypotension Is this a current diagnosis for this admission?: Yes (5) Acute kidney injury Is this a current diagnosis for this admission?: Yes (6) Metabolic encephalopathy Is this a current diagnosis for this admission?: Yes (7) Pseudomonas urinary tract infection Is this a current diagnosis for this admission?: Yes (8) Arthropathy of right knee Is this a current diagnosis for this admission?: Yes
[2018-03-25] MEDS: DEXTROSE 5%-1/2 NORMAL SALINE 1,000 ML IV PRN (16:22)
--- NOTE | 2018-03-26 00:50 | EKG REPORT ---
SEVERITY:- BORDERLINE ECG - SINUS BRADYCARDIA LVH BY VOLTAGE : Confirmed by: Gabriela Benjamin MD 26-Mar-2018 00:49:40
[2018-03-26] MEDS: AMPICILLIN SODIUM 1 GM in NORMAL SALINE 50 ML IV SCH ×2 (05:38→13:20)
[2018-03-26] MEDS: HEPARIN SOD (PORCINE) 5,000 UNIT/ML 1 ML SYRINGE SUBCUT SCH ×3 (05:38→23:03)
[2018-03-26] MEDS: LEVETIRACETAM 500 MG/NACL-ISO 500 MG/100 ML RTUPB IV SCH ×2 (06:24→17:55)
[2018-03-26] MEDS: CLOPIDOGREL BISULFATE 75 MG TABLET PO SCH (13:04)
[2018-03-26] MEDS ORDERED: NA PHOS,M-B/NA PHOS,DI-BA (ADULT) 133 ML ENEMA PR ONE (16:00)
[2018-03-26] MEDS: ACETAMINOPHEN 325 MG TABLET PO PRN (16:45)
--- NOTE | 2018-03-26 21:01 | PDOC PROGRESS REPORT ---
Subjective Progress Note for:: 03/26/18 Subjective:: Patient was seen by the bedside, he is more awake, alert, the IV antibiotic will be discontinued Reason For Visit: SEPSIS DUE TO PSEUDOMONAS, HYPOTENSION, MAR[place]UY Physical Exam Vital Signs: Temp Pulse Resp BP Pulse Ox 98.7 F 77 16 140/51 H 100 03/26/18 19:42 03/26/18 19:42 03/26/18 19:42 03/26/18 19:42 03/26/18 19:42 Intake & Output 03/25/18 03/26/18 03/27/18 06:59 06:59 06:59 Intake Total 1326 2335 355 Balance 1326 2335 355 Weight 64.2 kg 63.8 kg General appearance: PRESENT: no acute distress Eye exam: PRESENT: PERRLA Respiratory exam: PRESENT: clear to auscultation kane Cardiovascular exam: PRESENT: +S1, +S2 GI/Abdominal exam: PRESENT: soft Neurological exam: PRESENT: alert Results Laboratory Results: 03/24/18 06:20 03/24/18 06:20 03/13/18 03/13/18 03/13/18 15:00 15:00 20:39 Creatine Kinase 1112 H 866 H CK-MB (CK-2) 2.57 Troponin I 0.032 03/13/18 20:39 Creatine Kinase CK-MB (CK-2) 2.50 Troponin I 0.043 Impressions: Chest X-Ray 03/14/18 00:00 IMPRESSION: No acute infiltrates Right triple-lumen catheter tip in the right jugular vein. No pneumothorax. Lower Extremity MRI 03/24/18 00:00 IMPRESSION: Examination limited by significant patient motion artifact. Abnormal marrow signal seen within the proximal tibia correlates to posttraumatic changes demonstrated on comparison radiographs. Background of tricompartmental degenerative changes. Assessment & Plan - Diagnosis (1) Sepsis Qualifiers: Sepsis type: Pseudomonas Qualified Code(s): A41.52 - Sepsis due to Pseudomonas Is this a current diagnosis for this admission?: Yes (2) Sepsis due to gram-negative UTI Is this a current diagnosis for this admission?: Yes (3) Urinary tract infection Is this a current diagnosis for this admission?: Yes (4) Hypotension Is this a current diagnosis for this admission?: Yes (5) Acute kidney injury Is this a current diagnosis for this admission?: Yes (6) Metabolic encephalopathy Is this a current diagnosis for this admission?: Yes (7) Pseudomonas urinary tract infection Is this a current diagnosis for this admission?: Yes (8) Arthropathy of right knee Is this a current diagnosis for this admission?: Yes
[2018-03-27] MEDS: HALOPERIDOL LACTATE INJ 5 MG/1 ML VIAL IV PRN (02:56)
[2018-03-27] MEDS: LEVETIRACETAM 500 MG/NACL-ISO 500 MG/100 ML RTUPB IV SCH ×2 (05:28→17:18)
[2018-03-27] MEDS: HEPARIN SOD (PORCINE) 5,000 UNIT/ML 1 ML SYRINGE SUBCUT SCH ×3 (05:28→22:27)
[2018-03-27] MEDS: CLOPIDOGREL BISULFATE 75 MG TABLET PO SCH (11:08)
--- NOTE | 2018-03-27 20:40 | PDOC PROGRESS REPORT ---
Subjective Progress Note for:: 03/27/18 Subjective:: Patient continues to improve slowly but surely Reason For Visit: SEPSIS DUE TO PSEUDOMONAS, HYPOTENSION, MARICHUY Physical Exam Vital Signs: Temp Pulse Resp BP Pulse Ox 98.3 F 85 14 148/69 H 99 03/27/18 16:36 03/27/18 16:36 03/27/18 16:36 03/27/18 16:36 03/27/18 16:36 Intake & Output 03/26/18 03/27/18 03/28/18 06:59 06:59 06:59 Intake Total 2335 1525 598 Balance 2335 1525 598 Weight 63.8 kg 62.8 kg General appearance: PRESENT: no acute distress Eye exam: PRESENT: PERRLA Respiratory exam: PRESENT: clear to auscultation kane Cardiovascular exam: PRESENT: +S1, +S2 GI/Abdominal exam: PRESENT: soft Neurological exam: PRESENT: alert Results Laboratory Results: 03/24/18 06:20 03/24/18 06:20 03/13/18 03/13/18 03/13/18 15:00 15:00 20:39 Creatine Kinase 1112 H 866 H CK-MB (CK-2) 2.57 Troponin I 0.032 03/13/18 20:39 Creatine Kinase CK-MB (CK-2) 2.50 Troponin I 0.043 Impressions: Chest X-Ray 03/14/18 00:00 IMPRESSION: No acute infiltrates Right triple-lumen catheter tip in the right jugular vein. No pneumothorax. Lower Extremity MRI 03/24/18 00:00 IMPRESSION: Examination limited by significant patient motion artifact. Abnormal marrow signal seen within the proximal tibia correlates to posttraumatic changes demonstrated on comparison radiographs. Background of tricompartmental degenerative changes. Assessment & Plan - Diagnosis (1) Sepsis Qualifiers: Sepsis type: Pseudomonas Qualified Code(s): A41.52 - Sepsis due to Pseudomonas Is this a current diagnosis for this admission?: Yes (2) Sepsis due to gram-negative UTI Is this a current diagnosis for this admission?: Yes (3) Urinary tract infection Is this a current diagnosis for this admission?: Yes (4) Hypotension Is this a current diagnosis for this admission?: Yes (5) Acute kidney injury Is this a current diagnosis for this admission?: Yes (6) Metabolic encephalopathy Is this a current diagnosis for this admission?: Yes (7) Pseudomonas urinary tract infection Is this a current diagnosis for this admission?: Yes (8) Arthropathy of right knee Is this a current diagnosis for this admission?: Yes
[2018-03-27] MEDS ORDERED: (PENDING PHARMACY ID) (Valsartan/Hydrochlorothiazide [Valsartan-Hctz 160-25 Mg Tab] 1 TAB) PO SCH (20:45)
[2018-03-27] MEDS ORDERED: VALSARTAN 160 MG TABLET PO ONE (22:00)
[2018-03-27] MEDS ORDERED: HYDROCHLOROTHIAZIDE 25 MG TABLET PO ONE (22:00)
[2018-03-27] MEDS: ACETAMINOPHEN 325 MG TABLET PO PRN (22:27)
[2018-03-28 00:05] LABS: ABSOLUTE BASOPHILS # (AUTO) 0.1 10^3/uL (0.0-0.2); ABSOLUTE EOSINOPHILS # (AUTO) 0.1 10^3/uL (0.0-0.6); ABSOLUTE LYMPHOCYTES (AUTO) 1.3 10^3/uL (0.5-4.7); ABSOLUTE MONOCYTES (AUTO) 0.9 10^3/uL (0.1-1.4); ABSOLUTE NEUT (AUTO) 6.5 10^3/uL (1.7-8.2); BASOPHILS % (AUTO) 1.1 % (0-2); EOSINOPHILS % (AUTO) 1.2 % (0-6); LYMPHOCYTES % (AUTO) 14.1 % (13-45); MEAN CORPUSCULAR HEMOGLOBIN 30.7 pg (27.0-33.4); MEAN CORPUSCULAR HGB CONC 34.5 g/dL (32.0-36.0); MEAN CORPUSCULAR VOLUME 89 fl (80-97); MONOCYTES % (AUTO) 10.6 % (3-13); PLATELET COUNT 689 10^3/uL (150-450); RED BLOOD COUNT 3.26 10^6/uL (4.35-5.55); RED CELL DISTRIBUTION WIDTH 16.2 % (11.5-14.0); TOTAL CELLS COUNTED % (AUTO) 100 %; WHITE BLOOD COUNT 8.9 10^3/uL (4.0-10.5)
[2018-03-28 00:19] LABS: ALANINE AMINOTRANSFERASE 39 U/L (21-72); ALBUMIN 3.4 g/dL (3.5-5.0); ALKALINE PHOSPHATASE 170 U/L (38-126); ANION GAP 11 (5-19); ASPARTATE AMINO TRANSFERASE 109 U/L (17-59); BILIRUBIN,DIRECT 0.3 mg/dL (0.0-0.4); BILIRUBIN,TOTAL 0.6 mg/dL (0.2-1.3); BLOOD UREA NITROGEN 10 mg/dL (7-20); CALCIUM 8.9 mg/dL (8.4-10.2); CARBON DIOXIDE 25 mmol/L (22-30); CHLORIDE 106 mmol/L (98-107); GLUCOSE 118 mg/dL (75-110); POTASSIUM 3.6 mmol/L (3.6-5.0); SODIUM 141.8 mmol/L (137-145); TOTAL PROTEIN 7.5 g/dL (6.3-8.2)
[2018-03-28] MEDS: HEPARIN SOD (PORCINE) 5,000 UNIT/ML 1 ML SYRINGE SUBCUT SCH ×3 (05:48→21:07)
[2018-03-28] MEDS: LEVETIRACETAM 500 MG/NACL-ISO 500 MG/100 ML RTUPB IV SCH ×2 (05:49→18:35)
[2018-03-28] MEDS: DEXTROSE 5%-1/2 NORMAL SALINE 1,000 ML IV PRN ×2 (05:49→20:55)
[2018-03-28 05:56] LABS: ALANINE AMINOTRANSFERASE 36 U/L (21-72); ALBUMIN 3.3 g/dL (3.5-5.0); ALKALINE PHOSPHATASE 178 U/L (38-126); ANION GAP 13 (5-19); ASPARTATE AMINO TRANSFERASE 72 U/L (17-59); BILIRUBIN,DIRECT 0.4 mg/dL (0.0-0.4); BILIRUBIN,TOTAL 0.7 mg/dL (0.2-1.3); BLOOD UREA NITROGEN 9 mg/dL (7-20); CALCIUM 9.2 mg/dL (8.4-10.2); CARBON DIOXIDE 24 mmol/L (22-30); CHLORIDE 108 mmol/L (98-107); GLUCOSE 109 mg/dL (75-110); POTASSIUM 3.5 mmol/L (3.6-5.0); SODIUM 144.7 mmol/L (137-145); TOTAL PROTEIN 7.5 g/dL (6.3-8.2)
[2018-03-28 06:28] LABS: ABSOLUTE BASOPHILS # (AUTO) 0.1 10^3/uL (0.0-0.2); ABSOLUTE EOSINOPHILS # (AUTO) 0.2 10^3/uL (0.0-0.6); ABSOLUTE LYMPHOCYTES (AUTO) 1.3 10^3/uL (0.5-4.7); ABSOLUTE MONOCYTES (AUTO) 0.9 10^3/uL (0.1-1.4); BASOPHILS % (AUTO) 1.3 % (0-2); EOSINOPHILS % (AUTO) 1.9 % (0-6); HEMATOCRIT 28.3 % (37.9-51.0); HEMOGLOBIN 9.4 g/dL (13.5-17.0); LYMPHOCYTES % (AUTO) 15.1 % (13-45); MEAN CORPUSCULAR HEMOGLOBIN 29.7 pg (27.0-33.4); MEAN CORPUSCULAR HGB CONC 33.2 g/dL (32.0-36.0); MEAN CORPUSCULAR VOLUME 90 fl (80-97); MONOCYTES % (AUTO) 10.6 % (3-13); PLATELET COUNT 695 10^3/uL (150-450); RED BLOOD COUNT 3.16 10^6/uL (4.35-5.55); RED CELL DISTRIBUTION WIDTH 16.2 % (11.5-14.0); SEGMENTED NEUTROPHILS % (AUTO) 71.1 % (42-78); TOTAL CELLS COUNTED % (AUTO) 100 %; WHITE BLOOD COUNT 8.4 10^3/uL (4.0-10.5)
[2018-03-28] MEDS: VALSARTAN 160 MG TABLET PO SCH (11:39)
[2018-03-28] MEDS: HYDROCHLOROTHIAZIDE 25 MG TABLET PO SCH (11:41)
[2018-03-28] MEDS: CLOPIDOGREL BISULFATE 75 MG TABLET PO SCH (11:42)
--- NOTE | 2018-03-28 15:48 | PDOC PROGRESS REPORT ---
Subjective Progress Note for:: 03/28/18 Subjective:: Patient is alert oriented very pleasant no more sepsis awaiting placement Reason For Visit: SEPSIS DUE TO PSEUDOMONAS, HYPOTENSION, MARICHUY Physical Exam Vital Signs: Temp Pulse Resp BP Pulse Ox 98.1 F 81 17 163/80 H 99 03/28/18 11:34 03/28/18 11:34 03/28/18 11:34 03/28/18 11:34 03/28/18 11:34 Intake & Output 03/27/18 03/28/18 03/29/18 06:59 06:59 06:59 Intake Total 1525 1685 Balance 1525 1685 Weight 62.8 kg 64.9 kg General appearance: PRESENT: no acute distress Eye exam: PRESENT: PERRLA Respiratory exam: PRESENT: clear to auscultation kane Cardiovascular exam: PRESENT: +S1, +S2 GI/Abdominal exam: PRESENT: soft Results Laboratory Results: 03/28/18 04:27 03/28/18 04:27 03/27/18 03/27/18 03/28/18 23:55 23:55 04:27 WBC 8.9 8.4 RBC 3.26 L 3.16 L Hgb 10.0 L 9.4 L Hct 29.0 L 28.3 L MCV 89 90 MCH 30.7 29.7 MCHC 34.5 33.2 RDW 16.2 H 16.2 H Plt Count 689 H 695 H Seg Neutrophils % 73.0 71.1 Lymphocytes % 14.1 15.1 Monocytes % 10.6 10.6 Eosinophils % 1.2 1.9 Basophils % 1.1 1.3 Absolute Neutrophils 6.5 6.0 Absolute Lymphocytes 1.3 1.3 Absolute Monocytes 0.9 0.9 Absolute Eosinophils 0.1 0.2 Absolute Basophils 0.1 0.1 Sodium 141.8 Potassium 3.6 Chloride 106 Carbon Dioxide 25 Anion Gap 11 BUN 10 Creatinine 0.65 Est GFR ( Amer) > 60 Est GFR (Non-Af Amer) > 60 Glucose 118 H Calcium 8.9 Total Bilirubin 0.6 AST 109 H ALT 39 Alkaline Phosphatase 170 H Total Protein 7.5 Albumin 3.4 L 03/28/18 04:27 WBC RBC Hgb Hct MCV MCH MCHC RDW Plt Count Seg Neutrophils % Lymphocytes % Monocytes % Eosinophils % Basophils % Absolute Neutrophils Absolute Lymphocytes Absolute Monocytes Absolute Eosinophils Absolute Basophils Sodium 144.7 Potassium 3.5 L Chloride 108 H Carbon Dioxide 24 Anion Gap 13 BUN 9 Creatinine 0.65 Est GFR ( Amer) > 60 Est GFR (Non-Af Amer) > 60 Glucose 109 Calcium 9.2 Total Bilirubin 0.7 AST 72 H ALT 36 Alkaline Phosphatase 178 H Total Protein 7.5 Albumin 3.3 L 03/13/18 03/13/18 03/13/18 15:00 15:00 20:39 Creatine Kinase 1112 H 866 H CK-MB (CK-2) 2.57 Troponin I 0.032 03/13/18 20:39 Creatine Kinase CK-MB (CK-2) 2.50 Troponin I 0.043 Impressions: Chest X-Ray 03/14/18 00:00 IMPRESSION: No acute infiltrates Right triple-lumen catheter tip in the right jugular vein. No pneumothorax. Lower Extremity MRI 03/24/18 00:00 IMPRESSION: Examination limited by significant patient motion artifact. Abnormal marrow signal seen within the proximal tibia correlates to posttraumatic changes demonstrated on comparison radiographs. Background of tricompartmental degenerative changes. Assessment & Plan - Diagnosis (1) Sepsis Qualifiers: Sepsis type: Pseudomonas Qualified Code(s): A41.52 - Sepsis due to Pseudomonas Is this a current diagnosis for this admission?: Yes (2) Sepsis due to gram-negative UTI Is this a current diagnosis for this admission?: Yes (3) Urinary tract infection Is this a current diagnosis for this admission?: Yes (4) Hypotension Is this a current diagnosis for this admission?: Yes (5) Acute kidney injury Is this a current diagnosis for this admission?: Yes (6) Metabolic encephalopathy Is this a current diagnosis for this admission?: Yes (7) Pseudomonas urinary tract infection Is this a current diagnosis for this admission?: Yes (8) Arthropathy of right knee Is this a current diagnosis for this admission?: Yes
[2018-03-29] MEDS: LEVETIRACETAM 500 MG/NACL-ISO 500 MG/100 ML RTUPB IV SCH ×2 (06:17→18:24)
[2018-03-29] MEDS: HEPARIN SOD (PORCINE) 5,000 UNIT/ML 1 ML SYRINGE SUBCUT SCH ×3 (06:17→22:19)
[2018-03-29] MEDS: HYDROCHLOROTHIAZIDE 25 MG TABLET PO SCH (09:48)
[2018-03-29] MEDS: CLOPIDOGREL BISULFATE 75 MG TABLET PO SCH (09:48)
[2018-03-29] MEDS: VALSARTAN 160 MG TABLET PO SCH (09:48)
--- NOTE | 2018-03-29 18:03 | PDOC PROGRESS REPORT ---
Subjective Progress Note for:: 03/29/18 Subjective:: Patient was seen by the bedside, is less confused today Reason For Visit: SEPSIS DUE TO PSEUDOMONAS, HYPOTENSION, MARICHUY Physical Exam Vital Signs: Temp Pulse Resp BP Pulse Ox 97.6 F 90 17 127/63 H 99 03/29/18 15:20 03/29/18 15:20 03/29/18 15:20 03/29/18 15:20 03/29/18 15:20 Intake & Output 03/28/18 03/29/18 03/30/18 06:59 06:59 06:59 Intake Total 1685 2645 Balance 1685 2645 Weight 64.9 kg 62.2 kg General appearance: PRESENT: no acute distress Eye exam: PRESENT: PERRLA Respiratory exam: PRESENT: clear to auscultation kane Cardiovascular exam: PRESENT: +S1, +S2 GI/Abdominal exam: PRESENT: soft Neurological exam: PRESENT: alert, CN II-XII grossly intact Results Laboratory Results: 03/28/18 04:27 03/28/18 04:27 03/13/18 03/13/18 03/13/18 15:00 15:00 20:39 Creatine Kinase 1112 H 866 H CK-MB (CK-2) 2.57 Troponin I 0.032 03/13/18 20:39 Creatine Kinase CK-MB (CK-2) 2.50 Troponin I 0.043 Impressions: Chest X-Ray 03/14/18 00:00 IMPRESSION: No acute infiltrates Right triple-lumen catheter tip in the right jugular vein. No pneumothorax. Lower Extremity MRI 03/24/18 00:00 IMPRESSION: Examination limited by significant patient motion artifact. Abnormal marrow signal seen within the proximal tibia correlates to posttraumatic changes demonstrated on comparison radiographs. Background of tricompartmental degenerative changes. Assessment & Plan - Diagnosis (1) Sepsis Qualifiers: Sepsis type: Pseudomonas Qualified Code(s): A41.52 - Sepsis due to Pseudomonas Is this a current diagnosis for this admission?: Yes (2) Sepsis due to gram-negative UTI Is this a current diagnosis for this admission?: Yes (3) Urinary tract infection Is this a current diagnosis for this admission?: Yes (4) Hypotension Is this a current diagnosis for this admission?: Yes (5) Acute kidney injury Is this a current diagnosis for this admission?: Yes (6) Metabolic encephalopathy Is this a current diagnosis for this admission?: Yes (7) Pseudomonas urinary tract infection Is this a current diagnosis for this admission?: Yes (8) Arthropathy of right knee Is this a current diagnosis for this admission?: Yes
[2018-03-30] MEDS: LEVETIRACETAM 500 MG/NACL-ISO 500 MG/100 ML RTUPB IV SCH ×2 (06:15→17:24)
[2018-03-30] MEDS: HEPARIN SOD (PORCINE) 5,000 UNIT/ML 1 ML SYRINGE SUBCUT SCH ×3 (06:16→22:03)
[2018-03-30] MEDS: CLOPIDOGREL BISULFATE 75 MG TABLET PO SCH (10:42)
[2018-03-30] MEDS: VALSARTAN 160 MG TABLET PO SCH (10:42)
[2018-03-30] MEDS: HYDROCHLOROTHIAZIDE 25 MG TABLET PO SCH (10:42)
[2018-03-30] MEDS: DEXTROSE 5%-1/2 NORMAL SALINE 1,000 ML IV PRN (17:25)
--- NOTE | 2018-03-30 19:27 | PDOC PROGRESS REPORT ---
Subjective Progress Note for:: 03/30/18 Subjective:: Patient is alert oriented very pleasant no more sepsis awaiting placement Reason For Visit: SEPSIS DUE TO PSEUDOMONAS, HYPOTENSION, MARICHUY Physical Exam Vital Signs: Temp Pulse Resp BP Pulse Ox 97.8 F 81 18 115/56 L 100 03/30/18 15:40 03/30/18 15:40 03/30/18 15:40 03/30/18 15:40 03/30/18 15:40 Intake & Output 03/29/18 03/30/18 03/31/18 06:59 06:59 06:59 Intake Total 2645 2563 100 Balance 2645 2563 100 Weight 62.2 kg 62.5 kg General appearance: PRESENT: no acute distress Eye exam: PRESENT: PERRLA Respiratory exam: PRESENT: clear to auscultation kane Cardiovascular exam: PRESENT: +S1, +S2 GI/Abdominal exam: PRESENT: soft Neurological exam: PRESENT: alert Results Laboratory Results: 03/28/18 04:27 03/28/18 04:27 03/13/18 03/13/18 03/13/18 15:00 15:00 20:39 Creatine Kinase 1112 H 866 H CK-MB (CK-2) 2.57 Troponin I 0.032 03/13/18 20:39 Creatine Kinase CK-MB (CK-2) 2.50 Troponin I 0.043 Impressions: Chest X-Ray 03/14/18 00:00 IMPRESSION: No acute infiltrates Right triple-lumen catheter tip in the right jugular vein. No pneumothorax. Lower Extremity MRI 03/24/18 00:00 IMPRESSION: Examination limited by significant patient motion artifact. Abnormal marrow signal seen within the proximal tibia correlates to posttraumatic changes demonstrated on comparison radiographs. Background of tricompartmental degenerative changes. Assessment & Plan - Diagnosis (1) Sepsis Qualifiers: Sepsis type: Pseudomonas Qualified Code(s): A41.52 - Sepsis due to Pseudomonas Is this a current diagnosis for this admission?: Yes (2) Sepsis due to gram-negative UTI Is this a current diagnosis for this admission?: Yes (3) Urinary tract infection Is this a current diagnosis for this admission?: Yes (4) Hypotension Is this a current diagnosis for this admission?: Yes (5) Acute kidney injury Is this a current diagnosis for this admission?: Yes (6) Metabolic encephalopathy Is this a current diagnosis for this admission?: Yes (7) Pseudomonas urinary tract infection Is this a current diagnosis for this admission?: Yes (8) Arthropathy of right knee Is this a current diagnosis for this admission?: Yes
[2018-03-31] MEDS: ACETAMINOPHEN 325 MG TABLET PO PRN ×2 (03:34→20:10)
[2018-03-31] MEDS: LEVETIRACETAM 500 MG/NACL-ISO 500 MG/100 ML RTUPB IV SCH ×2 (05:54→17:56)
[2018-03-31] MEDS: HEPARIN SOD (PORCINE) 5,000 UNIT/ML 1 ML SYRINGE SUBCUT SCH ×3 (05:54→21:54)
[2018-03-31] MEDS: CLOPIDOGREL BISULFATE 75 MG TABLET PO SCH (10:50)
[2018-03-31] MEDS: HYDROCHLOROTHIAZIDE 25 MG TABLET PO SCH (10:50)
[2018-03-31] MEDS: VALSARTAN 160 MG TABLET PO SCH (10:50)
[2018-03-31] MEDS: DEXTROSE 5%-1/2 NORMAL SALINE 1,000 ML IV PRN (11:00)
--- NOTE | 2018-03-31 13:42 | PDOC PROGRESS REPORT ---
Subjective Progress Note for:: 03/31/18 Subjective:: No new issues. Awaiting SNF placement. No reported difficulty with breathing, fever or chills. Tolerating oral feeding with assistance but continue poor po intake. Reason For Visit: SEPSIS DUE TO PSEUDOMONAS, HYPOTENSION, MARICHUY Physical Exam Vital Signs: Temp Pulse Resp BP Pulse Ox 97.9 F 78 24 H 162/72 H 100 03/31/18 11:50 03/31/18 11:50 03/31/18 11:50 03/31/18 11:50 03/31/18 11:50 Intake & Output 03/30/18 03/31/18 04/01/18 06:59 06:59 06:59 Intake Total 2563 1574 Balance 2563 1574 Weight 62.5 kg 62.2 kg General appearance: PRESENT: no acute distress Head exam: PRESENT: atraumatic, normocephalic Mouth exam: PRESENT: moist - fairly Respiratory exam: PRESENT: clear to auscultation kane Cardiovascular exam: PRESENT: RRR. ABSENT: diastolic murmur, rubs, systolic murmur Vascular exam: ABSENT: pallor GI/Abdominal exam: PRESENT: normal bowel sounds, soft. ABSENT: distended, guarding, mass, organolmegaly, rebound, tenderness Extremities exam: ABSENT: pedal edema Musculoskeletal exam: PRESENT: deformity - related to multiple joints involvemen with arthritis Neurological exam: PRESENT: alert, awake Psychiatric exam: ABSENT: agitated, anxious Skin exam: PRESENT: dry, warm, other - stasis changes to legs Results Laboratory Results: 03/28/18 04:27 03/28/18 04:27 03/13/18 03/13/18 03/13/18 15:00 15:00 20:39 Creatine Kinase 1112 H 866 H CK-MB (CK-2) 2.57 Troponin I 0.032 03/13/18 20:39 Creatine Kinase CK-MB (CK-2) 2.50 Troponin I 0.043 Impressions: Chest X-Ray 03/14/18 00:00 IMPRESSION: No acute infiltrates Right triple-lumen catheter tip in the right jugular vein. No pneumothorax. Lower Extremity MRI 03/24/18 00:00 IMPRESSION: Examination limited by significant patient motion artifact. Abnormal marrow signal seen within the proximal tibia correlates to posttraumatic changes demonstrated on comparison radiographs. Background of tricompartmental degenerative changes. Assessment & Plan - Diagnosis (1) Pseudomonas urinary tract infection Is this a current diagnosis for this admission?: Yes Plan: Improved. Awaiting SNF placement. (2) Metabolic encephalopathy Is this a current diagnosis for this admission?: Yes Plan: Resolved. (3) Hypertension Qualifiers: Hypertension type: essential hypertension Qualified Code(s): I10 - Essential (primary) hypertension Is this a current diagnosis for this admission?: Yes Plan: See covering attending physician orders. (4) Peripheral vascular disease Is this a current diagnosis for this admission?: Yes Plan: See covering attending physician orders. (5) Hypokalemia due to inadequate potassium intake Is this a current diagnosis for this admission?: Yes Plan: See covering attending physician orders. - Time Time Spent with patient: 25-34 minutes Medications reviewed and adjusted accordingly: Yes Anticipated discharge: SNF Within: Other - Inpatient Certification Based on my medical assessment, after consideration of the patient's comorbidities, presenting symptoms, or acuity I expect that the services needed warrant INPATIENT care.: Yes I certify that my determination is in accordance with my understanding of Medicare's requirements for reasonable and necessary INPATIENT services [42 CFR 412.3e].: Yes Medical Necessity: Need Close Monitoring Due to Risk of Patient Decompensation, Need For Continuous Telemetry Monitoring Post Hospital Care: D/C or Transfer Summary - Plan Summary Plan Summary: See covering attending physician orders.
[2018-04-01] MEDS: HALOPERIDOL LACTATE INJ 5 MG/1 ML VIAL IV PRN (01:02)
[2018-04-01] MEDS: HEPARIN SOD (PORCINE) 5,000 UNIT/ML 1 ML SYRINGE SUBCUT SCH ×3 (05:31→21:44)
[2018-04-01] MEDS: LEVETIRACETAM 500 MG/NACL-ISO 500 MG/100 ML RTUPB IV SCH ×2 (05:31→17:47)
[2018-04-01] MEDS: DEXTROSE 5%-1/2 NORMAL SALINE 1,000 ML IV PRN ×2 (05:31→21:44)
[2018-04-01 07:10] LABS: ABSOLUTE BASOPHILS # (AUTO) 0.1 10^3/uL (0.0-0.2); ABSOLUTE EOSINOPHILS # (AUTO) 0.2 10^3/uL (0.0-0.6); ABSOLUTE LYMPHOCYTES (AUTO) 1.6 10^3/uL (0.5-4.7); ABSOLUTE NEUT (AUTO) 6.5 10^3/uL (1.7-8.2); BASOPHILS % (AUTO) 1.1 % (0-2); HEMATOCRIT 32.9 % (37.9-51.0); LYMPHOCYTES % (AUTO) 16.9 % (13-45); MEAN CORPUSCULAR HEMOGLOBIN 30.1 pg (27.0-33.4); MEAN CORPUSCULAR HGB CONC 33.3 g/dL (32.0-36.0); MEAN CORPUSCULAR VOLUME 90 fl (80-97); MONOCYTES % (AUTO) 10.2 % (3-13); PLATELET COUNT 620 10^3/uL (150-450); RED BLOOD COUNT 3.64 10^6/uL (4.35-5.55); RED CELL DISTRIBUTION WIDTH 16.9 % (11.5-14.0); SEGMENTED NEUTROPHILS % (AUTO) 69.8 % (42-78); TOTAL CELLS COUNTED % (AUTO) 100 %; WHITE BLOOD COUNT 9.3 10^3/uL (4.0-10.5)
[2018-04-01 07:34] LABS: ANION GAP 13 (5-19); BLOOD UREA NITROGEN 15 mg/dL (7-20); CALCIUM 9.6 mg/dL (8.4-10.2); CARBON DIOXIDE 25 mmol/L (22-30); CHLORIDE 103 mmol/L (98-107); GLUCOSE 111 mg/dL (75-110); POTASSIUM 3.9 mmol/L (3.6-5.0); SODIUM 140.6 mmol/L (137-145)
[2018-04-01] MEDS: ACETAMINOPHEN 325 MG TABLET PO PRN (11:09)
[2018-04-01] MEDS: VALSARTAN 160 MG TABLET PO SCH (11:10)
[2018-04-01] MEDS: HYDROCHLOROTHIAZIDE 25 MG TABLET PO SCH (11:11)
[2018-04-01] MEDS: CLOPIDOGREL BISULFATE 75 MG TABLET PO SCH (11:11)
--- NOTE | 2018-04-01 16:43 | PDOC PROGRESS REPORT ---
Subjective Progress Note for:: 04/01/18 Subjective:: No reported difficulty with breathing, fever or chills. Tolerating oral feeding but intake quantity remain a challenge. Reason For Visit: SEPSIS DUE TO PSEUDOMONAS, HYPOTENSION, MARICHUY Physical Exam Vital Signs: Temp Pulse Resp BP Pulse Ox 97.9 F 77 18 93/46 L 99 04/01/18 15:46 04/01/18 15:46 04/01/18 15:46 04/01/18 15:46 04/01/18 15:46 Intake & Output 03/31/18 04/01/18 04/02/18 06:59 06:59 06:59 Intake Total 1574 2217 Balance 1574 2217 Weight 62.2 kg 64.1 kg Physical Exam: General appearance: PRESENT: no acute distress Head exam: PRESENT: atraumatic, normocephalic Mouth exam: PRESENT: moist - fairly Respiratory exam: PRESENT: clear to auscultation kane Cardiovascular exam: PRESENT: RRR. ABSENT: diastolic murmur, rubs, systolic murmur Vascular exam: ABSENT: pallor GI/Abdominal exam: PRESENT: normal bowel sounds, soft. ABSENT: distended, guarding, mass, organomegaly, rebound, tenderness Extremities exam: ABSENT: pedal edema Musculoskeletal exam: PRESENT: deformity - related to multiple joints involvement with arthritis Neurological exam: PRESENT: alert, awake Psychiatric exam: ABSENT: agitated, anxious Skin exam: PRESENT: dry, warm, other - stasis changes to legs Results Laboratory Results: 04/01/18 06:15 04/01/18 06:15 04/01/18 04/01/18 06:15 06:15 WBC 9.3 RBC 3.64 L Hgb 11.0 L Hct 32.9 L MCV 90 MCH 30.1 MCHC 33.3 RDW 16.9 H Plt Count 620 H Seg Neutrophils % 69.8 Lymphocytes % 16.9 Monocytes % 10.2 Eosinophils % 2.0 Basophils % 1.1 Absolute Neutrophils 6.5 Absolute Lymphocytes 1.6 Absolute Monocytes 1.0 Absolute Eosinophils 0.2 Absolute Basophils 0.1 Sodium 140.6 Potassium 3.9 Chloride 103 Carbon Dioxide 25 Anion Gap 13 BUN 15 Creatinine 0.73 Est GFR ( Amer) > 60 Est GFR (Non-Af Amer) > 60 Glucose 111 H Calcium 9.6 Magnesium 2.0 07/11/2603/13/18 03/13/18 15:00 15:00 20:39 Creatine Kinase 1112 H 866 H CK-MB (CK-2) 2.57 Troponin I 0.032 03/13/18 20:39 Creatine Kinase CK-MB (CK-2) 2.50 Troponin I 0.043 Impressions: Chest X-Ray 03/14/18 00:00 IMPRESSION: No acute infiltrates Right triple-lumen catheter tip in the right jugular vein. No pneumothorax. Lower Extremity MRI 03/24/18 00:00 IMPRESSION: Examination limited by significant patient motion artifact. Abnormal marrow signal seen within the proximal tibia correlates to posttraumatic changes demonstrated on comparison radiographs. Background of tricompartmental degenerative changes. Assessment & Plan - Diagnosis (1) Pseudomonas urinary tract infection Is this a current diagnosis for this admission?: Yes (2) Metabolic encephalopathy Is this a current diagnosis for this admission?: Yes (3) Hypertension Qualifiers: Hypertension type: essential hypertension Qualified Code(s): I10 - Essential (primary) hypertension Is this a current diagnosis for this admission?: Yes (4) Peripheral vascular disease Is this a current diagnosis for this admission?: Yes (5) Hypokalemia due to inadequate potassium intake Is this a current diagnosis for this admission?: Yes - Time Time Spent with patient: 25-34 minutes Medications reviewed and adjusted accordingly: Yes Anticipated discharge: SNF Within: Other - Inpatient Certification Based on my medical assessment, after consideration of the patient's comorbidities, presenting symptoms, or acuity I expect that the services needed warrant INPATIENT care.: Yes I certify that my determination is in accordance with my understanding of Medicare's requirements for reasonable and necessary INPATIENT services [42 CFR 412.3e].: Yes Medical Necessity: Need Close Monitoring Due to Risk of Patient Decompensation, Need For IV Fluids, Risk of Complication if Not Cared For in Hospital Post Hospital Care: D/C or Transfer Summary - Plan Summary Plan Summary: See covering attending physician orders.
[2018-04-02] MEDS: LEVETIRACETAM 500 MG/NACL-ISO 500 MG/100 ML RTUPB IV SCH ×2 (05:36→17:36)
[2018-04-02] MEDS: HEPARIN SOD (PORCINE) 5,000 UNIT/ML 1 ML SYRINGE SUBCUT SCH ×3 (05:36→21:33)
[2018-04-02] MEDS: HYDROCHLOROTHIAZIDE 25 MG TABLET PO SCH (09:42)
[2018-04-02] MEDS: VALSARTAN 160 MG TABLET PO SCH (09:42)
[2018-04-02] MEDS: CLOPIDOGREL BISULFATE 75 MG TABLET PO SCH (09:42)
[2018-04-02] MEDS: DEXTROSE 5%-1/2 NORMAL SALINE 1,000 ML IV PRN (12:09)
[2018-04-02] MEDS: HALOPERIDOL LACTATE INJ 5 MG/1 ML VIAL IV PRN (23:48)
[2018-04-03] MEDS: DEXTROSE 5%-1/2 NORMAL SALINE 1,000 ML IV PRN ×2 (02:03→16:34)
[2018-04-03] MEDS: HEPARIN SOD (PORCINE) 5,000 UNIT/ML 1 ML SYRINGE SUBCUT SCH ×2 (05:48→13:50)
[2018-04-03] MEDS: LEVETIRACETAM 500 MG/NACL-ISO 500 MG/100 ML RTUPB IV SCH ×2 (05:48→17:04)
[2018-04-03] MEDS: CLOPIDOGREL BISULFATE 75 MG TABLET PO SCH (09:13)
[2018-04-03] MEDS: VALSARTAN 160 MG TABLET PO SCH (09:14)
[2018-04-03] MEDS: HYDROCHLOROTHIAZIDE 25 MG TABLET PO SCH (09:15)
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
--- NOTE | 2018-04-03 20:23 | PDOC PROGRESS REPORT ---
Subjective Progress Note for:: 04/02/18 Subjective:: Patient was seen by the bedside, no new complaints, is stable awaiting placement Reason For Visit: SEPSIS DUE TO PSEUDOMONAS, HYPOTENSION, MARICHUY Physical Exam Vital Signs: Temp Pulse Resp BP Pulse Ox 97.2 F 81 18 144/65 H 98 04/03/18 15:14 04/03/18 19:00 04/03/18 15:14 04/03/18 15:14 04/03/18 15:14 Intake & Output 04/02/18 04/03/18 04/04/18 06:59 06:59 06:59 Intake Total 2480 4061 2217 Balance 2480 4061 2217 Weight 62.5 kg 63.3 kg General appearance: PRESENT: no acute distress Eye exam: PRESENT: PERRLA Respiratory exam: PRESENT: clear to auscultation kane Cardiovascular exam: PRESENT: +S1, +S2 GI/Abdominal exam: PRESENT: soft Neurological exam: PRESENT: alert Results Laboratory Results: 04/01/18 06:15 04/01/18 06:15 03/13/18 03/13/18 03/13/18 15:00 15:00 20:39 Creatine Kinase 1112 H 866 H CK-MB (CK-2) 2.57 Troponin I 0.032 03/13/18 20:39 Creatine Kinase CK-MB (CK-2) 2.50 Troponin I 0.043 Impressions: Chest X-Ray 03/14/18 00:00 IMPRESSION: No acute infiltrates Right triple-lumen catheter tip in the right jugular vein. No pneumothorax. Lower Extremity MRI 03/24/18 00:00 IMPRESSION: Examination limited by significant patient motion artifact. Abnormal marrow signal seen within the proximal tibia correlates to posttraumatic changes demonstrated on comparison radiographs. Background of tricompartmental degenerative changes. Assessment & Plan - Diagnosis (1) Sepsis Qualifiers: Sepsis type: Pseudomonas Qualified Code(s): A41.52 - Sepsis due to Pseudomonas Is this a current diagnosis for this admission?: Yes (2) Sepsis due to gram-negative UTI Is this a current diagnosis for this admission?: Yes (3) Urinary tract infection Is this a current diagnosis for this admission?: Yes (4) Hypotension Is this a current diagnosis for this admission?: Yes (5) Acute kidney injury Is this a current diagnosis for this admission?: Yes (6) Metabolic encephalopathy Is this a current diagnosis for this admission?: Yes (7) Pseudomonas urinary tract infection Is this a current diagnosis for this admission?: Yes (8) Arthropathy of right knee Is this a current diagnosis for this admission?: Yes
[2018-04-04] MEDS: HEPARIN SOD (PORCINE) 5,000 UNIT/ML 1 ML SYRINGE SUBCUT SCH ×3 (02:22→13:39)
[2018-04-04] MEDS: ACETAMINOPHEN 325 MG TABLET PO PRN (03:19)
[2018-04-04] MEDS: LEVETIRACETAM 500 MG/NACL-ISO 500 MG/100 ML RTUPB IV SCH ×2 (05:52→17:15)
[2018-04-04] MEDS: DEXTROSE 5%-1/2 NORMAL SALINE 1,000 ML IV PRN (05:56)
[2018-04-04] MEDS: CLOPIDOGREL BISULFATE 75 MG TABLET PO SCH (09:10)
[2018-04-04] MEDS: HYDROCHLOROTHIAZIDE 25 MG TABLET PO SCH (09:11)
[2018-04-04] MEDS: VALSARTAN 160 MG TABLET PO SCH (09:11)
[2018-04-04 15:37] VITALS: BP 138/61
== END 2018-04-04 18:59 | DRG 871 ==
LOC: ER 01:32 → EH 05:52 → 4W 11:09 → 4N 14:59
PROVIDERS: ADMIT Internal Medicine; ATTEND Internal Medicine
PROC: 05HM33Z Insertion of Infusion Device into Right Internal Jugular Vein, Percutaneous Approach (ICD-10-PCS; principal; 2018-03-14)
PROC: 02HV33Z Insertion of Infusion Device into Superior Vena Cava, Percutaneous Approach (ICD-10-PCS; 2018-03-14)
PROC: 30233N1 Transfusion of Nonautologous Red Blood Cells into Peripheral Vein, Percutaneous Approach (ICD-10-PCS; 2018-03-15)
DX: A41.81 Sepsis due to Enterococcus (principal); G93.41 Metabolic encephalopathy; R65.21 Severe sepsis with septic shock; N39.0 Urinary tract infection, site not specified; N17.9 Acute kidney failure, unspecified; F01.51 Vascular dementia, unspecified severity, with behavioral disturbance; I69.319 Unspecified symptoms and signs involving cognitive functions following cerebral infarction; A41.52 Sepsis due to Pseudomonas; B96.5 Pseudomonas (aeruginosa) (mallei) (pseudomallei) as the cause of diseases classified elsewhere; E78.5 Hyperlipidemia, unspecified; I73.9 Peripheral vascular disease, unspecified; I10 Essential (primary) hypertension; M19.90 Unspecified osteoarthritis, unspecified site; M17.11 Unilateral primary osteoarthritis, right knee; K21.9 Gastro-esophageal reflux disease without esophagitis; Z16.29 Resistance to other single specified antibiotic; G40.909 Epilepsy, unspecified, not intractable, without status epilepticus; R41.0 Disorientation, unspecified; D64.9 Anemia, unspecified; K59.00 Constipation, unspecified; Z79.899 Other long term (current) drug therapy; Z87.891 Personal history of nicotine dependence; Z82.49 Family history of ischemic heart disease and other diseases of the circulatory system; Z88.8 Allergy status to other drugs, medicaments and biological substances; Z74.01 Bed confinement status; Z75.1 Person awaiting admission to adequate facility elsewhere; Z85.46 Personal history of malignant neoplasm of prostate
CPT/HCPCS: 36415; 36430; 36600; 51701; 71045; 80048; 80053; 80061; 80076; 81001; 82140; 82150; 82550; 82553; 82803; 83036; 83605; 83690; 83735; 83880; 84100; 84439; 84443; 84484; 85025; 85610; 85730; 86850; 86900; 86901; 86920; 87040; 87077; 87086; 87088; 87186; 93005; 93010; 96365; 99285; C1751; J0290; J1200; J1335; J1630; J1642; J1644; J1953; J2543; J3370; J3490; J7030; P9016